=== PATIENT | female | born 2005 | race Caucasian/White ===

== ENCOUNTER 2023-03-02 08:04 | Outpatient (OUT) | payer OTHER, SELFPAY ==
--- NOTE | 2023-03-02 08:05 | US_ITS ---
[address] [address] Patient Name: SAMANTHA BLANCHARD MRN: [id number] date: 2005 Sex: F Assigned Patient Location: Current Patient Location: Accession/Order Number: [id number] Exam Date: 03/02/2023 08:06 Report Date: 03/03/2023 07:17 At the request of: RAÚL MONDRAGON Procedure: US OB cervical length EXAMINATION: US OB <= 14 weeks fetus, US OB cervical length HISTORY: MISSED MENSES VIABILITY COMPARISON: No relevant comparison available. FINDINGS: Renae intrauterine gestation Gestational sac: 5.9 cm, 12 weeks 0 days CRL: 6.5 cm, 12 weeks 6 days Heart rate: 140 beats minute The uterus is normal, anteverted Cervix: Closed, 4.2 cm The right ovary is normal measuring 2.7 x 0.9 x 2.2 cm. The left ovary is normal measuring 2.8 x 1.8 x 3.3 cm. Clinical age: 11 weeks 1 day Clinical KARON: 09/20/2023 Ultrasound age: 12 weeks 6 days Ultrasound KARON: 09/08/2023 US/US OB cervical length IMPRESSION: Viable renae intrauterine gestation measuring 12 weeks 6 days Electronically authenticated by: KELLY WALLACE Date: 03/03/2023 07:17
--- NOTE | 2023-03-02 09:50 | US_ITS ---
[address] [address] Patient Name: SAMANTHA BLANCHARD MRN: [id number] date: 2005 Sex: F Assigned Patient Location: US Current Patient Location: Accession/Order Number: [id number] Exam Date: 03/02/2023 08:06 Report Date: 03/03/2023 07:17 At the request of: RAÚL MONDRAGON Procedure: US OB <= 14 weeks fetus EXAMINATION: US OB <= 14 weeks fetus, US OB cervical length HISTORY: MISSED MENSES VIABILITY COMPARISON: No relevant comparison available. FINDINGS: Renae intrauterine gestation Gestational sac: 5.9 cm, 12 weeks 0 days CRL: 6.5 cm, 12 weeks 6 days Heart rate: 140 beats minute The uterus is normal, anteverted Cervix: Closed, 4.2 cm The right ovary is normal measuring 2.7 x 0.9 x 2.2 cm. The left ovary is normal measuring 2.8 x 1.8 x 3.3 cm. Clinical age: 11 weeks 1 day Clinical KARON: 09/20/2023 Ultrasound age: 12 weeks 6 days Ultrasound KARON: 09/08/2023 US/US OB <= 14 weeks fetus IMPRESSION: Viable renae intrauterine gestation measuring 12 weeks 6 days Electronically authenticated by: KELLY WALLACE Date: 03/03/2023 07:17
== END 2023-03-02 08:05 | disposition home or self-care (01) ==
LOC: US 08:04
PROVIDERS: Visit Provider Obstetrics & Gynecology
DX: Z34.91 Encounter for supervision of normal pregnancy, unspecified, first trimester (principal); N91.2 Amenorrhea, unspecified
CPT/HCPCS: 36415; 76801; 76817; 83036; 84443; 85025; 86592; 86762; 86803; 86850; 86900; 86901; 87086; 87150; 87186; 87340; 87389

== ENCOUNTER 2023-03-02 10:17 | Outpatient (OUT) | payer OTHER, SELFPAY ==
[2023-03-02 10:56] LABS: Estimated Average Glucose 108 mg/dL; Glycohemoglobin A1C 5.4 % (4.5-6.2)
[2023-03-02 11:02] LABS: Basophils Percent Auto 0.6 % (0.2-2.0); Eosinophils Percent Auto 0.6 % (0.9-7.0); Hematocrit 38.6 % (36.0-48.0); Hemoglobin 12.2 g/dL (12.0-16.0); Immature Granulocytes Abs Auto 0.02 10^3/uL (0.00-0.03); Immature Granulocytes Pct Auto 0.3 % (0.0-0.5); Lymphocytes Absolute Auto 3.1 10^3/uL (1.2-3.8); Mean Corpuscular HGB Conc 31.6 g/dL (29.9-35.2); Mean Corpuscular Hemoglobin 27.2 pg (26.7-34.0); Mean Platelet Volume 8.6 fL (9.5-13.5); Monocytes Absolute Auto 0.3 10^3/uL (0.3-0.8); Monocytes Percent Auto 4.9 % (1.7-12.0); Neutrophils Absolute Auto 2.8 10^3/uL (1.4-6.5); Neutrophils Percent Auto 44.6 % (43.0-75.0); Platelet Count 267 10^3/uL (150-450); Red Blood Count 4.49 10^6/uL (4.20-5.40); Red Cell Distribution Width 12.7 % (11.0-15.0); White Blood Count 6.3 10^3/uL (4.0-11.0)
[2023-03-02 11:08] LABS: Thyroid Stimulating Hormone 0.874 uIU/mL (0.516-4.130)
[2023-03-03 06:09] LABS: HBsAg Screen Negative (Negative); HCV Ab Non Reactive (Non Reactive); HIV Ab/p24 Ag Screen Non Reactive (Non Reactive); Rubella Antibodies, IgG 4.88 index (Immune >0.99)
[2023-03-03 12:09] LABS: Rapid Plasma Reagin, Quant Non Reactive titer (NonRea<1:1)
== END 2023-03-02 10:18 | disposition home or self-care (01) ==
LOC: LAB 10:19
PROVIDERS: Visit Provider Obstetrics & Gynecology
DX: N91.2 Amenorrhea, unspecified (principal)
CPT/HCPCS: 36415; 83036; 84443; 85025; 86592; 86762; 86803; 86850; 86900; 86901; 87086; 87150; 87186; 87340; 87389

== ENCOUNTER 2023-03-09 15:03 | Outpatient (OUT) | payer OTHER, SELFPAY | END 2023-03-09 15:04 | disposition home or self-care (01) | LOC: LAB 15:04 | PROVIDERS: Visit Provider Obstetrics & Gynecology | DX: Z34.80 Encounter for supervision of other normal pregnancy, unspecified trimester (principal); Z31.430 Encounter of female for testing for genetic disease carrier status for procreative management | CPT/HCPCS: 36415 ==

== ENCOUNTER 2023-03-31 10:03 | Outpatient (OUT) | payer OTHER, SELFPAY ==
[2023-04-02 01:06] LABS: AFP Value 26.5 ng/mL (.); Gestat. Age Based On Ultrasound (.); Insulin Dep Diabetes No (.); Maternal Age At EDD 19.9 yr (.); OSBR Risk 1 IN 10000 (.); Results Report (.)
== END 2023-03-31 10:04 | disposition home or self-care (01) ==
LOC: LAB 10:04
PROVIDERS: Visit Provider Obstetrics & Gynecology
DX: Z34.92 Encounter for supervision of normal pregnancy, unspecified, second trimester (principal)
CPT/HCPCS: 36415; 82105

== ENCOUNTER 2023-04-21 11:31 | Outpatient (OUT) | payer OTHER, SELFPAY ==
--- NOTE | 2023-04-21 11:33 | US_ITS ---
[address] [address] Patient Name: SAMANTHA BLANCHARD MRN: [id number] date: 2005 Sex: F Assigned Patient Location: US Current Patient Location: US Accession/Order Number: [id number] Exam Date: 04/21/2023 11:34 Report Date: 04/21/2023 16:50 At the request of: RAÚL MONDRAGON Procedure: US OB cervical length EXAMINATION: US OB anatomy, US OB cervical length HISTORY: ANATOMY COMPARISON: No relevant comparison available. TECHNIQUE: Transabdominal sonographic examination was performed for obstetrical and evaluation. FINDINGS: Number: 1 Heart Rate: 141.0 bpm H.B. /min Amniotic Fluid Volume: Subjectively normal position: Cephalic presentation, longitudinal lie Placental Location: POSTERIOR , grade 0. Placental edge 6.0 cm from the internal os Cervix Length: 4.6 cm, closed Normal anatomy: Lateral ventricles, cerebellum, posterior fossa, nose, lips, orbits, four-chamber heart, RVOT, LVOT, diaphragm, stomach, kidneys, abdominal cord insertion, bladder, umbilical arteries, three-vessel cord, spine, extremities Abnormality: Echogenic cardiac focus BIOMETRY: BPD: 4.7 cm 20 weeks 2 days , 64% HC: 17.5 cm 20 weeks 0 days, 41% AC: 14.5 cm 19 weeks 6 days, 38% FL: 3.3 cm 20 weeks 2 days , 54% EFW:329.5 grams; 12 ounces, 49% FL/AC: 22.7 FL/BPD: 69.6 HC/AC: 1.2 GESTATIONAL AGE: Age by EDC: 20 weeks 0 days Age by current US: 20 weeks 1 days KARON by current US: 09/07/2023 KARON by EDC: 09/08/2023 US/US OB cervical length IMPRESSION: Single echogenic cardiac focus, nonspecific Otherwise normal anatomy scan *Reference: [facility] Practice Guideline for the performance of Obstetric Ultrasound Examinations, March 21, 2007. Electronically authenticated by: KELLY WALLACE Date: 04/21/2023 16:50
--- NOTE | 2023-04-21 11:33 | US_ITS ---
[address] [address] Patient Name: SAMANTHA BLANCHARD MRN: [id number] date: 2005 Sex: F Assigned Patient Location: US Current Patient Location: US Accession/Order Number: [id number] Exam Date: 04/21/2023 11:34 Report Date: 04/21/2023 16:50 At the request of: RAÚL MONDRAGON Procedure: US OB anatomy EXAMINATION: US OB anatomy, US OB cervical length HISTORY: ANATOMY COMPARISON: No relevant comparison available. TECHNIQUE: Transabdominal sonographic examination was performed for obstetrical and evaluation. FINDINGS: Number: 1 Heart Rate: 141.0 bpm H.B. /min Amniotic Fluid Volume: Subjectively normal position: Cephalic presentation, longitudinal lie Placental Location: POSTERIOR , grade 0. Placental edge 6.0 cm from the internal os Cervix Length: 4.6 cm, closed Normal anatomy: Lateral ventricles, cerebellum, posterior fossa, nose, lips, orbits, four-chamber heart, RVOT, LVOT, diaphragm, stomach, kidneys, abdominal cord insertion, bladder, umbilical arteries, three-vessel cord, spine, extremities Abnormality: Echogenic cardiac focus BIOMETRY: BPD: 4.7 cm 20 weeks 2 days , 64% HC: 17.5 cm 20 weeks 0 days, 41% AC: 14.5 cm 19 weeks 6 days, 38% FL: 3.3 cm 20 weeks 2 days , 54% EFW:329.5 grams; 12 ounces, 49% FL/AC: 22.7 FL/BPD: 69.6 HC/AC: 1.2 GESTATIONAL AGE: Age by EDC: 20 weeks 0 days Age by current US: 20 weeks 1 days KARON by current US: 09/07/2023 KARON by EDC: 09/08/2023 US/US OB anatomy IMPRESSION: Single echogenic cardiac focus, nonspecific Otherwise normal anatomy scan *Reference: [facility] Practice Guideline for the performance of Obstetric Ultrasound Examinations, March 21, 2007. Electronically authenticated by: KELLY WALLACE Date: 04/21/2023 16:50
== END 2023-04-21 11:32 | disposition home or self-care (01) ==
LOC: US 11:32
PROVIDERS: Visit Provider Obstetrics & Gynecology
DX: Z34.92 Encounter for supervision of normal pregnancy, unspecified, second trimester (principal)
CPT/HCPCS: 76805; 76817

== ENCOUNTER 2023-05-20 09:22 | Outpatient (OUT) | payer OTHER, SELFPAY ==
--- NOTE | 2023-05-20 09:24 | US_ITS ---
The [address] [address] Patient Name: SAMANTHA BLANCHARD MRN: [id number] date: 2005 Sex: F Assigned Patient Location: US Current Patient Location: US Accession/Order Number: [id number] Exam Date: 05/20/2023 09:25 Report Date: 05/20/2023 15:15 At the request of: RAÚL MONDRAGON Procedure: US OB follow up EXAMINATION: US OB follow up HISTORY: ECHOGENIC FOCI in left cardiac ventricle; follow-up COMPARISON: Ultrasound OB anatomy 04/21/2023 FINDINGS: Presentation: Cephalic Heart rate: 134 bpm Anatomy: Echogenic focus within left ventricle of heart is again noted. GA: 24 weeks 1 day KARON: 09/08/2023 US/US OB follow up IMPRESSION: 1. Single live intrauterine . 2. Persistent echogenic focus within left cardiac ventricle; nonspecific but can be associated with the trisomy syndromes. Electronically authenticated by: JIL HAWTHORNE Date: 05/20/2023 15:15
== END 2023-05-20 09:23 | disposition home or self-care (01) ==
LOC: US 09:22
PROVIDERS: Visit Provider Obstetrics & Gynecology
DX: Z36.2 Encounter for other antenatal screening follow-up (principal); Z3A.24 24 weeks gestation of pregnancy
CPT/HCPCS: 76816

== ENCOUNTER 2023-05-21 09:52 | Outpatient (OUT) | payer OTHER, SELFPAY ==
[2023-05-21 11:44] LABS: Glucose 1 Hour 79 mg/dL
== END 2023-05-21 09:53 | disposition home or self-care (01) ==
LOC: LAB 09:54
PROVIDERS: Visit Provider Obstetrics & Gynecology
DX: Z13.1 Encounter for screening for diabetes mellitus (principal)
CPT/HCPCS: 36415; 82950

== ENCOUNTER 2023-06-17 11:02 | Outpatient (OUT) | payer OTHER, SELFPAY ==
--- NOTE | 2023-06-17 11:07 | US_ITS ---
[address] [address] Patient Name: SAMANTHA BLANCHARD MRN: [id number] date: 2005 Sex: F Assigned Patient Location: US Current Patient Location: US Accession/Order Number: [id number] Exam Date: 06/17/2023 11:08 Report Date: 06/17/2023 15:43 At the request of: RAÚL MONDRAGON Procedure: US OB follow up EXAMINATION: US OB follow up HISTORY: Echogenic focus of heart of fetus [id number] COMPARISON: Ultrasound OB follow-up 05/20/2023, ultrasound OB anatomy 04/21/2023 FINDINGS: Presentation: Cephalic Heart rate: 148 bpm Anatomy: 3 mm echogenic focus within left cardiac ventricle. GA: 28 weeks 1 day KARON: 09/08/2023 US/US OB follow up IMPRESSION: 1. Single live intrauterine . 2. Persistent echogenic focus within left cardiac ventricle. Electronically authenticated by: JIL HAWTHORNE Date: 06/17/2023 15:43
--- OUTSIDE RECORDS SUMMARY | 2023-06-17 11:09 | XMS_ITS | CCD ---
Author Name Unknown Address [address] [place] [address] [id number] [place] [address] Organization [facility] Care Team Providers Care Analytical Research Program Manager Name Role Phone [facility] [place] Unavailable DR MANUEL GALLEGOS Attending Unavailable DR MANUEL GALLEGOS Consulting Unavailable DR MANUEL GALLEGOS Admitting Unavailable Ellen Ortiz Unavailable SHAD Edward Emergency Provider [phone] NON STAFF Primary Care Provider Unavailabl e NON STAFF Primary Care Unavailable Toi Edward Attending Unavailable Toi Edward Admitting Unavailable RAÚL MONDRAGON Attending Unavailable Allergies Allergy Classification Reported Allergen(s) Allergy Type Date of Onset Reaction(s) Facility (1 source) Adhesive Tape Drug allergy [facility] Other (1 source) Penicillin G Drug Allergy [facility] Other (2 sources) Adhesive Tape; Translations: [adhesive tape] Propensity to adverse reactions [address] [place] [address] (2 sources) Penicillins; Translations: [Penicillins] Allergy to substance [address] [place] [address] Medications Current Medications Medication Drug Class(es) Dates Sig (Normalized) Sig (Original) clindamycin 150 mg oral capsule (1 source) Lincosamide Antibacterial Start: 02-15-2023 take 450 mg by mouth three times daily Clindamycin Hcl Active 450 MG PO Three times daily 90 February 15, 2023 12:00am methylPREDNISolone 4 mg oral tablet (1 source) Corticosteroid Start: 02-11-2023 Medrol 4 MG as directed Orally As Directed for 6 days Jan, Active ondansetron 4 mg oral tablet (2 sources) Serotonin-3 Receptor Antagonist take 1 tablet by mouth every four to six hours as needed for nausea and vomiting Ondansetron 4 MG DISSOLVE 1 (ONE) TABLET ON THE TONGUE EVERY 4 TO 6 HOURS NEEDED FOR NAUSEA and FOR VOMITING Oral for 3 Days Not-Taking take 1 tablet by mouth once lilliana y Zofran 4 MG 1 tablet Orally Once a day Active Vitamin 27-0.8 MG (1 source) take 1 tablet by julien th once daily Vitamin 27-0.8 MG 1 tablet Orally Once a day Active Completed/Discontinued Medications Medication Drug Class(es) Dates Sig (Normalized) Sig (Original) citalopram 10 mg oral tablet (1 source) Serotonin Reuptake Inhibitor take 1 tablet by mouth once daily Citalopram Hydrobromide 10 MG TAKE 1 TABLET BY MOUTH DAILY Oral for 30 Days Not-Taking famotidine 20 mg oral tablet (1 source) Histamine-2 Receptor Antagonist Famotidine 20 MG Oral for 14 Days Not-Taking fosfomycin 3000 mg powder for oral solution (1 source) take 3 g by mouth once Fosfomycin Tromethamine 3 GM mix 3 (THREE) GRAM DIRECTED and take BY MOUTH one TIME Oral for 1 Days Not-Taking hydrOXYzine hydrochloride 10 mg oral tablet (1 source) Antihistamine hydrOXYzine HCl 10 MG Oral for 15 Days Not-Taking loratadine 10 mg oral tablet (1 source) Loratadine 10 MG Oral for 30 Days Not-Taking predniSONE 20 mg oral tablet (1 source) predniSONE 20 MG Oral for 5 Days Not-Taking Problems Problem Classification Problem Date Documented Da te Episodic/Chronic Acute and chronic tonsillitis (4 sources) Acute tonsillitis, unspecified; Translations: [ACUTE TONSILLITIS UNSPECIFIED] Onset: 03-02-2022 Episodic Other eye disorders (1 source) Edema of unspecified eye, unspecified eyelid Episodic Other upper respiratory infections (2 sources) Pharyngitis; Translations: [Acute pharyngitis, unspecified] Onset: 02-14-2023 02-15-2023 Episodic Results Test Name Value Interpretation Reference Range Facility Alanine aminotransferase [En zymatic activity/volume] in Serum or PlasmaOrdered By: Toi Edward on 02-14-2023 ALT [Catalytic activity/Vol] 41 U/L 7-52 [facility] Albumin [Mass/volume] in Ser um or Plasma by Bromocresol green (BCG) dye binding methoOrdered By: Toi Edward on 02-14-2023 Albumin BCG dye [Mass/Vol] 4.1 g/dL 3.5-5.7 [facility] Alkaline phosphatase [Enzyma tic activity/volume] in Serum or PlasmaOrdered By: Toi Edward on 02-14-2023 ALP [Catalytic activity/Vol] 158 U/L 34-104 [facility] Aspartate aminotransferase [ Enzymatic activity/volume] in Serum or PlasmaOrdered By: Toi Edward on 02-14-2023 AST [Catalytic activity/Vol] 44 U/L 13-39 [facility] Basophils Auto (Bld) [#/Vol] Ordered By: Toi Edward on 02-14-2023 Basophils (Bld) [#/Vol] 0.1 10*3/uL 0.0-0.2 [facility] Basophils/100 WBC Auto (Bld) Ordered By: Toi Edward on 02-14-2023 Basophils/100 WBC (Bld) 0.5 % . F [facility] Bilirubin.total [Mass/volume ] in Serum or PlasmaOrdered By: Toi Edward on 02-14-2023 Bilirubin [Mass/Vol] 0.8 mg/dL 0.3-1.0 [facility] C reactive protein [Mass/vol ume] in Serum or PlasmaOrdered By: Toi Edward on 02-14-2023 CRP [Mass/Vol] 1.8 mg/dL 0.0-0.5 [facility] C-Reactive Proteinon 023 C-Reactive Protein 1.8 mg/dL High 0.0-0.5 [facility] Comment on above: Result Comment: PERF ORMED BY: [place] [address] PATHOLOGIST [employer] OPERATOR VEENA DYSON M.D. Performed By: #### S CAN CBC, ESR, CMP, CRP #### [address] Calcium [Mass/volume] in Ser um or PlasmaOrdered By: Toi Edward on 02-14-2023 Calcium [Mass/Vol] 9.4 mg/dL 8.6-10.3 [facility] Carbon dioxide, total [Moles /volume] in Serum or PlasmaOrdered By: Toi Edward on 02-14-2023 CO2 [Moles/Vol] 24.8 mmol/L 21.0-31.[address] [facility] Chloride [Moles/volume] in S cass or PlasmaOrdered By: Toi Edward on 02-14-2023 Chloride [Moles/Vol] 100 mmol/L 98-107 [facility] Comprehensive Metabolic Pane valentín 02-14-2023 Albumin [Mass/Vol] 4.1 g/dL Normal 3.5-5.7 [facility] Comment on above: Performed By: #### S CAN CBC, ESR, CMP, CRP #### [facility] [address] Albumin/Globulin [Mass ratio] 1.2 {ratio} Normal [facility] Comment on above: Performed By: #### S CAN CBC, ESR, CMP, CRP #### [facility] [address] ALP [Catalytic activity/Vol] 158 U/L High 34-104 [facility] Comment on above: Performed By: #### S CAN CBC, ESR, CMP, CRP #### [facility] [address] ALT [Catalytic activity/Vol] 41 U/L Normal 7-52 [facility] Comment on above: Performed By: #### S CAN CBC, ESR, CMP, CRP #### [facility] [address] Anion gap [Moles/Vol] 13.2 mmol/L Normal 6.0-15.0 [facility] Comment on above: Performed By: #### S CAN CBC, ESR, CMP, CRP #### [facility] [address] AST [Catalytic activity/Vol] 44 U/L High 13-39 [facility] Comment on above: Performed By: #### S CAN CBC, ESR, CMP, CRP #### [facility] [address] [place] [address] [place] Bilirubin [Mass/Vol] 0.8 mg/dL Normal 0.3-1.0 [facility] Comment on above: Performed By: #### S CAN CBC, ESR, CMP, CRP #### [facility] [address] Calcium [Mass/Vol] 9.4 mg/dL Normal 8.6-10.3 [facility] Comment on above: Performed By: #### S CAN CBC, ESR, CMP, CRP #### [facility] [address] Chloride [Moles/Vol] 100 mmol/L Normal 98-107 [facility] Comment on above: Performed By: #### S CAN CBC, ESR, CMP, CRP #### [facility] [address] CO2 [Moles/Vol] 24.8 mmol/L Normal 21.0-31.[address] [facility] Comment on above: Performed By: #### S CAN CBC, ESR, CMP, CRP #### [facility] [address] Creatinine [Mass/Vol] 0.77 mg/dL Normal 0.60-1.20 [facility] Comment on above: Performed By: #### S CAN CBC, ESR, CMP, CRP #### [facility] [address] Creatinine Clr Calc Pharmacy 115.98 [facility] Comment on above: Performed By: #### S CAN CBC, ESR, CMP, CRP #### [facility] [address] [place] [address] [place] GFR/1.73 sq M.predicted MDRD (S/P/Bld) [Vol rate/Area] mL/min/{1.73_m2} [facility] Comment on above: Performed By: #### S CAN CBC, ESR, CMP, CRP #### [facility] [address] Globulin (S) [Mass/Vol] 3.5 g/dL Normal [facility] Comment on above: Performed By: #### S CAN CBC, ESR, CMP, CRP #### [facility] [address] [place] [address] [place] Glucose [Mass/Vol] 85 mg/dL Normal 70-100 [facility] Comment on above: Result Comment: [place] Glucose Reference Range is dependent on time and content of last meal. Glucose of more than 200 mg/dL in a nonstressed, ambulatory subject supports the diagnosis of Diabetes Mellitus. ADA recommended reference range Performed By: #### S CAN CBC, ESR, CMP, CRP #### [facility] [address] Potassium [Moles/Vol] 4.0 mmol/L Normal 3.5-5.1 [facility] Comment on above: Performed By: #### S CAN CBC, ESR, CMP, CRP #### [facility] [address] Protein [Mass/Vol] 7.6 g/dL Normal 6.4-8.9 [facility] Comment on above: Performed By: #### S CAN CBC, ESR, CMP, CRP #### [facility] [address] [place] [address] [place] Sodium [Moles/Vol] 134 mmol/L Low 136-145 [facility] Comment on above: Performed By: #### S CAN CBC, ESR, CMP, CRP #### [facility] [address] [place] [address] [place] Urea nitrogen [Mass/Vol] 7 mg/dL Normal 7-25 [facility] Comment on above: Performed By: #### S CAN CBC, ESR, CMP, CRP #### [facility] [address] [place] [address] [place] Creatinine [Mass/volume] in Serum or PlasmaOrdered By: Toi Edward on 02-14-2023 Creatinine [Mass/Vol] 0.77 mg/dL 0.60-1.20 [facility] Eosinophils Auto (Bld) [#/Vo l]Ordered By: Toi Edward on 02-14-2023 Eosinophils (Bld) [#/Vol] 0.0 10*3/uL 0.0-0.45 [facility] Eosinophils/100 WBC Auto (Bl d)Ordered By: Toi Edward on 02-14-2023 Eosinophils/100 WBC (Bld) 0.2 % . [facility] Erythrocyte Sedimentation Ra deng 02-14-2023 ESR (Bld) [Velocity] 26 mm/h High 0-19 [facility] Comment on above: Result Comment: PERF ORMED BY: [facility] [address] [place] [address] PATHOLOGIST [employer] OPERATOR VEENA DYSON M.D. Performed By: #### S CAN CBC, ESR, CMP, CRP #### [facility] [address] Erythrocyte distribution wid th Auto (RBC) [Ratio]Ordered By: Toi Edward on 02-14-2023 Erythrocyte distribution width (RBC) [Ratio] 13.3 % 11.9-15.3 [facility] Erythrocyte sedimentation ra te by Photometric methodOrdered By: Toi Edward on 02-14-2023 ESR Photometric method (Bld) [Velocity] 26 mm/hr 0-19 [facility] Globulin Calc (S) [Mass/Vol] Ordered By: Toi Edward on 02-14-2023 Globulin (S) [Mass/Vol] 3.5 g/dL F [facility] Glucose [Mass/volume] in Ser um or PlasmaOrdered By: Toi Edwadr on 02-14-2023 Glucose [Mass/Vol] 85 mg/dL 70-100 [facility] Comment on above: ADA recommended refe rence rangeRandom Glucose Reference Range is dependent on time and content of last meal. Glucose of more than 200 mg/dL in a nonstressed, ambulatory subject supports the diagnosis of Diabetes Mellitus. Hematocrit Auto (Bld) [Volum e fraction]Ordered By: Toi Edward on 02-14-2023 Hematocrit (Bld) [Volume fraction] 38.7 % 34.0-46.4 [facility] Hemoglobin [Mass/volume] in BloodOrdered By: Toi Edward on 02-14-2023 Hemoglobin (Bld) [Mass/Vol] 13.1 g/dL 11.8-15.4 [facility] Leukocytes [#/volume] correc alem for nucleated erythrocytes in Blood by Automated counOrdered By: Toi Edward on 02-14-2023 WBC corrected for nucl RBC Auto (Bld) [#/Vol] 9.4 10*3/uL 3.8-11.6 [facility] Lymphocytes Auto (Bld) [#/Vo l]Ordered By: Toi Edward on 02-14-2023 Lymphocytes (Bld) [#/Vol] 4.5 10*3/uL 1.00-4.8 [facility] Lymphocytes/100 WBC Auto (Bl d)Ordered By: Toi Edward on 02-14-2023 Lymphocytes/100 WBC (Bld) 47.5 % . [facility] MCH Auto (RBC) [Entitic mass ]Ordered By: Toi Edward on 02-14-2023 MCH (RBC) [Entitic mass] 29.0 pg 24.7-34.3 [facility] MCHC Auto (RBC) [Mass/Vol]Or dered By: Toi Edward on 02-14-2023 MCHC (RBC) [Mass/Vol] 33.7 g/dL 32.0-35.0 [facility] MCV Auto (RBC) [Entitic vol] Ordered By: Toi Edward on 02-14-2023 MCV (RBC) [Entitic vol] 85.8 fL 80-[address] [facility] Monocyte distribution width [Entitic volume] in Blood by AutomatedOrdered By: Toi Edward on 02-14-2023 Monocyte distribution width Auto (Bld) [Entitic vol] 34.56 % 0.00-20.00 [facility] Comment on above: The predictive value of MDW for identifying sepsis in patients with hematological abnormalities has not been established Monocytes Auto (Bld) [#/Vol] Ordered By: Toi Edward on 02-14-2023 Monocytes (Bld) [#/Vol] 1.0 10*3/uL 0.0-0.8 [facility] Monocytes/100 WBC Auto (Bld) Ordered By: Toi Edward on 02-14-2023 Monocytes/100 WBC (Bld) 10.7 % . F [facility] Neutrophils Auto (Bld) [#/Vo l]Ordered By: Toi Edward on 02-14-2023 Neutrophils (Bld) [#/Vol] 3.9 10*3/uL 1.8-7.7 [facility] Neutrophils/100 WBC Auto (Bl d)Ordered By: Toi Edward on 02-14-2023 Neutrophils/100 WBC (Bld) 41.1 % . [facility] No Panel InformationOrdered By: Toi Edward on 02-14-2023 Estimated GFR (CKD-EPI) > 60.0 mL/Min [facility] Creatinine Clearance (Chem 115.98 [facility] Nucleated erythrocytes [Pres ence] in Blood by Automated countOrdered By: Toi Edward on 02-14-2023 Nucleated RBC Auto Ql (Bld) 0.3 /100{WBC} 0-0.5 [facility] Platelet adequacy [Presence] in Blood by Light microscopyOrdered By: Toi Edward on 02-14-2023 Platelets LM Ql (Bld) Normal Normal [facility] Platelet mean volume Auto (B ld) [Entitic vol]Ordered By: Toi Edward on 02-14-2023 Platelet mean volume (Bld) [Entitic vol] 7.6 fL 6.3-10.7 [facility] Platelet morphology finding [Identifier] in BloodOrdered By: Toi Edward on 02-14-2023 Platelet morphology finding Nom (Bld) Normal Normal [facility] Platelets Auto (Bld) [#/Vol] Ordered By: Toi Edward on 02-14-2023 Platelets (Bld) [#/Vol] 163 10*3/uL 150-450 [facility] Potassium [Moles/volume] in Serum or PlasmaOrdered By: Toi Edward on 02-14-2023 Potassium [Moles/Vol] 4.0 mmol/L 3.5-5.1 [facility] Protein [Mass/volume] in Ser um or PlasmaOrdered By: Toi Edward on 02-14-2023 Protein [Mass/Vol] 7.6 g/dL 6.4-8.9 [facility] Quick Strepon 02-14-2023 Quick Strep Streptococcus pyogenes Ag [Presence] in Throat by Rapid immunoassay Negative for Group A Strep Antigen Note 1 ---- NOTE 2 Results are those of a screening test. NOTE 3 If clinically indicated please order a culture. NOTE 4 ---- NOTE 5 Reference range = Negative PERFORMED BY: [place] [address] PATHOLOGIST [employer] OPERATOR VEENA DYSON M.D. [facility] Comment on above: Performed By: #### Q S, RFXSTPA #### [facility] [address] [place] [address] RBC Auto (Bld) [#/Vol]Ordere d By: Toi Edward on 02-14-2023 RBC (Bld) [#/Vol] 4.51 10*6/uL 3.60-5.00 [facility] RBC morphologyOrdered By: Den Edward on 02-14-2023 RBC morphology finding Nom (Bld) Normal Normal [facility] RFX Strep A Reflex Cult Only on 02-14-2023 RFX Strep A Reflex Cult Only Strep A Only Cult No Group A Beta Streptococcus Isolated 2 Days PERFORMED BY: [place] [address] PATHOLOGIST [employer] OPERATOR VEENA DYSON M.D. [facility] Comment on above: Performed By: #### Q S, RFXSTPA #### [facility] [address] [place] [address] Scan and CBCon 02-14-2023 Basophils (Bld) [#/Vol] 0.1 10*3/uL Normal 0.0-0.2 [facility] Comment on above: Performed By: #### S CAN CBC, ESR, CMP, CRP #### [facility] [address] [place] [address] Basophils/100 WBC (Bld) 0.5 % Normal . F [facility] Comment on above: Performed By: #### S CAN CBC, ESR, CMP, CRP #### [address] Eosinophils (Bld) [#/Vol] 0.0 10*3/uL Normal 0.0-0.45 [facility] Comment on above: Performed By: #### S CAN CBC, ESR, CMP, CRP #### [address] Eosinophils/100 WBC (Bld) 0.2 % Normal . [facility] Comment on above: Performed By: #### S CAN CBC, ESR, CMP, CRP #### [address] Erythrocyte distribution width (RBC) [Ratio] 13.3 % Normal 11.9-15.3 [facility] Comment on above: Performed By: #### S CAN CBC, ESR, CMP, CRP #### [address] Hematocrit (Bld) [Volume fraction] 38.7 % Normal 34.0-46.4 [facility] Comment on above: Performed By: #### S CAN CBC, ESR, CMP, CRP #### [address] Hemoglobin (Bld) [Mass/Vol] 13.1 g/dL Normal 11.8-15.4 [facility] Comment on above: Performed By: #### S CAN CBC, ESR, CMP, CRP #### [address] Lymphocytes (Bld) [#/Vol] 4.5 10*3/uL Normal 1.00-4.8 [facility] Comment on above: Performed By: #### S CAN CBC, ESR, CMP, CRP #### [address] Lymphocytes/100 WBC (Bld) 47.5 % Normal . [facility] Comment on above: Performed By: #### S CAN CBC, ESR, CMP, CRP #### [address] MCH (RBC) [Entitic mass] 29.0 pg Normal 24.7-34.3 [facility] Comment on above: Performed By: #### S CAN CBC, ESR, CMP, CRP #### [address] MCV (RBC) [Entitic vol] 85.8 fL Normal 80-[address] [facility] Comment on above: Performed By: #### S CAN CBC, ESR, CMP, CRP #### [address] Mean Corpuscular HGB Conc 33.7 g/dL Normal 32.0-35.0 [facility] Comment on above: Performed By: #### S CAN CBC, ESR, CMP, CRP #### [address] Monocytes (Bld) [#/Vol] 1.0 10*3/uL High 0.0-0.8 [facility] Comment on above: Performed By: #### S CAN CBC, ESR, CMP, CRP #### [address] Monocytes/100 WBC (Bld) 34.56 % High 0.00-20.[address] [facility] Comment on above: Result Comment: The predictive value of MDW for identifying sepsis in patients with hematological abnormalities has not been established Performed By: #### S CAN CBC, ESR, CMP, CRP #### [address] Monocytes/100 WBC (Bld) 10.7 % Normal . F [facility] Comment on above: Performed By: #### S CAN CBC, ESR, CMP, CRP #### [place] [address] [place] Neutrophils (Bld) [#/Vol] 3.9 10*3/uL Normal 1.8-7.7 [facility] Comment on above: Performed By: #### S CAN CBC, ESR, CMP, CRP #### [place] [address] [place] Neutrophils/100 WBC (Bld) 41.1 % Normal . [facility] Comment on above: Performed By: #### S CAN CBC, ESR, CMP, CRP #### [facility] [address] NRBC% 0.3 /100{WBC} Normal 0-0.5 [facility] Comment on above: Performed By: #### S CAN CBC, ESR, CMP, CRP #### [facility] [address] Platelet Estimate Normal Normal Normal [facility] Comment on above: Performed By: #### S CAN CBC, ESR, CMP, CRP #### [facility] [address] Platelet mean volume (Bld) [Entitic vol] 7.6 fL Normal 6.3-10.7 [facility] Comment on above: Performed By: #### S CAN CBC, ESR, CMP, CRP #### [facility] [address] Platelet Morphology Normal Normal Normal [facility] Comment on above: Performed By: #### S CAN CBC, ESR, CMP, CRP #### [facility] [address] Platelets (Bld) [#/Vol] 163 10*3/uL Normal 150-450 [facility] Comment on above: Performed By: #### S CAN CBC, ESR, CMP, CRP #### [facility] [address] RBC (Bld) [#/Vol] 4.51 10*6/uL Normal 3.60-5.00 [facility] Comment on above: Performed By: #### S CAN CBC, ESR, CMP, CRP #### [facility] [address] RBC morphology finding Nom (Bld) Normal Normal Normal [facility] Comment on above: Performed By: #### S CAN CBC, ESR, CMP, CRP #### [facility] [address] WBC (Bld) [#/Vol] 9.4 10*3/uL Normal 3.8-11.6 [facility] Comment on above: Performed By: #### S CAN CBC, ESR, CMP, CRP #### [facility] [address] Serum or plasma albumin/glob ulin mass ratioOrdered By: Toi Edward on 02-14-2023 Albumin/Globulin [Mass ratio] 1.2 {ratio} [facility] Serum or plasma anion gap de terminationOrdered By: Toi Edward on 02-14-2023 Anion gap [Moles/Vol] 13.2 mmol/L 6.0-15.0 [facility] Sodium [Moles/volume] in Ser um or PlasmaOrdered By: Toi Edward on 02-14-2023 Sodium [Moles/Vol] 134 mmol/L 136-145 [facility] Urea nitrogen [Mass/volume] in Serum or PlasmaOrdered By: Toi Edward on 02-14-2023 Urea nitrogen [Mass/Vol] 7 mg/dL 7-25 [facility] WBC Auto (Bld) [#/Vol]Ordere d By: Toi Edward on 02-14-2023 WBC (Bld) [#/Vol] 9.4 10*3/uL 3.8-11.6 [facility] CBC AUTO DIFFon 03-02-2022 BASO # 0.0 103/ul Normal 0.0-0.1 [facility] Comment on above: Performed By: #### C BC #### [facility] [address] [place] [address] Dr. Melinda López Basophils/100 WBC (Bld) 0.2 % Normal 0.2-2.0 [facility] Comment on above: Performed By: #### C BC #### [facility] [address] [address] [address] Melinda López EO # 0.0 103/ul Normal 0.0-0.7 [facility] Comment on above: Performed By: #### C BC #### [facility] [address] [address] [address] Melinda López Eosinophils/100 WBC (Bld) 0.1 % Critically low 0.9-7. 0 [facility] Comment on above: Performed By: #### C BC #### [facility] [address] [place] [address] Dr. Melinda López Erythrocyte distribution width (RBC) [Ratio] 13.0 % Normal 11.0-15.0 [facility] Comment on above: Performed By: #### C BC #### [facility] [address] [place] [address] Dr. Melinda López Hematocrit (Bld) [Volume fraction] 41.3 % Normal 36.0-48.0 [facility] Comment on above: Performed By: #### C BC #### [facility] [address] [place] [address] Dr. Melinda López Hemoglobin (Bld) [Mass/Vol] 13.2 g/dL Normal 12.0-16.0 [facility] Comment on above: Performed By: #### C BC #### [facility] [address] [place] [address] Dr. Melinda López IG # 0.15 10e3/ul Critically high 0.00-0.03 [facility] Comment on above: Performed By: #### C BC #### [facility] [address] [place] [address] Dr. Melinda López IG % 0.9 % Critically high 0.0-0.5 [facility] Comment on above: Performed By: #### C BC #### [facility] [address] [place] [address] Dr. Melinda López LYMPH # 1.1 103/ul Critically low 1.2-3.8 [facility] Comment on above: Performed By: #### C BC #### [facility] [address] [place] [address] Dr. Melinda López Lymphocytes/100 WBC (Bld) 6.6 % Critically low 20.5-6 0.0 [facility] Comment on above: Performed By: #### C BC #### [facility] [address] [place] [address] Dr. Melinda López MANUAL DIFF REQ NO Normal [facility] Comment on above: Performed By: #### C BC #### [facility] [address] [address] [address] Melinda López MCH (RBC) [Entitic mass] 28.1 pg Normal 26.7-34.0 [facility] Comment on above: Performed By: #### C BC #### [facility] [address] [place] [address] Dr. Melinda López MCHC (RBC) [Mass/Vol] 32.0 g/dL Normal 29.9-35.2 [facility] Comment on above: Performed By: #### C BC #### [facility] [address] [place] [address] Dr. Melinda López MCV (RBC) [Entitic vol] 88.1 fL Normal 81.0-99.0 [facility] Comment on above: Performed By: #### C BC #### [facility] [address] [place] [address] Dr. Melinda López MONO # 0.9 103/ul Critically high 0.3-0.8 [facility] Comment on above: Performed By: #### C BC #### [facility] [address] [place] [address] Dr. Melinda López Monocytes/100 WBC (Bld) 4.9 % Normal 1.7-12.0 [facility] Comment on above: Performed By: #### C BC #### [facility] [address] [place] [address] Dr. Melinda López NEUT # 15.0 103/ul Critically high 1.4-6.5 [facility] Comment on above: Performed By: #### C BC #### [facility] [address] [place] [address] Dr. Melinda López Neutrophils/100 WBC (Bld) 87.3 % Critically high 43.0- 75.0 [facility] Comment on above: Performed By: #### C BC #### [facility] [address] [place] [address] Dr. Melinda López Platelet mean volume (Bld) [Entitic vol] 9.4 fL Critically low 9.5-13.5 [facility] Comment on above: Performed By: #### C BC #### [facility] [address], [place] [address] Dr. Melinda López PLT 362 103/ul Normal 150-450 [facility] Comment on above: Performed By: #### C BC #### [facility] [address], [place] [address] Dr. Melinda López RBC 4.69 106/ul Normal 4.20-5.40 [facility] Comment on above: Performed By: #### C BC #### [facility] [address], [place] [address] Dr. Melinda López WBC 17.2 103/ul Critically high 4.0-11.0 [facility] Comment on above: Performed By: #### C BC #### [facility] [address], [place] [address] Dr. Melinda López MONOon 03-02-2022 Monocytes (Bld) [#/Vol] Negative Normal NEGATIVE T [facility] Comment on above: Performed By: #### M RADHA #### [facility] [address], [place] [address] Dr. Melinda López Vital Signs Date Time Vital Sign Value Performing Clinician Facility 02-15-2023 00:16-0400 Body temperature 99.3 [degF] SHAD Edward Work Phone: [facility] 02-15-2023 00:16-0400 Diastolic blood pressure 66 mm[Hg] SHAD Edward Work Phone: [facility] 02-15-2023 00:16-0400 Heart rate 91 /min SHAD Edward Work Phone: [facility] 02-15-2023 00:16-0400 Respiratory rate 16 /min SHAD Edward Work Phone: [facility] 02-15-2023 00:16-0400 SaO2% (BldA) [Mass fraction] 95 % SHAD Edward Work Phone: [facility] 02-15-2023 00:16-0400 Systolic blood pressure 121 mm[Hg] SHAD Edward Work Phone: [facility] 02-14-2023 20:07-0400 Body height 163.83 cm FLORENCIAFranco Edward Work Phone: [facility] 02-14-2023 20:07-0400 Body weight 74.25 kg PAFranco Edward Work Phone: [facility] 02-11-2023 15:40-0400 Body height 167.64 cm Ellen Ortiz Other [employer] Other 02-11-2023 15:40-0400 Body mass index (BMI) [Ratio] 27.18 kg/m2 Ellen Diana Other [employer] Other 02-11-2023 15:40-0400 Body temperature 96.9 [degF] Ellen Diana Other [employer] Other 02-11-2023 15:40-0400 Body weight 76.39 kg Ellen Diana Other [employer] Other 02-11-2023 15:40-0400 Diastolic blood pressure 78 mm[Hg] Ellen Diana Other [employer] Other 02-11-2023 15:40-0400 Respiratory rate 18 /min Ellen Diana Other [employer] Other 02-11-2023 15:40-0400 SaO2% (BldA) [Mass fraction] 98 % Ellen Ortiz Other [employer] Other 02-11-2023 15:40-0400 Systolic blood pressure 110 mm[Hg] Ellen Ortiz Other [employer] Other Encounters Encounter Date Encounter Type Care Provider Facility Start: 05-20-2023 End: 05-20-2023 ambulatory RAÚL MONDRAGON Not Available Start: 02-14-2023 End: 02-15-2023 Emergency department patient visit NON STAFF Facility:[facility] Start: 02-14-2023 End: 02-15-2023 Emergency department patient visit SHAD Edward Work Phone: [facility] Work Phone: Start: 02-11-2023 End: 02-11-2023 ambulatory Ellen Ortiz Other [facility] [employer] Other Start: 02-11-2023 Office outpatient ne w 20 minutes Ellen Ortiz [facility] Start: 03-02-2022 End: 03-03-2022 ambulatory [facility] Facility: Plan of Treatment Date Care Activity Detail Author Start: 02-14-2023 Streptococcus pyogen es Ag [Presence] in Throat Group A Strep Throat Culture [facility] Patient Education Sore Throat, A dult ED [facility] Work Phone: Patient referral [facility] Work Phone: Payers Date Payer Category Payer Self-pay 2022 Medicaid [id number] [id number] 2003 Unknown [id number] 1985 Unknown [id number] 1959 Unknown [id number] Unknown [id number] Social History Date Type Detail Facility Unknown if ever smoked [facility] [employer] Other Sex Assigned At Sex Assigned At Bir th [facility] [employer] Other Start: 02-14-2023 Tobacco smoking status NHIS Never smoked tobacco (finding) [facility] Start: 2005 Sex Assigned At Female F [facility] Evaluation note 02-11-2023 Note Date & Type Note Facility 02-11-2023 Evaluation note Encounter Date Diagnosis Assessment Notes Jan, Swelling of eyelid, unspecified laterality (ICD-10 - H02.849) Continue to apply cool compresses to your eyes. Take the Medrol Dosepak as prescribed until gone. Follow-up with your family physician if no improvement in 2 to 3 days. Go to the ER for worsening symptoms or concerns [facility] Other Evaluation note Note Date & Type Note Facility Evaluation note No assessment information availa ble [facility] Work Phone: Summary Purpose Family History No Family History Records FoundNo Family History Records FoundNo Family History Records Found Advance Directives No Advanced Directives Records Found Advance Directive Response Recorded Date/ Time Advance Directives No February 14, 2023 8:21pm Chief Complaint and Reason for Visit Chief Complaint throat swollen/bleed ing Additional Source Comments INFORMATION SOURCE (unrecogn ized section and content) DATE CREATED AUTHOR 03/21/2022 [facility] DATE CREATED AUTHOR AUTHOR'S ORGANIZ ATION 02/26/2023 [facility] DATE CREATED AUTHOR AUTHOR'S ORGANIZ ATION 05/22/2023 [facility] EPIC REASON FOR VISIT (unrecogniz ed section and content) FACE SWOLLEN Care Teams (unrecognized sec tion and content) Team Status: Active Member Role Status Dates NON STAFF Primary Care Provider Active Team Status: Inactive Member Role Status Dates Toi Edward PA-C Emergency Provider Active NON STAFF Primary Care Provider Active Goals (unrecognized section and content) Goals may be documented in a n alternate section FOR RECORDS PERTAINING TO PATIENTS WHO ARE OR HAVE BEEN ENROLLED IN A CHEMICAL DEPENDENCY/SUBSTANCEABUSE PROGRAM, SOME INFORMATION MAY BE OMITTED. This clinical summary was aggregated from multiple sources. Caution should be exercised in using it in the provision of clinical care. This summary normalizes information from multiple sources, and as a consequence, information in this document may materially change the coding, format and clinical context of patient data. In addition, data may be omitted in some cases. CLINICAL DECISIONS SHOULD BE BASED ON THE PRIMARY CLINICAL RECORDS. [facility] [employer] [facility]. provides no warranty or guarantee of the accuracy or completeness of information in this document.
== END 2023-06-17 11:03 | disposition home or self-care (01) ==
LOC: US 11:02
PROVIDERS: Visit Provider Obstetrics & Gynecology
DX: Z36.2 Encounter for other antenatal screening follow-up (principal); O35.BXX0 Maternal care for other (suspected) fetal abnormality and damage, fetal cardiac anomalies, not applicable or unspecified; Z3A.28 28 weeks gestation of pregnancy
CPT/HCPCS: 76816

== ENCOUNTER 2023-08-05 13:24 | Outpatient (OUT) | payer OTHER, SELFPAY ==
--- OUTSIDE RECORDS SUMMARY | 2023-08-05 13:31 | XMS_ITS | CCD ---
Author Name Unknown Address [address] [place] [address] [address] [place] [address] Organization [facility] Care Team Providers Care Environmental Compliance Engineer Name Role Phone [facility] Primary Care Unavailable DR MANUEL GALLEGOS Attending Unavailable DR MANUEL GALLEGOS Consulting Unavailable DR MANUEL GALLEGOS Admitting Unavailable Ellen Ortiz Unavailable SHAD Edward Emergency Provider NON STAFF Primary Care Provider Unavailabl e NON STAFF Primary Care Unavailable Toi Edward Attending Unavailable Toi Edward Admitting Unavailable GERMAN WAGNER Attending Unavailable RAÚL MONDRAGON Attending Unavailable GERMAN WAGNER Attending Unavailable RAÚL MONDRAGON Attending Unavailable Allergies Allergy Classification Reported Allergen(s) Allergy Type Date of Onset Reaction(s) Facility (1 source) Adhesive Tape Drug allergy [facility] [employer] Other (1 source) Penicillin G Drug Allergy [facility] [employer] Other (2 sources) Adhesive Tape; Translations: [adhesive tape] Propensity to adverse reactions [address] [place] [address] (2 sources) Penicillins; Translations: [Penicillins] Allergy to substance [address] [place] [address] Medications Current Medications Medication Drug Class(es) Dates Sig (Normalized) Sig (Original) clindamycin 150 mg oral capsule (1 source) Lincosamide Antibacterial Start: 02-15-2023 take 450 mg by mouth three times daily Clindamycin Hcl Active 450 MG PO Three times daily 90 10 February 15, 2023 12:00am methylPREDNISolone 4 mg [...] 02-14-2023 ALT [Catalytic activity/Vol] 41 U/L 7-52 [facility] Albumin [Mass/volume] in Ser um or Plasma by Bromocresol green (BCG) dye binding methoOrdered By: Toi Edward on 02-14-2023 Albumin BCG dye [Mass/Vol] 4.1 g/dL 3.5-5.7 [facility] Alkaline phosphatase [Enzyma tic activity/volume] in Serum or PlasmaOrdered By: Toi Edward on 02-14-2023 ALP [Catalytic activity/Vol] 158 U/L 34-104 [facility] Aspartate aminotransferase [ Enzymatic activity/volume] in Serum or PlasmaOrdered By: Toi Edward on 02-14-2023 AST [Catalytic activity/Vol] 44 U/L 13-39 [facility] Basophils Auto (Bld) [#/Vol] Ordered By: Toi Edward on 02-14-2023 Basophils (Bld) [#/Vol] 0.1 10*3/uL 0.0-0.2 [facility] Basophils/100 WBC Auto (Bld) Ordered By: Toi Edward on 02-14-2023 Basophils/100 WBC (Bld) 0.5 % . [facility] Bilirubin.total [Mass/volume ] in Serum or PlasmaOrdered By: Toi Edward on 02-14-2023 Bilirubin [Mass/Vol] 0.8 mg/dL 0.3-1.0 [facility] C reactive protein [Mass/vol ume] in Serum or PlasmaOrdered By: Toi Edward on 02-14-2023 CRP [Mass/Vol] 1.8 mg/dL 0.0-0.5 [facility] C-Reactive Proteinon 023 C-Reactive Protein 1.8 mg/dL High 0.0-0.5 [facility] Comment on above: Result Comment: PERF ORMED BY: [facility] [address] [place] [address] PATHOLOGIST TAILOR FITTER VEENA DYSON M.D. Performed By: #### S CAN CBC, ESR, CMP, CRP #### [facility] [address] Calcium [Mass/volume] in Ser um or PlasmaOrdered By: Toi Edward on 02-14-2023 Calcium [Mass/Vol] 9.4 mg/dL 8.6-10.3 [facility] Carbon dioxide, total [Moles /volume] in Serum or PlasmaOrdered By: Toi Edward on 02-14-2023 CO2 [Moles/Vol] 24.8 mmol/L 21.0-31.0 [facility] Chloride [Moles/volume] in S cass or PlasmaOrdered By: Toi Edward on 02-14-2023 Chloride [Moles/Vol] 100 mmol/L 98-107 [facility] Comprehensive Metabolic Pane valentín 02-14-2023 Albumin [Mass/Vol] 4.1 g/dL Normal 3.5-5.7 [facility] Comment on above: Performed By: #### S CAN CBC, ESR, CMP, CRP #### [facility] [address] Albumin/Globulin [Mass ratio] 1.2 {ratio} Normal [facility] Comment on above: Performed By: #### S CAN CBC, ESR, CMP, CRP #### [facility] [address] ALP [Catalytic activity/Vol] 158 U/L High 34-104 [facility] Comment on above: Performed By: #### S CAN CBC, ESR, CMP, CRP #### [facility] [address] ALT [Catalytic activity/Vol] 41 U/L Normal 7-52 [facility] Comment on above: Performed By: #### S CAN CBC, ESR, CMP, CRP #### [facility] [address] [place] [id number] [place] Anion gap [Moles/Vol] 13.2 mmol/L Normal 6.0-15.0 [facility] Comment on above: Performed By: #### S CAN CBC, ESR, CMP, CRP #### [facility] [address] [place] [id number] [place] AST [Catalytic activity/Vol] 44 U/L High 13-39 [facility] Comment on above: Performed By: #### S CAN CBC, ESR, CMP, CRP #### [facility] [address] Bilirubin [Mass/Vol] 0.8 mg/dL Normal 0.3-1.0 [facility] Comment on above: Performed By: #### S CAN CBC, ESR, CMP, CRP #### [facility] [address] Calcium [Mass/Vol] 9.4 mg/dL Normal 8.6-10.3 [facility] Comment on above: Performed By: #### S CAN CBC, ESR, CMP, CRP #### [facility] [address] Chloride [Moles/Vol] 100 mmol/L Normal 98-107 [facility] Comment on above: Performed By: #### S CAN CBC, ESR, CMP, CRP #### [facility] [address] CO2 [Moles/Vol] 24.8 mmol/L Normal 21.0-31.0 [facility] Comment on above: Performed By: #### S CAN CBC, ESR, CMP, CRP #### [facility] [address] [place] [address] [place] Creatinine [Mass/Vol] 0.77 mg/dL Normal 0.60-1.20 [facility] Comment on above: Performed By: #### S CAN CBC, ESR, CMP, CRP #### [facility] [address] [place] [address] [place] Creatinine Clr Calc Pharmacy 115.98 [facility] Comment on above: Performed By: #### S CAN CBC, ESR, CMP, CRP #### [facility] [address] [place] [address] [place] GFR/1.73 sq M.predicted MDRD (S/P/Bld) [Vol rate/Area] mL/min/{1.73_m2} [facility] Comment on above: Performed By: #### S CAN CBC, ESR, CMP, CRP #### [facility] [address] [place] [address] [place] Globulin (S) [Mass/Vol] 3.5 g/dL Normal F [facility] Comment on above: Performed By: #### S CAN CBC, ESR, CMP, CRP #### [facility] [address] Glucose [Mass/Vol] 85 mg/dL Normal 70-100 [facility] Comment on above: Result Comment: [place] Glucose Reference Range is dependent on time and content of last meal. Glucose of more than 200 mg/dL in a nonstressed, ambulatory subject supports the diagnosis of Diabetes Mellitus. ADA recommended reference range Performed By: #### S CAN CBC, ESR, CMP, CRP #### [facility] [address] Potassium [Moles/Vol] 4.0 mmol/L Normal 3.5-5.1 [facility] Comment on above: Performed By: #### S CAN CBC, ESR, CMP, CRP #### [facility] [address] Protein [Mass/Vol] 7.6 g/dL Normal 6.4-8.9 [facility] Comment on above: Performed By: #### S CAN CBC, ESR, CMP, CRP #### [facility] [address] [place] [address] [place] Sodium [Moles/Vol] 134 mmol/L Low 136-145 [facility] Comment on above: Performed By: #### S CAN CBC, ESR, CMP, CRP #### [facility] [address] [place] [address] [place] Urea nitrogen [Mass/Vol] 7 mg/dL Normal 7-25 [facility] Comment on above: Performed By: #### S CAN CBC, ESR, CMP, CRP #### [facility] [address] [place] [address] [place] Creatinine [Mass/volume] in Serum or PlasmaOrdered By: Toi Edward on 02-14-2023 Creatinine [Mass/Vol] 0.77 mg/dL 0.60-1.20 [facility] Eosinophils Auto (Bld) [#/Vo l]Ordered By: Toi Edward on 02-14-2023 Eosinophils (Bld) [#/Vol] 0.0 10*3/uL 0.0-0.45 [facility] Eosinophils/100 WBC Auto (Bl d)Ordered By: Toi Edward on 02-14-2023 Eosinophils/100 WBC (Bld) 0.2 % . [facility] Erythrocyte Sedimentation Ra deng 02-14-2023 ESR (Bld) [Velocity] 26 mm/h High 0-19 [facility] Comment on above: Result Comment: PERF ORMED BY: [facility] [address] [place] [address] PATHOLOGIST TAILOR FITTER VEENA DYSON M.D. Performed By: #### S CAN CBC, ESR, CMP, CRP #### [address] Erythrocyte distribution wid th Auto (RBC) [Ratio]Ordered By: Toi Edward on 02-14-2023 Erythrocyte distribution width (RBC) [Ratio] 13.3 % 11.9-15.3 [facility] Erythrocyte sedimentation ra te by Photometric methodOrdered By: Toi Edward on 02-14-2023 ESR Photometric method (Bld) [Velocity] 26 mm/hr 0-19 [facility] Globulin Calc (S) [Mass/Vol] Ordered By: Toi Edward on 02-14-2023 Globulin (S) [Mass/Vol] 3.5 g/dL [facility] Glucose [Mass/volume] in Ser um or PlasmaOrdered By: Toi Edward on 02-14-2023 Glucose [Mass/Vol] 85 mg/dL 70-100 [facility] Comment on above: ADA recommended refe rence rangeRandom Glucose Reference Range is dependent on time and content of last meal. Glucose of more than 200 mg/dL in a nonstressed, ambulatory subject supports the diagnosis of Diabetes Mellitus. Hematocrit Auto (Bld) [Volum e fraction]Ordered By: Toi Edward on 02-14-2023 Hematocrit (Bld) [Volume fraction] 38.7 % 34.0-46.4 [facility] Hemoglobin [Mass/volume] in BloodOrdered By: Toi Edward on 02-14-2023 Hemoglobin (Bld) [Mass/Vol] 13.1 g/dL 11.8-15.4 [facility] Leukocytes [#/volume] correc alem for nucleated erythrocytes in Blood by Automated counOrdered By: Toi Edward on 02-14-2023 WBC corrected for nucl RBC Auto (Bld) [#/Vol] 9.4 10*3/uL 3.8-11.6 [facility] Lymphocytes Auto (Bld) [#/Vo l]Ordered By: Toi Edward on 02-14-2023 Lymphocytes (Bld) [#/Vol] 4.5 10*3/uL 1.00-4.8 [facility] Lymphocytes/100 WBC Auto (Bl d)Ordered By: Toi Edward on 02-14-2023 Lymphocytes/100 WBC (Bld) 47.5 % . [facility] MCH Auto (RBC) [Entitic mass ]Ordered By: Toi Edward on 02-14-2023 MCH (RBC) [Entitic mass] 29.0 pg 24.7-34.3 [facility] MCHC Auto (RBC) [Mass/Vol]Or dered By: Toi Edward on 02-14-2023 MCHC (RBC) [Mass/Vol] 33.7 g/dL 32.0-35.0 [facility] MCV Auto (RBC) [Entitic vol] Ordered By: Toi Edward on 02-14-2023 MCV (RBC) [Entitic vol] 85.8 fL 80-100 [facility] Monocyte distribution width [Entitic volume] in Blood by AutomatedOrdered By: Toi Edward on 02-14-2023 Monocyte distribution width Auto (Bld) [Entitic vol] 34.56 % 0.00-20.00 [facility] Comment on above: The predictive value of MDW for identifying sepsis in patients with hematological abnormalities has not been established Monocytes Auto (Bld) [#/Vol] Ordered By: Toi Edward on 02-14-2023 Monocytes (Bld) [#/Vol] 1.0 10*3/uL 0.0-0.8 [facility] Monocytes/100 WBC Auto (Bld) Ordered By: Tio Edward on 02-14-2023 Monocytes/100 WBC (Bld) 10.7 % . [facility] Neutrophils Auto (Bld) [#/Vo l]Ordered By: Toi Edward on 02-14-2023 Neutrophils (Bld) [#/Vol] 3.9 10*3/uL 1.8-7.7 [facility] Neutrophils/100 WBC Auto (Bl d)Ordered By: Toi Edward on 02-14-2023 Neutrophils/100 WBC (Bld) 41.1 % . [facility] No Panel InformationOrdered By: Toi Edward on 02-14-2023 Estimated GFR (CKD-EPI) > 60.0 mL/Min [facility] Creatinine Clearance (Chem 115.98 [facility] Nucleated erythrocytes [Pres ence] in Blood by Automated countOrdered By: Toi Edward on 02-14-2023 Nucleated RBC Auto Ql (Bld) 0.3 /100{WBC} 0-0.5 [facility] Platelet adequacy [Presence] in Blood by Light microscopyOrdered By: Toi Edward on 02-14-2023 Platelets LM Ql (Bld) Normal Normal [facility] Platelet mean volume Auto (B ld) [Entitic vol]Ordered By: Toi Edward on 02-14-2023 Platelet mean volume (Bld) [Entitic vol] 7.6 fL 6.3-10.7 [facility] Platelet morphology finding [Identifier] in BloodOrdered By: Toi Edward on 02-14-2023 Platelet morphology finding Nom (Bld) Normal Normal [facility] Platelets Auto (Bld) [#/Vol] Ordered By: Toi Edward on 02-14-2023 Platelets (Bld) [#/Vol] 163 10*3/uL 150-450 [facility] Potassium [Moles/volume] in Serum or PlasmaOrdered By: Toi Edward on 02-14-2023 Potassium [Moles/Vol] 4.0 mmol/L 3.5-5.1 [facility] Protein [Mass/volume] in Ser um or PlasmaOrdered By: Toi Edward on 02-14-2023 Protein [Mass/Vol] 7.6 g/dL 6.4-8.9 [facility] Quick Strepon 02-14-2023 Quick Strep Streptococcus pyogenes Ag [Presence] in Throat by Rapid immunoassay Negative for Group A Strep Antigen Note 1 ---- NOTE 2 Results are those of a screening test. NOTE 3 If clinically indicated please order a culture. NOTE 4 ---- NOTE 5 Reference range = Negative PERFORMED BY: [place] [address] PATHOLOGIST TAILOR FITTER VEENA DYSON M.D. [facility] Comment on above: Performed By: #### Q S, RFXSTPA #### [facility] [address] [place] [address] RBC Auto (Bld) [#/Vol]Ordere d By: Toi Edward on 02-14-2023 RBC (Bld) [#/Vol] 4.51 10*6/uL 3.60-5.00 [facility] RBC morphologyOrdered By: Den Edward on 02-14-2023 RBC morphology finding Nom (Bld) Normal Normal [facility] RFX Strep A Reflex Cult Only on 02-14-2023 RFX Strep A Reflex Cult Only Strep A Only Cult No Group A Beta Streptococcus Isolated 2 Days PERFORMED BY: [place] [address] PATHOLOGIST TAILOR FITTER VEENA DYSON M.D. [facility] Comment on above: Performed By: #### Q S, RFXSTPA #### [facility] [address] [place] [address] Scan and CBCon 02-14-2023 Basophils (Bld) [#/Vol] 0.1 10*3/uL Normal 0.0-0.2 [facility] Comment on above: Performed By: #### S CAN CBC, ESR, CMP, CRP #### [facility] [address] [place] [address] [place] Basophils/100 WBC (Bld) 0.5 % Normal . [facility] Comment on above: Performed By: #### S CAN CBC, ESR, CMP, CRP #### [address] Eosinophils (Bld) [#/Vol] 0.0 10*3/uL Normal 0.0-0.45 [facility] Comment on above: Performed By: #### S CAN CBC, ESR, CMP, CRP #### [address] Eosinophils/100 WBC (Bld) 0.2 % Normal . [facility] Comment on above: Performed By: #### S CAN CBC, ESR, CMP, CRP #### [address] Erythrocyte distribution width (RBC) [Ratio] 13.3 % Normal 11.9-15.3 [facility] Comment on above: Performed By: #### S CAN CBC, ESR, CMP, CRP #### [address] Hematocrit (Bld) [Volume fraction] 38.7 % Normal 34.0-46.4 [facility] Comment on above: Performed By: #### S CAN CBC, ESR, CMP, CRP #### [address] Hemoglobin (Bld) [Mass/Vol] 13.1 g/dL Normal 11.8-15.4 [facility] Comment on above: Performed By: #### S CAN CBC, ESR, CMP, CRP #### [address] Lymphocytes (Bld) [#/Vol] 4.5 10*3/uL Normal 1.00-4.8 [facility] Comment on above: Performed By: #### S CAN CBC, ESR, CMP, CRP #### [address] Lymphocytes/100 WBC (Bld) 47.5 % Normal . [facility] Comment on above: Performed By: #### S CAN CBC, ESR, CMP, CRP #### [address] MCH (RBC) [Entitic mass] 29.0 pg Normal 24.7-34.3 [facility] Comment on above: Performed By: #### S CAN CBC, ESR, CMP, CRP #### [address] MCV (RBC) [Entitic vol] 85.8 fL Normal 80-100 [facility] Comment on above: Performed By: #### S CAN CBC, ESR, CMP, CRP #### [address] Mean Corpuscular HGB Conc 33.7 g/dL Normal 32.0-35.0 [facility] Comment on above: Performed By: #### S CAN CBC, ESR, CMP, CRP #### [address] Monocytes (Bld) [#/Vol] 1.0 10*3/uL High 0.0-0.8 [facility] Comment on above: Performed By: #### S CAN CBC, ESR, CMP, CRP #### [address] Monocytes/100 WBC (Bld) 34.56 % High 0.00-20.00 [facility] Comment on above: Result Comment: The predictive value of MDW for identifying sepsis in patients with hematological abnormalities has not been established Performed By: #### S CAN CBC, ESR, CMP, CRP #### [address] Monocytes/100 WBC (Bld) 10.7 % Normal . [facility] Comment on above: Performed By: #### S CAN CBC, ESR, CMP, CRP #### [address] Neutrophils (Bld) [#/Vol] 3.9 10*3/uL Normal 1.8-7.7 [facility] Comment on above: Performed By: #### S CAN CBC, ESR, CMP, CRP #### [place] [address] [place] Neutrophils/100 WBC (Bld) 41.1 % Normal . [facility] Comment on above: Performed By: #### S CAN CBC, ESR, CMP, CRP #### [facility] [address] NRBC% 0.3 /100{WBC} Normal 0-0.5 [facility] Comment on above: Performed By: #### S CAN CBC, ESR, CMP, CRP #### [address] Platelet Estimate Normal Normal Normal [facility] Comment on above: Performed By: #### S CAN CBC, ESR, CMP, CRP #### [address] Platelet mean volume (Bld) [Entitic vol] 7.6 fL Normal 6.3-10.7 [facility] Comment on above: Performed By: #### S CAN CBC, ESR, CMP, CRP #### [address] Platelet Morphology Normal Normal Normal [facility] Comment on above: Performed By: #### S CAN CBC, ESR, CMP, CRP #### [address] Platelets (Bld) [#/Vol] 163 10*3/uL Normal 150-450 [facility] Comment on above: Performed By: #### S CAN CBC, ESR, CMP, CRP #### [address] RBC (Bld) [#/Vol] 4.51 10*6/uL Normal 3.60-5.00 [facility] Comment on above: Performed By: #### S CAN CBC, ESR, CMP, CRP #### [address] RBC morphology finding Nom (Bld) Normal Normal Normal [facility] Comment on above: Performed By: #### S CAN CBC, ESR, CMP, CRP #### [address] WBC (Bld) [#/Vol] 9.4 10*3/uL Normal 3.8-11.6 [facility] Comment on above: Performed By: #### S CAN CBC, ESR, CMP, CRP #### [facility] [address] Serum or plasma albumin/glob ulin mass ratioOrdered By: Toi Edward on 02-14-2023 Albumin/Globulin [Mass ratio] 1.2 {ratio} [facility] Serum or plasma anion gap de terminationOrdered By: Toi Edward on 02-14-2023 Anion gap [Moles/Vol] 13.2 mmol/L 6.0-15.0 [facility] Sodium [Moles/volume] in Ser um or PlasmaOrdered By: Toi Edward on 02-14-2023 Sodium [Moles/Vol] 134 mmol/L 136-145 [facility] Urea nitrogen [Mass/volume] in Serum or PlasmaOrdered By: Toi Edward on 02-14-2023 Urea nitrogen [Mass/Vol] 7 mg/dL 7-25 [facility] WBC Auto (Bld) [#/Vol]Ordere d By: Toi Edward on 02-14-2023 WBC (Bld) [#/Vol] 9.4 10*3/uL 3.8-11.6 [facility] CBC AUTO DIFFon 03-02-2022 BASO # 0.0 103/ul Normal 0.0-0.1 [facility] Comment on above: Performed By: #### C BC #### [facility] [address] [place] [address] Dr. Melinda López Basophils/100 WBC (Bld) 0.2 % Normal 0.2-2.0 [facility] Comment on above: Performed By: #### C BC #### [facility] [address] [place] [address] [address] Melinda López EO # 0.0 103/ul Normal 0.0-0.7 [facility] Comment on above: Performed By: #### C BC #### [facility] [address] [place] [address] Dr. Melinda López Eosinophils/100 WBC (Bld) 0.1 % Critically low 0.9-7. 0 [facility] Comment on above: Performed By: #### C BC #### [facility] [address] [place] [address] Dr. Melinda López Erythrocyte distribution width (RBC) [Ratio] 13.0 % Normal 11.0-15.0 [facility] Comment on above: Performed By: #### C BC #### [facility] [address] [place] [address] [address] Melinda López Hematocrit (Bld) [Volume fraction] 41.3 % Normal 36.0-48.0 [facility] Comment on above: Performed By: #### C BC #### [facility] [address] [place] [address] Dr. Melinda López Hemoglobin (Bld) [Mass/Vol] 13.2 g/dL Normal 12.0-16.0 [facility] Comment on above: Performed By: #### C BC #### [facility] [address] [place] [address] Dr. Melinda López IG # 0.15 10e3/ul Critically high 0.00-0.03 [facility] Comment on above: Performed By: #### C BC #### [facility] [address] [place] [address] Dr. Melinda López IG % 0.9 % Critically high 0.0-0.5 [facility] Comment on above: Performed By: #### C BC #### [facility] [address] [place] [address] Dr. Melinda López LYMPH # 1.1 103/ul Critically low 1.2-3.8 [facility] Comment on above: Performed By: #### C BC #### [facility] [address] [place] [address] Dr. Melinda López Lymphocytes/100 WBC (Bld) 6.6 % Critically low 20.5-6 0.0 [facility] Comment on above: Performed By: #### C BC #### [facility] [address] [place] [address] Dr. Melinda López MANUAL DIFF REQ NO Normal [facility] Comment on above: Performed By: #### C BC #### [facility] [address] [place] [address] Dr. Melinda López MCH (RBC) [Entitic mass] 28.1 pg Normal 26.7-34.0 [facility] Comment on above: Performed By: #### C BC #### [facility] [address] [place] [address] Dr. Melinda López MCHC (RBC) [Mass/Vol] 32.0 g/dL Normal 29.9-35.2 [facility] Comment on above: Performed By: #### C BC #### [facility] [address] [place] [address] Dr. Melinda López MCV (RBC) [Entitic vol] 88.1 fL Normal 81.0-99.0 [facility] Comment on above: Performed By: #### C BC #### [facility] [address] [place] [address] Dr. Melinda López MONO # 0.9 103/ul Critically high 0.3-0.8 [facility] Comment on above: Performed By: #### C BC #### [facility] [address] [place] [address] Dr. Melinda López Monocytes/100 WBC (Bld) 4.9 % Normal 1.7-12.0 [facility] Comment on above: Performed By: #### C BC #### [facility] [address] [place] [address] Dr. Melinda López NEUT # 15.0 103/ul Critically high 1.4-6.5 [facility] Comment on above: Performed By: #### C BC #### [facility] [address] [place] [address] Dr. Melinda López Neutrophils/100 WBC (Bld) 87.3 % Critically high 43.0- 75.0 [facility] Comment on above: Performed By: #### C BC #### [facility] [address] [place] [address] Dr. Melinda López Platelet mean volume (Bld) [Entitic vol] 9.4 fL Critically low 9.5-13.5 [facility] Comment on above: Performed By: #### C BC #### [facility] [address] [place] [address] Dr. Melinda López PLT 362 103/ul Normal 150-450 [facility] Comment on above: Performed By: #### C BC #### [facility] [address] [place] [address] [address] Melnida López RBC 4.69 106/ul Normal 4.20-5.40 [facility] Comment on above: Performed By: #### C BC #### [facility] [address] [place] [address] Dr. Melinda López WBC 17.2 103/ul Critically high 4.0-11.0 [facility] Comment on above: Performed By: #### C BC #### [facility] [address] [place] [address] Dr. Melinda López MONOon 03-02-2022 Monocytes (Bld) [#/Vol] Negative Normal NEGATIVE T [facility] Comment on above: Performed By: #### M RADHA #### [facility] [address] [place] [address] Dr. Melinda López Vital Signs Date Time Vital Sign Value Performing Clinician Facility 02-15-2023 00:16-0400 Body temperature 99.3 [degF] SHAD Edward Work Phone: [facility] 02-15-2023 00:16-0400 Diastolic blood pressure 66 mm[Hg] SHAD Edward Work Phone: [facility] 02-15-2023 00:16-0400 Heart rate 91 /min SHAD Edward Work Phone: [facility] 02-15-2023 00:16-0400 Respiratory rate 16 /min SHAD Edward Work Phone: [facility] 02-15-2023 00:16-0400 SaO2% (BldA) [Mass fraction] 95 % FLORENCIAEdwardEvelyn Toi Edward Work Phone: [facility] 02-15-2023 00:16-0400 Systolic blood pressure 121 mm[Hg] FLORENCIAEdwardEvelyn Toi Edward Work Phone: [facility] 02-14-2023 20:07-0400 Body height 163.83 cm FLORENCIAEdwardEvelyn Toi Edward Work Phone: [facility] 02-14-2023 20:07-0400 Body weight 74.25 kg FLORENCIAEdwardEvelyn Toi Edward Work Phone: [facility] 02-11-2023 15:40-0400 Body height 167.64 cm Ellen Ortiz Other [employer] Other 02-11-2023 15:40-0400 Body mass index (BMI) [Ratio] 27.18 kg/m2 Ellen Ortiz Other [employer] Other 02-11-2023 15:40-0400 Body temperature 96.9 [degF] Ellen Ortiz Other [employer] Other 02-11-2023 15:40-0400 Body weight 76.39 kg Ellen Ortiz Other [employer] Other 02-11-2023 15:40-0400 Diastolic blood pressure 78 mm[Hg] Ellen Ortiz Other [employer] Other 02-11-2023 15:40-0400 Respiratory rate 18 /min Ellen Ortiz Other [employer] Other 02-11-2023 15:40-0400 SaO2% (BldA) [Mass fraction] 98 % Ellen Ortiz Other [employer] Other 02-11-2023 15:40-0400 Systolic blood pressure 110 mm[Hg] Ellen Diana Other [employer] Other Encounters Encounter Date Encounter Type Care Provider Facility Start: 07-20-2023 End: 07-20-2023 ambulatory GERMAN BERNARD Not Available Start: 07-06-2023 End: 07-06-2023 ambulatory RAÚL GIANCARLO Not Available Start: 06-17-2023 End: 06-17-2023 ambulatory GERMAN BERNARD Not Available Start: 05-20-2023 End: 05-20-2023 ambulatory RAÚL GIANCARLO Not Available Start: 02-14-2023 End: 02-15-2023 Emergency department patient visit NON STAFF Facility:[facility] Start: 02-14-2023 End: 02-15-2023 Emergency department patient visit SHAD Edward Work Phone: [facility] Work Phone: Start: 02-11-2023 End: 02-11-2023 ambulatory Ellen Ortiz Other [employer] Other Start: 02-11-2023 Office outpatient ne w 20 minutes Ellen Oritz [facility] Start: 03-02-2022 End: 03-03-2022 ambulatory [facility] Facility: Plan of Treatment Date Care Activity Detail Author Start: 02-14-2023 Streptococcus pyogen es Ag [Presence] in Throat Group A Strep Throat Culture [facility] Patient Education Sore Throat, A dult ED [facility] Work Phone: Patient referral [facility] Work Phone: Payers Date Payer Category Payer Self-pay 2022 Medicaid [id number] 2003 Unknown [id number] 2003 Unknown [id number] 2.16.84 [id number] 2003 Unknown [id number] 2003 Unknown [id number] 1985 Unknown [id number] 2.16.84 [id number] 1959 Unknown [id number] Unknown [id number] 2.16.8 [id number] Social History Date Type Detail Facility Unknown if ever smoked [facility] [employer] Other Sex Assigned At Sex Assigned At Bir th [facility] [employer] Other Start: 02-14-2023 Tobacco smoking status NHIS Never smoked tobacco (finding) [facility] Start: 2005 Sex Assigned At Female F [facility] Evaluation note 02-11-2023 Note Date & Type [...] the ER for worsening symptoms or concerns [facility] Other Evaluation note Note Date & Type Note Facility Evaluation note No assessment information availa ble [facility] Work Phone: Summary Purpose Family History No [...] and content) DATE CREATED AUTHOR 03/21/2022 [facility] DATE CREATED AUTHOR AUTHOR'S ORGANIZ ATION 02/26/2023 [facility] DATE CREATED AUTHOR AUTHOR'S ORGANIZ ATION 07/21/[address] [facility] EPIC REASON FOR VISIT (unrecogniz [...] BE BASED ON THE PRIMARY CLINICAL RECORDS. [facility] [employer] provides no warranty or guarantee of the accuracy or completeness of information in this document.
[2023-08-05 13:45] LABS: Basophils Percent Auto 0.3 % (0.2-2.0); Eosinophils Absolute Auto 0.1 10^3/uL (0.0-0.7); Eosinophils Percent Auto 0.5 % (0.9-7.0); Hematocrit 32.6 % (36.0-48.0); Hemoglobin 10.1 g/dL (12.0-16.0); Immature Granulocytes Abs Auto 0.06 10^3/uL (0.00-0.03); Immature Granulocytes Pct Auto 0.5 % (0.0-0.5); Lymphocytes Absolute Auto 2.3 10^3/uL (1.2-3.8); Lymphocytes Percent Auto 19.3 % (20.5-60.0); Mean Corpuscular Hemoglobin 27.4 pg (26.7-34.0); Mean Corpuscular Volume 88.3 fL (81.0-99.0); Mean Platelet Volume 9.1 fL (9.5-13.5); Monocytes Absolute Auto 0.8 10^3/uL (0.3-0.8); Monocytes Percent Auto 6.9 % (1.7-12.0); Neutrophils Absolute Auto 8.5 10^3/uL (1.4-6.5); Neutrophils Percent Auto 72.5 % (43.0-75.0); Platelet Count 319 10^3/uL (150-450); Red Blood Count 3.69 10^6/uL (4.20-5.40); Red Cell Distribution Width 12.7 % (11.0-15.0); White Blood Count 11.8 10^3/uL (4.0-11.0)
== END 2023-08-05 13:25 | disposition home or self-care (01) ==
LOC: LAB 13:25
PROVIDERS: PCP Obstetrics & Gynecology; Visit Provider Obstetrics & Gynecology
DX: Z13.1 Encounter for screening for diabetes mellitus (principal)
CPT/HCPCS: 36415; 85025

== ENCOUNTER 2023-08-11 21:21 | Outpatient (REF) | payer OTHER, SELFPAY ==
--- OUTSIDE RECORDS SUMMARY | 2023-08-11 21:24 | XMS_ITS | CCD ---
Author Name Unknown Address [address] [place] [address] [address] [place] [id number] Organization [facility] Care Team Providers Care Forestry Professor Name Role Phone [facility] Primary Care Unavailable DR MANUEL GALLEGOS Attending Unavailable ROSY, DR JACKSON Consulting Unavailable DR MANUEL GALLEGOS Admitting Unavailable Ellen Ortiz Unavailable SHAD Edward Emergency Provider NON STAFF Primary Care Provider Unavailabl e NON STAFF Primary Care Unavailable Toi Edward Attending Unavailable Toi Edward Admitting Unavailable GERMAN WAGNER Attending Unavailable RAÚL PRAJAPATI Attending Unavailable GERMAN WAGNER Attending Unavailable RAÚL PRAJAPATI Attending Unavailable RAÚL PRAJAPATI Attending Unavailable Unavailable Primary Care Provider Unavailabl e Allergies Allergy Classification Reported Allergen(s) Allergy Type Date of Onset Reaction(s) Facility (1 source) Adhesive Tape Drug allergy [facility] Other (4 sources) Penicillin G Drug Allergy 3 [facility] Other (2 sources) Adhesive Tape; Translations: [adhesive tape] Propensity to adverse reactions 3 [facility] (5 sources) Penicillins; Translations: [Penicillins] Allergy to substance 2 [facility] (3 sources) Wound Dressing Adhesive Drug Intolerance 3 [facility] Healthcare Medications Current Medications Medication Drug Class(es) Dates Sig (Normalized) Sig (Original) clindamycin 150 mg oral capsule (1 source) Lincosamide Antibacterial Start: 02-15-2023 take 450 mg by mouth three times daily Clindamycin Hcl Active 450 MG PO Three times daily 90 February 15, 2023 12:00am hydrOXYzine hydrochloride 10 mg oral tablet (4 sources) Antihistamine Start: 09-22-2022 take 1 tablet by mouth twice daily as needed hydrOXYzine HCl (Atarax) 10 MG tablet Take 10 mg by mouth 2 (two) times a day as needed 0 09/22/2022 Active loratadine 10 mg oral tablet (4 sources) Start: 02-23-2023 take 1 tablet by mouth in the morning loratadine (Claritin) 10 MG tablet Take 10 mg by mouth in the morning. 0 02/23/2023 Active Loratadine 10 MG Oral for 30 Days Not-Taking Magnesium (3 sources) take 1 capsule by mouth in the morning Magnesium 400 MG capsule Take 1 each by mouth in the morning. 0 Active methylPREDNISolone 4 mg oral tablet (1 source) Corticosteroid Start: 2022 Medrol 4 MG as directed Orally As Directed for 6 days Jan, Active ondansetron 4 mg disintegrating oral tablet (5 sources) Serotonin-3 Receptor Antagonist take 1 tablet by mouth every six hours as needed for nausea ondansetron ODT (Zofran-ODT) 4 MG disintegrating tablet Take 4 mg by mouth every 6 (six) hours if needed for nausea. 0 Active take 1 tablet by mouth once lilliana y Zofran 4 MG 1 tablet Orally Once a day Active Vit-Fe Fumarate-FA ( Plus/Iron) 27-1 MG tablet (3 sources) Start: 03-02-2023 End: 03-01-2024 take 1 tablet by mouth in the morning Vit-Fe Fumarate-FA ( Plus/Iron) 27-1 MG tablet Indications: First trimester Take 1 tablet by mouth in the morning. 30 tablet 11 03/02/2023 03/01/2024 Active Vitamin 27-0.8 MG (1 source) take 1 tablet by mouth once daily Vitamin 27-0.8 MG 1 tablet Orally Once a day Active pyridoxine hydrochloride 25 mg oral tablet (3 sources) take 1 tablet by mouth in the morning pyridoxine (Vitamin B-6) 25 MG tablet Take 25 mg by mouth in the morning. 0 Active vitamin b12 0.05 mg oral tablet (3 sources) Vitamin B12 cyanocobalamin (Vitamin B-12) 50 MCG tablet Take by mouth Daily 0 Active Completed/Discontinued Medications Medication Drug Class(es) Dates [...] one TIME Oral for 1 Days Not-Taking predniSONE 20 mg oral tablet (1 source) predniSONE 20 MG Oral for 5 Days Not-Taking Problems Problem Classification Problem Date Documented Da te Episodic/Chronic Acute and chronic tonsillitis (4 sources) Acute tonsillitis, unspecified; Translations: [ACUTE TONSILLITIS UNSPECIFIED] Onset: 03-02-2022 Episodic Other complications of (2 sources) Excessive growth affecting management of mother; Translations: [Maternal care for excessive growth, third trimester, not applicable or unspecified] 08-04-2023 Episodic Other eye disorders (1 source) Edema of unspecified eye, unspecified eyelid Episodic Other and delivery including normal (2 sources) Third trimester ; Translations: [Encounter for supervision of normal , unspecified, third trimester] 07-30-2023 Episodic Other upper respiratory infections (2 sources) Pharyngitis; Translations: [Acute pharyngitis, unspecified] Onset: 02-14-2023 02-15-2023 Episodic Results Test Name Value Interpretation Reference Range Facility ALL CBC WITH AUTO DIFFon BASOPHILS ABSOLUTE AUTO 0.0 N [facility] Basophils/100 WBC (Bld) 0.3 % 0.2 - 2.0 % [facility] Eosinophils/100 WBC (Bld) 0.5 % Low 0.9 - 7.0 % [facility] Erythrocyte distribution width (RBC) [Ratio] 12.7 % 11.0 - 15.0 % [facility] Hematocrit (Bld) [Volume fraction] 32.6 % Low 36.0 - 48.0 % [facility] Hemoglobin (Bld) [Mass/Vol] 10.1 g/dL Low 12.0 - 16.0 g/dL [facility] IMMATURE GRANULOCYTES ABS AUTO 0.06 High [facility] Immature granulocytes/100 WBC (Bld) 0.5 % 0.0 - 0.5 % [facility] Interpretation and review of laboratory results Abnormal [facility] LYMPHOCYTES ABSOLUTE AUTO 2.3 [facility] Lymphocytes/100 WBC (Bld) 19.3 % Low 20.5 - 60. 0 % [facility] MCH (RBC) [Entitic mass] 27.4 pg 26. 7 - 34.0 pg [facility] MCHC (RBC) [Mass/Vol] 31.0 g/dL 29.9 - 35.2 g/dL [facility] MCV (RBC) [Entitic vol] 88.3 fL 81.0 - 99.0 fL [facility] MONOCYTES ABSOLUTE AUTO 0.8 N [facility] Monocytes/100 WBC (Bld) 6.9 % 1.7 - 12.0 % [facility] NEUTROPHILS ABSOLUTE AUTO 8.5 High [facility] Neutrophils/100 WBC (Bld) 72.5 % 43.0 - 75. 0 % [facility] Platelet mean volume (Bld) [Entitic vol] 9.1 fL Low 9.5 - 13.5 fL [facility] EO # 0.1 [facility] PLT [address] [facility] RBC 3.69 Low [facility] WBC 11.8 High [facility] Urinalysis macro (dipstick) panel (U)on 08-04-2023 Bilirubin, UA Few Negative - 4(70) +++ mg/dL [facility] Blood, UA Positive Negative - 50 Carmine/mcL [facility] Clarity, UA Clear [facility] Color, UA Yellow [facility] Glucose, UA Negative Negative - 1999(110) ++++ mg/dL [facility] Interpretation and review of laboratory results Abnormal [facility] Ketones, UA Negative Negative - 160(16) ++++ mg/dL [facility] Leukocytes, UA Few Negative - 500+++ Josselyn/mcL [facility] Nitrite, UA Negative Negative - Positive [facility] pH, UA 6.0 5 - 9 [facility] Protein, UA Positive Negative - 1999(20) ++++ mg/dL [facility] Spec Grav, UA 1.030 1 - 1.03 [facility] Urobilinogen, UA 1.0 0.2 - 12 mg/dL [facility] Alanine aminotransferase [En zymatic activity/volume] in Serum or PlasmaOrdered By: Toi Edward on 02-14-2023 ALT [Catalytic activity/Vol] 41 U/L 7-52 [facility] Albumin [Mass/volume] in Ser um or Plasma by Bromocresol green (BCG) dye binding methoOrdered By: Toi Edward on 02-14-2023 Albumin BCG dye [Mass/Vol] 4.1 g/dL 3.5-5.7 [facility] Alkaline phosphatase [Enzyma tic activity/volume] in Serum or PlasmaOrdered By: Toi Edward on 02-14-2023 ALP [Catalytic activity/Vol] 158 U/L 34-104 [facility] Aspartate aminotransferase [ Enzymatic activity/volume] in Serum or PlasmaOrdered By: Toi Edward on 02-14-2023 AST [Catalytic activity/Vol] 44 U/L 13-39 [facility] Basophils Auto (Bld) [#/Vol] Ordered By: Toi Edward on 02-14-2023 Basophils (Bld) [#/Vol] 0.1 10*3/uL 0.0-0.2 [facility] Basophils/100 WBC Auto (Bld) Ordered By: Toi Edward on 02-14-2023 Basophils/100 WBC (Bld) 0.5 % . [facility] Bilirubin.total [Mass/volume ] in Serum or PlasmaOrdered By: Toi Edward on 02-14-2023 Bilirubin [Mass/Vol] 0.8 mg/dL 0.3-1.0 [facility] C reactive protein [Mass/vol ume] in Serum or PlasmaOrdered By: Toi Edward on 02-14-2023 CRP [Mass/Vol] 1.8 mg/dL 0.0-0.5 [facility] C-Reactive Proteinon 023 C-Reactive Protein 1.8 mg/dL High 0.0-0.5 [facility] Comment on above: Result Comment: PERF ORMED BY: [facility] [address] [place] [address] PATHOLOGIST BASEBALL HAND SEWER VEENA DYSON M.D. Performed By: #### S CAN CBC, ESR, CMP, CRP #### [facility] [address] Calcium [Mass/volume] in Ser um or PlasmaOrdered By: Toi Edward on 02-14-2023 Calcium [Mass/Vol] 9.4 mg/dL 8.6-10.3 [facility] Carbon dioxide, total [Moles /volume] in Serum or PlasmaOrdered By: Toi Edward on 02-14-2023 CO2 [Moles/Vol] 24.8 mmol/L 21.0-31.0 [facility] Chloride [Moles/volume] in S cass or PlasmaOrdered By: Toi Edward on 02-14-2023 Chloride [Moles/Vol] 100 mmol/L 98-107 [facility] Comprehensive Metabolic Pane valentín 02-14-2023 Albumin [Mass/Vol] 4.1 g/dL Normal 3.5-5.7 [facility] Comment on above: Performed By: #### S CAN CBC, ESR, CMP, CRP #### [facility] [address] Albumin/Globulin [Mass ratio] 1.2 {ratio} Normal [facility] Comment on above: Performed By: #### S CAN CBC, ESR, CMP, CRP #### [facility] [address] ALP [Catalytic activity/Vol] 158 U/L High 34-104 [facility] Comment on above: Performed By: #### S CAN CBC, ESR, CMP, CRP #### [facility] [address] [place] [address] [place] ALT [Catalytic activity/Vol] 41 U/L Normal 7-52 [facility] Comment on above: Performed By: #### S CAN CBC, ESR, CMP, CRP #### [facility] [address] Anion gap [Moles/Vol] 13.2 mmol/L Normal 6.0-15.0 [facility] Comment on above: Performed By: #### S CAN CBC, ESR, CMP, CRP #### [facility] [address] [place] [address] [place] AST [Catalytic activity/Vol] 44 U/L High 13-39 [facility] Comment on above: Performed By: #### S CAN CBC, ESR, CMP, CRP #### [facility] [address] [place] [address] [place] Bilirubin [Mass/Vol] 0.8 mg/dL Normal 0.3-1.0 [facility] Comment on above: Performed By: #### S CAN CBC, ESR, CMP, CRP #### [facility] [address] Calcium [Mass/Vol] 9.4 mg/dL Normal 8.6-10.3 [facility] Comment on above: Performed By: #### S CAN CBC, ESR, CMP, CRP #### [facility] [address] [place] [address] [place] Chloride [Moles/Vol] 100 mmol/L Normal 98-107 [facility] Comment on above: Performed By: #### S CAN CBC, ESR, CMP, CRP #### [facility] [address] [place] [address] [place] CO2 [Moles/Vol] 24.8 mmol/L Normal 21.0-31.0 [facility] Comment on above: Performed By: #### S CAN CBC, ESR, CMP, CRP #### [facility] [address] [place] [address] [place] Creatinine [Mass/Vol] 0.77 mg/dL Normal 0.60-1.20 [facility] Comment on above: Performed By: #### S CAN CBC, ESR, CMP, CRP #### [facility] [address] [place] [address] [place] Creatinine Clr Calc Pharmacy 115.98 Normal [facility] Comment on above: Performed By: #### S CAN CBC, ESR, CMP, CRP #### [facility] [address] [place] [address] [place] GFR/1.73 sq M.predicted MDRD (S/P/Bld) [Vol rate/Area] mL/min/{1.73_m2} Normal [facility] Comment on above: Performed By: #### S CAN CBC, ESR, CMP, CRP #### [facility] [address] [place] [address] [place] Globulin (S) [Mass/Vol] 3.5 g/dL Normal [facility] Comment on above: Performed By: #### S CAN CBC, ESR, CMP, CRP #### [facility] [address] Glucose [Mass/Vol] 85 mg/dL Normal 70-100 [facility] Comment on above: Result Comment: [facility] Glucose Reference Range is dependent on time and content of last meal. Glucose of more than 200 mg/dL in a nonstressed, ambulatory subject supports the diagnosis of Diabetes Mellitus. ADA recommended reference range Performed By: #### S CAN CBC, ESR, CMP, CRP #### [facility] [address] [place] [address] [place] Potassium [Moles/Vol] 4.0 mmol/L Normal 3.5-5.1 [facility] Comment on above: Performed By: #### S CAN CBC, ESR, CMP, CRP #### [facility] [address] [place] [address] [place] Protein [Mass/Vol] 7.6 g/dL Normal 6.4-8.9 [facility] Comment on above: Performed By: #### S CAN CBC, ESR, CMP, CRP #### [facility] [address] [place] [address] [place] Sodium [Moles/Vol] 134 mmol/L Low 136-145 [facility] Comment on above: Performed By: #### S CAN CBC, ESR, CMP, CRP #### [facility] [address] [place] [address] [place] Urea nitrogen [Mass/Vol] 7 mg/dL Normal 7-25 [facility] Comment on above: Performed By: #### S CAN CBC, ESR, CMP, CRP #### [facility] [address] [place] [address] [place] Creatinine [Mass/volume] in Serum or PlasmaOrdered By: Toi Edward on 02-14-2023 Creatinine [Mass/Vol] 0.77 mg/dL 0.60-1.20 [facility] Eosinophils Auto (Bld) [#/Vo l]Ordered By: Toi Edward on 02-14-2023 Eosinophils (Bld) [#/Vol] 0.0 10*3/uL 0.0-0.45 [facility] Eosinophils/100 WBC Auto (Bl d)Ordered By: Toi Edward on 02-14-2023 Eosinophils/100 WBC (Bld) 0.2 % . [facility] Erythrocyte Sedimentation Ra deng 02-14-2023 ESR (Bld) [Velocity] 26 mm/h High 0-19 [facility] Comment on above: Result Comment: PERF ORMED BY: [place] [address] PATHOLOGIST BASEBALL HAND SEWER VEENA DYSON M.D. Performed By: #### S CAN CBC, ESR, CMP, CRP #### [facility] [address] [place] [address] Erythrocyte distribution wid th Auto (RBC) [Ratio]Ordered By: Toi Edward on 02-14-2023 Erythrocyte distribution width (RBC) [Ratio] 13.3 % 11.9-15.3 [facility] Erythrocyte sedimentation ra te by Photometric methodOrdered By: Toi Edward on 02-14-2023 ESR Photometric method (Bld) [Velocity] 26 mm/hr 0-19 [facility] Globulin Calc (S) [Mass/Vol] Ordered By: Toi Edward on 02-14-2023 Globulin (S) [Mass/Vol] 3.5 g/dL [facility] Glucose [Mass/volume] in Ser um or PlasmaOrdered By: Toi Edward on 02-14-2023 Glucose [Mass/Vol] 85 mg/dL 70-100 [facility] Comment on above: ADA recommended refe rence rangeRandom Glucose Reference Range is dependent on time and content of last meal. Glucose of more than 200 mg/dL in a nonstressed, ambulatory subject supports the diagnosis of Diabetes Mellitus. Hematocrit Auto (Bld) [Volum e fraction]Ordered By: Toi Edward on 02-14-2023 Hematocrit (Bld) [Volume fraction] 38.7 % 34.0-46.4 [facility] Hemoglobin [Mass/volume] in BloodOrdered By: Toi Edward on 02-14-2023 Hemoglobin (Bld) [Mass/Vol] 13.1 g/dL 11.8-15.4 [facility] Leukocytes [#/volume] correc alem for nucleated erythrocytes in Blood by Automated counOrdered By: Toi Edward on 02-14-2023 WBC corrected for nucl RBC Auto (Bld) [#/Vol] 9.4 10*3/uL 3.8-11.6 [facility] Lymphocytes Auto (Bld) [#/Vo l]Ordered By: Toi Edward on 02-14-2023 Lymphocytes (Bld) [#/Vol] 4.5 10*3/uL 1.00-4.8 [facility] Lymphocytes/100 WBC Auto (Bl d)Ordered By: Toi Edward on 02-14-2023 Lymphocytes/100 WBC (Bld) 47.5 % . [facility] MCH Auto (RBC) [Entitic mass ]Ordered By: Toi Edward on 02-14-2023 MCH (RBC) [Entitic mass] 29.0 pg 24.7-34.3 [facility] MCHC Auto (RBC) [Mass/Vol]Or dered By: Toi Edward on 02-14-2023 MCHC (RBC) [Mass/Vol] 33.7 g/dL 32.0-35.0 [facility] MCV Auto (RBC) [Entitic vol] Ordered By: Toi Edward on 02-14-2023 MCV (RBC) [Entitic vol] 85.8 fL 80-100 [facility] Monocyte distribution width [Entitic volume] in Blood by AutomatedOrdered By: Toi Edward on 02-14-2023 Monocyte distribution width Auto (Bld) [Entitic vol] 34.56 % 0.00-20.00 [facility] Comment on above: The predictive value of MDW for identifying sepsis in patients with hematological abnormalities has not been established Monocytes Auto (Bld) [#/Vol] Ordered By: Toi Edward on 02-14-2023 Monocytes (Bld) [#/Vol] 1.0 10*3/uL 0.0-0.8 [facility] Monocytes/100 WBC Auto (Bld) Ordered By: Toi Edward on 02-14-2023 Monocytes/100 WBC (Bld) 10.7 % . [facility] Neutrophils Auto (Bld) [#/Vo l]Ordered By: Toi Edward on 02-14-2023 Neutrophils (Bld) [#/Vol] 3.9 10*3/uL 1.8-7.7 [facility] Neutrophils/100 WBC Auto (Bl d)Ordered By: Toi Edward on 02-14-2023 Neutrophils/100 WBC (Bld) 41.1 % . [facility] No Panel InformationOrdered By: Toi Edward on 02-14-2023 Estimated GFR (CKD-EPI) > 60.0 mL/Min [facility] Creatinine Clearance (Chem 115.98 [facility] Nucleated erythrocytes [Pres ence] in Blood by Automated countOrdered By: Toi Edward on 02-14-2023 Nucleated RBC Auto Ql (Bld) 0.3 /100{WBC} 0-0.5 [facility] Platelet adequacy [Presence] in Blood by Light microscopyOrdered By: Toi Edward on 02-14-2023 Platelets LM Ql (Bld) Normal Normal [facility] Platelet mean volume Auto (B ld) [Entitic vol]Ordered By: Toi Edward on 02-14-2023 Platelet mean volume (Bld) [Entitic vol] 7.6 fL 6.3-10.7 [facility] Platelet morphology finding [Identifier] in BloodOrdered By: Toi Edward on 02-14-2023 Platelet morphology finding Nom (Bld) Normal Normal [facility] Platelets Auto (Bld) [#/Vol] Ordered By: Toi Edward on 02-14-2023 Platelets (Bld) [#/Vol] 163 10*3/uL 150-450 [facility] Potassium [Moles/volume] in Serum or PlasmaOrdered By: Toi Edward on 02-14-2023 Potassium [Moles/Vol] 4.0 mmol/L 3.5-5.1 [facility] Protein [Mass/volume] in Ser um or PlasmaOrdered By: Toi Edward on 02-14-2023 Protein [Mass/Vol] 7.6 g/dL 6.4-8.9 [facility] Quick Strepon 02-14-2023 Quick Strep Streptococcus pyogenes Ag [Presence] in Throat by Rapid immunoassay Negative for Group A Strep Antigen Note 1 ------ NOTE 2 Results are those of a screening test. NOTE 3 If clinically indicated please order a culture. NOTE 4 ------ NOTE 5 Reference range = Negative PERFORMED BY: [place] [address] PATHOLOGIST BASEBALL HAND SEWER VEENA DYSON M.D. [facility] Comment on above: Performed By: #### Q S, RFXSTPA #### [facility] [address] [place] [address] RBC Auto (Bld) [#/Vol]Ordere d By: Toi Edward on 02-14-2023 RBC (Bld) [#/Vol] 4.51 10*6/uL 3.60-5.00 [facility] RBC morphologyOrdered By: Den Edward on 02-14-2023 RBC morphology finding Nom (Bld) Normal Normal [facility] RFX Strep A Reflex Cult Only on 02-14-2023 RFX Strep A Reflex Cult Only Strep A Only Cult No Group A Beta Streptococcus Isolated 2 Days PERFORMED BY: [place] [address] PATHOLOGIST BASEBALL HAND SEWER VEENA DYSON M.D. [facility] Comment on above: Performed By: #### Q S, RFXSTPA #### [facility] [address] [place] [address] Scan and CBCon 02-14-2023 Basophils (Bld) [#/Vol] 0.1 10*3/uL Normal 0.0-0.2 [facility] Comment on above: Performed By: #### S CAN CBC, ESR, CMP, CRP #### [facility] [address] [place] [address] Basophils/100 WBC (Bld) 0.5 % Normal . [facility] Comment on above: Performed By: #### S CAN CBC, ESR, CMP, CRP #### [facility] [address] [place] [address] Eosinophils (Bld) [#/Vol] 0.0 10*3/uL Normal 0.0-0.45 [facility] Comment on above: Performed By: #### S CAN CBC, ESR, CMP, CRP #### [facility] [address] [place] [address] Eosinophils/100 WBC (Bld) 0.2 % Normal . [facility] Comment on above: Performed By: #### S CAN CBC, ESR, CMP, CRP #### [facility] [address] [place] [address] Erythrocyte distribution width (RBC) [Ratio] 13.3 % Normal 11.9-15.3 [facility] Comment on above: Performed By: #### S CAN CBC, ESR, CMP, CRP #### [facility] [address] [place] [address] Hematocrit (Bld) [Volume fraction] 38.7 % Normal 34.0-46.4 [facility] Comment on above: Performed By: #### S CAN CBC, ESR, CMP, CRP #### [facility] [address] [place] [address] Hemoglobin (Bld) [Mass/Vol] 13.1 g/dL Normal 11.8-15.4 [facility] Comment on above: Performed By: #### S CAN CBC, ESR, CMP, CRP #### [facility] [address] [place] [address] Lymphocytes (Bld) [#/Vol] 4.5 10*3/uL Normal 1.00-4.8 [facility] Comment on above: Performed By: #### S CAN CBC, ESR, CMP, CRP #### [place] [address] [place] Lymphocytes/100 WBC (Bld) 47.5 % Normal . [facility] Comment on above: Performed By: #### S CAN CBC, ESR, CMP, CRP #### [facility] [address] [place] [address] [place] MCH (RBC) [Entitic mass] 29.0 pg Normal 24.7-34.3 [facility] Comment on above: Performed By: #### S CAN CBC, ESR, CMP, CRP #### [address] MCV (RBC) [Entitic vol] 85.8 fL Normal 80-100 [facility] Comment on above: Performed By: #### S CAN CBC, ESR, CMP, CRP #### [address] Mean Corpuscular HGB Conc 33.7 g/dL Normal 32.0-35.0 [facility] Comment on above: Performed By: #### S CAN CBC, ESR, CMP, CRP #### [place] [address] [place] Monocytes (Bld) [#/Vol] 1.0 10*3/uL High 0.0-0.8 [facility] Comment on above: Performed By: #### S CAN CBC, ESR, CMP, CRP #### [place] [address] [place] Monocytes/100 WBC (Bld) 34.56 % High 0.00-20.00 [facility] Comment on above: Result Comment: The predictive value of MDW for identifying sepsis in patients with hematological abnormalities has not been established Performed By: #### S CAN CBC, ESR, CMP, CRP #### [place] [address] [place] Monocytes/100 WBC (Bld) 10.7 % Normal . [facility] Comment on above: Performed By: #### S CAN CBC, ESR, CMP, CRP #### [place] [address] [place] Neutrophils (Bld) [#/Vol] 3.9 10*3/uL Normal 1.8-7.7 [facility] Comment on above: Performed By: #### S CAN CBC, ESR, CMP, CRP #### [facility] [facility] [address] Neutrophils/100 WBC (Bld) 41.1 % Normal . [facility] Comment on above: Performed By: #### S CAN CBC, ESR, CMP, CRP #### [facility] [address] NRBC% 0.3 /100{WBC} Normal 0-0.5 [facility] Comment on above: Performed By: #### S CAN CBC, ESR, CMP, CRP #### [address] Platelet Estimate Normal Normal Normal [facility] Comment on above: Performed By: #### S CAN CBC, ESR, CMP, CRP #### [address] Platelet mean volume (Bld) [Entitic vol] 7.6 fL Normal 6.3-10.7 [facility] Comment on above: Performed By: #### S CAN CBC, ESR, CMP, CRP #### [address] Platelet Morphology Normal Normal Normal [facility] Comment on above: Performed By: #### S CAN CBC, ESR, CMP, CRP #### [facility] [address] [place] [address] [place] Platelets (Bld) [#/Vol] 163 10*3/uL Normal 150-450 [facility] Comment on above: Performed By: #### S CAN CBC, ESR, CMP, CRP #### [facility] [address] [place] [address] [place] RBC (Bld) [#/Vol] 4.51 10*6/uL Normal 3.60-5.00 [facility] Comment on above: Performed By: #### S CAN CBC, ESR, CMP, CRP #### [place] [id number] [place] RBC morphology finding Nom (Bld) Normal Normal Normal [facility] Comment on above: Performed By: #### S CAN CBC, ESR, CMP, CRP #### [facility] [address] WBC (Bld) [#/Vol] 9.4 10*3/uL Normal 3.8-11.6 [facility] Comment on above: Performed By: #### S CAN CBC, ESR, CMP, CRP #### [facility] [address] Serum or plasma albumin/glob ulin mass ratioOrdered By: Toi Edward on 02-14-2023 Albumin/Globulin [Mass ratio] 1.2 {ratio} [facility] Serum or plasma anion gap de terminationOrdered By: Toi Edward on 02-14-2023 Anion gap [Moles/Vol] 13.2 mmol/L 6.0-15.0 [facility] Sodium [Moles/volume] in Ser um or PlasmaOrdered By: Toi Edward on 02-14-2023 Sodium [Moles/Vol] 134 mmol/L 136-145 [facility] Urea nitrogen [Mass/volume] in Serum or PlasmaOrdered By: Toi Edward on 02-14-2023 Urea nitrogen [Mass/Vol] 7 mg/dL 7-25 [facility] WBC Auto (Bld) [#/Vol]Ordere d By: Toi Edward on 02-14-2023 WBC (Bld) [#/Vol] 9.4 10*3/uL 3.8-11.6 [facility] CBC AUTO DIFFon 03-02-2022 BASO # 0.0 103/ul Normal 0.0-0.1 [facility] Comment on above: Performed By: #### C BC #### [facility] [address] [address] [address] Melinda López Basophils/100 WBC (Bld) 0.2 % Normal 0.2-2.0 [facility] Comment on above: Performed By: #### C BC #### [facility] [address] [address] [address] Melinda López EO # 0.0 103/ul Normal 0.0-0.7 [facility] Comment on above: Performed By: #### C BC #### [facility] [address] [place] [address] Dr. Melinda López Eosinophils/100 WBC (Bld) 0.1 % Critically low 0.9-7. 0 [facility] Comment on above: Performed By: #### C BC #### [facility] [address] [place] [address] Dr. Melinda López Erythrocyte distribution width (RBC) [Ratio] 13.0 % Normal 11.0-15.0 [facility] Comment on above: Performed By: #### C BC #### [facility] [address] [place] [address] Dr. Melinda López Hematocrit (Bld) [Volume fraction] 41.3 % Normal 36.0-48.0 [facility] Comment on above: Performed By: #### C BC #### [facility] [address] [place] [address] Dr. Melinda López Hemoglobin (Bld) [Mass/Vol] 13.2 g/dL Normal 12.0-16.0 [facility] Comment on above: Performed By: #### C BC #### [facility] [address] [place] [address] Dr. Melinda López IG # 0.15 10e3/ul Critically high 0.00-0.[address] [facility] Comment on above: Performed By: #### C BC #### [facility] [address] [place] [address] Dr. Melinda López IG % 0.9 % Critically high 0.0-0.5 [facility] Comment on above: Performed By: #### C BC #### [facility] [address] [place] [address] Dr. Melinda López LYMPH # 1.1 103/ul Critically low 1.2-3.8 [facility] Comment on above: Performed By: #### C BC #### [facility] [address] [place] [address] Dr. Melinda López Lymphocytes/100 WBC (Bld) 6.6 % Critically low 20.5-6 0.0 [facility] Comment on above: Performed By: #### C BC #### [facility] [address] [place] [address] Dr. Melinda López MANUAL DIFF REQ NO Normal [facility] Comment on above: Performed By: #### C BC #### [facility] [address] [place] [address] Dr. Melinda López MCH (RBC) [Entitic mass] 28.1 pg Normal 26.7-34.0 [facility] Comment on above: Performed By: #### C BC #### [facility] [address] [place] [address] Dr. Melinda López MCHC (RBC) [Mass/Vol] 32.0 g/dL Normal 29.9-35.2 [facility] Comment on above: Performed By: #### C BC #### [facility] [address] [place] [address] Dr. Melinda López MCV (RBC) [Entitic vol] 88.1 fL Normal 81.0-99.0 [facility] Comment on above: Performed By: #### C BC #### [facility] [address] [place] [address] Dr. Melinda López MONO # 0.9 103/ul Critically high 0.3-0.8 [facility] Comment on above: Performed By: #### C BC #### [facility] [address] [place] [address] Dr. Melinda López Monocytes/100 WBC (Bld) 4.9 % Normal 1.7-12.0 [facility] Comment on above: Performed By: #### C BC #### [facility] [address] [place] [address] Dr. Melinda López NEUT # 15.0 103/ul Critically high 1.4-6.5 [facility] Comment on above: Performed By: #### C BC #### [facility] [address] [place] [address] Dr. Melinda López Neutrophils/100 WBC (Bld) 87.3 % Critically high 43.0- 75.0 [facility] Comment on above: Performed By: #### C BC #### [facility] [address] [place] [address] Dr. Melinda López Platelet mean volume (Bld) [Entitic vol] 9.4 fL Critically low 9.5-13.5 [facility] Comment on above: Performed By: #### C BC #### [facility] [address] [place] [address] Dr. Melinda López PLT 362 103/ul Normal 150-450 [facility] Comment on above: Performed By: #### C BC #### [facility] [address] [place] [address] Dr. Melinda López RBC 4.69 106/ul Normal 4.20-5.40 [facility] Comment on above: Performed By: #### C BC #### [facility] [address] [place] [address] Dr. Melinda López WBC 17.2 103/ul Critically high 4.0-11.0 [facility] Comment on above: Performed By: #### C BC #### [facility] [address] [place] [address] Dr. Melinda López MONOon 03-02-2022 Monocytes (Bld) [#/Vol] Negative Normal NEGATIVE T [facility] Comment on above: Performed By: #### M RADHA #### [facility] [address] [place] [address] Dr. Melinda López Vital Signs Date Time Vital Sign Value Performing Clinician Facility 08-04-2023 11:10-050 Body mass index (BMI) [Ratio] 33.88 kg/m2 [employer] Work Phone: [facility] 08-04-2023 11:10-050 Body weight 89.54 kg [employer] Work Phone: [facility] 08-04-2023 11:10-0500 Diastolic blood pressure 68 mm[Hg] [employer] Work Phone: [facility] 08-04-2023 11:10-0500 Systolic blood pressure 114 mm[Hg] Raúl Prajapati DO Work Phone: [facility] 02-15-2023 00:16-0400 Body temperature 99.3 [degF] PA-C Toi Edward Work Phone: [facility] 02-15-2023 00:16-0400 Diastolic blood pressure 66 mm[Hg] PA-C Toi Edward Work Phone: [facility] 02-15-2023 00:16-0400 Heart rate 91 /min PA-C Toi Edward Work Phone: [facility] 02-15-2023 00:16-0400 Respiratory rate 16 /min PA-C Toi Edward Work Phone: [facility] 02-15-2023 00:16-0400 SaO2% (BldA) [Mass fraction] 95 % PA-C Toi Edward Work Phone: [facility] 02-15-2023 00:16-0400 Systolic blood pressure 121 mm[Hg] PA-C Toi Edward Work Phone: [facility] 02-14-2023 20:07-0400 Body height 163.83 cm PA-C Toi Edward Work Phone: [facility] 02-14-2023 20:07-0400 Body weight 74.25 kg PA-C Toi Edward Work Phone: [facility] 02-11-2023 15:40-0400 Body height 167.64 cm Ellen Ortiz Other [employer] Other 02-11-2023 15:40-0400 Body mass index (BMI) [Ratio] 27.18 kg/m2 Ellen Ortiz Other [employer] Other 02-11-2023 15:40-0400 Body temperature 96.9 [degF] Ellen Ortiz Other [employer] Other 02-11-2023 15:40-0400 Body weight 76.39 kg Ellen Ortiz Other [employer] Other 02-11-2023 15:40-0400 Diastolic blood pressure 78 mm[Hg] Ellen Ortiz Other [employer] Other 02-11-2023 15:40-0400 Respiratory rate 18 /min Ellen Ortiz Other [employer] Other 02-11-2023 15:40-0400 SaO2% (BldA) [Mass fraction] 98 % Ellen Ortiz Other [employer] Other 02-11-2023 15:40-0400 Systolic blood pressure 110 mm[Hg] Ellen Ortiz Other [employer] Other Encounters Encounter Date Encounter Type Care Provider Facility Start: 08-05-2023 Clinisync Result Encounter Raúl Victorina DO Work Phone: [facility] Unsolicited Start: 08-05-2023 [employer] Result Encounter Raúl Victorina DO Work Phone: [facility] Unsolicited Start: 08-04-2023 End: 08-04-2023 ambulatory RAÚL VICTORINA Not Available Start: 08-04-2023 End: 08-04-2023 Office outpatient visit 15 minutes Raúl Victorina DO Work Phone: [facility] Comment on above: Third trimester preg wanda; Excessive growth affecting management of in third trimester, single or unspecified fetus Start: 07-20-2023 End: 07-20-2023 ambulatory GERMAN WAGNER Not Available Start: 07-06-2023 End: 07-06-2023 ambulatory RAÚL VICTORINA Not Available Start: 06-17-2023 End: 06-17-2023 ambulatory GERMAN WAGNER Not Available Start: 05-20-2023 End: 05-20-2023 ambulatory RAÚL VICTORINA Not Available Start: 02-14-2023 End: 02-15-2023 Emergency department patient visit NON STAFF Facility:[facility] Start: 02-14-2023 End: 02-15-2023 Emergency department patient visit SHAD Edward Work Phone: [facility] Work Phone: Start: 02-11-2023 End: 02-11-2023 ambulatory Ellen Ortiz Other [employer] Other Start: 02-11-2023 Office outpatient ne w 20 minutes Ellen Ortiz [facility] [place] Start: 03-02-2022 End: 03-03-2022 ambulatory [facility] Facility: Procedures Date Procedure Procedure Detail Performing Clinician Start: 08-05-2023 ALL CBC WITH AUTO DIFF Raúl Victorina DO Work Phone: Start: 08-04-2023 Urnls dip stick/tabl et rgnt non-auto w/o micrscp Raúl Victorina DO Work Phone: Plan of Treatment Date Care Activity Detail Author Start: 08-11-2023 End: 08-11-2023 Patient encounter procedure 08/11/2023 10:30 AM EST Routine [facility] [address] [place] [address] Raúl Prajapati, DO [address] [place] [address] [facility] Start: 08-04-2023 End: 08-04-2024 US for US OB SCAN FOR GROWTH Imaging Routine Excessive growth affecting management of in third trimester, single or unspecified fetus Expected: 08/04/2023 (Approximate), Expires: 08/04/2024 [facility] Work Phone: Comment on above: Expected: 08/04/2023 (Approximate), Expires: 08/04/2024 Start: 02-14-2023 Streptococcus pyogen es Ag [Presence] in Throat Group A Strep Throat Culture [facility] Patient Education Sore Throat, Adult ED F [facility] Work Phone: Patient referral [facility] Work Phone: Payers Date Payer Category Payer Self-pay 2022 Medicaid [id number] 2022 Medicaid [employer] [place] [id number] 2022-Present [address] [place] [address] [id number] 2003 Unknown [id number] 2003 Unknown [id number] 2003 Unknown [id number] 2003 Unknown [id number] 2003 Unknown [id number] 1985 Unknown [id number] 1959 Unknown [id number] Unknown [id number] Social History Date Type Detail Facility Unknown if ever smoked [facility] Other Start: 04-07-2023 Sex Assigned At N [employer] Other Start: 02-14-2023 End: 04-07-2023 Tobacco smoking status NHIS Never smoked tobacco (finding) [facility] Start: 2003 Sex Assigned At Female F [facility] Start: 08-04-2023 Alcohol intake Lifetime non-d filiberto (finding) [facility] Start: 04-07-2023 History of Social function [facility] Start: 03-30-2023 Alcohol Comment Caffeine intak e: 1-2 cups per day [facility] Start: 12-16-2022 [facility] Start: 2003 Sex Assigned At Not on file [facility] History of Present illness Narrative 08-04-2023 Normadon Felipe, EPIFANIO - 08/04/2023 10:50 AM EST Note Date & Type Note Facility 08-04-2023 History of Presen t illness Narrative Reason for Appointment: Patient ID: Rosemary Batista is a 17 y.o. female who presents for Routine Visit Patient presents today for Return OB appointment. Current Medications: has a current medication list which includes the following prescription(s): hydroxyzine hcl, loratadine, cyanocobalamin, magnesium, ondansetron odt, plus/iron, and pyridoxine. Medical History: Active Ambulatory Problems Diagnosis Date Noted No Active Ambulatory Problems Resolved Ambulatory Problems Diagnosis Date Noted No Resolved Ambulatory Problems Past Medical History: Diagnosis Date COVID-02/2021 Hypertrophy of tonsil Family History Problem Relation Name Age of Onset Hypertension Father Hypertension Paternal Grandmother Social History Tobacco Use Smoking status: Never Smokeless tobacco: Not on file Substance Use Topics Alcohol use: Never Comment: Caffeine intake: 1-2 cups per day Drug use: Not on file History reviewed. No pertinent surgical history. Allergies Allergen Reactions Penicillin G Hives Penicillins Hives Wound Dressing Adhesive Other Reaction(s): Rash Review of Systems: Review of Systems Constitutional: Negative. HENT: Negative. Eyes: Negative. Respiratory: Negative. Cardiovascular: Negative. Gastrointestinal: Negative. Genitourinary: Negative. Musculoskeletal: Negative. Skin: Negative. Neurological: Negative. All other systems reviewed and are negative. Hematological: Negative. Endocrine: Negative. Allergic/Immunologic: Negative. Objective Physical Exam Constitutional: Appearance: Normal appearance. She is well-developed. Cardiovascular: Rate and Rhythm: Normal rate and regular rhythm. Pulmonary: Effort: Pulmonary effort is normal. Breath sounds: Normal breath sounds. Abdominal: General: Bowel sounds are normal. There is no distension. Palpations: Abdomen is soft. Tenderness: There is no abdominal tenderness. There is no guarding or rebound. Musculoskeletal: General: No swelling. Normal range of motion. Right lower leg: No edema. Left lower leg: No edema. Neurological: Mental Status: She is alert and oriented to person, place, and time. Skin: General: Skin is warm and dry. Psychiatric: Mood and Affect: Mood normal. Behavior: Behavior normal. Vitals and nursing note reviewed. Exam conducted with a gear machine operator general present. Vitals: Estimated body mass index is 33.88 kg/m as calculated from the following: Height as of 03/02/23: 5' 4 . Weight as of this encounter: 197 lb 6.4 oz. BP: 114/68 Patient's last menstrual period was 12/14/2022. Assessment/Plan Encounter Diagnosis Name Primary? Third trimester Patient presents today for a routine obstetrics appointment. Patient is currently 35w0d . Patient states she is doing well but has complaints of being tired due to current . Pt has low back pain- discussed heat and tylenol. Pt given growth ultrasound. Patient has verbalizes frequent movement. labor precautions was discussed/given and patient was instructed to perform kick counts three times a day. Follow Up: Patient is to return to office in 1 week for routine OB appointment. Documented by Norma Felipe LPN on behalf of: Raúl Prajapati DO documented in this encounter [facility] Evaluation note 02-11-2023 Note Date & Type [...] the ER for worsening symptoms or concerns [employer] Other Evaluation note Note Date & Type Note Facility Evaluation note No assessment information availa abraham [facility] Work Phone: Evaluation note Note Date & Type Note Facility Evaluation note Diagnosis Third trimester state, incidental Excessive growth affecting management of in third trimester, single or unspecified fetus documented in this encounter [facility] Summary Purpose Family History No Family History Records FoundNo Family History Records FoundNo Family History Records Found Advance Directives Advance Directive Response Recorded Date/ Time Advance Directives No February 14, 2023 8:21pm Chief Complaint and Reason for Visit Chief Complaint throat swollen/bleed ing Additional Source Comments INFORMATION SOURCE (unrecogn ized section and content) DATE CREATED AUTHOR 03/21/2022 [facility] DATE CREATED AUTHOR AUTHOR'S ORGANIZ ATION 02/26/2023 [facility] DATE CREATED AUTHOR AUTHOR'S ORGANIZ ATION 08/06/[address] [facility] EPIC REASON FOR VISIT (unrecogniz ed section and content) Reason Comments Routine Visit Care Teams (unrecognized sec tion and content) [...] BE BASED ON THE PRIMARY CLINICAL RECORDS. [facility] [employer] [facility]. provides no warranty or guarantee of the accuracy or completeness of information in this document.
== END 2023-08-11 21:22 | disposition home or self-care (01) ==
LOC: LAB 21:21
PROVIDERS: PCP Obstetrics & Gynecology; Visit Provider Obstetrics & Gynecology
DX: Z34.93 Encounter for supervision of normal pregnancy, unspecified, third trimester (principal)
CPT/HCPCS: 87081

== ENCOUNTER 2023-08-31 22:42 | Inpatient (IN) | payer OTHER, SELFPAY ==
--- OUTSIDE RECORDS SUMMARY | 2023-08-31 22:48 | XMS_ITS | CCD ---
Author Name Unknown Address [address] [place] [address] [id number] [place] [address] Organization [facility] Care Team Providers Care Clam Grader Name Role Phone [facility] Primary Care Unavailable DR MANUEL GALLEGOS Attending Unavailable ROSY, DR JACKSON Consulting Unavailable DR MANUEL GALLEGOS Admitting Unavailable Ellen Ortiz Unavailable SHAD Edward Emergency Provider [phone] NON STAFF Primary Care Provider Unavailmadelyn e NON STAFF Primary Care Unavailable Toi Edward Attending Unavailable Toi Edward Admitting Unavailable Unavailable Primary Care Provider Unavailmadelyn e GERMAN WAGNER Attending Unavailable RAÚL PRAJAPATI Attending Unavailable GERMAN WAGNER Attending Unavailable RAÚL PRAJAPATI Attending Unavailable RAÚL PRAJAPATI Attending Unavailable GERMAN WAGNER Attending Unavailable RAÚL PRAJAPATI Attending Unavailable RAÚL PRAJAPATI Attending Unavailable Allergies Allergy Classification Reported Allergen(s) Allergy Type Date of Onset Reaction(s) Facility (1 source) Adhesive Tape Drug allergy [facility] [employer] Other (4 sources) Penicillin G Drug Allergy 3 [facility] [employer] Other (2 sources) Adhesive Tape; Translations: [adhesive tape] Propensity to adverse reactions 3 [facility] (5 sources) Penicillins; Translations: [Penicillins] Allergy to substance 2 [facility] (3 sources) Wound Dressing Adhesive Drug Intolerance 3 [facility] Medications Current Medications Medication Drug Class(es) [...] by mouth in the morning. 30 tablet 03/02/2023 03/01/2024 Active Vitamin 27-0.8 MG (1 [...] AUTO DIFFon BASOPHILS ABSOLUTE AUTO 0.0 [facility] Basophils/100 WBC (Bld) 0.3 % 0.2 - 2.0 % [facility] Eosinophils/100 WBC (Bld) 0.5 % Low 0.9 - 7.0 % [facility] Erythrocyte distribution width (RBC) [Ratio] 12.7 % 11.0 - 15.0 % [facility] Hematocrit (Bld) [Volume fraction] 32.6 % Low 36.0 - 48.0 % [facility] Hemoglobin (Bld) [Mass/Vol] 10.1 g/dL Low 12.0 - 16.0 g/dL [facility] IMMATURE GRANULOCYTES ABS AUTO 0.06 High [facility] Immature granulocytes/100 WBC (Bld) 0.5 % 0.0 - 0.5 % [facility] Interpretation and review of laboratory results Abnormal [facility] LYMPHOCYTES ABSOLUTE AUTO 2.3 [facility] Lymphocytes/100 WBC (Bld) 19.3 % Low 20.5 - 60. 0 % [facility] MCH (RBC) [Entitic mass] 27.4 pg 26. 7 - 34.0 pg [facility] MCHC (RBC) [Mass/Vol] 31.0 g/dL 29.9 - 35.2 g/dL [facility] MCV (RBC) [Entitic vol] 88.3 fL 81.0 - 99.0 fL [facility] MONOCYTES ABSOLUTE AUTO 0.8 N [facility] Monocytes/100 WBC (Bld) 6.9 % 1.7 - 12.0 % [facility] NEUTROPHILS ABSOLUTE AUTO 8.5 High [facility] Neutrophils/100 WBC (Bld) 72.5 % 43.0 - 75. 0 % [facility] Platelet mean volume (Bld) [Entitic vol] 9.1 fL Low 9.5 - 13.5 fL [facility] TBH EO # 0.1 [facility] PLT [address] [facility] RBC 3.69 Low [facility] WBC 11.8 High [facility] Urinalysis macro (dipstick) panel (U)on 08-04-2023 Bilirubin, UA Few Negative - 4(70) +++ mg/dL [facility] Blood, UA Positive Negative - 50 Carmine/mcL [facility] Clarity, UA Clear [facility] Color, UA Yellow [facility] Glucose, UA Negative Negative - 1999(110) ++++ mg/dL [facility] Interpretation and review of laboratory results Abnormal [facility] Ketones, UA Negative Negative - 160(16) ++++ mg/dL [facility] Leukocytes, UA Few Negative - 500+++ Josselyn/mcL [facility] Nitrite, UA Negative Negative - Positive [facility] pH, UA 6.0 5 - 9 [facility] Protein, UA Positive Negative - 1999(20) ++++ mg/dL [facility] Spec Grav, UA 1.030 1 - 1.03 [facility] Urobilinogen, UA 1.0 0.2 - 12 mg/dL [facility] Alanine aminotransferase [En zymatic activity/volume] in Serum or PlasmaOrdered By: Toi Edward on 02-14-2023 ALT [Catalytic activity/Vol] 41 U/L 7-52 [facility] Albumin [Mass/volume] in Ser um or Plasma by Bromocresol green (BCG) dye binding methoOrdered By: Toi Edward on 02-14-2023 Albumin BCG dye [Mass/Vol] 4.1 g/dL 3.5-5.7 [facility] Alkaline phosphatase [Enzyma tic activity/volume] in Serum or PlasmaOrdered By: Toi Edward on 02-14-2023 ALP [Catalytic activity/Vol] 158 U/L 34-104 [facility] Aspartate aminotransferase [ Enzymatic activity/volume] in Serum or PlasmaOrdered By: Toi Edward on 02-14-2023 AST [Catalytic activity/Vol] 44 U/L 13-39 [facility] Basophils Auto (Bld) [#/Vol] Ordered By: Toi Edward on 02-14-2023 Basophils (Bld) [#/Vol] 0.1 10*3/uL 0.0-0.2 [facility] Basophils/100 WBC Auto (Bld) Ordered By: Toi Edward on 02-14-2023 Basophils/100 WBC (Bld) 0.5 % . [facility] Bilirubin.total [Mass/volume ] in Serum or PlasmaOrdered By: Toi Edward on 02-14-2023 Bilirubin [Mass/Vol] 0.8 mg/dL 0.3-1.0 [facility] C reactive protein [Mass/vol ume] in Serum or PlasmaOrdered By: Toi Edward on 02-14-2023 CRP [Mass/Vol] 1.8 mg/dL 0.0-0.5 [facility] C-Reactive Proteinon 023 C-Reactive Protein 1.8 mg/dL High 0.0-0.5 [facility] Comment on above: Result Comment: PERF ORMED BY: [place] [address] PATHOLOGIST ANDROID SOFTWARE ENGINEER VEENA DYSON M.D. Performed By: #### S CAN CBC, ESR, CMP, CRP #### [facility] [address] Calcium [Mass/volume] in Ser um or PlasmaOrdered By: Toi Edward on 02-14-2023 Calcium [Mass/Vol] 9.4 mg/dL 8.6-10.3 [facility] Carbon dioxide, total [Moles /volume] in Serum or PlasmaOrdered By: Toi Edward on 02-14-2023 CO2 [Moles/Vol] 24.8 mmol/L 21.0-31.0 [facility] Chloride [Moles/volume] in S cass or PlasmaOrdered By: Toi Edward on 02-14-2023 Chloride [Moles/Vol] 100 mmol/L 98-107 [facility] Comprehensive Metabolic Pane valentín 02-14-2023 Albumin [Mass/Vol] 4.1 g/dL Normal 3.5-5.7 [facility] Comment on above: Performed By: #### S CAN CBC, ESR, CMP, CRP #### [facility] [address] [place] [address] Albumin/Globulin [Mass ratio] 1.2 {ratio} Normal [facility] Comment on above: Performed By: #### S CAN CBC, ESR, CMP, CRP #### [facility] [address] [place] [address] [place] ALP [Catalytic activity/Vol] 158 U/L High 34-104 [facility] Comment on above: Performed By: #### S CAN CBC, ESR, CMP, CRP #### [facility] [address] [place] [address] [place] ALT [Catalytic activity/Vol] 41 U/L Normal 7-52 [facility] Comment on above: Performed By: #### S CAN CBC, ESR, CMP, CRP #### [facility] [address] [place] [address] Anion gap [Moles/Vol] 13.2 mmol/L Normal 6.0-15.0 [facility] Comment on above: Performed By: #### S CAN CBC, ESR, CMP, CRP #### [facility] [address] AST [Catalytic activity/Vol] 44 U/L High 13-39 [facility] Comment on above: Performed By: #### S CAN CBC, ESR, CMP, CRP #### [facility] [address] [place] [address] Bilirubin [Mass/Vol] 0.8 mg/dL Normal 0.3-1.0 [facility] Comment on above: Performed By: #### S CAN CBC, ESR, CMP, CRP #### [facility] [address] [place] [address] Calcium [Mass/Vol] 9.4 mg/dL Normal 8.6-10.3 [facility] Comment on above: Performed By: #### S CAN CBC, ESR, CMP, CRP #### [address] Chloride [Moles/Vol] 100 mmol/L Normal 98-107 [facility] Comment on above: Performed By: #### S CAN CBC, ESR, CMP, CRP #### [address] CO2 [Moles/Vol] 24.8 mmol/L Normal 21.0-31.0 [facility] Comment on above: Performed By: #### S CAN CBC, ESR, CMP, CRP #### [facility] [address] [place] [address] Creatinine [Mass/Vol] 0.77 mg/dL Normal 0.60-1.20 [facility] Comment on above: Performed By: #### S CAN CBC, ESR, CMP, CRP #### [facility] [address] [place] [address] [place] Creatinine Clr Calc Pharmacy 115.98 Normal [facility] Comment on above: Performed By: #### S CAN CBC, ESR, CMP, CRP #### [facility] [address] [place] [address] [place] GFR/1.73 sq M.predicted MDRD (S/P/Bld) [Vol rate/Area] mL/min/{1.73_m2} Normal [facility] Comment on above: Performed By: #### S CAN CBC, ESR, CMP, CRP #### [facility] [address] Globulin (S) [Mass/Vol] 3.5 g/dL Normal [facility] Comment on above: Performed By: #### S CAN CBC, ESR, CMP, CRP #### [facility] [address] Glucose [Mass/Vol] 85 mg/dL Normal 70-100 [facility] Comment on above: Result Comment: [facility] Glucose Reference Range is dependent on time and content of last meal. Glucose of more than 200 mg/dL in a nonstressed, ambulatory subject supports the diagnosis of Diabetes Mellitus. ADA recommended reference range Performed By: #### S CAN CBC, ESR, CMP, CRP #### [facility] [address] [place] [address] [place] Potassium [Moles/Vol] 4.0 mmol/L Normal 3.5-5.1 [facility] Comment on above: Performed By: #### S CAN CBC, ESR, CMP, CRP #### [facility] [address] [place] [address] [place] Protein [Mass/Vol] 7.6 g/dL Normal 6.4-8.9 [facility] Comment on above: Performed By: #### S CAN CBC, ESR, CMP, CRP #### [facility] [address] [place] [address] [place] Sodium [Moles/Vol] 134 mmol/L Low 136-145 [facility] Comment on above: Performed By: #### S CAN CBC, ESR, CMP, CRP #### [facility] [address] [place] [address] [place] Urea nitrogen [Mass/Vol] 7 mg/dL Normal 7-25 [facility] Comment on above: Performed By: #### S CAN CBC, ESR, CMP, CRP #### [facility] [address] [place] [id number] [facility] Creatinine [Mass/volume] in Serum or PlasmaOrdered By: Toi Edward on 02-14-2023 Creatinine [Mass/Vol] 0.77 mg/dL 0.60-1.20 [facility] Eosinophils Auto (Bld) [#/Vo l]Ordered By: Toi Edward on 02-14-2023 Eosinophils (Bld) [#/Vol] 0.0 10*3/uL 0.0-0.45 [facility] Eosinophils/100 WBC Auto (Bl d)Ordered By: Toi Edward on 02-14-2023 Eosinophils/100 WBC (Bld) 0.2 % . [facility] Erythrocyte Sedimentation Ra deng 02-14-2023 ESR (Bld) [Velocity] 26 mm/h High 0 [facility] Comment on above: Result Comment: PERF ORMED BY: [address] [place] [address] PATHOLOGIST [employer]RO[employer] SOFTWARE ENGINEER VEENA DYSON M.D. Performed By: #### S CAN CBC, ESR, CMP, CRP #### [facility] [address] [place] [address] Erythrocyte distribution wid th Auto (RBC) [Ratio]Ordered By: Toi Edward on 02-14-2023 Erythrocyte distribution width (RBC) [Ratio] 13.3 % 11.9-15.3 [facility] Erythrocyte sedimentation ra te by Photometric methodOrdered By: Toi Edward on 02-14-2023 ESR Photometric method (Bld) [Velocity] 26 mm/hr [facility] Globulin Calc (S) [Mass/Vol] Ordered By: Toi Edward on 02-14-2023 Globulin (S) [Mass/Vol] 3.5 g/dL [facility] Glucose [Mass/volume] in Ser um or PlasmaOrdered By: Toi Edward on 02-14-2023 Glucose [Mass/Vol] 85 mg/dL 70-100 [facility] Comment on above: ADA recommended refe rence rangeRandom Glucose Reference Range is dependent on time and content of last meal. Glucose of more than 200 mg/dL in a nonstressed, ambulatory subject supports the diagnosis of Diabetes Mellitus. Hematocrit Auto (Bld) [Volum e fraction]Ordered By: Toi Edward on 02-14-2023 Hematocrit (Bld) [Volume fraction] 38.7 % 34.0-46.4 [facility] Hemoglobin [Mass/volume] in BloodOrdered By: Toi Edward on 02-14-2023 Hemoglobin (Bld) [Mass/Vol] 13.1 g/dL 11.8-15.4 [facility] Leukocytes [#/volume] correc alem for nucleated erythrocytes in Blood by Automated counOrdered By: Toi Edward on 02-14-2023 WBC corrected for nucl RBC Auto (Bld) [#/Vol] 9.4 10*3/uL 3.8-11.6 [facility] Lymphocytes Auto (Bld) [#/Vo l]Ordered By: Toi Edward on 02-14-2023 Lymphocytes (Bld) [#/Vol] 4.5 10*3/uL 1.00-4.8 [facility] Lymphocytes/100 WBC Auto (Bl d)Ordered By: Toi Edward on 02-14-2023 Lymphocytes/100 WBC (Bld) 47.5 % . [facility] MCH Auto (RBC) [Entitic mass ]Ordered By: Toi Edward on 02-14-2023 MCH (RBC) [Entitic mass] 29.0 pg 24.7-34.3 [facility] MCHC Auto (RBC) [Mass/Vol]Or dered By: Toi Edward on 02-14-2023 MCHC (RBC) [Mass/Vol] 33.7 g/dL 32.0-35.0 [facility] MCV Auto (RBC) [Entitic vol] Ordered By: Toi Edward on 02-14-2023 MCV (RBC) [Entitic vol] 85.8 fL 80-100 [facility] Monocyte distribution width [Entitic volume] in Blood by AutomatedOrdered By: Toi Edward on 02-14-2023 Monocyte distribution width Auto (Bld) [Entitic vol] 34.56 % 0.00-20.00 [facility] Comment on above: The predictive value of MDW for identifying sepsis in patients with hematological abnormalities has not been established Monocytes Auto (Bld) [#/Vol] Ordered By: Toi Edward on 02-14-2023 Monocytes (Bld) [#/Vol] 1.0 10*3/uL 0.0-0.8 [facility] Monocytes/100 WBC Auto (Bld) Ordered By: Toi Edward on 02-14-2023 Monocytes/100 WBC (Bld) 10.7 % . [facility] Neutrophils Auto (Bld) [#/Vo l]Ordered By: Toi Edward on 02-14-2023 Neutrophils (Bld) [#/Vol] 3.9 10*3/uL 1.8-7.7 [facility] Neutrophils/100 WBC Auto (Bl d)Ordered By: Toi Edward on 02-14-2023 Neutrophils/100 WBC (Bld) 41.1 % . [facility] No Panel InformationOrdered By: Toi Edward on 02-14-2023 Estimated GFR (CKD-EPI) > 60.0 mL/Min [facility] Creatinine Clearance (Chem 115.98 [facility] Nucleated erythrocytes [Pres ence] in Blood by Automated countOrdered By: Toi Edward on 02-14-2023 Nucleated RBC Auto Ql (Bld) 0.3 /100{WBC} 0-0.5 [facility] Platelet adequacy [Presence] in Blood by Light microscopyOrdered By: Toi Edward on 02-14-2023 Platelets LM Ql (Bld) Normal Normal [facility] Platelet mean volume Auto (B ld) [Entitic vol]Ordered By: Toi Edward on 02-14-2023 Platelet mean volume (Bld) [Entitic vol] 7.6 fL 6.3-10.7 [facility] Platelet morphology finding [Identifier] in BloodOrdered By: Toi Edward on 02-14-2023 Platelet morphology finding Nom (Bld) Normal Normal [facility] Platelets Auto (Bld) [#/Vol] Ordered By: Toi Edward on 02-14-2023 Platelets (Bld) [#/Vol] 163 10*3/uL 150-450 [facility] Potassium [Moles/volume] in Serum or PlasmaOrdered By: Toi Edward on 02-14-2023 Potassium [Moles/Vol] 4.0 mmol/L 3.5-5.1 [facility] Protein [Mass/volume] in Ser um or PlasmaOrdered By: Toi Edward on 02-14-2023 Protein [Mass/Vol] 7.6 g/dL 6.4-8.9 [facility] Quick Strepon 02-14-2023 Quick Strep Streptococcus pyogenes Ag [Presence] in Throat by Rapid immunoassay Negative for Group A Strep Antigen Note 1 ------ NOTE 2 Results are those of a screening test. NOTE 3 If clinically indicated please order a culture. NOTE 4 ------ NOTE 5 Reference range = Negative PERFORMED BY: [place] [address] PATHOLOGIST ANDROID SOFTWARE ENGINEER VEENA DYSON M.D. [facility] Comment on above: Performed By: #### Q S, RFXSTPA #### [facility] [address] [place] [address] RBC Auto (Bld) [#/Vol]Ordere d By: Toi Edward on 02-14-2023 RBC (Bld) [#/Vol] 4.51 10*6/uL 3.60-5.00 [facility] RBC morphologyOrdered By: Den Edward on 02-14-2023 RBC morphology finding Nom (Bld) Normal Normal [facility] RFX Strep A Reflex Cult Only on 02-14-2023 RFX Strep A Reflex Cult Only Strep A Only Cult No Group A Beta Streptococcus Isolated 2 Days PERFORMED BY: [facility] [address] [place] [address] PATHOLOGIST ANDROID SOFTWARE ENGINEER VEENA DYSON M.D. [facility] Comment on above: Performed By: #### Q S, RFXSTPA #### [facility] [address] [place], [place] [id number] [facility] Scan and CBCon 02-14-2023 Basophils (Bld) [#/Vol] 0.1 10*3/uL Normal 0.0-0.2 [facility] Comment on above: Performed By: #### S CAN CBC, ESR, CMP, CRP #### [facility] [address] Basophils/100 WBC (Bld) 0.5 % Normal . [facility] Comment on above: Performed By: #### S CAN CBC, ESR, CMP, CRP #### [facility] [address] [place] [address] Eosinophils (Bld) [#/Vol] 0.0 10*3/uL Normal 0.0-0.45 [facility] Comment on above: Performed By: #### S CAN CBC, ESR, CMP, CRP #### [facility] [address] [place] [address] Eosinophils/100 WBC (Bld) 0.2 % Normal . [facility] Comment on above: Performed By: #### S CAN CBC, ESR, CMP, CRP #### [facility] [address] [place] [address] Erythrocyte distribution width (RBC) [Ratio] 13.3 % Normal 11.9-15.3 [facility] Comment on above: Performed By: #### S CAN CBC, ESR, CMP, CRP #### [address] Hematocrit (Bld) [Volume fraction] 38.7 % Normal 34.0-46.4 [facility] Comment on above: Performed By: #### S CAN CBC, ESR, CMP, CRP #### [address] Hemoglobin (Bld) [Mass/Vol] 13.1 g/dL Normal 11.8-15.4 [facility] Comment on above: Performed By: #### S CAN CBC, ESR, CMP, CRP #### [facility] [address] [place] [address] Lymphocytes (Bld) [#/Vol] 4.5 10*3/uL Normal 1.00-4.8 [facility] Comment on above: Performed By: #### S CAN CBC, ESR, CMP, CRP #### [address] Lymphocytes/100 WBC (Bld) 47.5 % Normal . [facility] Comment on above: Performed By: #### S CAN CBC, ESR, CMP, CRP #### [address] MCH (RBC) [Entitic mass] 29.0 pg Normal 24.7-34.3 [facility] Comment on above: Performed By: #### S CAN CBC, ESR, CMP, CRP #### [address] MCV (RBC) [Entitic vol] 85.8 fL Normal 80-100 [facility] Comment on above: Performed By: #### S CAN CBC, ESR, CMP, CRP #### [address] Mean Corpuscular HGB Conc 33.7 g/dL Normal 32.0-35.0 [facility] Comment on above: Performed By: #### S CAN CBC, ESR, CMP, CRP #### [address] Monocytes (Bld) [#/Vol] 1.0 10*3/uL High 0.0-0.8 [facility] Comment on above: Performed By: #### S CAN CBC, ESR, CMP, CRP #### [address] Monocytes/100 WBC (Bld) 34.56 % High 0.00-20.00 [facility] Comment on above: Result Comment: The predictive value of MDW for identifying sepsis in patients with hematological abnormalities has not been established Performed By: #### S CAN CBC, ESR, CMP, CRP #### [address] Monocytes/100 WBC (Bld) 10.7 % Normal . [facility] Comment on above: Performed By: #### S CAN CBC, ESR, CMP, CRP #### [facility] [address] [place] [address] [place] Neutrophils (Bld) [#/Vol] 3.9 10*3/uL Normal 1.8-7.7 [facility] Comment on above: Performed By: #### S CAN CBC, ESR, CMP, CRP #### [facility] [address] Neutrophils/100 WBC (Bld) 41.1 % Normal . [facility] Comment on above: Performed By: #### S CAN CBC, ESR, CMP, CRP #### [facility] [address] NRBC% 0.3 /100{WBC} Normal 0-0.5 [facility] Comment on above: Performed By: #### S CAN CBC, ESR, CMP, CRP #### [facility] [address] Platelet Estimate Normal Normal Normal [facility] Comment on above: Performed By: #### S CAN CBC, ESR, CMP, CRP #### [facility] [address] Platelet mean volume (Bld) [Entitic vol] 7.6 fL Normal 6.3-10.7 [facility] Comment on above: Performed By: #### S CAN CBC, ESR, CMP, CRP #### [address] Platelet Morphology Normal Normal Normal [facility] Comment on above: Performed By: #### S CAN CBC, ESR, CMP, CRP #### [facility] [address] [place] [address] [place] Platelets (Bld) [#/Vol] 163 10*3/uL Normal 150-450 [facility] Comment on above: Performed By: #### S CAN CBC, ESR, CMP, CRP #### [facility] [address] [place] [address] [place] RBC (Bld) [#/Vol] 4.51 10*6/uL Normal 3.60-5.00 [facility] Comment on above: Performed By: #### S CAN CBC, ESR, CMP, CRP #### [facility] [address] RBC morphology finding Nom (Bld) Normal Normal Normal [facility] Comment on above: Performed By: #### S CAN CBC, ESR, CMP, CRP #### [facility] [address] WBC (Bld) [#/Vol] 9.4 10*3/uL Normal 3.8-11.6 [facility] Comment on above: Performed By: #### S CAN CBC, ESR, CMP, CRP #### [facility] [address] Serum or plasma albumin/glob ulin mass ratioOrdered By: Toi Edward on 02-14-2023 Albumin/Globulin [Mass ratio] 1.2 {ratio} [facility] Serum or plasma anion gap de terminationOrdered By: Toi Edward on 02-14-2023 Anion gap [Moles/Vol] 13.2 mmol/L 6.0-15.0 [facility] Sodium [Moles/volume] in Ser um or PlasmaOrdered By: Toi Edward on 02-14-2023 Sodium [Moles/Vol] 134 mmol/L 136-145 [facility] Urea nitrogen [Mass/volume] in Serum or PlasmaOrdered By: Toi Edward on 02-14-2023 Urea nitrogen [Mass/Vol] 7 mg/dL 7-25 [facility] WBC Auto (Bld) [#/Vol]Ordere d By: Toi Edward on 02-14-2023 WBC (Bld) [#/Vol] 9.4 10*3/uL 3.8-11.6 [facility] CBC AUTO DIFFon 03-02-2022 BASO # 0.0 103/ul Normal 0.0-0.1 [facility] Comment on above: Performed By: #### C BC #### [facility] [address] [address] [address] Melinda López Basophils/100 WBC (Bld) 0.2 % Normal 0.2-2.0 [facility] Comment on above: Performed By: #### C BC #### [facility] [address] [address] [address] Melinda López EO # 0.0 103/ul Normal 0.0-0.7 [facility] Comment on above: Performed By: #### C BC #### [facility] [address] [address] [address] Melinda López Eosinophils/100 WBC (Bld) 0.1 % Critically low 0.9-7. 0 [facility] Comment on above: Performed By: #### C BC #### [facility] [address] [address] [address] Melinda López Erythrocyte distribution width (RBC) [Ratio] 13.0 % Normal 11.0-15.0 [facility] Comment on above: Performed By: #### C BC #### [facility] [address] [place] [address] Dr. Melinda López Hematocrit (Bld) [Volume fraction] 41.3 % Normal 36.0-48.0 [facility] Comment on above: Performed By: #### C BC #### [facility] [address] [place] [address] Dr. Melinda López Hemoglobin (Bld) [Mass/Vol] 13.2 g/dL Normal 12.0-16.0 [facility] Comment on above: Performed By: #### C BC #### [facility] [address] [place] [address] Dr. Melinda López IG # 0.15 10e3/ul Critically high 0.00-0.[address] [facility] Comment on above: Performed By: #### C BC #### [facility] [address] [address] [address] Melinda López IG % 0.9 % Critically high 0.0-0.5 [facility] Comment on above: Performed By: #### C BC #### [facility] [address] [place] [address] Dr. Melinda López LYMPH # 1.1 103/ul Critically low 1.2-3.8 [facility] Comment on above: Performed By: #### C BC #### [facility] [address] [address] [address] Melinda López Lymphocytes/100 WBC (Bld) 6.6 % Critically low 20.5-6 0.0 [facility] Comment on above: Performed By: #### C BC #### [facility] [address] [place] [address] Dr. Melinda López MANUAL DIFF REQ NO Normal [facility] Comment on above: Performed By: #### C BC #### [facility] [address] [place] [address] Dr. Melinda López MCH (RBC) [Entitic mass] 28.1 pg Normal 26.7-34.0 [facility] Comment on above: Performed By: #### C BC #### [facility] [address] [place] [address] Dr. Melinda López MCHC (RBC) [Mass/Vol] 32.0 g/dL Normal 29.9-35.2 [facility] Comment on above: Performed By: #### C BC #### [facility] [address] [place] [address] Dr. Melinda López MCV (RBC) [Entitic vol] 88.1 fL Normal 81.0-99.0 [facility] Comment on above: Performed By: #### C BC #### [facility] [address] [place] [address] Dr. Melinda López MONO # 0.9 103/ul Critically high 0.3-0.8 [facility] Comment on above: Performed By: #### C BC #### [facility] [address] [place] [address] Dr. Melinda López Monocytes/100 WBC (Bld) 4.9 % Normal 1.7-12.0 [facility] Comment on above: Performed By: #### C BC #### [facility] [address] [place] [address] Dr. Melinda López NEUT # 15.0 103/ul Critically high 1.4-6.5 [facility] Comment on above: Performed By: #### C BC #### [facility] [address] [address] [address] Melinda López Neutrophils/100 WBC (Bld) 87.3 % Critically high 43.0- 75.0 [facility] Comment on above: Performed By: #### C BC #### [facility] [address] [address] [address] Melinda López Platelet mean volume (Bld) [Entitic vol] 9.4 fL Critically low 9.5-13.5 [facility] Comment on above: Performed By: #### C BC #### [facility] [address] [address] [address] Melinda López PLT 362 103/ul Normal 150-450 [facility] Comment on above: Performed By: #### C BC #### [facility] [address] [place] [address] Dr. Melinda López RBC 4.69 106/ul Normal 4.20-5.40 [facility] Comment on above: Performed By: #### C BC #### [facility] [address] [address] [address] Melinda López WBC 17.2 103/ul Critically high 4.0-11.0 [facility] Comment on above: Performed By: #### C BC #### [facility] [address] [place] [address] Dr. Melinda López MONOon 03-02-2022 Monocytes (Bld) [#/Vol] Negative Normal NEGATIVE T [facility] Comment on above: Performed By: #### M RADHA #### [facility] [address] [place] [address] Dr. Melinda López Vital Signs Date Time Vital Sign Value Performing Clinician Facility 08-04-2023 11:100500 Body mass index (BMI) [Ratio] 33.88 kg/m2 [facility] Work Phone: [facility] 08-04-2023 11:10050 Body weight 89.54 kg [employer] Work Phone: [facility] 08-04-2023 11:10-0500 Diastolic blood pressure 68 mm[Hg] Raúl Victorina DO Work Phone: [facility] 08-04-2023 11:10-0500 Systolic blood pressure 114 mm[Hg] Raúl Victorina DO Work Phone: [facility] 02-15-2023 00:16-0400 Body temperature 99.3 [degF] PA-C Toi Edward Work Phone: [facility] 02-15-2023 00:16-0400 Diastolic blood pressure 66 mm[Hg] PA-C Toi Edward Work Phone: [facility] 02-15-2023 00:16-0400 Heart rate 91 /min PA-C Toi Edward Work Phone: [facility] 02-15-2023 00:16-0400 Respiratory rate 16 /min PA-C Toi Edward Work Phone: [facility] 02-15-2023 00:16-0400 SaO2% (BldA) [Mass fraction] 95 % PA-C Toi Edward Work Phone: [facility] 02-15-2023 00:16-0400 Systolic blood pressure 121 mm[Hg] PA-C Toi Edward Work Phone: [facility] 02-14-2023 20:07-0400 Body height 163.83 cm PA-C Toi Edward Work Phone: [facility] 02-14-2023 20:07-0400 Body weight 74.25 kg PA-C Toilloyd Edward Work Phone: [facility] 02-11-2023 15:40-0400 Body height 167.64 cm Ellen Ortiz Other [facility] Other 02-11-2023 15:40-0400 Body mass index (BMI) [Ratio] 27.18 kg/m2 Ellen Ortiz Other [facility] Other 02-11-2023 15:40-0400 Body temperature 96.9 [degF] Ellen Ortiz Other [facility] Other 02-11-2023 15:40-0400 Body weight 76.39 kg Ellen Ortiz Other [facility] Other 02-11-2023 15:40-0400 Diastolic blood pressure 78 mm[Hg] Ellen Ortiz Other [facility] Other 02-11-2023 15:40-0400 Respiratory rate 18 /min Ellen Ortiz Other [facility] Other 02-11-2023 15:40-0400 SaO2% (BldA) [Mass fraction] 98 % Ellen Ortiz Other [facility] Other 02-11-2023 15:40-0400 Systolic blood pressure 110 mm[Hg] Ellen Ortiz Other [facility] Other Encounters Encounter Date Encounter Type Care Provider Facility Start: 08-25-2023 End: 08-25-2023 ambulatory RAÚL VICTORINA Not Available Start: 08-18-2023 End: 08-18-2023 ambulatory GERMAN WAGNER Not Available Start: 08-11-2023 End: 08-11-2023 ambulatory RAÚL VICTORINA Not Available Start: 08-05-2023 Clinisync Result Encounter Raúl Victorina [...] 02-15-2023 Emergency department patient visit NON STAFF Facility:[facility] Start: 02-14-2023 End: 02-15-2023 Emergency department patient visit SHAD Edward Work Phone: [facility] Work Phone: Start: 02-11-2023 End: 02-11-2023 ambulatory Ellen Ortiz Other [facility] Other Start: 02-11-2023 Office outpatient ne w 20 minutes Ellen Ortiz [facility] Start: 03-02-2022 End: 03-03-2022 ambulatory [facility] Facility: Procedures Date Procedure Procedure Detail Performing Clinician Start: 08-05-2023 ALL CBC WITH AUTO DIFF Raúl Victorina DO Work Phone: Start: 08-04-2023 Urnls dip stick/tabl et rgnt non-auto w/o micrscp Raúl Victorina DO Work Phone: Plan of Treatment Date Care Activity Detail Author Start: 08-11-2023 End: 08-11-2023 Patient encounter procedure 08/11/2023 10:30 AM EST Routine [facility] [address] [place] [address] Raúl Prajapati DO [address] [place] [address] [facility] Start: 08-04-2023 End: 08-04-2024 US for US OB SCAN FOR GROWTH Imaging Routine Excessive growth affecting management of in third trimester, single or unspecified fetus Expected: 08/04/2023 (Approximate), Expires: 08/04/2024 [facility] Work Phone: Comment on above: Expected: 08/04/2023 (Approximate), Expires: 08/04/2024 Start: 02-14-2023 Streptococcus pyogen es Ag [Presence] in Throat Group A Strep Throat Culture [facility] Patient Education Sore Throat, Adult ED [facility] Work Phone: Patient referral [facility] Work Phone: Payers Date Payer Category Payer Self-pay 2022 Medicaid [id number] 2022 Medicaid [employer] [place] [id number] 2022-Present [address] [place] [address] [id number] 2003 Unknown [id number] 2003 Unknown [id number] 2003 Unknown [id number] 2003 Unknown [id number] 2003 Unknown [id number] 2003 Unknown [id number] 2003 Unknown [id number] 2003 Unknown [id number] 1985 Unknown [id number] 1959 Unknown [id number] Unknown [id number] Social History Date Type Detail Facility Unknown if ever smoked [facility] [employer] Other Start: 04-07-2023 Sex Assigned At N [facility] [employer] Other Start: 02-14-2023 End: 04-07-2023 Tobacco smoking status KSIS Never smoked tobacco (finding) [facility] Start: 2003 Sex Assigned At Female F [facility] Start: 08-04-2023 Alcohol intake Lifetime non-d filiberto (finding) [facility] Start: 04-07-2023 History of Social function [facility] Start: 03-30-2023 Alcohol Comment Caffeine intak e: 1-2 cups per day [facility] Start: 12-16-2022 [facility] Start: 2003 Sex Assigned At Not on file [facility] History of Present illness Narrative 08-04-2023 Norma Felipe LPN - 08/04/2023 10:50 AM EST Note Date & Type Note Facility 08-04-2023 History of Presen t illness Narrative Reason for Appointment: Patient ID: Samantha Batista is a 17 y.o. female who [...] Ambulatory Problems Past Medical History: Diagnosis Date COVID-19 02/2021 Hypertrophy of tonsil Family History Problem Relation [...] nursing note reviewed. Exam conducted with a floater operator present. Vitals: Estimated body mass index is [...] Raúl Prajapati DO documented in this encounter [facility] Evaluation note 02-11-2023 Note Date & Type [...] the ER for worsening symptoms or concerns [facility] Other Evaluation note Note Date & Type Note Facility Evaluation note No assessment information [facility] Work Phone: Evaluation note Note Date & Type Note Facility Evaluation note Diagnosis Third trimester state, incidental Excessive growth affecting management of in third trimester, single or unspecified fetus documented in this encounter [facility] Healthcare Summary Purpose Family History No Family [...] content) DATE CREATED AUTHOR 03/21/2022 [facility] DATE CREATED AUTHOR AUTHOR'S ORGANIZ ATION 02/26/2023 [facility] DATE CREATED AUTHOR AUTHOR'S ORGANIZ ATION 08/26/2023 [facility] EPIC REASON FOR VISIT [...] BE BASED ON THE PRIMARY CLINICAL RECORDS. [facility]. provides no warranty or guarantee of the accuracy or completeness of information in this document.
[2023-08-31 23:18] LABS: Hematocrit 31.2 % (36.0-48.0); Hemoglobin 9.9 g/dL (12.0-16.0); Mean Corpuscular HGB Conc 31.7 g/dL (29.9-35.2); Mean Corpuscular Hemoglobin 27.3 pg (26.7-34.0); Mean Corpuscular Volume 86.2 fL (81.0-99.0); Platelet Count 373 10^3/uL (150-450); Red Blood Count 3.62 10^6/uL (4.20-5.40); Red Cell Distribution Width 12.5 % (11.0-15.0); White Blood Count 14.9 10^3/uL (4.0-11.0)
[2023-08-31 23:28] VITALS: BP 121/66; PULSE 90
[2023-08-31 23:32] VITALS: BP 121/66; PULSE 90; RESP 16; TEMP 36.5
[2023-08-31 23:35] LABS: Amphetamine Screen Urine NEGATIVE (NEGATIVE); Barbiturates Screen Urine NEGATIVE (NEGATIVE); Benzodiazepines Screen Urine NEGATIVE (NEGATIVE); Buprenorphine Screen Urine NEGATIVE (NEGATIVE); Cannabinoid Screen Urine NEGATIVE (NEGATIVE); Cocaine Screen Urine NEGATIVE (NEGATIVE); Methadone Screen Urine NEGATIVE (NEGATIVE); Methamphetamines Screen Urine NEGATIVE (NEGATIVE); Opiate Screen Urine NEGATIVE (NEGATIVE); Oxycodone Screen Urine NEGATIVE (NEGATIVE); Phencyclidine Screen Urine NEGATIVE (NEGATIVE); Tricyclic Antidepressant Urine NEGATIVE (NEGATIVE)
[2023-08-31 23:40] VITALS: BP 121/66; PULSE 90; RESP 16; TEMP 36.5
[2023-09-01] VITALS (62 sets, daily range): BP systolic 87–148; BP diastolic 49–96; PULSE 66–114; RESP 16–18; TEMP 36.4–37.3
[2023-09-01] MEDS: OXYTOCIN/0.9 % SODIUM CHLORIDE 10 UNITS/500 ML PLAST..BAG 6 UNIT IV ×2 (00:12→12:02)
[2023-09-01] MEDS: 0.9 % SODIUM CHLORIDE 1,000 ML 125 ML IV ×2 (00:12→07:31)
[2023-09-01] MEDS: 0.9 % SODIUM CHLORIDE 1,000 ML 1000 ML IV (12:47)
[2023-09-01] MEDS: EPHEDRINE SULFATE 50 MG/ML VIAL IV (13:45)
[2023-09-01] MEDS: ROPIVACAINE HCL 0.2% PF 40 MG/20 ML VIAL 20 MG EPIDURAL (13:46)
[2023-09-01] MEDS: ROPIVACAINE HCL/PF 400 MG/200 ML PREMIX 6 MG EPIDURAL (13:46)
--- NOTE | 2023-09-01 17:40 | PM.OBPRCVD ---
Procedure Intrapartal events: None Induction method: artificial rupture of membranes Delivery augmentation: rupture of membranes and pitocin Delivery monitor: external FHT and external uterine Route of delivery: Episiotomy Description: none L&D Laceration Description: perineal - 1st degree Delivery repair: Vicryl Estimated blood loss (mL): 200 Anesthesia type: Epidural Disposition: floor Delivery date: 09/01/23 Gender: male presentation: vertex Placental delivery description: Spontaneous cord description: 3 Vessels
[2023-09-01] MEDS: OXYTOCIN/0.9 % SODIUM CHLORIDE 20 UNITS/1,000 ML PLAST..BAG 125 UNIT IV (18:58)
[2023-09-01] MEDS: BENZOCAINE/MENTHOL 85 GRAM SPRAY BOTTLE 1 APPLIC TOPICAL (21:36)
[2023-09-01] MEDS: IBUPROFEN 400 MG TABLET 800 MG PO (21:37)
[2023-09-02] MEDS: IBUPROFEN 400 MG TABLET 800 MG PO ×3 (05:35→21:38)
[2023-09-02 06:38] LABS: Basophils Percent Auto 0.2 % (0.2-2.0); Eosinophils Absolute Auto 0.1 10^3/uL (0.0-0.7); Eosinophils Percent Auto 0.4 % (0.9-7.0); Hemoglobin 9.3 g/dL (12.0-16.0); Immature Granulocytes Abs Auto 0.09 10^3/uL (0.00-0.03); Immature Granulocytes Pct Auto 0.5 % (0.0-0.5); Lymphocytes Absolute Auto 2.7 10^3/uL (1.2-3.8); Lymphocytes Percent Auto 16.4 % (20.5-60.0); Mean Corpuscular Hemoglobin 27.2 pg (26.7-34.0); Mean Corpuscular Volume 87.7 fL (81.0-99.0); Mean Platelet Volume 9.4 fL (9.5-13.5); Monocytes Absolute Auto 1.4 10^3/uL (0.3-0.8); Monocytes Percent Auto 8.4 % (1.7-12.0); Neutrophils Absolute Auto 12.3 10^3/uL (1.4-6.5); Neutrophils Percent Auto 74.1 % (43.0-75.0); Platelet Count 304 10^3/uL (150-450); Red Blood Count 3.42 10^6/uL (4.20-5.40); Red Cell Distribution Width 12.7 % (11.0-15.0); White Blood Count 16.6 10^3/uL (4.0-11.0)
[2023-09-02 08:26] VITALS: RESP 16; TEMP 36.6
[2023-09-02] MEDS: DOCUSATE SODIUM 100 MG CAPSULE PO ×2 (08:26→21:38)
[2023-09-02 08:27] VITALS: BP 112/65; PULSE 82
--- NOTE | 2023-09-02 12:16 | PM.OBPN ---
OB - PN: Subj Subjective Patient comments: no complaints [place] status: doing well feeding status: exclusively Exam Narrative Exam Narrative: voicing no complaints Constitutional Vital Signs, click to edit/add: Last Vital Signs Temp 97.8 F 09/02/23 08:26 Pulse 82 09/02/23 08:27 Resp 16 09/02/23 08:26 BP 112/65 09/02/23 08:27 O2 Del Method Room Air 09/02/23 08:26 Documenting provider has reviewed patient's vital signs: yes Common normals: no apparent distress, oriented x3, no limitations and alert General appearance: cooperative and comfortable HENMT Common normals: normocephalic and head/scalp atraumatic Eye Pupil: PERRL and accommodation reflex normal Neck & C-Spine Common normals: full ROM and supple Chest Common normals: inspection of chest normal Respiratory Common normals: normal respiratory effort Cardio Common normals: regular rate and regular rhythm GI Common normals: Normal to inspection, nondistended, normoactive bowel sounds present, soft to palpation and non-tender Inspection: normal to inspection Auscultation: normoactive bowel sounds Common normals: no CVA tenderness Back & Pelvis Common normals: thoracic and lumbar spine normal to inspection and no thoracic nor lumbar tenderness Extremity Common normals: normal to inspection, full ROM and no calf tenderness Neuro Common normals: oriented x3, CN's II-XII intact bilaterally, no focal motor deficits and no sensory deficits noted Psych Common normals: mental status grossly normal, thought process normal, cooperative and affect normal Results Labs Labs: Short CBC 09/02/23 Range/Units 06:29 WBC 16.6 H (4.0-11.0) 10^3/uL Hgb 9.3 L (12.0-16.0) g/dL Hct 30.0 L (36.0-48.0) % Plt Count 304 (150-450) 10^3/uL OB - PN: A/P Assessment and Plan (1) Normal vaginal delivery: Assessment and Plan: small perineal lac first degree, no problem with. ambulating eating eliminating normally. breast feeding only. doing well. Plan PPD 1 s/p vaginal delivery doing well Plan - Vaginal Delivery day: 1 Plan: routine care Time Spent with Patient Time: Total time spent is greater than 50% in coordination of care (as documented) at patient's floor/unit and/or counseling patient: Total time spent with greater than 50% in coordination of care (as documented) at patient's floor/unit and/or counseling patient: less than 15 minutes
[2023-09-02 15:34] VITALS: BP 120/56; PULSE 86
[2023-09-02 15:35] VITALS: RESP 16; TEMP 37.1
[2023-09-02] MEDS: BENZOCAINE/MENTHOL 85 GRAM SPRAY BOTTLE 1 APPLIC TOPICAL (21:48)
[2023-09-03 01:00] VITALS: BP 114/60; PULSE 78; TEMP 36.4
[2023-09-03] MEDS: IBUPROFEN 400 MG TABLET 800 MG PO (06:46)
[2023-09-03] MEDS: DOCUSATE SODIUM 100 MG CAPSULE PO (09:52)
[2023-09-03 10:02] VITALS: BP 119/70; PULSE 78
[2023-09-03 10:03] VITALS: RESP 16; TEMP 37.2
--- NOTE | 2023-09-03 11:12 | PM.OBDS ---
DS: Providers Provider Date of admission: 08/31/23 22:42 Primary care physician: Chau Prajapati DO Admitting clinician: Chau Prajapati Attending physician on admission: Chau Prajapati Consults: 08/31/23 Consult to Anesthesiology Routine Consulting Provider: Jerrod Vargas Reason for consultation: epidural placement Attending physician on discharge: Sri Hernandez Discharging clinician: Sri Hernandez Anticipated date of discharge: 09/03/23 DS: Diagnosis Discharge Diagnosis (1) Normal vaginal delivery: Assessment and plan: FIRST DEGREE REPAIR, REQUESTING DERMAPLAST ONLY, CONDITION GOOD, READY FOR DISCHARGE Plan DISCHARGE HOME OB - DS: Summary Hospital Course Hospital Course: UNCOMPLICATED Time spent discussing smoking cessation with patient: 3 to 10 minutes Peripartum Data - Vaginal Delivery Laceration description: perineal - 1st degree Complications complications: none Infant Delivery method: spontaneous vaginal delivery Gender: male Discharge plan: home Status at Discharge Cognitive/behavioral status at discharge: WNL Functional status at discharge: independent ambulation Overall status at discharge: patient is progressing back to baseline Time Spent with Patient Time attestation: Total time spent providing and/or coordinating discharge services: Time spent: less than 30 minutes Exam Narrative Exam Narrative: VOICING NO COMPLAINTS Constitutional Vital Signs, click to edit/add: Last Vital Signs Temp 99.0 F 09/03/23 10:03 Pulse 78 09/03/23 10:02 Resp 16 09/03/23 10:03 BP 119/70 09/03/23 10:02 O2 Del Method Room Air 09/03/23 10:08 Documenting provider has reviewed patient's vital signs: yes Common normals: no apparent distress HENPA Common normals: normocephalic and head/scalp atraumatic Eye Pupil: PERRL and accommodation reflex normal Neck & C-Spine Common normals: full ROM and supple Respiratory Common normals: normal respiratory effort Cardio Common normals: regular rate and regular rhythm GI Common normals: Normal to inspection, nondistended, normoactive bowel sounds present, soft to palpation and non-tender Common normals: no CVA tenderness Back & Pelvis Common normals: thoracic and lumbar spine normal to inspection and no thoracic nor lumbar tenderness Extremity Common normals: full ROM and no calf tenderness Neuro Common normals: oriented x3, CN's II-XII intact bilaterally, moves all extremities, no focal motor deficits and no sensory deficits noted Psych Common normals: mental status grossly normal, thought process normal, cooperative, affect normal and speech normal Discharge Plan Discharge Disposition: Home, Self-Care Condition: Good Assessment: AFEBRILE, VSS, NO COMPLAINTS, BABY READY FOR DISCHARGE, INSTRUCTIONS GIVEN WITH STATED UNDERSTANDING REQUESTING SCRIPT FOR DERMAPLAST ONLY Health Concerns: NONE Plan of Treatment: DISCHARGE HOME, INSTRUCTIONS GIVEN, PP APOINTMENT IN 6 WEEKS Discharge Medications: Continued [id number] 1 mg tablet PO Activity: increase activity as tolerated Activity Detail: NO SEX FOR SIX WEEKS, MAY WALK, MAY SHOWER, MAY USE BATHTUB, NO LIFTING MORE THAN 10 POUNDS, MAY CLIMB STAIRS Diet: regular diet Patient Instructions: Vaginal Delivery (DC) Forms: Portal Instructions Follow Up Appointments: POST APPOINTMENT WITH PROVIDER IN SIX WEEKS Discharge location: HOME
== END 2023-09-03 14:10 | disposition home or self-care (01) | DRG 560 ==
PROVIDERS: Admitting Provider Obstetrics & Gynecology; PCP Obstetrics & Gynecology; Visit Provider Obstetrics & Gynecology
DX: O70.0 First degree perineal laceration during delivery (principal); Z3A.39 39 weeks gestation of pregnancy; Z37.0 Single live birth; Z86.16 Personal history of COVID-19; Z87.440 Personal history of urinary (tract) infections
CPT/HCPCS: 36415; 59050; 59410; 80307; 85025; 85027; 86850; 86900; 86901; 96365; 96366; 96375; 96376

== ENCOUNTER 2023-09-06 08:47 | Outpatient (OUT) | payer OTHER, SELFPAY ==
--- OUTSIDE RECORDS SUMMARY | 2023-09-06 08:59 | XMS_ITS | CCD ---
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 Phone [facility] Primary Care Unavailable DR MANUEL GALLEGOS Attending Unavailable ROSY, DR JACKSON Consulting Unavailable DR MANUEL GALLEGOS Admitting Unavailable Ellen Ortiz Unavailable SHAD Edward Emergency Provider NON STAFF Primary Care Provider Unavailmadelyn e [...] Facility (1 source) Adhesive Tape Drug allergy [facility] Other (4 sources) Penicillin G Drug Allergy 3 [facility] Other (2 sources) Adhesive Tape; Translations: [adhesive tape] Propensity to adverse reactions 3 [facility] (5 sources) Penicillins; Translations: [Penicillins] Allergy to substance 2 [facility] (3 sources) Wound Dressing Adhesive Drug Intolerance [...] (Bld) 0.3 % 0.2 - 2.0 % [facility] Eosinophils/100 WBC (Bld) 0.5 % Low 0.9 - 7.0 % [facility] Erythrocyte distribution width (RBC) [Ratio] 12.7 % 11.0 - 15.0 % [facility] Hematocrit (Bld) [Volume fraction] 32.6 % Low 36.0 - 48.0 % [facility] Hemoglobin (Bld) [Mass/Vol] 10.1 g/dL Low 12.0 - 16.0 g/dL [facility] IMMATURE GRANULOCYTES ABS AUTO 0.06 High [facility] Immature granulocytes/100 WBC (Bld) 0.5 % 0.0 - 0.5 % [facility] Interpretation and review of laboratory results Abnormal [facility] LYMPHOCYTES ABSOLUTE AUTO 2.3 [facility] Lymphocytes/100 WBC (Bld) 19.3 % Low 20.5 - 60. 0 % [facility] MCH (RBC) [Entitic mass] 27.4 pg 26. 7 - 34.0 pg [facility] MCHC (RBC) [Mass/Vol] 31.0 g/dL 29.9 - 35.2 g/dL [facility] MCV (RBC) [Entitic vol] 88.3 fL 81.0 - 99.0 fL [facility] MONOCYTES ABSOLUTE AUTO 0.8 N [facility] Monocytes/100 WBC (Bld) 6.9 % 1.7 - 12.0 % [facility] NEUTROPHILS ABSOLUTE AUTO 8.5 High [facility] Neutrophils/100 WBC (Bld) 72.5 % 43.0 - 75. 0 % [facility] Platelet mean volume (Bld) [Entitic vol] 9.1 fL Low 9.5 - 13.5 fL [facility]H EO # 0.1 [facility]T [address] [facility] RBC 3.69 Low [facility] WBC 11.8 High [facility] Urinalysis macro (dipstick) panel (U)on 08-04-2023 Bilirubin, UA Few Negative - 4(70) +++ mg/dL [facility] Blood, UA Positive Negative - 50 Carmine/mcL [facility] Clarity, UA Clear [facility] Color, UA Yellow [facility] Glucose, UA Negative Negative - 1999(110) ++++ mg/dL [facility] Interpretation and review of laboratory results Abnormal [facility] Ketones, UA Negative Negative - 160(16) ++++ mg/dL [facility] Leukocytes, UA Few Negative - 500+++ Josselyn/mcL [facility] Nitrite, UA Negative Negative - Positive [facility] pH, UA 6.0 5 - 9 [facility] Protein, UA Positive Negative - 1999(20) ++++ mg/dL [facility] Spec Grav, UA 1.030 1 - 1.03 [facility] Urobilinogen, UA 1.0 0.2 - 12 mg/dL [facility] Alanine aminotransferase [En zymatic activity/volume] in Serum or PlasmaOrdered By: Toi Edward on 02-14-2023 ALT [Catalytic activity/Vol] 41 U/L 7-52 [facility] Albumin [Mass/volume] in Ser um or Plasma by Bromocresol green (BCG) dye binding methoOrdered By: Toi Edward on 02-14-2023 Albumin BCG dye [Mass/Vol] 4.1 g/dL 3.5-5.7 [facility] Alkaline phosphatase [Enzyma tic activity/volume] in Serum or PlasmaOrdered By: Toi Edward on 02-14-2023 ALP [Catalytic activity/Vol] 158 U/L 34-104 [facility] Aspartate aminotransferase [ Enzymatic activity/volume] in Serum or PlasmaOrdered By: Toi Edward on 02-14-2023 AST [Catalytic activity/Vol] 44 U/L 13-39 [facility] Basophils Auto (Bld) [#/Vol] Ordered By: Toi Edward on 02-14-2023 Basophils (Bld) [#/Vol] 0.1 10*3/uL 0.0-0.2 [facility] Basophils/100 WBC Auto (Bld) Ordered By: Toi Edward on 02-14-2023 Basophils/100 WBC (Bld) 0.5 % . [facility] Bilirubin.total [Mass/volume ] in Serum or PlasmaOrdered By: Toi Edward on 02-14-2023 Bilirubin [Mass/Vol] 0.8 mg/dL 0.3-1.0 [facility] C reactive protein [Mass/vol ume] in Serum or PlasmaOrdered By: Toi Edward on 02-14-2023 CRP [Mass/Vol] 1.8 mg/dL 0.0-0.5 [facility] C-Reactive Proteinon 023 C-Reactive Protein 1.8 mg/dL High 0.0-0.5 [facility] Comment on above: Result Comment: PERF ORMED BY: [place] [id number] PATHOLOGIST [employer]EL[employer] VEENA DYSON M.D. Performed By: #### S CAN CBC, ESR, CMP, CRP #### [facility] [address] Calcium [Mass/volume] in Ser um or PlasmaOrdered By: Toi Edward on 02-14-2023 Calcium [Mass/Vol] 9.4 mg/dL 8.6-10.3 [facility] Carbon dioxide, total [Moles /volume] in Serum or PlasmaOrdered By: Toi Edward on 02-14-2023 CO2 [Moles/Vol] 24.8 mmol/L 21.0-31.0 [facility] Chloride [Moles/volume] in S cass or PlasmaOrdered By: Toi Edward on 02-14-2023 Chloride [Moles/Vol] 100 mmol/L 98-107 [facility] Comprehensive Metabolic Pane valentín 02-14-2023 Albumin [Mass/Vol] 4.1 g/dL Normal 3.5-5.7 [facility] Comment on above: Performed By: #### S CAN CBC, ESR, CMP, CRP #### [facility] [address] [place] [address] Albumin/Globulin [Mass ratio] 1.2 {ratio} Normal [facility] Comment on above: Performed By: #### S CAN CBC, ESR, CMP, CRP #### [facility] [address] [place] [address] [place] ALP [Catalytic activity/Vol] 158 U/L High 34-104 [facility] Comment on above: Performed By: #### S CAN CBC, ESR, CMP, CRP #### [facility] [address] [place] [address] [place] ALT [Catalytic activity/Vol] 41 U/L Normal 7-52 [facility] Comment on above: Performed By: #### S CAN CBC, ESR, CMP, CRP #### [facility] [address] [place] [address] Anion gap [Moles/Vol] 13.2 mmol/L Normal 6.0-15.0 [facility] Comment on above: Performed By: #### S CAN CBC, ESR, CMP, CRP #### [facility] [address] AST [Catalytic activity/Vol] 44 U/L High 13-39 [facility] Comment on above: Performed By: #### S CAN CBC, ESR, CMP, CRP #### [facility] [address] [place] [address] Bilirubin [Mass/Vol] 0.8 mg/dL Normal 0.3-1.0 [facility] Comment on above: Performed By: #### S CAN CBC, ESR, CMP, CRP #### [facility] [address] [place] [address] Calcium [Mass/Vol] 9.4 mg/dL Normal 8.6-10.3 [facility] Comment on above: Performed By: #### S CAN CBC, ESR, CMP, CRP #### [address] Chloride [Moles/Vol] 100 mmol/L Normal 98-107 [facility] Comment on above: Performed By: #### S CAN CBC, ESR, CMP, CRP #### [address] CO2 [Moles/Vol] 24.8 mmol/L Normal 21.0-31.0 [facility] Comment on above: Performed By: #### S CAN CBC, ESR, CMP, CRP #### [facility] [address] [place] [address] Creatinine [Mass/Vol] 0.77 mg/dL Normal 0.60-1.20 [facility] Comment on above: Performed By: #### S CAN CBC, ESR, CMP, CRP #### [facility] [address] [place] [address] [place] Creatinine Clr Calc Pharmacy 115.98 Normal [facility] Comment on above: Performed By: #### S CAN CBC, ESR, CMP, CRP #### [facility] [address] [place] [address] [place] GFR/1.73 sq M.predicted MDRD (S/P/Bld) [Vol rate/Area] mL/min/{1.73_m2} Normal [facility] Comment on above: Performed By: #### S CAN CBC, ESR, CMP, CRP #### [facility] [address] Globulin (S) [Mass/Vol] 3.5 g/dL Normal [facility] Comment on above: Performed By: #### S CAN CBC, ESR, CMP, CRP #### [facility] [address] Glucose [Mass/Vol] 85 mg/dL Normal 70-100 [facility] Comment on above: Result Comment: [place] Glucose Reference Range is dependent on time and content of last meal. Glucose of more than 200 mg/dL in a nonstressed, ambulatory subject supports the diagnosis of Diabetes Mellitus. ADA recommended reference range Performed By: #### S CAN CBC, ESR, CMP, CRP #### [facility] [address] [place] [address] [place] Potassium [Moles/Vol] 4.0 mmol/L Normal 3.5-5.1 [facility] Comment on above: Performed By: #### S CAN CBC, ESR, CMP, CRP #### [facility] [address] [place] [address] [place] Protein [Mass/Vol] 7.6 g/dL Normal 6.4-8.9 [facility] Comment on above: Performed By: #### S CAN CBC, ESR, CMP, CRP #### [facility] [address] [place] [address] [place] Sodium [Moles/Vol] 134 mmol/L Low 136-145 [facility] Comment on above: Performed By: #### S CAN CBC, ESR, CMP, CRP #### [facility] [address] [place] [address] [place] Urea nitrogen [Mass/Vol] 7 mg/dL Normal 7-25 [facility] Comment on above: Performed By: #### S CAN CBC, ESR, CMP, CRP #### [facility] [address] [place] [id number] [facility] Creatinine [Mass/volume] in Serum or PlasmaOrdered By: Toi Edward on 02-14-2023 Creatinine [Mass/Vol] 0.77 mg/dL 0.60-1.20 [facility] Eosinophils Auto (Bld) [#/Vo l]Ordered By: Toi Edward on 02-14-2023 Eosinophils (Bld) [#/Vol] 0.0 10*3/uL 0.0-0.45 [facility] Eosinophils/100 WBC Auto (Bl d)Ordered By: Toi Edward on 02-14-2023 Eosinophils/100 WBC (Bld) 0.2 % . [facility] Erythrocyte Sedimentation Ra deng 02-14-2023 ESR (Bld) [Velocity] 26 mm/h High 0 [facility] Comment on above: Result Comment: PERF ORMED BY: [address] [place] [address] PATHOLOGIST [employer]EL[employer] VEENA DYSON M.D. Performed By: #### S CAN CBC, ESR, CMP, CRP #### [facility] [address] [place] [address] Erythrocyte distribution wid th Auto (RBC) [Ratio]Ordered By: Toi Edward on 02-14-2023 Erythrocyte distribution width (RBC) [Ratio] 13.3 % 11.9-15.3 [facility] Erythrocyte sedimentation ra te by Photometric methodOrdered By: Toi Edward on 02-14-2023 ESR Photometric method (Bld) [Velocity] 26 mm/hr [facility] Globulin Calc (S) [Mass/Vol] Ordered By: Toi Edward on 02-14-2023 Globulin (S) [Mass/Vol] 3.5 g/dL [facility] Glucose [Mass/volume] in Ser um or PlasmaOrdered By: Toi Edward on 02-14-2023 Glucose [Mass/Vol] 85 mg/dL 70-100 [facility] Comment on above: ADA recommended refe rence rangeRandom Glucose Reference Range is dependent on time and content of last meal. Glucose of more than 200 mg/dL in a nonstressed, ambulatory subject supports the diagnosis of Diabetes Mellitus. Hematocrit Auto (Bld) [Volum e fraction]Ordered By: Toi Edward on 02-14-2023 Hematocrit (Bld) [Volume fraction] 38.7 % 34.0-46.4 [facility] Hemoglobin [Mass/volume] in BloodOrdered By: Toi Edward on 02-14-2023 Hemoglobin (Bld) [Mass/Vol] 13.1 g/dL 11.8-15.4 [facility] Leukocytes [#/volume] correc alem for nucleated erythrocytes in Blood by Automated counOrdered By: Toi Edward on 02-14-2023 WBC corrected for nucl RBC Auto (Bld) [#/Vol] 9.4 10*3/uL 3.8-11.6 [facility] Lymphocytes Auto (Bld) [#/Vo l]Ordered By: Toi Edward on 02-14-2023 Lymphocytes (Bld) [#/Vol] 4.5 10*3/uL 1.00-4.8 [facility] Lymphocytes/100 WBC Auto (Bl d)Ordered By: Toi Edward on 02-14-2023 Lymphocytes/100 WBC (Bld) 47.5 % . [facility] MCH Auto (RBC) [Entitic mass ]Ordered By: Toi Edward on 02-14-2023 MCH (RBC) [Entitic mass] 29.0 pg 24.7-34.3 [facility] MCHC Auto (RBC) [Mass/Vol]Or dered By: Toi Edward on 02-14-2023 MCHC (RBC) [Mass/Vol] 33.7 g/dL 32.0-35.0 [facility] MCV Auto (RBC) [Entitic vol] Ordered By: Toi Edward on 02-14-2023 MCV (RBC) [Entitic vol] 85.8 fL 80-100 [facility] Monocyte distribution width [Entitic volume] in Blood by AutomatedOrdered By: Toi Edward on 02-14-2023 Monocyte distribution width Auto (Bld) [Entitic vol] 34.56 % 0.00-20.00 [facility] Comment on above: The predictive value of MDW for identifying sepsis in patients with hematological abnormalities has not been established Monocytes Auto (Bld) [#/Vol] Ordered By: Toi Edward on 02-14-2023 Monocytes (Bld) [#/Vol] 1.0 10*3/uL 0.0-0.8 [facility] Monocytes/100 WBC Auto (Bld) Ordered By: Toi Edward on 02-14-2023 Monocytes/100 WBC (Bld) 10.7 % . [facility] Neutrophils Auto (Bld) [#/Vo l]Ordered By: Toi Edward on 02-14-2023 Neutrophils (Bld) [#/Vol] 3.9 10*3/uL 1.8-7.7 [facility] Neutrophils/100 WBC Auto (Bl d)Ordered By: Toi Edward on 02-14-2023 Neutrophils/100 WBC (Bld) 41.1 % . [facility] No Panel InformationOrdered By: Toi Edward on 02-14-2023 Estimated GFR (CKD-EPI) > 60.0 mL/Min [facility] Creatinine Clearance (Chem 115.98 [facility] Nucleated erythrocytes [Pres ence] in Blood by Automated countOrdered By: Toi Edward on 02-14-2023 Nucleated RBC Auto Ql (Bld) 0.3 /100{WBC} 0-0.5 [facility] Platelet adequacy [Presence] in Blood by Light microscopyOrdered By: Toi Edward on 02-14-2023 Platelets LM Ql (Bld) Normal Normal [facility] Platelet mean volume Auto (B ld) [Entitic vol]Ordered By: Toi Edward on 02-14-2023 Platelet mean volume (Bld) [Entitic vol] 7.6 fL 6.3-10.7 [facility] Platelet morphology finding [Identifier] in BloodOrdered By: Toi Edward on 02-14-2023 Platelet morphology finding Nom (Bld) Normal Normal [facility] Platelets Auto (Bld) [#/Vol] Ordered By: Toi Edward on 02-14-2023 Platelets (Bld) [#/Vol] 163 10*3/uL 150-450 [facility] Potassium [Moles/volume] in Serum or PlasmaOrdered By: Toi Edward on 02-14-2023 Potassium [Moles/Vol] 4.0 mmol/L 3.5-5.1 [facility] Protein [Mass/volume] in Ser um or PlasmaOrdered By: Toi Edward on 02-14-2023 Protein [Mass/Vol] 7.6 g/dL 6.4-8.9 [facility] Quick Strepon 02-14-2023 Quick Strep Streptococcus pyogenes Ag [Presence] in Throat by Rapid immunoassay Negative for Group A Strep Antigen Note 1 ------ NOTE 2 Results are those of a screening test. NOTE 3 If clinically indicated please order a culture. NOTE 4 ------ NOTE 5 Reference range = Negative PERFORMED BY: [place] [id number] PATHOLOGIST [employer]ELOPER VEENA DYSON M.D. [facility] Comment on above: Performed By: #### Q S, RFXSTPA #### [facility] [address] [place] [address] RBC Auto (Bld) [#/Vol]Ordere d By: Toi Edward on 02-14-2023 RBC (Bld) [#/Vol] 4.51 10*6/uL 3.60-5.00 [facility] RBC morphologyOrdered By: Den Edward on 02-14-2023 RBC morphology finding Nom (Bld) Normal Normal [facility] RFX Strep A Reflex Cult Only on 02-14-2023 RFX Strep A Reflex Cult Only Strep A Only Cult No Group A Beta Streptococcus Isolated 2 Days PERFORMED BY: [facility] [address] [place] [address] PATHOLOGIST [employer] DEVELOPER VEENA DYSON M.D. [facility] Comment on above: Performed By: #### Q S, RFXSTPA #### [facility] [address] [place], [place] [id number] [facility] Scan and CBCon 02-14-2023 Basophils (Bld) [#/Vol] 0.1 10*3/uL Normal 0.0-0.2 [facility] Comment on above: Performed By: #### S CAN CBC, ESR, CMP, CRP #### [facility] [address] Basophils/100 WBC (Bld) 0.5 % Normal . [facility] Comment on above: Performed By: #### S CAN CBC, ESR, CMP, CRP #### [facility] [address] [place] [address] Eosinophils (Bld) [#/Vol] 0.0 10*3/uL Normal 0.0-0.45 [facility] Comment on above: Performed By: #### S CAN CBC, ESR, CMP, CRP #### [facility] [address] [place] [address] Eosinophils/100 WBC (Bld) 0.2 % Normal . [facility] Comment on above: Performed By: #### S CAN CBC, ESR, CMP, CRP #### [facility] [address] [place] [address] Erythrocyte distribution width (RBC) [Ratio] 13.3 % Normal 11.9-15.3 [facility] Comment on above: Performed By: #### S CAN CBC, ESR, CMP, CRP #### [address] Hematocrit (Bld) [Volume fraction] 38.7 % Normal 34.0-46.4 [facility] Comment on above: Performed By: #### S CAN CBC, ESR, CMP, CRP #### [address] Hemoglobin (Bld) [Mass/Vol] 13.1 g/dL Normal 11.8-15.4 [facility] Comment on above: Performed By: #### S CAN CBC, ESR, CMP, CRP #### [facility] [address] [place] [address] Lymphocytes (Bld) [#/Vol] 4.5 10*3/uL Normal 1.00-4.8 [facility] Comment on above: Performed By: #### S CAN CBC, ESR, CMP, CRP #### [address] Lymphocytes/100 WBC (Bld) 47.5 % Normal . [facility] Comment on above: Performed By: #### S CAN CBC, ESR, CMP, CRP #### [address] MCH (RBC) [Entitic mass] 29.0 pg Normal 24.7-34.3 [facility] Comment on above: Performed By: #### S CAN CBC, ESR, CMP, CRP #### [address] MCV (RBC) [Entitic vol] 85.8 fL Normal 80-100 [facility] Comment on above: Performed By: #### S CAN CBC, ESR, CMP, CRP #### [address] Mean Corpuscular HGB Conc 33.7 g/dL Normal 32.0-35.0 [facility] Comment on above: Performed By: #### S CAN CBC, ESR, CMP, CRP #### [address] Monocytes (Bld) [#/Vol] 1.0 10*3/uL High 0.0-0.8 [facility] Comment on above: Performed By: #### S CAN CBC, ESR, CMP, CRP #### [address] Monocytes/100 WBC (Bld) 34.56 % High 0.00-20.00 [facility] Comment on above: Result Comment: The predictive value of MDW for identifying sepsis in patients with hematological abnormalities has not been established Performed By: #### S CAN CBC, ESR, CMP, CRP #### [address] Monocytes/100 WBC (Bld) 10.7 % Normal . [facility] Comment on above: Performed By: #### S CAN CBC, ESR, CMP, CRP #### [facility] [address] [place] [address] [place] Neutrophils (Bld) [#/Vol] 3.9 10*3/uL Normal 1.8-7.7 [facility] Comment on above: Performed By: #### S CAN CBC, ESR, CMP, CRP #### [facility] [address] Neutrophils/100 WBC (Bld) 41.1 % Normal . [facility] Comment on above: Performed By: #### S CAN CBC, ESR, CMP, CRP #### [facility] [address] NRBC% 0.3 /100{WBC} Normal 0-0.5 [facility] Comment on above: Performed By: #### S CAN CBC, ESR, CMP, CRP #### [facility] [address] Platelet Estimate Normal Normal Normal [facility] Comment on above: Performed By: #### S CAN CBC, ESR, CMP, CRP #### [facility] [address] Platelet mean volume (Bld) [Entitic vol] 7.6 fL Normal 6.3-10.7 [facility] Comment on above: Performed By: #### S CAN CBC, ESR, CMP, CRP #### [address] Platelet Morphology Normal Normal Normal [facility] Comment on above: Performed By: #### S CAN CBC, ESR, CMP, CRP #### [facility] [address] [place] [address] [place] Platelets (Bld) [#/Vol] 163 10*3/uL Normal 150-450 [facility] Comment on above: Performed By: #### S CAN CBC, ESR, CMP, CRP #### [facility] [address] [place] [address] [place] RBC (Bld) [#/Vol] 4.51 10*6/uL Normal 3.60-5.00 [facility] Comment on above: Performed By: #### S CAN CBC, ESR, CMP, CRP #### [facility] [address] RBC morphology finding Nom (Bld) Normal Normal Normal [facility] Comment on above: Performed By: #### S CAN CBC, ESR, CMP, CRP #### [facility] [address] WBC (Bld) [#/Vol] 9.4 10*3/uL Normal 3.8-11.6 [facility] Comment on above: Performed By: #### S CAN CBC, ESR, CMP, CRP #### [facility] [address] Serum or plasma albumin/glob ulin mass ratioOrdered By: Toi Edward on 02-14-2023 Albumin/Globulin [Mass ratio] 1.2 {ratio} [facility] Serum or plasma anion gap de terminationOrdered By: Toi Edward on 02-14-2023 Anion gap [Moles/Vol] 13.2 mmol/L 6.0-15.0 [facility] Sodium [Moles/volume] in Ser um or PlasmaOrdered By: Toi Edward on 02-14-2023 Sodium [Moles/Vol] 134 mmol/L 136-145 [facility] Urea nitrogen [Mass/volume] in Serum or PlasmaOrdered By: Toi Edward on 02-14-2023 Urea nitrogen [Mass/Vol] 7 mg/dL 7-25 [facility] WBC Auto (Bld) [#/Vol]Ordere d By: Toi Edward on 02-14-2023 WBC (Bld) [#/Vol] 9.4 10*3/uL 3.8-11.6 [facility] CBC AUTO DIFFon 03-02-2022 BASO # 0.0 103/ul Normal 0.0-0.1 [facility] Comment on above: Performed By: #### C BC #### [facility] [address] [address] [address] Melinda López Basophils/100 WBC (Bld) 0.2 % Normal 0.2-2.0 [facility] Comment on above: Performed By: #### C BC #### [facility] [address] [address] [address] Melinda López EO # 0.0 103/ul Normal 0.0-0.7 [facility] Comment on above: Performed By: #### C BC #### [facility] [address] [address] [address] Melinda López Eosinophils/100 WBC (Bld) 0.1 % Critically low 0.9-7. 0 [facility] Comment on above: Performed By: #### C BC #### [facility] [address] [address] [address] Melinda López Erythrocyte distribution width (RBC) [Ratio] 13.0 % Normal 11.0-15.0 [facility] Comment on above: Performed By: #### C BC #### [facility] [address] [place] [address] Dr. Melinda López Hematocrit (Bld) [Volume fraction] 41.3 % Normal 36.0-48.0 [facility] Comment on above: Performed By: #### C BC #### [facility] [address] [place] [address] Dr. Melinda López Hemoglobin (Bld) [Mass/Vol] 13.2 g/dL Normal 12.0-16.0 [facility] Comment on above: Performed By: #### C BC #### [facility] [address] [place] [address] Dr. Melinda López IG # 0.15 10e3/ul Critically high 0.00-0.03 [facility] Comment on above: Performed By: #### C BC #### [facility] [address] [address] [address] Melinda López IG % 0.9 % Critically high 0.0-0.5 [facility] Comment on above: Performed By: #### C BC #### [facility] [address] [place] [address] Dr. Melinda López LYMPH # 1.1 103/ul Critically low 1.2-3.8 [facility] Comment on above: Performed By: #### C BC #### [facility] [address] [address] [address] Melinda López Lymphocytes/100 WBC (Bld) 6.6 % Critically low 20.5-6 0.0 [facility] Comment on above: Performed By: #### C BC #### [facility] [address] [place] [address] Dr. Melinda López MANUAL DIFF REQ NO Normal [facility] Comment on above: Performed By: #### C BC #### [facility] [address] [place] [address] Dr. Melinda López MCH (RBC) [Entitic mass] 28.1 pg Normal 26.7-34.0 [facility] Comment on above: Performed By: #### C BC #### [facility] [address] [place] [address] Dr. Melinda López MCHC (RBC) [Mass/Vol] 32.0 g/dL Normal 29.9-35.2 [facility] Comment on above: Performed By: #### C BC #### [facility] [address] [place] [address] Dr. Melinda López MCV (RBC) [Entitic vol] 88.1 fL Normal 81.0-99.0 [facility] Comment on above: Performed By: #### C BC #### [facility] [address] [place] [address] Dr. Melinda López MONO # 0.9 103/ul Critically high 0.3-0.8 [facility] Comment on above: Performed By: #### C BC #### [facility] [address] [place] [address] Dr. Melinda López Monocytes/100 WBC (Bld) 4.9 % Normal 1.7-12.0 [facility] Comment on above: Performed By: #### C BC #### [facility] [address] [place] [address] Dr. Melinda López NEUT # 15.0 103/ul Critically high 1.4-6.5 [facility] Comment on above: Performed By: #### C BC #### [facility] [address] [address] [address] Melinda López Neutrophils/100 WBC (Bld) 87.3 % Critically high 43.0- 75.0 [facility] Comment on above: Performed By: #### C BC #### [facility] [address] [address] [address] Melinda López Platelet mean volume (Bld) [Entitic vol] 9.4 fL Critically low 9.5-13.5 [facility] Comment on above: Performed By: #### C BC #### [facility] [address] [address] [address] Melinda López PLT 362 103/ul Normal 150-450 [facility] Comment on above: Performed By: #### C BC #### [facility] [address] [place] [address] Dr. Melinda López RBC 4.69 106/ul Normal 4.20-5.40 [facility] Comment on above: Performed By: #### C BC #### [facility] [address] [address] [address] Melinda López WBC 17.2 103/ul Critically high 4.0-11.0 [facility] Comment on above: Performed By: #### C BC #### [facility] [address] [place] [address] Dr. Melinda López MONOon 03-02-2022 Monocytes (Bld) [#/Vol] Negative Normal NEGATIVE T [facility] Comment on above: Performed By: #### M RADHA #### [facility] [address] [place] [address] Dr. Melinda López Vital Signs Date Time Vital Sign Value Performing Clinician Facility 08-04-2023 11:[id number] Body mass index (BMI) [Ratio] 33.88 kg/m2 [employer] Work Phone: [facility] 08-04-2023 11:10050 Body weight 89.54 kg [employer] Work Phone: [facility] 08-04-2023 11:10-0500 Diastolic blood pressure 68 mm[Hg] Raúl Victorina DO Work Phone: [facility] 08-04-2023 11:10-0500 Systolic blood pressure 114 mm[Hg] Raúl Victorina DO Work Phone: [facility] 02-15-2023 00:16-0400 Body temperature 99.3 [degF] PA-C Toi Edward Work Phone: [facility] 02-15-2023 00:16-0400 Diastolic blood pressure 66 mm[Hg] PA-C Toi Edward Work Phone: [facility] 02-15-2023 00:16-0400 Heart rate 91 /min PA-C Toi Edward Work Phone: [facility] 02-15-2023 00:16-0400 Respiratory rate 16 /min PA-C Toi Edward Work Phone: [facility] 02-15-2023 00:16-0400 SaO2% (BldA) [Mass fraction] 95 % PA-C Toi Edward Work Phone: [facility] 02-15-2023 00:16-0400 Systolic blood pressure 121 mm[Hg] PA-C Toi Edward Work Phone: [facility] 02-14-2023 20:07-0400 Body height 163.83 cm PA-C Toi Edward Work Phone: [facility] 02-14-2023 20:07-0400 Body weight 74.25 kg PA-C Toilloyd Edward Work Phone: [facility] 02-11-2023 15:40-0400 Body height 167.64 cm Ellen Ortiz Other [facility] Other 02-11-2023 15:40-0400 Body mass index (BMI) [Ratio] 27.18 kg/m2 Ellen Ortiz Other [facility] Other 02-11-2023 15:40-0400 Body temperature 96.9 [degF] Ellen Ortiz Other [facility] Other 02-11-2023 15:40-0400 Body weight 76.39 kg Ellen Ortiz Other [facility] Other 02-11-2023 15:40-0400 Diastolic blood pressure 78 mm[Hg] Ellen Ortiz Other [facility] Other 02-11-2023 15:40-0400 Respiratory rate 18 /min Ellen Ortiz Other [facility] Other 02-11-2023 15:40-0400 SaO2% (BldA) [Mass fraction] 98 % Ellen Ortiz Other [facility] Other 02-11-2023 15:40-0400 Systolic blood pressure 110 mm[Hg] Ellen Ortiz Other [facility] Other Encounters Encounter Date Encounter Type Care [...] 02-15-2023 Emergency department patient visit NON STAFF Facility:[facility] Start: 02-14-2023 End: 02-15-2023 Emergency department patient visit SHAD Edward Work Phone: [facility] Work Phone: Start: 02-11-2023 End: 02-11-2023 ambulatory Ellen Ortiz Other [facility] Other Start: 02-11-2023 Office outpatient ne w 20 minutes Ellen Ortiz [facility] Start: 03-02-2022 End: 03-03-2022 ambulatory [facility] Facility: Procedures Date Procedure Procedure Detail Performing Clinician Start: 08-05-2023 ALL CBC WITH AUTO DIFF Raúl Victorina DO Work Phone: Start: 08-04-2023 Urnls dip stick/tabl et rgnt non-auto w/o micrscp Raúl Victorina DO Work Phone: Plan of Treatment Date Care Activity Detail Author Start: 08-11-2023 End: 08-11-2023 Patient encounter procedure 08/11/2023 10:30 AM EST Routine [facility] [address] [place] [address] Raúl Prajapati DO [address] [place] [address] [facility] Start: 08-04-2023 End: 08-04-2024 US for US OB SCAN FOR GROWTH Imaging Routine Excessive growth affecting management of in third trimester, single or unspecified fetus Expected: 08/04/2023 (Approximate), Expires: 08/04/2024 [facility] Work Phone: Comment on above: Expected: 08/04/2023 (Approximate), Expires: 08/04/2024 Start: 02-14-2023 Streptococcus pyogen es Ag [Presence] in Throat Group A Strep Throat Culture [facility] Patient Education Sore Throat, Adult ED F [facility] Work Phone: Patient referral [facility] Work Phone: Payers Date Payer Category Payer Self-pay 2022 Medicaid [id number] 2022 Medicaid [employer] [place] [id number] 2022-Present [address] [place] [address] [id number] 2003 Unknown [id number] 2003 Unknown [id number] 2003 Unknown [id number] 2003 Unknown [id number] 2003 Unknown [id number] 2003 Unknown [id number] 2003 Unknown [id number] 2003 Unknown [id number] [id number] 1985 Unknown [id number] [id number] 1959 Unknown [id number] Unknown [id number] Social History Date Type Detail Facility Unknown if ever smoked [facility] Other Start: 04-07-2023 Sex [address] [facility] Other Start: 02-14-2023 End: 04-07-2023 Tobacco smoking status OHIS Never smoked tobacco (finding) [facility] Start: 2005 Sex Assigned At Female F [facility] Start: 08-04-2023 Alcohol intake Lifetime non-d [...] nursing note reviewed. Exam conducted with a cleat maker present. Vitals: Estimated body mass index is [...] the ER for worsening symptoms or concerns [facility] Other Evaluation note Note Date & Type Note Facility Evaluation note No assessment information [facility] Work Phone: Evaluation note Note Date & Type Note Facility Evaluation note Diagnosis Third trimester state, incidental Excessive growth affecting management of in third trimester, single or unspecified fetus documented in this encounter [facility] Healthcare Summary Purpose Family History No Family [...] DATE CREATED AUTHOR AUTHOR'S ORGANIZ ATION 02/26/2023 [facility] DATE CREATED AUTHOR AUTHOR'S ORGANIZ ATION 08/26/2023 [facility] EPIC REASON FOR VISIT [...] BE BASED ON THE PRIMARY CLINICAL RECORDS. [facility] [facility]. provides no warranty or guarantee of the accuracy or completeness of information in this document.
--- NOTE | 2023-09-06 14:47 | PC.NURSE ---
Parents and 5 day old arrive for follow up. Parents report surprised with how much he is awake at night and that he wants to be held the first night home was awful Discussed expected normal behaviors and need for frequent contact and feeding. Parents voice understanding and plan ways to reassure and meet infants needs. Mom has VSS and assessment WNL. Denies needs or concerns for self other than sleeping for long periods of time. Discussed ways to ensure mom is resting and dad voices he is able to help and does what he can to support mom and her effort to breastfeed. Mom denies questions except about . Reviewed practices and now encouraged to feed from both breasts per feed. Understandis why is important to feeding baby and to building milk supply.Baby Fei VSS and assessment WNL. Multiple wets and stools tracked by parents and infant feeds every 2-3 hours. Some cluster feds at night. Parents will return 09/10/2023 for weight check and progress with sleeping. Leaves ambulatory with no further questions.
[2023-09-06 14:49] VITALS: BP 120/85; PULSE 90; RESP 16; TEMP 36.7; O2SAT 96
== END 2023-09-06 12:00 | disposition home or self-care (01) ==
LOC: FBCO 08:48
PROVIDERS: PCP Obstetrics & Gynecology; Visit Provider Obstetrics & Gynecology
DX: Z39.2 Encounter for routine postpartum follow-up (principal)

== ENCOUNTER 2023-09-10 10:15 | Outpatient (OUT) | payer OTHER, SELFPAY ==
--- OUTSIDE RECORDS SUMMARY | 2023-09-10 10:27 | XMS_ITS | CCD ---
Author Organization [facility] Care Team Providers Care Rib Trim Separator Name Role Phone [facility] Primary Care Unavailable ROSY, DR JACKSON Attending Unavailable ROSY, DR JACKSON Consulting Unavailable DR MANUEL GALLEGOS Admitting Unavailable Ellen Ortiz Unavailable SHAD Edward Emergency Provider NON STAFF Primary Care Provider Unavailmadelyn e NON STAFF Primary Care Unavailable Toi Edward Attending Unavailable Toi Edward Admitting Unavailable Unavailable Primary Care Provider Unavailabl e GERMAN WAGNER Attending Unavailable RAÚL PRAJAPATI Attending Unavailable GERMAN WAGNER Attending Unavailable RAÚL PRAJAPATI Attending Unavailable RAÚL PRAJAPATI Attending Unavailable GERMAN WAGNER Attending Unavailable RAÚL PRAJAPATI Attending Unavailable RAÚL PRAJAPATI Attending Unavailable Allergies Allergy Classification Reported Allergen(s) Allergy Type Date of Onset Reaction(s) Facility (1 source) Adhesive Tape Drug allergy [facility] [employer] Other (4 sources) Penicillin G Drug Allergy 3 [facility] [employer] Other (2 sources) Adhesive Tape; Translations: [adhesive tape] Propensity to adverse reactions 3 [facility] (5 sources) Penicillins; Translations: [Penicillins] Allergy to substance 2 [facility] (3 sources) Wound Dressing Adhesive Drug Intolerance 3 [facility] Healthcare Medications Current Medications Medication Drug Class(es) [...] AUTO DIFFon BASOPHILS ABSOLUTE AUTO 0.0 N [facility] Basophils/100 WBC (Bld) 0.3 % 0.2 - 2.0 % [facility] Eosinophils/100 WBC (Bld) 0.5 % Low 0.9 - 7.0 % [facility] Erythrocyte distribution width (RBC) [Ratio] 12.7 % 11.0 - 15.0 % [facility] Hematocrit (Bld) [Volume fraction] 32.6 % Low 36.0 - 48.0 % [facility] Hemoglobin (Bld) [Mass/Vol] 10.1 g/dL Low 12.0 - 16.0 g/dL [facility] IMMATURE GRANULOCYTES ABS AUTO 0.06 High [facility] Immature granulocytes/100 WBC (Bld) 0.5 % 0.0 - 0.5 % [facility] Interpretation and review of laboratory results Abnormal [facility] LYMPHOCYTES ABSOLUTE AUTO 2.3 [facility] Lymphocytes/100 WBC (Bld) 19.3 % Low 20.5 - 60. 0 % [facility] MCH (RBC) [Entitic mass] 27.4 pg 26. 7 - 34.0 pg [facility] MCHC (RBC) [Mass/Vol] 31.0 g/dL 29.9 - 35.2 g/dL [facility] MCV (RBC) [Entitic vol] 88.3 fL 81.0 - 99.0 fL [facility] MONOCYTES ABSOLUTE AUTO 0.8 N [facility] Monocytes/100 WBC (Bld) 6.9 % 1.7 - 12.0 % [facility] NEUTROPHILS ABSOLUTE AUTO 8.5 High [facility] Neutrophils/100 WBC (Bld) 72.5 % 43.0 - 75. 0 % [facility] Platelet mean volume (Bld) [Entitic vol] 9.1 fL Low 9.5 - 13.5 fL [facility] TBH EO # 0.1 [facility] TB PLT 319 [facility] RBC 3.69 Low [facility] WBC 11.8 High [facility] Urinalysis macro (dipstick) panel (U)on 08-04-2023 Bilirubin, UA Few Negative - 4(70) +++ mg/dL [facility] Blood, UA Positive Negative - 50 Carmine/mcL [facility] Clarity, UA Clear [facility] Color, UA Yellow [facility] Glucose, UA Negative Negative - 1999(110) ++++ mg/dL [facility] Interpretation and review of laboratory results Abnormal [facility] Ketones, UA Negative Negative - 160(16) ++++ mg/dL [facility] Leukocytes, UA Few Negative - 500+++ Josselyn/mcL [facility] Nitrite, UA Negative Negative - Positive [facility] pH, UA 6.0 5 - 9 [facility] Protein, UA Positive Negative - 1999(20) ++++ mg/dL [facility] Spec Grav, UA 1.030 1 - 1.03 [facility] Urobilinogen, UA 1.0 0.2 - 12 mg/dL [facility] Alan[facility] aminotransferase [En zymatic activity/volume] in Serum or PlasmaOrdered By: Toi Edward on 02-14-2023 ALT [Catalytic activity/Vol] 41 U/L 7-52 [facility] Albumin [Mass/volume] in Ser um or Plasma by Bromocresol green (BCG) dye binding methoOrdered By: Toi Edward on 02-14-2023 Albumin BCG dye [Mass/Vol] 4.1 g/dL 3.5-5.7 [facility] Alkaline phosphatase [Enzyma tic activity/volume] in Serum or PlasmaOrdered By: Toi Edward on 02-14-2023 ALP [Catalytic activity/Vol] 158 U/L 34-104 [facility] Aspartate aminotransferase [ Enzymatic activity/volume] in Serum or PlasmaOrdered By: Toi Edward on 02-14-2023 AST [Catalytic activity/Vol] 44 U/L 13-39 [facility] Basophils Auto (Bld) [#/Vol] Ordered By: Toi Edward on 02-14-2023 Basophils (Bld) [#/Vol] 0.1 10*3/uL 0.0-0.2 [facility] Basophils/100 WBC Auto (Bld) Ordered By: Toi Edward on 02-14-2023 Basophils/100 WBC (Bld) 0.5 % . [facility] Bilirubin.total [Mass/volume ] in Serum or PlasmaOrdered By: Toi Edward on 02-14-2023 Bilirubin [Mass/Vol] 0.8 mg/dL 0.3-1.0 [facility] C reactive protein [Mass/vol ume] in Serum or PlasmaOrdered By: Toi Edward on 02-14-2023 CRP [Mass/Vol] 1.8 mg/dL 0.0-0.5 [facility] C-Reactive Proteinon 023 C-Reactive Protein 1.8 mg/dL High 0.0-0.5 [facility] Comment on above: Result Comment: PERF ORMED BY: [facility] [address] [place] [address] PATHOLOGIST SENIOR LEAD SOFTWARE ENGINEER VEENA DYSON M.D. Performed By: #### S CAN CBC, ESR, CMP, CRP #### [facility] [address] Calcium [Mass/volume] in Ser um or PlasmaOrdered By: Toi Edward on 02-14-2023 Calcium [Mass/Vol] 9.4 mg/dL 8.6-10.3 [facility] Carbon dioxide, total [Moles /volume] in Serum or PlasmaOrdered By: Toi Edward on 02-14-2023 CO2 [Moles/Vol] 24.8 mmol/L 21.0-31.0 [facility] Chloride [Moles/volume] in S cass or PlasmaOrdered By: Toi Edward on 02-14-2023 Chloride [Moles/Vol] 100 mmol/L 98-107 [facility] Comprehensive Metabolic Pane valentín 02-14-2023 Albumin [Mass/Vol] 4.1 g/dL Normal 3.5-5.7 [facility] Comment on above: Performed By: #### S CAN CBC, ESR, CMP, CRP #### [facility] [address] Albumin/Globulin [Mass ratio] 1.2 {ratio} Normal [facility] Comment on above: Performed By: #### S CAN CBC, ESR, CMP, CRP #### [facility] [address] ALP [Catalytic activity/Vol] 158 U/L High 34-104 [facility] Comment on above: Performed By: #### S CAN CBC, ESR, CMP, CRP #### [facility] [address] [place] [address] [place] ALT [Catalytic activity/Vol] 41 U/L Normal 7-52 [facility] Comment on above: Performed By: #### S CAN CBC, ESR, CMP, CRP #### [facility] [address] Anion gap [Moles/Vol] 13.2 mmol/L Normal 6.0-15.0 [facility] Comment on above: Performed By: #### S CAN CBC, ESR, CMP, CRP #### [facility] [address] AST [Catalytic activity/Vol] 44 U/L High 13-39 [facility] Comment on above: Performed By: #### S CAN CBC, ESR, CMP, CRP #### [facility] [address] Bilirubin [Mass/Vol] 0.8 mg/dL Normal 0.3-1.0 [facility] Comment on above: Performed By: #### S CAN CBC, ESR, CMP, CRP #### [facility] [address] Calcium [Mass/Vol] 9.4 mg/dL Normal 8.6-10.3 [facility] Comment on above: Performed By: #### S CAN CBC, ESR, CMP, CRP #### [facility] [address] [place] [address] [place] Chloride [Moles/Vol] 100 mmol/L Normal 98-107 [facility] Comment on above: Performed By: #### S CAN CBC, ESR, CMP, CRP #### [facility] [address] [place] [address] [place] CO2 [Moles/Vol] 24.8 mmol/L Normal 21.0-31.0 [facility] Comment on above: Performed By: #### S CAN CBC, ESR, CMP, CRP #### [facility] [address] [place] [address] [place] Creatinine [Mass/Vol] 0.77 mg/dL Normal 0.60-1.20 [facility] Comment on above: Performed By: #### S CAN CBC, ESR, CMP, CRP #### [facility] [address] [place] [address] [place] Creatinine Clr Calc Pharmacy 115.98 Normal [facility] Comment on above: Performed By: #### S CAN CBC, ESR, CMP, CRP #### [facility] [address] [place] [address] [place] GFR/1.73 sq M.predicted MDRD (S/P/Bld) [Vol rate/Area] mL/min/{1.73_m2} Normal [facility] Comment on above: Performed By: #### S CAN CBC, ESR, CMP, CRP #### [facility] [address] Globulin (S) [Mass/Vol] 3.5 g/dL Normal [facility] Comment on above: Performed By: #### S CAN CBC, ESR, CMP, CRP #### [facility] [address] Glucose [Mass/Vol] 85 mg/dL Normal 70-100 [facility] Comment on above: Result Comment: [facility] Glucose Reference Range is dependent on time and content of last meal. Glucose of more than 200 mg/dL in a nonstressed, ambulatory subject supports the diagnosis of Diabetes Mellitus. ADA recommended reference range Performed By: #### S CAN CBC, ESR, CMP, CRP #### [facility] [address] Potassium [Moles/Vol] 4.0 mmol/L Normal 3.5-5.1 [facility] Comment on above: Performed By: #### S CAN CBC, ESR, CMP, CRP #### [facility] [address] [place] [address] [place] Protein [Mass/Vol] 7.6 g/dL Normal 6.4-8.9 [facility] Comment on above: Performed By: #### S CAN CBC, ESR, CMP, CRP #### [facility] [address] [place] [address] [place] Sodium [Moles/Vol] 134 mmol/L Low 136-145 [facility] Comment on above: Performed By: #### S CAN CBC, ESR, CMP, CRP #### [facility] [address] [place] [address] [place] Urea nitrogen [Mass/Vol] 7 mg/dL Normal 7-25 [facility] Comment on above: Performed By: #### S CAN CBC, ESR, CMP, CRP #### [facility] [address] [place] [address] [place] Creatinine [Mass/volume] in Serum or PlasmaOrdered By: Toi Edward on 02-14-2023 Creatinine [Mass/Vol] 0.77 mg/dL 0.60-1.20 [facility] Eosinophils Auto (Bld) [#/Vo l]Ordered By: Toi Edward on 02-14-2023 Eosinophils (Bld) [#/Vol] 0.0 10*3/uL 0.0-0.45 [facility] Eosinophils/100 WBC Auto (Bl d)Ordered By: Toi Edward on 02-14-2023 Eosinophils/100 WBC (Bld) 0.2 % . [facility] Erythrocyte Sedimentation Ra deng 02-14-2023 ESR (Bld) [Velocity] 26 mm/h High 0-19 [facility] Comment on above: Result Comment: PERF ORMED BY: [place] [address] PATHOLOGIST SENIOR LEAD SOFTWARE ENGINEER VEENA DYSON M.D. Performed By: #### S CAN CBC, ESR, CMP, CRP #### [facility] [address] [place] [address] Erythrocyte distribution wid th Auto (RBC) [Ratio]Ordered By: Toi Edward on 02-14-2023 Erythrocyte distribution width (RBC) [Ratio] 13.3 % 11.9-15.3 [facility] Erythrocyte sedimentation ra te by Photometric methodOrdered By: Toi Edward on 02-14-2023 ESR Photometric method (Bld) [Velocity] 26 mm/hr 0-19 [facility] Globulin Calc (S) [Mass/Vol] Ordered By: Toi Edward on 02-14-2023 Globulin (S) [Mass/Vol] 3.5 g/dL [facility] Glucose [Mass/volume] in Ser um or PlasmaOrdered By: Toi Edward on 02-14-2023 Glucose [Mass/Vol] 85 mg/dL 70-100 [facility] Comment on above: ADA recommended refe rence rangeRandom Glucose Reference Range is dependent on time and content of last meal. Glucose of more than 200 mg/dL in a nonstressed, ambulatory subject supports the diagnosis of Diabetes Mellitus. Hematocrit Auto (Bld) [Volum e fraction]Ordered By: Toi Edward on 02-14-2023 Hematocrit (Bld) [Volume fraction] 38.7 % 34.0-46.4 [facility] Hemoglobin [Mass/volume] in BloodOrdered By: Toi Edward on 02-14-2023 Hemoglobin (Bld) [Mass/Vol] 13.1 g/dL 11.8-15.4 [facility] Leukocytes [#/volume] correc alem for nucleated erythrocytes in Blood by Automated counOrdered By: Toi Edward on 02-14-2023 WBC corrected for nucl RBC Auto (Bld) [#/Vol] 9.4 10*3/uL 3.8-11.6 [facility] Lymphocytes Auto (Bld) [#/Vo l]Ordered By: Toi Edwadr on 02-14-2023 Lymphocytes (Bld) [#/Vol] 4.5 10*3/uL 1.00-4.8 [facility] Lymphocytes/100 WBC Auto (Bl d)Ordered By: Toi Edward on 02-14-2023 Lymphocytes/100 WBC (Bld) 47.5 % . [facility] MCH Auto (RBC) [Entitic mass ]Ordered By: Toi Edward on 02-14-2023 MCH (RBC) [Entitic mass] 29.0 pg 24.7-34.3 [facility] MCHC Auto (RBC) [Mass/Vol]Or dered By: Toi Edward on 02-14-2023 MCHC (RBC) [Mass/Vol] 33.7 g/dL 32.0-35.0 [facility] MCV Auto (RBC) [Entitic vol] Ordered By: Toi Edward on 02-14-2023 MCV (RBC) [Entitic vol] 85.8 fL 80-100 [facility] Monocyte distribution width [Entitic volume] in Blood by AutomatedOrdered By: Toi Edward on 02-14-2023 Monocyte distribution width Auto (Bld) [Entitic vol] 34.56 % 0.00-20.00 [facility] Comment on above: The predictive value of MDW for identifying sepsis in patients with hematological abnormalities has not been established Monocytes Auto (Bld) [#/Vol] Ordered By: Toi Edward on 02-14-2023 Monocytes (Bld) [#/Vol] 1.0 10*3/uL 0.0-0.8 [facility] Monocytes/100 WBC Auto (Bld) Ordered By: Toi Edward on 02-14-2023 Monocytes/100 WBC (Bld) 10.7 % . [facility] Neutrophils Auto (Bld) [#/Vo l]Ordered By: Toi Edward on 02-14-2023 Neutrophils (Bld) [#/Vol] 3.9 10*3/uL 1.8-7.7 [facility] Neutrophils/100 WBC Auto (Bl d)Ordered By: Toi Edward on 02-14-2023 Neutrophils/100 WBC (Bld) 41.1 % . [facility] No Panel InformationOrdered By: Toi Edward on 02-14-2023 Estimated GFR (CKD-EPI) > 60.0 mL/Min [facility] Creatinine Clearance (Chem 115.98 [facility] Nucleated erythrocytes [Pres ence] in Blood by Automated countOrdered By: Toi Edward on 02-14-2023 Nucleated RBC Auto Ql (Bld) 0.3 /100{WBC} 0-0.5 [facility] Platelet adequacy [Presence] in Blood by Light microscopyOrdered By: Toi Edward on 02-14-2023 Platelets LM Ql (Bld) Normal Normal [facility] Platelet mean volume Auto (B ld) [Entitic vol]Ordered By: Toi Edward on 02-14-2023 Platelet mean volume (Bld) [Entitic vol] 7.6 fL 6.3-10.7 [facility] Platelet morphology finding [Identifier] in BloodOrdered By: Toi Edward on 02-14-2023 Platelet morphology finding Nom (Bld) Normal Normal [facility] Platelets Auto (Bld) [#/Vol] Ordered By: Toi Edward on 02-14-2023 Platelets (Bld) [#/Vol] 163 10*3/uL 150-450 [facility] Potassium [Moles/volume] in Serum or PlasmaOrdered By: Toi Edward on 02-14-2023 Potassium [Moles/Vol] 4.0 mmol/L 3.5-5.1 [facility] Protein [Mass/volume] in Ser um or PlasmaOrdered By: Toi Edward on 02-14-2023 Protein [Mass/Vol] 7.6 g/dL 6.4-8.9 [facility] Quick Strepon 02-14-2023 Quick Strep Streptococcus pyogenes Ag [Presence] in Throat by Rapid immunoassay Negative for Group A Strep Antigen Note 1 ------ NOTE 2 Results are those of a screening test. NOTE 3 If clinically indicated please order a culture. NOTE 4 ------ NOTE 5 Reference range = Negative PERFORMED BY: [place] [address] PATHOLOGIST SENIOR LEAD SOFTWARE ENGINEER VEENA DYSON M.D. [facility] Comment on above: Performed By: #### Q S, RFXSTPA #### [facility] [address] [place] [address] RBC Auto (Bld) [#/Vol]Ordere d By: Toi Edward on 02-14-2023 RBC (Bld) [#/Vol] 4.51 10*6/uL 3.60-5.[address] [facility] RBC morphologyOrdered By: Den Edward on 02-14-2023 RBC morphology finding Nom (Bld) Normal Normal [facility] RFX Strep A Reflex Cult Only on 02-14-2023 RFX Strep A Reflex Cult Only Strep A Only Cult No Group A Beta Streptococcus Isolated 2 Days PERFORMED BY: [place] [address] PATHOLOGIST SENIOR LEAD SOFTWARE ENGINEER VEENA DYSON M.D. [facility] Comment on above: Performed By: #### Q S, RFXSTPA #### [facility] [address] [place] [address] Scan and CBCon 02-14-2023 Basophils (Bld) [#/Vol] 0.1 10*3/uL Normal 0.0-0.2 [facility] Comment on above: Performed By: #### S CAN CBC, ESR, CMP, CRP #### [facility] [address] [place] [address] Basophils/100 WBC (Bld) 0.5 % Normal . [facility] Comment on above: Performed By: #### S CAN CBC, ESR, CMP, CRP #### [facility] [address] [place] [address] Eosinophils (Bld) [#/Vol] 0.0 10*3/uL Normal 0.0-0.45 [facility] Comment on above: Performed By: #### S CAN CBC, ESR, CMP, CRP #### [facility] [address] [place] [address] Eosinophils/100 WBC (Bld) 0.2 % Normal . [facility] Comment on above: Performed By: #### S CAN CBC, ESR, CMP, CRP #### [facility] [address] [place] [address] Erythrocyte distribution width (RBC) [Ratio] 13.3 % Normal 11.9-15.3 [facility] Comment on above: Performed By: #### S CAN CBC, ESR, CMP, CRP #### [address] Hematocrit (Bld) [Volume fraction] 38.7 % Normal 34.0-46.4 [facility] Comment on above: Performed By: #### S CAN CBC, ESR, CMP, CRP #### [facility] [address] [place] [address] Hemoglobin (Bld) [Mass/Vol] 13.1 g/dL Normal 11.8-15.4 [facility] Comment on above: Performed By: #### S CAN CBC, ESR, CMP, CRP #### [facility] [address] [place] [address] Lymphocytes (Bld) [#/Vol] 4.5 10*3/uL Normal 1.00-4.8 [facility] Comment on above: Performed By: #### S CAN CBC, ESR, CMP, CRP #### [place] [address] [place] Lymphocytes/100 WBC (Bld) 47.5 % Normal . [facility] Comment on above: Performed By: #### S CAN CBC, ESR, CMP, CRP #### [facility] [address] [place] [address] [place] MCH (RBC) [Entitic mass] 29.0 pg Normal 24.7-34.3 [facility] Comment on above: Performed By: #### S CAN CBC, ESR, CMP, CRP #### [address] MCV (RBC) [Entitic vol] 85.8 fL Normal 80-100 [facility] Comment on above: Performed By: #### S CAN CBC, ESR, CMP, CRP #### [address] Mean Corpuscular HGB Conc 33.7 g/dL Normal 32.0-35.0 [facility] Comment on above: Performed By: #### S CAN CBC, ESR, CMP, CRP #### [place] [address] [place] Monocytes (Bld) [#/Vol] 1.0 10*3/uL High 0.0-0.8 [facility] Comment on above: Performed By: #### S CAN CBC, ESR, CMP, CRP #### [place] [address] [place] Monocytes/100 WBC (Bld) 34.56 % High 0.00-20.00 [facility] Comment on above: Result Comment: The predictive value of MDW for identifying sepsis in patients with hematological abnormalities has not been established Performed By: #### S CAN CBC, ESR, CMP, CRP #### [place] [address] [place] Monocytes/100 WBC (Bld) 10.7 % Normal . [facility] Comment on above: Performed By: #### S CAN CBC, ESR, CMP, CRP #### [place] [address] [place] Neutrophils (Bld) [#/Vol] 3.9 10*3/uL Normal 1.8-7.7 [facility] Comment on above: Performed By: #### S CAN CBC, ESR, CMP, CRP #### [facility] [address] Neutrophils/100 WBC (Bld) 41.1 % Normal . [facility] Comment on above: Performed By: #### S CAN CBC, ESR, CMP, CRP #### [facility] [address] NRBC% 0.3 /100{WBC} Normal 0-0.5 [facility] Comment on above: Performed By: #### S CAN CBC, ESR, CMP, CRP #### [address] Platelet Estimate Normal Normal Normal [facility] Comment on above: Performed By: #### S CAN CBC, ESR, CMP, CRP #### [address] Platelet mean volume (Bld) [Entitic vol] 7.6 fL Normal 6.3-10.7 [facility] Comment on above: Performed By: #### S CAN CBC, ESR, CMP, CRP #### [address] Platelet Morphology Normal Normal Normal [facility] Comment on above: Performed By: #### S CAN CBC, ESR, CMP, CRP #### [address] Platelets (Bld) [#/Vol] 163 10*3/uL Normal 150-450 [facility] Comment on above: Performed By: #### S CAN CBC, ESR, CMP, CRP #### [address] RBC (Bld) [#/Vol] 4.51 10*6/uL Normal 3.60-5.[address] [facility] Comment on above: Performed By: #### S CAN CBC, ESR, CMP, CRP #### [address] [place] [address] [place] RBC morphology finding Nom (Bld) Normal Normal Normal [facility] Comment on above: Performed By: #### S CAN CBC, ESR, CMP, CRP #### [facility] [address] WBC (Bld) [#/Vol] 9.4 10*3/uL Normal 3.8-11.6 [facility] Comment on above: Performed By: #### S CAN CBC, ESR, CMP, CRP #### [facility] [address] Serum or plasma albumin/glob ulin mass ratioOrdered By: Toi Edward on 02-14-2023 Albumin/Globulin [Mass ratio] 1.2 {ratio} [facility] Serum or plasma anion gap de terminationOrdered By: Toi Edward on 02-14-2023 Anion gap [Moles/Vol] 13.2 mmol/L 6.0-15.0 [facility] Sodium [Moles/volume] in Ser um or PlasmaOrdered By: Toi Edward on 02-14-2023 Sodium [Moles/Vol] 134 mmol/L 136-145 [facility] Urea nitrogen [Mass/volume] in Serum or PlasmaOrdered By: Toi Edward on 02-14-2023 Urea nitrogen [Mass/Vol] 7 mg/dL 7-25 [facility] WBC Auto (Bld) [#/Vol]Ordere d By: Toi Edward on 02-14-2023 WBC (Bld) [#/Vol] 9.4 10*3/uL 3.8-11.6 [facility] CBC AUTO DIFFon 03-02-2022 BASO # 0.0 103/ul Normal 0.0-0.1 [facility] Comment on above: Performed By: #### C BC #### [facility] [address] [address] [address] Melinda López Basophils/100 WBC (Bld) 0.2 % Normal 0.2-2.0 [facility] Comment on above: Performed By: #### C BC #### [facility] [address] [address] [address] Melinda López EO # 0.0 103/ul Normal 0.0-0.7 [facility] Comment on above: Performed By: #### C BC #### [facility] [address] [place] [address] Dr. Melinda López Eosinophils/100 WBC (Bld) 0.1 % Critically low 0.9-7. 0 [facility] Comment on above: Performed By: #### C BC #### [facility] [address] [place] [address] Dr. Melinda López Erythrocyte distribution width (RBC) [Ratio] 13.0 % Normal 11.0-15.0 [facility] Comment on above: Performed By: #### C BC #### [facility] [address] [place] [address] Dr. Melinda López Hematocrit (Bld) [Volume fraction] 41.3 % Normal 36.0-48.0 [facility] Comment on above: Performed By: #### C BC #### [facility] [address] [place] [address] Dr. Melinda López Hemoglobin (Bld) [Mass/Vol] 13.2 g/dL Normal 12.0-16.0 [facility] Comment on above: Performed By: #### C BC #### [facility] [address] [place] [address] Dr. Melinda López IG # 0.15 10e3/ul Critically high 0.00-0.03 The [facility] Comment on above: Performed By: #### C BC #### [facility] [address] [place] [address] Dr. Melinda López IG % 0.9 % Critically high 0.0-0.5 The [facility] Comment on above: Performed By: #### C BC #### [facility] [address] [place] [address] Dr. Melinda López LYMPH # 1.1 103/ul Critically low 1.2-3.8 The [facility] Comment on above: Performed By: #### C BC #### [facility] [address] [place] [address] Dr. Melinda López Lymphocytes/100 WBC (Bld) 6.6 % Critically low 20.5-6 0.0 [facility] Comment on above: Performed By: #### C BC #### [facility] [address] [place] [address] Dr. Melinda López MANUAL DIFF REQ NO Normal [facility] Comment on above: Performed By: #### C BC #### [facility] [address] [place] [address] Dr. Melinda López MCH (RBC) [Entitic mass] 28.1 pg Normal 26.7-34.0 [facility] Comment on above: Performed By: #### C BC #### [facility] [address] [place] [address] Dr. Melinda López MCHC (RBC) [Mass/Vol] 32.0 g/dL Normal 29.9-35.2 [facility] Comment on above: Performed By: #### C BC #### [facility] [address] [place] [address] Dr. Melinda López MCV (RBC) [Entitic vol] 88.1 fL Normal 81.0-99.0 [facility] Comment on above: Performed By: #### C BC #### [facility] [address] [place] [address] Dr. Melinda López MONO # 0.9 103/ul Critically high 0.3-0.8 [facility] Comment on above: Performed By: #### C BC #### [facility] [address] [place] [address] Dr. Melinda López Monocytes/100 WBC (Bld) 4.9 % Normal 1.7-12.0 [facility] Comment on above: Performed By: #### C BC #### [facility] [address] [place] [address] Dr. Melinda López NEUT # 15.0 103/ul Critically high 1.4-6.5 [facility] Comment on above: Performed By: #### C BC #### [facility] [address] [place] [address] Dr. Melinda López Neutrophils/100 WBC (Bld) 87.3 % Critically high 43.0- 75.0 [facility] Comment on above: Performed By: #### C BC #### [facility] [address] [place] [address] Dr. Melinda López Platelet mean volume (Bld) [Entitic vol] 9.4 fL Critically low 9.5-13.5 [facility] Comment on above: Performed By: #### C BC #### [facility] [address] [place] [address] Dr. Melinda López PLT 362 103/ul Normal 150-450 [facility] Comment on above: Performed By: #### C BC #### [facility] [address] [place] [address] Dr. Melinda López RBC 4.69 106/ul Normal 4.20-5.40 [facility] Comment on above: Performed By: #### C BC #### [facility] [address] [place] [address] Dr. Melinda López WBC 17.2 103/ul Critically high 4.0-11.0 [facility] Comment on above: Performed By: #### C BC #### [facility] [address] [place] [address] Dr. Melinda López MONOon 03-02-2022 Monocytes (Bld) [#/Vol] Negative Normal NEGATIVE T [facility] Comment on above: Performed By: #### M RADHA #### [facility] [address] [place] [address] Dr. Melinda López Vital Signs Date Time Vital Sign Value Performing Clinician Facility 08-04-2023 11:10-0500 Body mass index (BMI) [Ratio] 33.88 kg/m2 [facility] Work Phone: [facility] 08-04-2023 11:10-050 Body weight 89.54 kg [facility] Work Phone: [facility] 08-04-2023 11:10-0500 Diastolic blood pressure 68 mm[Hg] Raúl Victorina DO Work Phone: [facility] 08-04-2023 11:10-0500 Systolic blood pressure 114 mm[Hg] Raúl Prajapati DO Work Phone: [facility] 02-15-2023 00:16-0400 Body temperature 99.3 [degF] PA-C Toi Edward Work Phone: [facility] 02-15-2023 00:16-0400 Diastolic blood pressure 66 mm[Hg] PA-C Toi Edward Work Phone: [facility] 02-15-2023 00:16-0400 Heart rate 91 /min PA-C Toi Edward Work Phone: [facility] 02-15-2023 00:16-0400 Respiratory rate 16 /min PA-C Toi Edward Work Phone: [facility] 02-15-2023 00:16-0400 SaO2% (BldA) [Mass fraction] 95 % PA-C Toi Edward Work Phone: [facility] 02-15-2023 00:16-0400 Systolic blood pressure 121 mm[Hg] PA-C Toi Edward Work Phone: [facility] 02-14-2023 20:07-0400 Body height 163.83 cm PA-C Toi Edward Work Phone: [facility] 02-14-2023 20:07-0400 Body weight 74.25 kg PA-C Toi Edward Work Phone: [facility] 02-11-2023 15:40-0400 Body height 167.64 cm Ellen Ortiz Other [facility] [employer] Other 02-11-2023 15:40-0400 Body mass index (BMI) [Ratio] 27.18 kg/m2 Ellen Ortiz Other [facility] [employer] Other 02-11-2023 15:40-0400 Body temperature 96.9 [degF] Ellen Ortiz Other [employer] Other 02-11-2023 15:40-0400 Body weight 76.39 kg Ellen Ortiz Other [facility] [employer] Other 02-11-2023 15:40-0400 Diastolic blood pressure 78 mm[Hg] Ellen Ortiz Other [employer] Other 02-11-2023 15:40-0400 Respiratory rate 18 /min Ellen Ortiz Other [employer] Other 02-11-2023 15:40-0400 SaO2% (BldA) [Mass fraction] 98 % Ellen Ortiz Other [employer] Other 02-11-2023 15:40-0400 Systolic blood pressure 110 mm[Hg] Ellen Ortiz Other [employer] Other Encounters Encounter Date Encounter Type Care Provider Facility Start: 08-25-2023 End: 08-25-2023 ambulatory RAÚL VICTORINA Not Available Start: 08-18-2023 End: 08-18-2023 ambulatory GERMAN BERNARD Not Available Start: 08-11-2023 End: 08-11-2023 ambulatory [...] department patient visit NON STAFF Facility:[facility] Start: 02-14-2023 End: 02-15-2023 Emergency department patient visit SHAD Edward Work Phone: [facility] Work Phone: Start: 02-11-2023 End: 02-11-2023 ambulatory Ellen Ortiz Other [employer] Other Start: 02-11-2023 Office outpatient ne w 20 minutes Ellen Ortiz [facility] Start: 03-02-2022 End: 03-03-2022 ambulatory [facility] Facility: Procedures Date Procedure Procedure Detail Performing Clinician Start: 08-05-2023 ALL CBC WITH AUTO DIFF Raúl Victorina DO Work Phone: Start: 08-04-2023 Urnls dip stick/tabl et rgnt non-auto w/o micrscp Raúl Victorina DO Work Phone: Plan of Treatment Date Care Activity Detail Author Start: 08-11-2023 End: 08-11-2023 Patient encounter procedure 08/11/2023 10:30 AM EST Routine [facility] [address] [place] [address] Raúl Prajapati, DO [address] [place] [address] [facility] Start: 08-04-2023 End: 08-04-2024 US for US OB SCAN FOR GROWTH Imaging Routine Excessive growth affecting management of in third trimester, single or unspecified fetus Expected: 08/04/2023 (Approximate), Expires: 08/04/2024 [facility] Healthcare Work Phone: Comment on above: Expected: 08/04/2023 (Approximate), Expires: 08/04/2024 Start: 02-14-2023 Streptococcus pyogen es Ag [Presence] in Throat Group A Strep Throat Culture [facility] Patient Education Sore Throat, Adult ED F [facility] Work Phone: Patient referral [facility] Work Phone: Payers Date Payer Category Payer Self-pay 2022 Medicaid [id number] 2022 Medicaid [facility] [employer] [place] [id number] 2022-Present [address] [place] [address] [id number] 2003 Unknown [id number] 2003 Unknown [id number] 2003 Unknown [id number] 2003 Unknown [id number] 2003 Unknown [id number] 2003 Unknown [id number] 2003 Unknown [id number] 2003 Unknown [id number] 1985 Unknown [id number] 1959 Unknown [id number] Unknown [id number] Social History Date Type Detail Facility Unknown if ever smoked [facility] [employer] Other Start: 04-07-2023 Sex Assigned At [facility] [employer] Other Start: 02-14-2023 End: 04-07-2023 Tobacco smoking status NHIS Never smoked tobacco (finding) [facility] Start: 2005 Sex Assigned At Female [facility] Start: 08-04-2023 Alcohol intake Lifetime non-d [...] nursing note reviewed. Exam conducted with a drapery hemmer automatic present. Vitals: Estimated body mass index is [...] the ER for worsening symptoms or concerns [employer] Other Evaluation note Note Date & Type Note Facility Evaluation note [facility] Work Phone: Evaluation note Note [...] and content) DATE CREATED AUTHOR [facility]21/2022 [facility] DATE CREATED AUTHOR AUTHOR'S ORGANIZ ATION 02/26/2023 [facility] DATE CREATED AUTHOR AUTHOR'S ORGANIZ ATION 08/26/2023 [facility] EPIC REASON FOR [...] BE BASED ON THE PRIMARY CLINICAL RECORDS. [employer] [facility]. provides no warranty or guarantee of the accuracy or completeness of information in this document.
--- NOTE | 2023-09-10 15:05 | PC.NURSE ---
Rosemary and 9 day old son Fei arrive for weight check. Mom states able to get more sleep and feeding better. Nipples are healing and only slightly tender at this time. Baby weight is up 7.5 oz from visit on Wednesday. Mom is pleased with progress. Reports multiple wets and stools during a 24 hour period. No further concern voiced. Aware to call for concerns or questions. Given info on MOMS BF group. Leaves ambulatory with .
== END 2023-09-10 15:12 | disposition home or self-care (01) ==
LOC: FBCO 10:15
PROVIDERS: Visit Provider Obstetrics & Gynecology
DX: Z39.1 Encounter for care and examination of lactating mother (principal)
CPT/HCPCS: G0463

== ENCOUNTER 2024-02-10 12:24 | Outpatient (OUT) | payer MEDICAID, SELFPAY ==
--- NOTE | 2024-02-10 12:26 | US_ITS ---
[address] [address] Patient Name: SAMANTHA BLANCHARD MRN: [id number] date: 2005 Sex: F Assigned Patient Location: [facility] Current Patient Location: [facility] Accession/Order Number: [id number] Exam Date: 02/10/2024 12:26 Report Date: 02/10/2024 13:37 At the request of: RAÚL MONDRAGON Procedure: US OB transvaginal EXAMINATION: US OB transvaginal HISTORY: MISSED MENSES COMPARISON: No relevant comparison available. FINDINGS: GESTATIONAL SAC: Present and normal appearing. YOLK SAC: Present and normal appearing. POLE: Present and normal appearing. CARDIAC: Present. UTERUS: Normal size and appearance. OVARIES: Right: Normal. Left: Normal. CERVIX: 4.0 cm in length and closed. CUL-DE-SAC: Normal. OTHER: None. AGE BY LMP: 8 weeks 3 days KARON BY LMP: 09/18/2024 AGE BY US CRL: 8 weeks 1 day KARON BY US CRL: 09/20/2024 US/US OB transvaginal IMPRESSION: 1. Single live intrauterine . Electronically authenticated by: JIL HAWTHORNE Date: 02/10/2024 13:37
== END 2024-02-10 12:25 | disposition home or self-care (01) ==
LOC: NOMS 12:24
PROVIDERS: Visit Provider Obstetrics & Gynecology
DX: Z34.91 Encounter for supervision of normal pregnancy, unspecified, first trimester (principal); Z3A.08 8 weeks gestation of pregnancy; N92.6 Irregular menstruation, unspecified
CPT/HCPCS: 76817

== ENCOUNTER 2024-02-22 12:41 | Outpatient (OUT) | payer OTHER, SELFPAY ==
[2024-02-22 13:45] LABS: Basophils Percent Auto 0.2 % (0.2-2.0); Eosinophils Absolute Auto 0.4 10^3/uL (0.0-0.7); Eosinophils Percent Auto 4.2 % (0.9-7.0); Hematocrit 38.7 % (36.0-48.0); Hemoglobin 12.6 g/dL (12.0-16.0); Immature Granulocytes Abs Auto 0.03 10^3/uL (0.00-0.03); Immature Granulocytes Pct Auto 0.3 % (0.0-0.5); Lymphocytes Absolute Auto 2.5 10^3/uL (1.2-3.8); Lymphocytes Percent Auto 24.5 % (20.5-60.0); Mean Corpuscular HGB Conc 32.6 g/dL (29.9-35.2); Mean Corpuscular Hemoglobin 26.6 pg (26.7-34.0); Mean Corpuscular Volume 81.8 fL (81.0-99.0); Mean Platelet Volume 9.5 fL (9.5-13.5); Monocytes Absolute Auto 0.9 10^3/uL (0.3-0.8); Monocytes Percent Auto 8.5 % (1.7-12.0); Neutrophils Absolute Auto 6.4 10^3/uL (1.4-6.5); Neutrophils Percent Auto 62.3 % (43.0-75.0); Platelet Count 318 10^3/uL (150-450); Red Blood Count 4.73 10^6/uL (4.20-5.40); Red Cell Distribution Width 13.5 % (11.0-15.0); White Blood Count 10.3 10^3/uL (4.0-11.0)
[2024-02-22 13:48] LABS: Estimated Average Glucose 103 mg/dL; Glycohemoglobin A1C 5.2 % (4.5-6.2)
[2024-02-22 16:40] LABS: BOX Test Sent Out Y
[2024-02-23 06:10] LABS: HBsAg Screen Negative (Negative); HCV Ab Non Reactive (Non Reactive); HIV Ab/p24 Ag Screen Non Reactive (Non Reactive)
[2024-02-23 11:09] LABS: Rapid Plasma Reagin, Quant Non Reactive titer (NonRea<1:1)
== END 2024-02-22 12:42 | disposition home or self-care (01) ==
LOC: LAB 12:43
PROVIDERS: Visit Provider Obstetrics & Gynecology
DX: N92.6 Irregular menstruation, unspecified (principal); Z36.0 Encounter for antenatal screening for chromosomal anomalies
CPT/HCPCS: 36415; 83036; 85025; 86592; 86762; 86803; 86850; 86900; 86901; 87086; 87340; 87389

== ENCOUNTER 2024-04-13 15:47 | Outpatient (OUT) | payer OTHER, SELFPAY ==
--- OUTSIDE RECORDS SUMMARY | 2024-04-13 16:00 | XMS_ITS | CCD ---
Author Organization [facility] Care Team Providers Care Contact Finger Assembler Name Role Phone [facility] Primary Care Unavailable DR MANUEL GALLEGOS Attending Unavailable ROSY, DR JACKSON Consulting Unavailable DR MANUEL GALLEGOS Admitting Unavailable Ellen Ortiz Unavailable SHAD Edward Emergency Provider [phone] NON STAFF Primary Care Provider Unavailmadelyn quinones NON STAFF Primary Care Unavailable Toi Edward Attending Unavailable Toi Edward Admitting Unavailable Unavailable Primary Care Provider Unavailabl e Kadi Gant Unavailable KADI WAGNER Attending Unavailable VICTORINARAÚL RODRIGUEZ Attending Unavailable KADI WAGNER Attending Unavailable VICTORINA, RAÚL Attending Unavailable VICTORINA, RAÚL Attending Unavailable AKDI WAGNER Attending Unavailable VICTORINA, RAÚL Attending Unavailable VICTORINA, RAÚL Attending Unavailable VICTORINA, RAÚL Attending Unavailable VICTORINA, RAÚL Attending Unavailable VICTORINA, RAÚL Attending Unavailable Allergies Allergy Classification Reported Allergen(s) Allergy Type Date of Onset Reaction(s) Facility (1 source) Adhesive Tape Drug allergy [facility] Other (8 sources) Penicillin G Drug Allergy 3 [facility] Other (2 sources) Adhesive Tape; Translations: [adhesive tape] Propensity to adverse reactions 3 [facility] (9 sources) Penicillins; Translations: [Penicillins] Allergy to substance 2 [facility] (7 sources) Wound Dressing Adhesive Drug Intolerance 3 [...] Active ondansetron 4 mg disintegrating oral tablet (9 sources) Serotonin-3 Receptor Antagonist Start: 2023 End: 2023 take 1 tablet by mouth every six hours ondansetron ODT (Zofran-ODT) 4 MG disintegrating tablet Indications: Nausea and vomiting during Take 1 tablet (4 mg) by mouth every 6 (six) hours 120 tablet 1 03/13/2024 06/11/2024 Active take 1 tablet by julien every six hours as needed for nausea [...] morning. 30 tablet 11 03/02/2023 03/01/2024 Active Vit-Fe Fumarate-FA ( Vitamins) 28-0.8 MG tablet (4 sources) Start: 02-10-2024 End: 02-09-2025 take 1 tablet by mouth once daily Vit-Fe Fumarate-FA ( Vitamins) 28-0.8 MG tablet Indications: Missed menses Take 1 tablet by mouth Daily 30 tablet 11 02/10/2024 02/09/2025 Active Vitamin 27-0.8 MG (1 source) take [...] Not-Taking Problems Problem Classification Problem Date Documented Date Episodic/Chronic Acute and chronic tonsillitis (4 sources) Acute tonsillitis, unspecified; Translations: [ACUTE TONSILLITIS UNSPECIFIED] Onset: 03-02-2022 Episodic Immunizations and screening for infectious disease (2 sources) Exposure to sexually transmissible disorder; Translations: [Contact with and (suspected) exposure to infections with a predominantly sexual mode of transmission] 04-10-2024 Episodic Other complications of (2 sources) Excessive growth affecting management of mother; Translations: [Maternal care for excessive growth, third trimester, not applicable or unspecified] 08-04-2023 Episodic Other eye disorders (1 source) Edema of unspecified eye, unspecified eyelid Episodic Other female genital disorders (2 sources) Vaginal discharge; Translations: [Other specified noninflammatory disorders of vagina] 04-10-2024 Episodic Other nutritional; endocrine; and metabolic disorders (2 sources) Weight loss; Translations: [Abnormal weight loss] 04-10-2024 Episodic Other and delivery including normal (4 sources) Third trimester ; Translations: [Encounter for supervision of normal , unspecified, third trimester] 07-30-2023 Episodic Other screening for suspected conditions (not mental disorders or infectious disease) (4 sources) Patient encounter status; Translations: [Encounter for other specified screening] 04-10-2024 Episodic Other upper respiratory infections (2 sources) Pharyngitis; Translations: [Acute pharyngitis, unspecified] Onset: 02-14-2023 02-15-2023 Episodic Residual codes; unclassified (2 sources) Gestation period, 17 weeks; Translations: [17 weeks gestation of ] 04-10-2024 Episodic Results Test Name Value Interpretation Reference Range Facility URETHRITIS/DISCHARGE PLUS VA GINITIS (HTRX)on 04-12-2024 ATOPOBIUM VAGINAE 0 [facility] ATOPOBIUM VAGINAE Not detected [facility] BVAB 2,3 (BACTERIAL VAGINOSIS ASSOCIATED BACTERIA 2, 3); MOBILUNCUS SPP 0 [facility] BVAB 2,3 (BACTERIAL VAGINOSIS ASSOCIATED BACTERIA 2, 3); MOBILUNCUS SPP Not detected [facility] RELL ALBICANS, PARAPSILOSIS, TROPICALIS 0 [facility] RELL ALBICANS, PARAPSILOSIS, TROPICALIS Not detected [facility] RELL GLABRATA 0 [facility] RELL GLABRATA Not detected [facility] RELL KRUSEI 0 [facility] RELL KRUSEI Not detected [facility] CHLAMYDIA TRACHOMATIS 0 [facility] CHLAMYDIA TRACHOMATIS Not detected N [facility] ERMB, C; MEFA 17.343 Abnormal [facility] ERMB, C; MEFA Detected Abnormal [facility] GARDNERELLA VAGINALIS 25.706 Abnormal [facility] GARDNERELLA VAGINALIS Detected Abnormal [facility] HERPES SIMPLEX VIRUS 1 0 NO [facility] HERPES SIMPLEX VIRUS 1 Not detected [facility] HERPES SIMPLEX VIRUS 2 0 NO [facility] HERPES SIMPLEX VIRUS 2 Not detected [facility] Interpretation and review of laboratory results Abnormal [facility] MEGASPHAERA (TYPES 1, 2) 0 [facility] MEGASPHAERA (TYPES 1, 2) Not detected [facility] MYCOPLASMA GENITALIUM 0 [facility] MYCOPLASMA GENITALIUM Not detected N [facility] MYCOPLASMA HOMINIS 0 [facility] MYCOPLASMA HOMINIS Not detected [facility] NEISSERIA GONORRHOEAE 0 [facility] NEISSERIA GONORRHOEAE Not detected N [facility] TET B, TET M 24.057 Abnormal [facility] TET B, TET M Detected Abnormal [facility] TRICHOMONAS VAGINALIS 0 [facility] TRICHOMONAS VAGINALIS Not detected N [facility] UREAPLASMA PARVUM 18.878 Abnormal [facility] UREAPLASMA PARVUM Detected Abnormal [facility] UREAPLASMA UREALYTICUM 22.257 Abnormal NO [facility] UREAPLASMA UREALYTICUM Detected Abnormal NO [facility] Urinalysis macro (dipstick) panel (U)on 04-10-2024 Bilirubin, UA Negative Negative - 4(70) +++ mg/dL [facility] Blood, UA Negative Negative - 50 Carmine/mcL [facility] Clarity, UA Clear [facility] Color, UA Yellow [facility] Glucose, UA Negative Negative - 1999(110) ++++ mg/dL [facility] Interpretation and review of laboratory results Normal [facility] Ketones, UA Negative Negative - 160(16) ++++ mg/dL [facility] Leukocytes, UA Negative Negative - 500+++ Josselyn/mcL [facility] Nitrite, UA Negative Negative - Positive [facility] pH, UA 6 5 - 9 [facility] Protein, UA Negative Negative - 2000(20) ++++ mg/dL [facility] Spec Grav, UA 1.03 1 - 1.03 [facility] Urobilinogen, UA 0.2 0.2 - 12 mg/dL [facility] ALL CBC WITH AUTO DIFFon BASOPHILS ABSOLUTE AUTO 0.0 N [facility] Basophils/100 WBC (Bld) 0.3 % 0.2 - 2.0 % [facility] Eosinophils/100 WBC (Bld) 0.5 % Low 0.9 - 7.0 % [facility] Erythrocyte distribution width (RBC) [Ratio] 12.7 % 11.0 - 15.0 % [facility] Hematocrit (Bld) [Volume fraction] 32.6 % Low 36.0 - 48.0 % [facility] Hemoglobin (Bld) [Mass/Vol] 10.1 g/dL Low 12.0 - 16.0 g/dL [facility] IMMATURE GRANULOCYTES ABS AUTO 0.06 High [facility] Immature granulocytes/100 WBC (Bld) 0.5 % 0.0 - 0.5 % [facility] Interpretation and review of laboratory results Abnormal [facility] LYMPHOCYTES ABSOLUTE AUTO 2.3 [facility] Lymphocytes/100 WBC (Bld) 19.3 % Low 20.5 - 60. 0 % [facility] MCH (RBC) [Entitic mass] 27.4 pg 26. 7 - 34.0 pg [facility] MCHC (RBC) [Mass/Vol] 31.0 g/dL 29.9 - 35.2 g/dL [facility] MCV (RBC) [Entitic vol] 88.3 fL 81.0 - 99.0 fL [facility] MONOCYTES ABSOLUTE AUTO 0.8 N [facility] Monocytes/100 WBC (Bld) 6.9 % 1.7 - 12.0 % [facility] NEUTROPHILS ABSOLUTE AUTO 8.5 High [facility] Neutrophils/100 WBC (Bld) 72.5 % 43.0 - 75. 0 % [facility] Platelet mean volume (Bld) [Entitic vol] 9.1 fL Low 9.5 - 13.5 fL [facility] EO # 0.1 [facility] PLT 319 [facility] RBC 3.69 Low [facility] WBC 11.8 High [facility] Urinalysis macro (dipstick) panel (U)on 08-04-2023 Bilirubin, UA Few Negative - 4(70) +++ mg/dL [facility] Blood, UA Positive Negative - 50 Carmine/mcL [facility] Clarity, UA Clear [facility] Color, UA Yellow [facility] Glucose, UA Negative Negative - 1999(110) ++++ mg/dL [facility] Interpretation and review of laboratory results Abnormal [facility] Ketones, UA Negative Negative - 160(16) ++++ mg/dL [facility] Leukocytes, UA Few Negative - 500+++ Josselyn/mcL [facility] Nitrite, UA Negative Negative - Positive [facility] pH, UA 6.0 5 - 9 [facility] Protein, UA Positive Negative - 1999(20) ++++ mg/dL [facility] Spec Grav, UA 1.030 1 - 1.03 [facility] Urobilinogen, UA 1.0 0.2 - 12 mg/dL [facility] Alanine aminotransferase [En zymatic activity/volume] in Serum or PlasmaOrdered By: Toi Edward on 02-14-2023 ALT [Catalytic activity/Vol] 41 U/L 7-52 [facility] Albumin [Mass/volume] in Ser um or Plasma by Bromocresol green (BCG) dye binding methoOrdered By: Toi Edward on 02-14-2023 Albumin BCG dye [Mass/Vol] 4.1 g/dL 3.5-5.7 [facility] Alkaline phosphatase [Enzyma tic activity/volume] in Serum or PlasmaOrdered By: Toi Edward on 02-14-2023 ALP [Catalytic activity/Vol] 158 U/L 34-104 [facility] Aspartate aminotransferase [ Enzymatic activity/volume] in Serum or PlasmaOrdered By: Toi Edward on 02-14-2023 AST [Catalytic activity/Vol] 44 U/L 13-39 [facility] Basophils Auto (Bld) [#/Vol] Ordered By: Toi Edward on 02-14-2023 Basophils (Bld) [#/Vol] 0.1 10*3/uL 0.0-0.2 [facility] Basophils/100 WBC Auto (Bld) Ordered By: Toi Edward on 02-14-2023 Basophils/100 WBC (Bld) 0.5 % . [facility] Bilirubin.total [Mass/volume ] in Serum or PlasmaOrdered By: Toi Edward on 02-14-2023 Bilirubin [Mass/Vol] 0.8 mg/dL 0.3-1.0 [facility] C reactive protein [Mass/vol ume] in Serum or PlasmaOrdered By: Toi Edward on 02-14-2023 CRP [Mass/Vol] 1.8 mg/dL 0.0-0.5 [facility] C-Reactive Proteinon 023 C-Reactive Protein 1.8 mg/dL High 0.0-0.5 [facility] Comment on above: Result Comment: PERF ORMED BY: [facility] [address] [place] [address] PATHOLOGIST RAILROAD COMMISSIONER VEENA DYSON M.D. Performed By: #### S CAN CBC, ESR, CMP, CRP #### [facility] [address] Calcium [Mass/volume] in Ser um or PlasmaOrdered By: Toi Edward on 02-14-2023 Calcium [Mass/Vol] 9.4 mg/dL 8.6-10.3 [facility] Carbon dioxide, total [Moles /volume] in Serum or PlasmaOrdered By: Toi Edward on 02-14-2023 CO2 [Moles/Vol] 24.8 mmol/L 21.0-31.0 [facility] Chloride [Moles/volume] in S cass or PlasmaOrdered By: Toi Edward on 02-14-2023 Chloride [Moles/Vol] 100 mmol/L 98-107 [facility] Comprehensive Metabolic Pane valentín 02-14-2023 Albumin [Mass/Vol] 4.1 g/dL Normal 3.5-5.7 [facility] Comment on above: Performed By: #### S CAN CBC, ESR, CMP, CRP #### [facility] [address] Albumin/Globulin [Mass ratio] 1.2 {ratio} Normal [facility] Comment on above: Performed By: #### S CAN CBC, ESR, CMP, CRP #### [facility] [address] [place] [address] [place] ALP [Catalytic activity/Vol] 158 U/L High 34-104 [facility] Comment on above: Performed By: #### S CAN CBC, ESR, CMP, CRP #### [facility] [address] [place] [address] [place] ALT [Catalytic activity/Vol] 41 U/L Normal 7-52 [facility] Comment on above: Performed By: #### S CAN CBC, ESR, CMP, CRP #### [facility] [address] Anion gap [Moles/Vol] 13.2 mmol/L Normal 6.0-15.0 [facility] Comment on above: Performed By: #### S CAN CBC, ESR, CMP, CRP #### [facility] [address] AST [Catalytic activity/Vol] 44 U/L High 13-39 [facility] Comment on above: Performed By: #### S CAN CBC, ESR, CMP, CRP #### [facility] [address] Bilirubin [Mass/Vol] 0.8 mg/dL Normal 0.3-1.0 [facility] Comment on above: Performed By: #### S CAN CBC, ESR, CMP, CRP #### [facility] [address] Calcium [Mass/Vol] 9.4 mg/dL Normal 8.6-10.3 [facility] Comment on above: Performed By: #### S CAN CBC, ESR, CMP, CRP #### [facility] [address] Chloride [Moles/Vol] 100 mmol/L Normal 98-107 [facility] Comment on above: Performed By: #### S CAN CBC, ESR, CMP, CRP #### [facility] [address] CO2 [Moles/Vol] 24.8 mmol/L Normal 21.0-31.0 [facility] Comment on above: Performed By: #### S CAN CBC, ESR, CMP, CRP #### [facility] [address] [place] [address] [place] Creatinine [Mass/Vol] 0.77 mg/dL Normal 0.60-1.20 [facility] Comment on above: Performed By: #### S CAN CBC, ESR, CMP, CRP #### [facility] [address] [place] [address] [place] Creatinine Clr Calc Pharmacy 115.98 Normal [facility] Comment on above: Performed By: #### S CAN CBC, ESR, CMP, CRP #### [facility] [address] [place] [address] [place] GFR/1.73 sq M.predicted MDRD (S/P/Bld) [Vol rate/Area] mL/min/{1.73_m2} Normal [facility] Comment on above: Performed By: #### S CAN CBC, ESR, CMP, CRP #### [facility] [address] Globulin (S) [Mass/Vol] 3.5 g/dL Normal [facility] Comment on above: Performed By: #### S CAN CBC, ESR, CMP, CRP #### [address] Glucose [Mass/Vol] 85 mg/dL Normal 70-100 [facility] Comment on above: Result Comment: [facility] [place] Glucose Reference Range is dependent on time and content of last meal. Glucose of more than 200 mg/dL in a nonstressed, ambulatory subject supports the diagnosis of Diabetes Mellitus. ADA recommended reference range Performed By: #### S CAN CBC, ESR, CMP, CRP #### [address] Potassium [Moles/Vol] 4.0 mmol/L Normal 3.5-5.1 [facility] Comment on above: Performed By: #### S CAN CBC, ESR, CMP, CRP #### [address] Protein [Mass/Vol] 7.6 g/dL Normal 6.4-8.9 [facility] Comment on above: Performed By: #### S CAN CBC, ESR, CMP, CRP #### [address] Sodium [Moles/Vol] 134 mmol/L Low 136-145 [facility] Comment on above: Performed By: #### S CAN CBC, ESR, CMP, CRP #### [address] Urea nitrogen [Mass/Vol] 7 mg/dL Normal 7-25 [facility] Comment on above: Performed By: #### S CAN CBC, ESR, CMP, CRP #### [address] Creatinine [Mass/volume] in Serum or PlasmaOrdered By: Toi Edward on 02-14-2023 Creatinine [Mass/Vol] 0.77 mg/dL 0.60-1.20 [facility] Eosinophils Auto (Bld) [#/Vo l]Ordered By: Toi Edward on 02-14-2023 Eosinophils (Bld) [#/Vol] 0.0 10*3/uL 0.0-0.45 [facility] Eosinophils/100 WBC Auto (Bl d)Ordered By: Toi Edward on 02-14-2023 Eosinophils/100 WBC (Bld) 0.2 % . [facility] Erythrocyte Sedimentation Ra deng 02-14-2023 ESR (Bld) [Velocity] 26 mm/h High 0- [facility] Comment on above: Result Comment: PERF ORMED BY: [place] [address] PATHOLOGIST RAILROAD COMMISSIONER VEENA DYSON M.D. Performed By: #### S CAN CBC, ESR, CMP, CRP #### [facility] [address] [place] [address] Erythrocyte distribution wid th Auto (RBC) [Ratio]Ordered By: Toi Edward on 02-14-2023 Erythrocyte distribution width (RBC) [Ratio] 13.3 % 11.9-15.3 [facility] Erythrocyte sedimentation ra te by Photometric methodOrdered By: Toi Edward on 02-14-2023 ESR Photometric method (Bld) [Velocity] 26 mm/hr 0-19 [facility] Globulin Calc (S) [Mass/Vol] Ordered By: Toi Edward on 02-14-2023 Globulin (S) [Mass/Vol] 3.5 g/dL [facility] Glucose [Mass/volume] in Ser um or PlasmaOrdered By: Toi Edward on 02-14-2023 Glucose [Mass/Vol] 85 mg/dL 70-100 [facility] Comment on above: ADA recommended refe rence rangeRandom Glucose Reference Range is dependent on time and content of last meal. Glucose of more than 200 mg/dL in a nonstressed, ambulatory subject supports the diagnosis of Diabetes Mellitus. Hematocrit Auto (Bld) [Volum e fraction]Ordered By: Toi Edward on 02-14-2023 Hematocrit (Bld) [Volume fraction] 38.7 % 34.0-46.4 [facility] Hemoglobin [Mass/volume] in BloodOrdered By: Toi Edward on 02-14-2023 Hemoglobin (Bld) [Mass/Vol] 13.1 g/dL 11.8-15.4 [facility] Leukocytes [#/volume] correc alem for nucleated erythrocytes in Blood by Automated counOrdered By: Toi Edward on 02-14-2023 WBC corrected for nucl RBC Auto (Bld) [#/Vol] 9.4 10*3/uL 3.8-11.6 [facility] Lymphocytes Auto (Bld) [#/Vo l]Ordered By: Toi Edward on 02-14-2023 Lymphocytes (Bld) [#/Vol] 4.5 10*3/uL 1.00-4.8 [facility] Lymphocytes/100 WBC Auto (Bl d)Ordered By: Toi Edward on 02-14-2023 Lymphocytes/100 WBC (Bld) 47.5 % . [facility] MCH Auto (RBC) [Entitic mass ]Ordered By: Toi Edward on 02-14-2023 MCH (RBC) [Entitic mass] 29.0 pg 24.7-34.3 [facility] MCHC Auto (RBC) [Mass/Vol]Or dered By: Toi Edward on 02-14-2023 MCHC (RBC) [Mass/Vol] 33.7 g/dL 32.0-35.0 [facility] MCV Auto (RBC) [Entitic vol] Ordered By: Toi Edward on 02-14-2023 MCV (RBC) [Entitic vol] 85.8 fL 80-100 [facility] Monocyte distribution width [Entitic volume] in Blood by AutomatedOrdered By: Toi Edward on 02-14-2023 Monocyte distribution width Auto (Bld) [Entitic vol] 34.56 % 0.00-20.00 [facility] Comment on above: The predictive value of MDW for identifying sepsis in patients with hematological abnormalities has not been established Monocytes Auto (Bld) [#/Vol] Ordered By: Toi Edward on 02-14-2023 Monocytes (Bld) [#/Vol] 1.0 10*3/uL 0.0-0.8 [facility] Monocytes/100 WBC Auto (Bld) Ordered By: Toi Edward on 02-14-2023 Monocytes/100 WBC (Bld) 10.7 % . [facility] Neutrophils Auto (Bld) [#/Vo l]Ordered By: Toi Edward on 02-14-2023 Neutrophils (Bld) [#/Vol] 3.9 10*3/uL 1.8-7.7 [facility] Neutrophils/100 WBC Auto (Bl d)Ordered By: Toi Edward on 02-14-2023 Neutrophils/100 WBC (Bld) 41.1 % . [facility] No Panel InformationOrdered By: Toi Edward on 02-14-2023 Estimated GFR (CKD-EPI) > 60.0 mL/Min [facility] Creatinine Clearance (Chem 115.98 [facility] Nucleated erythrocytes [Pres ence] in Blood by Automated countOrdered By: Toi Edward on 02-14-2023 Nucleated RBC Auto Ql (Bld) 0.3 /100{WBC} 0-0.5 [facility] Platelet adequacy [Presence] in Blood by Light microscopyOrdered By: Toi Edward on 02-14-2023 Platelets LM Ql (Bld) Normal Normal [facility] Platelet mean volume Auto (B ld) [Entitic vol]Ordered By: Toi Edward on 02-14-2023 Platelet mean volume (Bld) [Entitic vol] 7.6 fL 6.3-10.7 [facility] Platelet morphology finding [Identifier] in BloodOrdered By: Toi Edward on 02-14-2023 Platelet morphology finding Nom (Bld) Normal Normal [facility] Platelets Auto (Bld) [#/Vol] Ordered By: Toi Edward on 02-14-2023 Platelets (Bld) [#/Vol] 163 10*3/uL 150-450 [facility] Potassium [Moles/volume] in Serum or PlasmaOrdered By: Toi Edward on 02-14-2023 Potassium [Moles/Vol] 4.0 mmol/L 3.5-5.1 [facility] Protein [Mass/volume] in Ser um or PlasmaOrdered By: Toi Edward on 02-14-2023 Protein [Mass/Vol] 7.6 g/dL 6.4-8.9 [facility] Quick Strepon 02-14-2023 Quick Strep Streptococcus pyogenes Ag [Presence] in Throat by Rapid immunoassay Negative for Group A Strep Antigen Note 1 ------ NOTE 2 Results are those of a screening test. NOTE 3 If clinically indicated please order a culture. NOTE 4 ------ NOTE 5 Reference range = Negative PERFORMED BY: [place] [address] PATHOLOGIST RAILROAD COMMISSIONER VEENA DYSON M.D. [facility] Comment on above: Performed By: #### Q S, RFXSTPA #### [facility] [address] [place] [address] RBC Auto (Bld) [#/Vol]Ordere d By: Toi Edward on 02-14-2023 RBC (Bld) [#/Vol] 4.51 10*6/uL 3.60-5.00 [facility] RBC morphologyOrdered By: Den Edward on 02-14-2023 RBC morphology finding Nom (Bld) Normal Normal [facility] RFX Strep A Reflex Cult Only on 02-14-2023 RFX Strep A Reflex Cult Only Strep A Only Cult No Group A Beta Streptococcus Isolated 2 Days PERFORMED BY: [place] [address] PATHOLOGIST RAILRO[employer] COMMISSIONER VEENA DYSON M.D. [facility] Comment on above: Performed By: #### Q S, RFXSTPA #### [facility] [address] [place] [address] Scan and CBCon 08-27-2023 Basophils (Bld) [#/Vol] 0.1 10*3/uL Normal 0.0-0.2 [facility] Comment on above: Performed By: #### S CAN CBC, ESR, CMP, CRP #### [facility] [address] Basophils/100 WBC (Bld) 0.5 % Normal . [facility] Comment on above: Performed By: #### S CAN CBC, ESR, CMP, CRP #### [facility] [address] Eosinophils (Bld) [#/Vol] 0.0 10*3/uL Normal 0.0-0.45 [facility] Comment on above: Performed By: #### S CAN CBC, ESR, CMP, CRP #### [facility] [address] [place] [address] Eosinophils/100 WBC (Bld) 0.2 % Normal . [facility] Comment on above: Performed By: #### S CAN CBC, ESR, CMP, CRP #### [facility] [address] [place] [address] Erythrocyte distribution width (RBC) [Ratio] 13.3 % Normal 11.9-15.3 [facility] Comment on above: Performed By: #### S CAN CBC, ESR, CMP, CRP #### [address] Hematocrit (Bld) [Volume fraction] 38.7 % Normal 34.0-46.4 [facility] Comment on above: Performed By: #### S CAN CBC, ESR, CMP, CRP #### [facility] [address] [place] [address] [place] Hemoglobin (Bld) [Mass/Vol] 13.1 g/dL Normal 11.8-15.4 [facility] Comment on above: Performed By: #### S CAN CBC, ESR, CMP, CRP #### [place] [address] [place] Lymphocytes (Bld) [#/Vol] 4.5 10*3/uL Normal 1.00-4.8 [facility] Comment on above: Performed By: #### S CAN CBC, ESR, CMP, CRP #### [address] Lymphocytes/100 WBC (Bld) 47.5 % Normal . [facility] Comment on above: Performed By: #### S CAN CBC, ESR, CMP, CRP #### [address] MCH (RBC) [Entitic mass] 29.0 pg Normal 24.7-34.3 [facility] Comment on above: Performed By: #### S CAN CBC, ESR, CMP, CRP #### [address] MCV (RBC) [Entitic vol] 85.8 fL Normal 80-100 [facility] Comment on above: Performed By: #### S CAN CBC, ESR, CMP, CRP #### [address] Mean Corpuscular HGB Conc 33.7 g/dL Normal 32.0-35.0 [facility] Comment on above: Performed By: #### S CAN CBC, ESR, CMP, CRP #### [place] [address] [place] Monocytes (Bld) [#/Vol] 1.0 10*3/uL High 0.0-0.8 [facility] Comment on above: Performed By: #### S CAN CBC, ESR, CMP, CRP #### [place] [address] [place] Monocytes/100 WBC (Bld) 34.56 % High 0.00-20.00 [facility] Comment on above: Result Comment: The predictive value of MDW for identifying sepsis in patients with hematological abnormalities has not been established Performed By: #### S CAN CBC, ESR, CMP, CRP #### [address] Monocytes/100 WBC (Bld) 10.7 % Normal . [facility] Comment on above: Performed By: #### S CAN CBC, ESR, CMP, CRP #### [facility] [address] [place] [address] [place] Neutrophils (Bld) [#/Vol] 3.9 10*3/uL Normal 1.8-7.7 [facility] Comment on above: Performed By: #### S CAN CBC, ESR, CMP, CRP #### [facility] [address] Neutrophils/100 WBC (Bld) 41.1 % Normal . [facility] Comment on above: Performed By: #### S CAN CBC, ESR, CMP, CRP #### [facility] [address] NRBC% 0.3 /100{WBC} Normal 0-0.5 [facility] Comment on above: Performed By: #### S CAN CBC, ESR, CMP, CRP #### [address] Platelet Estimate Normal Normal Normal [facility] Comment on above: Performed By: #### S CAN CBC, ESR, CMP, CRP #### [facility] [address] Platelet mean volume (Bld) [Entitic vol] 7.6 fL Normal 6.3-10.7 [facility] Comment on above: Performed By: #### S CAN CBC, ESR, CMP, CRP #### [address] Platelet Morphology Normal Normal Normal [facility] Comment on above: Performed By: #### S CAN CBC, ESR, CMP, CRP #### [place] [address] [place] Platelets (Bld) [#/Vol] 163 10*3/uL Normal 150-450 [facility] Comment on above: Performed By: #### S CAN CBC, ESR, CMP, CRP #### [facility] [address] RBC (Bld) [#/Vol] 4.51 10*6/uL Normal 3.60-5.00 [facility] Comment on above: Performed By: #### S CAN CBC, ESR, CMP, CRP #### [facility] [address] RBC morphology finding Nom (Bld) Normal Normal Normal [facility] Comment on above: Performed By: #### S CAN CBC, ESR, CMP, CRP #### [facility] [address] WBC (Bld) [#/Vol] 9.4 10*3/uL Normal 3.8-11.6 [facility] Comment on above: Performed By: #### S CAN CBC, ESR, CMP, CRP #### [facility] [address] Serum or plasma albumin/glob ulin mass ratioOrdered By: Toi Edward on 02-14-2023 Albumin/Globulin [Mass ratio] 1.2 {ratio} [facility] Serum or plasma anion gap de terminationOrdered By: Toi Edward on 02-14-2023 Anion gap [Moles/Vol] 13.2 mmol/L 6.0-15.0 [facility] Sodium [Moles/volume] in Ser um or PlasmaOrdered By: Toi Edward on 02-14-2023 Sodium [Moles/Vol] 134 mmol/L 136-145 [facility] Urea nitrogen [Mass/volume] in Serum or PlasmaOrdered By: Toi Edward on 02-14-2023 Urea nitrogen [Mass/Vol] 7 mg/dL 7-25 [facility] WBC Auto (Bld) [#/Vol]Ordere d By: Toi Edward on 02-14-2023 WBC (Bld) [#/Vol] 9.4 10*3/uL 3.8-11.6 [facility] CBC AUTO DIFFon 03-02-2022 BASO # 0.0 103/ul Normal 0.0-0.[address] [facility] Comment on above: Performed By: #### C BC #### [facility] [address] [address] [address] Melinda López Basophils/100 WBC (Bld) 0.2 % Normal 0.2-2.0 [facility] Comment on above: Performed By: #### C BC #### [facility] [address] [place] [address] Dr. Melinda López EO # 0.0 103/ul Normal 0.0-0.[address] [facility] Comment on above: Performed By: #### C BC #### [facility] [address] [address] [address] Melinda López Eosinophils/100 WBC (Bld) 0.1 % Critically low 0.9-7. [address] [facility] Comment on above: Performed By: #### C BC #### [facility] [address] [place] [address] Dr. Melinda López Erythrocyte distribution width (RBC) [Ratio] 13.0 % Normal 11.0-15.[address] [facility] Comment on above: Performed By: #### C BC #### [facility] [address] [place] [address] Dr. Melinda López Hematocrit (Bld) [Volume fraction] 41.3 % Normal 36.0-48.[address] [facility] Comment on above: Performed By: #### C BC #### [facility] [address] [place] [address] Dr. Melinda López Hemoglobin (Bld) [Mass/Vol] 13.2 g/dL Normal 12.0-16.[address] [facility] Comment on above: Performed By: #### C BC #### [facility] [address] [place] [address] Dr. Melinda López IG # 0.15 10e3/ul Critically high 0.00-0.03 [facility] Comment on above: Performed By: #### C BC #### [facility] [address] [place] [address] Dr. Melinda López IG % 0.9 % Critically high 0.0-0.5 [facility] Comment on above: Performed By: #### C BC #### [facility] [address] [place] [address] Dr. Melinda López LYMPH # 1.1 103/ul Critically low 1.2-3.8 [facility] Comment on above: Performed By: #### C BC #### [facility] [address] [place] [address] Dr. Melinda López Lymphocytes/100 WBC (Bld) 6.6 % Critically low 20.5-[address] [facility] Comment on above: Performed By: #### C BC #### [facility] [address] [place] [address] Dr. Melinda López MANUAL DIFF REQ NO Normal [facility] Comment on above: Performed By: #### C BC #### [facility] [address] [place] [address] Dr. Melinda López MCH (RBC) [Entitic mass] 28.1 pg Normal 26.7-34.[address] [facility] Comment on above: Performed By: #### C BC #### [facility] [address] [place] [address] Dr. Melinda López MCHC (RBC) [Mass/Vol] 32.0 g/dL Normal 29.9-35.[address] [facility] Comment on above: Performed By: #### C BC #### [facility] [address] [place] [address] Dr. Melinda López MCV (RBC) [Entitic vol] 88.1 fL Normal 81.0-99.0 [facility] Comment on above: Performed By: #### C BC #### [facility] [address] [place] [address] Dr. Melinda López MONO # 0.9 103/ul Critically high 0.3-0.8 [facility] Comment on above: Performed By: #### C BC #### [facility] [address] [place] [address] Dr. Melinda López Monocytes/100 WBC (Bld) 4.9 % Normal 1.7-12.0 [facility] Comment on above: Performed By: #### C BC #### [facility] [address] [place] [address] Dr. Melinda López NEUT # 15.0 103/ul Critically high 1.4-6.5 [facility] Comment on above: Performed By: #### C BC #### [facility] [address] [address] [address] Melinda López Neutrophils/100 WBC (Bld) 87.3 % Critically high 43.0- 75.[address] [facility] Comment on above: Performed By: #### C BC #### [facility] [address] [address] [address] Melinda López Platelet mean volume (Bld) [Entitic vol] 9.4 fL Critically low 9.5-13.[address] [facility] Comment on above: Performed By: #### C BC #### [facility] [address] [address] [address] Melinda López PLT 362 103/ul Normal 150-[address] [facility] Comment on above: Performed By: #### C BC #### [facility] [address] [place] [address] Dr. Melinda López RBC 4.69 106/ul Normal 4.20-5.[address] [facility] Comment on above: Performed By: #### C BC #### [facility] [address] [address] [address] Melinda López WBC 17.2 103/ul Critically high 4.0-11.0 [facility] Comment on above: Performed By: #### C BC #### [facility] [address] [place] [address] Dr. Melinda López MONOon 03-02-2022 Monocytes (Bld) [#/Vol] Negative Normal NEGATIVE T [facility] Comment on above: Performed By: #### M RADHA #### [facility] [address] [place] [address] Dr. Melinda López Vital Signs Date Time Vital Sign Value Performing Clinician Facility 04-10-2024 16:00-0400 Body mass index (BMI) [Ratio] 33.47 kg/m2 [facility] Work Phone: [facility] 04-10-2024 16:00-0400 Body weight 88.45 kg [facility] Work Phone: [facility] 04-10-2024 16:00-0400 Diastolic blood pressure 80 mm[Hg] Raúl Victorina DO Work Phone: [facility] 04-10-2024 16:00-0400 Systolic blood pressure 120 mm[Hg] Raúl Victorina DO Work Phone: [facility] 08-04-2023 11:10-0500 Body mass index (BMI) [Ratio] 33.88 kg/m2 Raúl Victorina DO Work Phone: [facility] 08-04-2023 11:10-0500 Body weight 89.54 kg Raúl Victorina DO Work Phone: [facility] 08-04-2023 11:10-0500 Diastolic blood pressure 68 mm[Hg] Raúl Victorina DO Work Phone: [facility] 08-04-2023 11:10-0500 Systolic blood pressure 114 mm[Hg] Raúl Victorina DO Work Phone: [facility] 02-15-2023 00:16-0400 Body temperature 99.3 [degF] PA-C Toi Edward Work Phone: [facility] 02-15-2023 00:16-0400 Diastolic blood pressure 66 mm[Hg] PA-Evelyn Edward Work Phone: [facility] 02-15-2023 00:16-0400 Heart rate 91 /min FLORENCIA-C Toi Edward Work Phone: [facility] 02-15-2023 00:16-0400 Respiratory rate 16 /min PA-C Toi Edward Work Phone: [facility] 02-15-2023 00:16-0400 SaO2% (BldA) [Mass fraction] 95 % PA-C Toi Edward Work Phone: [facility] 02-15-2023 00:16-0400 Systolic blood pressure 121 mm[Hg] PA-Evelyn Edward Work Phone: [facility] 02-14-2023 20:07-0400 Body height 163.83 cm SHAD Edward Work Phone: [facility] 02-14-2023 20:07-0400 Body weight 74.25 kg SHAD Edward Work Phone: [facility] 02-11-2023 15:40-0400 Body height 167.64 cm Ellen Ortiz Other [facility] Other 02-11-2023 15:40-0400 Body mass index (BMI) [Ratio] 27.18 kg/m2 Ellen Diana Other [facility] Other 02-11-2023 15:40-0400 Body temperature 96.9 [degF] Ellen Diana Other [facility] Other 02-11-2023 15:40-0400 Body weight 76.39 kg Ellen Diaan Other [facility] Other 02-11-2023 15:40-0400 Diastolic blood pressure 78 mm[Hg] Ellen Diana Other [facility] Other 02-11-2023 15:40-0400 Respiratory rate 18 /min Ellen Ortiz Other [facility] Other 02-11-2023 15:40-0400 SaO2% (BldA) [Mass fraction] 98 % Ellen Ortiz Other [facility] Other 02-11-2023 15:40-0400 Systolic blood pressure 110 mm[Hg] Ellen Ortiz Other [facility] Other Encounters Encounter Date Encounter Type Care Provider Facility Start: 04-10-2024 End: 04-10-2024 ambulatory RAÚL VICTORINA Not Available Start: 04-10-2024 End: 04-10-2024 Office outpatient visit 15 minutes Raúl Victorina DO Work Phone: [facility] Comment on above: Screening, , for anatomic survey; Exposure to STD; Vaginal discharge; Need for maternal serum alpha-protein (MSAFP) screening; Second trimester ; 17 weeks gestation of ; Weight loss Start: 04-10-2024 End: 04-10-2024 Bamboo flowsheet Raúl Victorina DO Work Phone: [facility] Start: 04-10-2024 End: 04-12-2024 Bamboo flowsheet Raúl Victorina DO Work Phone: [facility] Start: 04-10-2024 End: 04-12-2024 External Result Encounter Raúl Victorina DO Work Phone: [facility] External Department Unsolicited Start: 03-13-2024 End: 03-13-2024 ambulatory RAÚL VICTORINA Not Available Start: 02-10-2024 End: 02-10-2024 ambulatory KADI BERNARD Not Available Start: 09-15-2023 End: 09-15-2023 ambulatory RAÚL VICTORINA Not Available Start: 08-25-2023 End: 08-25-2023 ambulatory RAÚL VICTORINA Not Available Start: 08-18-2023 End: 08-18-2023 ambulatory KADI BERNARD Not Available Start: 08-11-2023 End: 08-11-2023 ambulatory RAÚL VICTORINA Not Available Start: 08-05-2023 Clinisync Result Encounter Raúl Victorina DO Work Phone: [facility] External Department Unsolicited Start: 08-05-2023 Clinisync Result Encounter Raúl Victorina DO Work Phone: [facility] External Department Unsolicited Start: 08-04-2023 End: 08-04-2023 ambulatory RAÚL VICTORINA Not Available Start: 08-04-2023 End: 08-04-2023 Office outpatient visit 15 minutes Raúl Victorina DO Work Phone: [facility] Comment on above: Third trimester preg wanda; Excessive growth affecting management of in third trimester, single or unspecified fetus Start: 07-20-2023 End: 07-20-2023 ambulatory KADI WAGNER Not Available Start: 07-06-2023 End: 07-06-2023 ambulatory RAÚL VICTORINA Not Available Start: 06-17-2023 End: 06-17-2023 ambulatory KADI WAGNER Not Available Start: 05-20-2023 End: 05-20-2023 ambulatory RAÚL VICTORINA Not Available Start: 02-14-2023 End: 02-15-2023 Emergency department patient visit NON STAFF Facility:[facility] Start: 02-14-2023 End: 02-15-2023 Emergency department patient visit SHAD Edward Work Phone: [facility] Work Phone: Start: 02-11-2023 End: 02-11-2023 ambulatory Ellen Ortiz Other [facility] Other Start: 02-11-2023 Office outpatient ne w 20 minutes Ellen Ortiz [facility] Start: 03-02-2022 End: 03-03-2022 ambulatory [facility] Facility: Procedures Date Procedure Procedure Detail Performing Clinician Start: 04-10-2024 Urnls dip stick/tabl et rgnt non-auto w/o micrscp Raúl Victorina DO Work Phone: Start: 04-10-2024 URETHRITIS/DISCHARGE PLUS VAGINITIS (HTRX) Raúl Victorina DO Work Phone: Start: 08-05-2023 ALL CBC WITH AUTO DIFF Raúl Victorina DO Work Phone: Start: 08-04-2023 Urnls dip stick/tabl et rgnt non-auto w/o micrscp Raúl Victorina DO Work Phone: Plan of Treatment Date Care Activity Detail Author Start: 05-11-2024 End: 11-21-2024 Alpha fetoprotein, maternal Alpha fetoprotein, maternal Lab Routine Need for maternal serum alpha-protein (MSAFP) screening Expected: 05/11/2024 (Approximate), Expires: 05/11/2024 [facility] Comment on above: Expected: 05/11/2024 (Approximate), Expires: 05/11/2024 Start: 05-09-2024 End: 05-09-2024 Patient encounter procedure 05/09/2024 2:30 PM EST Routine [facility] [address] [facility] [place] [id number] Kadi Wagner PA [address] [place], [place] [id number] [facility] Start: 05-09-2024 End: 05-09-2024 Professional / ancillary services management 05/09/2024 1:30 PM EST Ancillary Procedure [facility] [address] [facility] [place] [address] [facility] Start: 04-10-2024 End: 04-10-2025 US for US OB ANATOMY SINGLE W US OB CERVICAL LENGTH Imaging Routine Screening, , for anatomic survey Expected: 04/10/2024 (Approximate), Expires: 04/10/2025 [facility] Comment on above: Expected: 04/10/2024 (Approximate), Expires: 04/10/2025 Start: 02-20-2024 Influenza vaccination Influenza Vacc ine (#1) [facility] Start: 08-11-2023 End: 08-11-2023 Patient encounter procedure 08/11/2023 10:30 AM EST Routine [facility] [address] [facility] [place] [id number] Raúl Prajapati DO [address], [place] [id number] [facility] Start: 08-04-2023 End: 08-04-2024 US for US OB SCAN FOR GROWTH Imaging Routine Excessive growth affecting management of in third trimester, single or unspecified fetus Expected: 08/04/2023 (Approximate), Expires: 08/04/2024 [facility] Work Phone: Comment on above: Expected: 08/04/2023 (Approximate), Expires: 08/04/2024 Start: 02-14-2023 Streptococcus pyogen es Ag [Presence] in Throat Group A Strep Throat Culture [facility] CHLAMYDIA TRACHOMATI S (GENITO/STI) CHLAMYDIA TRACHOMATIS (GENITO/STI) Lab Routine Exposure to STD Ordered: 04/10/2024 [facility] Comment on above: Ordered: 04/10/2024 Neisseria gonorrhoea e DNA [Presence] in Unspecified specimen by JUVENCIO with probe detection Neisseria gonorrhea DNA probe, direct Lab Routine Exposure to STD Ordered: 04/10/2024 [facility] Comment on above: Ordered: 04/10/2024 Patient Education Sore Throat, Adult ED [facility] Work Phone: Patient referral [facility] Work Phone: SURESWAB(R) ADVANCED VAGINITIS PLUS, TMA SURESWAB(R) ADVANCED VAGINITIS PLUS, TMA Pathology and Cytology Routine Vaginal discharge Ordered: 04/10/2024 [facility] [employer] Work Phone: Comment on above: Ordered: 04/10/2024 Payers Date Payer Category Payer Private Health Insurance [facility] MEDICAID [id number] 2023 Self-pay 2022 Medicaid [employer] [place] [id number] 2022-Present [address] [place] [address] [id number] 2022 Medicaid [id number] 2003 Unknown [id number] [id number]. 9 2003 Unknown [id number] 2.16.840.1.031786.3.579.2. 1258 2003 Unknown [id number] 2.16.840.1.806446.3.579.2. 1258 2003 Unknown [id number] 2.16.840.1.410202.3.579.2. 1258 2003 Unknown [id number] 2.16.840.1.034765.3.579.2. 1258 2003 Unknown [id number] 2.16.840.1.702623.3.579.2. 1258 2003 Unknown [id number] 2.16.840.1.484780.3.579.2. 1258 2003 Unknown [id number] 2.16.840.1.424190.3.579.2. 1258 2003 Unknown [id number] 2.16.840.1.698198.3.579.2. 125 2003 Unknown [id number] 2.16.840.1.018740.3.579.2. 1258 2003 Unknown [id number] 2.16.840.1.955378.3.579.2. 1259 2003 Unknown [id number] 2.16.840.1.934662.3.579.2. 1259 1985 Unknown [id number] 2.16.840.1.177137.3.579.2. 593 1959 Unknown [id number] Unknown [id number] [id number]. 531 Social History Date Type Detail Facility Unknown if ever smoked [facility] Other Start: 04-07-2023 End: 04-21-2023 Sex Assigned At [facility] Other Start: 02-14-2023 End: 04-07-2023 Tobacco smoking status NHIS Never smoked tobacco (finding) [facility] Start: 2003 Sex Assigned At Female [facility] Start: 08-04-2023 End: 03-13-2024 Alcohol intake Lifetime non-drinker (finding) [facility] Start: 04-07-2023 End: 04-21-2023 History of Social function [facility] Start: 03-30-2023 Alcohol Comment Caffeine intak e: 1-2 cups per day [facility] Start: 12-16-2022 [facility] Start: 2003 Sex Assigned At Not on file [facility] History of Present illness Narrative 04-10-2024 Carolina Porter LPN - 04/10/2024 2:50 PM EDT Note Date & Type Note Facility 04-10-2024 History of Presen t illness Narrative Reason for Appointment: Patient ID: Rosemary Batista is a 18 y.o. female who presents for Routine Visit Patient presents today for Annual Exam. and Return OB appointment. MEDICATIONS Current Outpatient Medications Medication Instructions ondansetron ODT (ZOFRAN-ODT) 4 mg, Oral, Every 6 hours Vit-Fe Fumarate-FA ( Vitamins) 28-0.8 MG tablet 1 tablet, Oral, Daily ALLERGIES Allergies Allergen Reactions Penicillin G Hives Penicillins Hives Wound Dressing Adhesive Other Reaction(s): Rash PROBLEMS Active Ambulatory Problems Diagnosis Date Noted No Active Ambulatory Problems Resolved Ambulatory Problems Diagnosis Date Noted No Resolved Ambulatory Problems Past Medical History: Diagnosis Date COVID-02/2021 Hypertrophy of tonsil HISTORY PAST MEDICAL HISTORY SOCIAL HISTORY Past Medical History: Diagnosis Date COVID-02/2021 Hypertrophy of tonsil Social History Tobacco Use Smoking status: Never Smokeless tobacco: Not on file Substance Use Topics Alcohol use: Never Comment: Caffeine intake: 1-2 cups per day Drug use: Not on file FAMILY HISTORY Family History Problem Relation Name Age of Onset Hypertension Father Hypertension Paternal Grandmother SURGICAL HISTORY No past surgical history on file. REVIEW OF SYSTEMS Review of Systems: Review of Systems All other systems reviewed and are negative. OBJECTIVE Objective: Physical Exam Constitutional: Appearance: Normal appearance. She is well-developed. Genitourinary: Vulva normal. Cardiovascular: Rate and Rhythm: Normal rate and [...] nursing note reviewed. Exam conducted with a head miller present. Vitals: Estimated body mass index is 34.16 kg/m as calculated from the following: Height as of 03/02/23: 5' 4 . Weight as of 03/13/24: 199 lb. BP: Patient's last menstrual period was 12/13/2023. ASSESSMENT & PLAN ICD-10-CM 1. Screening, , for anatomic survey Z36.89 POCT urinalysis dipstick manually resulted US OB ANATOMY SINGLE W US OB CERVICAL LENGTH 2. Exposure to STD Z20.2 CHLAMYDIA TRACHOMATIS (GENITO/STI) Neisseria gonorrhea DNA probe, direct 3. Vaginal discharge N89.8 SURESWAB(R) ADVANCED VAGINITIS PLUS, TMA 4. Need for maternal serum alpha-protein (MSAFP) screening Z36.1 Alpha fetoprotein, maternal Alpha fetoprotein, maternal 5. Second trimester Z34.92 6. 17 weeks gestation of Z3A.17 Return OB/Annual Exam: Patient presents today for an annual exam/routine obstetrics appointment. Patient is currently 17w0d . Patient is doing well and states she has no complaints. Cultures was obtained without difficulty and patient was given msAFP order to have obtained. Orders Placed This Encounter Procedures US OB ANATOMY SINGLE W US OB CERVICAL LENGTH CHLAMYDIA TRACHOMATIS (GENITO/STI) Neisseria gonorrhea DNA probe, direct Alpha fetoprotein, maternal POCT urinalysis dipstick manually resulted Follow Up: Patient is to return to our office in 4 weeks for routine OB appointment Documented by Carolina Porter LPN on behalf of: Raúl Prajapati DO documented in this encounter [facility] History of Present illness Narrative 08-04-2023 [...] nursing note reviewed. Exam conducted with a head miller present. Vitals: Estimated body mass index is [...] Raúl Prajapati DO documented in this encounter [facility] Evaluation note 02-11-2023 Note Date & [...] the ER for worsening symptoms or concerns [facility] Other Evaluation note Note Date & Type Note Facility Evaluation note No assessment information [facility] Work Phone: Evaluation note Note Date & Type Note Facility Evaluation note Diagnosis Third trimester state, incidental Excessive growth affecting management of in third trimester, single or unspecified fetus documented in this encounter [facility] Evaluation note Note Date & Type Note Facility Evaluation note Diagnosis Screening, , for anatomic survey Encounter for anatomic survey Exposure to STD Vaginal discharge Leukorrhea, not specified as infective Need for maternal serum alpha-protein (MSAFP) screening Second trimester state, incidental 17 weeks gestation of Weight loss Loss of weight documented in this encounter [facility] Summary Purpose Family History No Family History Records FoundNo Family History Records FoundNo Family History Records Found Advance Directives Advance Directive Response Recorded Date/ Time Advance Directives No February 14, 2023 8:21pm Chief Complaint and Reason for Visit Chief Complaint throat swollen/bleed ing Additional Source Comments INFORMATION SOURCE (unrecogn ized section and content) DATE CREATED AUTHOR 03/21/2022 Valeriano davison DATE CREATED AUTHOR AUTHOR'S ORGANIZ ATION 02/26/2023 [facility] DATE CREATED AUTHOR AUTHOR'S ORGANIZ ATION 04/12/2024 [facility] EPIC REASON FOR VISIT (unrecogniz ed section and content) Reason Comments Routine Visit Care Teams (unrecognized sec tion and content) Team Status: Active Member Role Status Dates NON STAFF Primary Care Provider Active Team Status: Inactive Member Role Status Dates Toi Edward PA-C Emergency Provider Active NON STAFF Primary Care Provider Active Contact Finger Assembler Relationship Specialty Start Date End Date Kadi Wagner PA [facility] [place] [address] PCP - [facility] 12/20/23 Contact Finger Assembler Relationship Specialty Start Date End Date Kadi Wagner PA [facility] [place] [address] PCP - [facility] 12/20/23 Contact Finger Assembler Relationship Specialty Start Date End Date Kadi Wagner [place] [facility] [place] [address] PCP - [facility] 12/20/23 Goals (unrecognized section and content) Goals may [...] BE BASED ON THE PRIMARY CLINICAL RECORDS. [facility]. provides no warranty or guarantee of the accuracy or completeness of information in this document.
[2024-04-16 02:06] LABS: AFP Value 50.5 ng/mL (.); Gest. Age on Collection Date 17.4 weeks (.); Gestat. Age Based On As provided (.); Insulin Dep Diabetes No (.); Maternal Age At EDD 20.9 yr (.); OSBR Risk 1 IN 2734 (.); Results Report (.)
== END 2024-04-13 15:48 | disposition home or self-care (01) ==
PROVIDERS: Visit Provider Obstetrics & Gynecology
DX: Z34.92 Encounter for supervision of normal pregnancy, unspecified, second trimester (principal); Z36.1 Encounter for antenatal screening for raised alphafetoprotein level
CPT/HCPCS: 36415; 82105

== ENCOUNTER 2024-05-09 13:38 | Outpatient (OUT) | payer OTHER, SELFPAY ==
--- NOTE | 2024-05-09 13:41 | US_ITS ---
[address] [address] Patient Name: SAMANTHA BLANCHARD MRN: [id number] date: 2005 Sex: F Assigned Patient Location: [facility] Current Patient Location: Accession/Order Number: [id number] Exam Date: 05/09/2024 13:42 Report Date: 05/10/2024 03:44 At the request of: RAÚL MONDRAGON Procedure: US OB cervical length EXAMINATION: US OB anatomy, US OB cervical length HISTORY: ANATOMY COMPARISON: No relevant comparison available. TECHNIQUE: Transabdominal sonographic examination was performed for obstetrical and evaluation. FINDINGS: Number: 1 Heart Rate: 147 bpm Amniotic Fluid Volume: Subjectively normal Placental Location: POSTERIOR with lower margin 4.0 cm from os. Cervix Length: 4.75 cm ; closed. ANATOMY: Normal Structures -cerebellum, choroid plexus, cisterna magna, lateral cerebral ventricles, orbits, midline falx, hard palate, four-chamber heart, RVOT, LVOT, stomach, kidneys, bladder, umbilical cord insertion into abdomen, three-vessel cord, right upper extremity, left upper extremity, right lower extremity, left lower extremity. SUBOPTIMALLY SEEN: Spine ABNORMALITIES: None BIOMETRY: BPD: 4.28 cm; 19 weeks 0 days; < 3 % HC: 17.83 cm; 20 weeks 2 days; 10.30 % AC: 16.67 cm; 21 weeks 5 days; 61.50 % FL: 3.56 cm; 21 weeks 2 days; 45 % EFW:346.19 g; 51.50 % FL/AC: 21.36 FL/BPD: 83.18 HC/AC: 1.07 GESTATIONAL AGE: Age by EDC: 21 weeks 1 day Age by current US: 20 weeks 4 days KARON by current US: 2024-09-22 KARON by EDC: 2024-09-18 US/US OB cervical length IMPRESSION: 1. Single live intrauterine with growth detailed above. 2. Suboptimal visualization of the spine due to position. Electronically authenticated by: JIL HAWTHORNE Date: 05/10/2024 03:44
--- NOTE | 2024-05-09 13:41 | US_ITS ---
[address] [address] Patient Name: SAMANTHA BLANCHARD MRN: [id number] date: 2005 Sex: F Assigned Patient Location: [facility] Current Patient Location: Accession/Order Number: [id number] Exam Date: 05/09/2024 13:42 Report Date: 05/10/2024 03:44 At the request of: RAÚL MONDRAGON Procedure: US OB anatomy EXAMINATION: US OB anatomy, US OB cervical length HISTORY: ANATOMY COMPARISON: No relevant comparison available. TECHNIQUE: Transabdominal sonographic examination was performed for obstetrical and evaluation. FINDINGS: Number: 1 Heart Rate: 147 bpm Amniotic Fluid Volume: Subjectively normal Placental Location: POSTERIOR with lower margin 4.0 cm from os. Cervix Length: 4.75 cm ; closed. ANATOMY: Normal Structures -cerebellum, choroid plexus, cisterna magna, lateral cerebral ventricles, orbits, midline falx, hard palate, four-chamber heart, RVOT, LVOT, stomach, kidneys, bladder, umbilical cord insertion into abdomen, three-vessel cord, right upper extremity, left upper extremity, right lower extremity, left lower extremity. SUBOPTIMALLY SEEN: Spine ABNORMALITIES: None BIOMETRY: BPD: 4.28 cm; 19 weeks 0 days; < 3 % HC: 17.83 cm; 20 weeks 2 days; 10.30 % AC: 16.67 cm; 21 weeks 5 days; 61.50 % FL: 3.56 cm; 21 weeks 2 days; 45 % EFW:346.19 g; 51.50 % FL/AC: 21.36 FL/BPD: 83.18 HC/AC: 1.07 GESTATIONAL AGE: Age by EDC: 21 weeks 1 day Age by current US: 20 weeks 4 days KARON by current US: 2024-09-22 KARON by EDC: 2024-09-18 US/US OB anatomy IMPRESSION: 1. Single live intrauterine with growth detailed above. 2. Suboptimal visualization of the spine due to position. Electronically authenticated by: JIL HAWTHORNE Date: 05/10/2024 03:44
== END 2024-05-09 13:39 | disposition home or self-care (01) ==
LOC: NOMS 13:39
PROVIDERS: Visit Provider Obstetrics & Gynecology
DX: Z36.89 Encounter for other specified antenatal screening (principal); Z3A.20 20 weeks gestation of pregnancy
CPT/HCPCS: 76805; 76817

== ENCOUNTER 2024-05-23 12:16 | Outpatient (OUT) | payer OTHER, SELFPAY ==
--- OUTSIDE RECORDS SUMMARY | 2024-05-23 12:36 | XMS_ITS | CCD ---
Author Organization [facility] Care Team Providers Care Hand Molder Name Role Phone [facility] Primary Care Unavailable ROSY, DR JACKSON Attending Unavailable ROSY, DR JACKSON Consulting Unavailable ROSY, DR JACKSON Admitting Unavailable Ellen Ortiz Unavailable SHAD Edward Emergency Provider NON STAFF Primary Care Provider Unavailmadelyn e NON STAFF Primary Care Unavailable Toi Edward Attending Unavailable Toi Edward Admitting Unavailable Unavailable Primary Care Provider Unavailabl e Kadi Gant Unavailable KADI WAGNER Attending Unavailable VICTORINA, RAÚL Attending Unavailable KADI WAGNER Attending Unavailable VICTORINA, RAÚL Attending Unavailable VICTORINA, RAÚL Attending Unavailable KADI WAGNER Attending Unavailable VICTORINA, RAÚL Attending Unavailable VICTORINA, ARÚL Attending Unavailable VICTORINA, RAÚL Attending Unavailable VICTORINA, RAÚL Attending Unavailable VICTORINA, RAÚL Attending Unavailable KADI WAGNER Attending Unavailable Allergies Allergy Classification Reported Allergen(s) Allergy Type Date of Onset Reaction(s) Facility (1 source) Adhesive Tape Drug allergy [facility] [employer] Other (10 sources) Penicillin G Drug Allergy 3 [facility] [employer] Other (2 sources) Adhesive Tape; Translations: [adhesive tape] Propensity to adverse reactions 3 [facility] (11 sources) Penicillins; Translations: [Penicillins] Allergy to substance 2 [facility] (9 sources) Wound Dressing Adhesive Drug Intolerance 3 [facility] Medications Current Medications Medication Drug Class(es) Dates Sig (Normalized) Sig (Original) clindamycin 150 mg oral capsule (1 source) Lincosamide Antibacterial Start: 02-15-2023 take 450 mg by mouth three times daily Clindamycin Hcl Active 450 MG PO Three times daily 90 10 February 15, 2023 12:00am hydrOXYzine hydrochloride 10 [...] As Directed for 6 days Jan, Active metroNIDAZOLE 500 mg oral tablet (1 source) Nitroimidazole Antimicrobial Start: 2023 End: 2023 take 1 tablet by mouth in the morning metroNIDAZOLE (Flagyl) 500 MG tablet Indications: BV (bacterial vaginosis) Take 1 tablet (500 mg) by mouth in the morning and 1 tablet (500 mg) before bedtime. Do all this for 7 days. Do not drink alcohol while taking this medication. 14 tablet 04/12/2024 04/19/2024 Active ondansetron 4 mg disintegrating oral tablet (11 sources) Serotonin-3 Receptor Antagonist Start: 2023 End: 2024 take 1 tablet by mouth every six hours ondansetron ODT (Zofran-ODT) 4 MG disintegrating tablet Indications: Nausea and vomiting during Take 1 tablet (4 mg) by mouth every 6 (six) hours 120 tablet 1 04/12/2024 07/11/2024 Active take 1 tablet by julien th every six hours as needed for nausea [...] Vit-Fe Fumarate-FA ( Vitamins) 28-0.8 MG tablet (6 sources) Start: 04-12-2024 End: 04-12-2025 take 1 tablet by mouth once daily Vit-Fe Fumarate-FA ( Vitamins) 28-0.8 MG tablet Indications: Missed menses Take 1 tablet by mouth Daily 30 tablet 11 04/12/2024 04/12/2025 Active Start: 02-10-2024 End: 02-09-2025 take 1 tablet [...] oral tablet (3 sources) Vitamin B12 cyanocobalamin ( Vitamin B-12) 50 MCG tablet Take by mouth [...] Test Name Value Interpretation Reference Range Facility AFP, SERUM, OPEN SPINA BIFID Aon 04-16-2024 AFP MOM 1.50 . [facility] AFP VALUE 50.5 ng/mL . [facility] COMMENT: Comment . [facility] Comment on above: Isabel Colon , Ph.D., [facility] Director References: Available Upon Request. Multiples Of Median Cutoffs For AFP Elevations Garland 2.5 Black 2.8 IDD 2.0 Twins 4.5 Abbreviation Definitions IDD - Insulin Dep Diabetes OSBR - Open Spina Bifida Risk For further inquiries contact [employer] at [phone]. This test was developed and its performance characteristics determined by [employer] It has not been cleared or approved by the Food and Drug Administration. Performed at: [facility] [address], [place] [id number] Head Of Mobile: Sherrie Velez [facility], Phone: [phone] GEST. AGE ON COLLECTION DATE 17.4 . weeks [facility] GESTAT. AGE BASED ON As provided . [facility] Comment on above: Recalculations are n ot recommended when gestational dating by LMP and ultrasound are within 10 days. INSULIN DEP DIABETES No . [facility] INTERPRETATION Comment . [facility] Comment on above: Interpretation: Scre en Negative This result is screen negative for OSB. The AFP MoM calculated is based on the gestational age provided. MS-AFP can identify up to 80% of open neural tube defects. Closed neural tube defects and some open defects may not be detected by this test. This test does not screen for Down Syndrome or Trisomy 18. If screening for Down Syndrome or Trisomy 18 is desired, contact [employer] to discuss available options. The [employer] recommends amniocentesis be offered to women age 35 and older. [age] [facility] MULTIPLE GESTATION No . [facility] OSBR RISK 1 [place] 2734 . [facility] RACE . [facility] RESULTS Report . [facility] TEST RESULTS: Negative . [facility] WEIGHT 195 . lbs [facility] N N [id number] [phone] N 1 N 195 N N N N N White/ [facility] URETHRITIS/DISCHARGE PLUS VA GINITIS (HTRX)on 04-12-2024 ATOPOBIUM VAGINAE 0 [facility] ATOPOBIUM VAGINAE Not detected [facility] BVAB 2,3 (BACTERIAL VAGINOSIS ASSOCIATED BACTERIA 2, 3); MOBILUNCUS SPP 0 [facility] BVAB 2,3 (BACTERIAL VAGINOSIS ASSOCIATED BACTERIA 2, 3); MOBILUNCUS SPP Not detected [facility] RELL ALBICANS, PARAPSILOSIS, TROPICALIS 0 [facility] RELL ALBICANS, PARAPSILOSIS, TROPICALIS Not detected [facility] RELL GLABRATA 0 [facility] RELL GLABRATA Not detected [facility] RE[facility] KRUSEI 0 [facility] RELL KRUSEI Not [facility] CHLAMYDIA TRACHOMATIS 0 [facility] CHLAMYDIA TRACHOMATIS Not detected [facility] ERMB, C; MEFA 17.343 Abnormal [facility] ERMB, C; MEFA Detected Abnormal [facility] Healthcare GARDNERELLA VAGINALIS 25.706 Abnormal [facility] GARDNERELLA VAGINALIS Detected Abnormal [facility] HERPES SIMPLEX VIRUS 1 0 NO [facility] HERPES SIMPLEX VIRUS 1 Not detected [facility] HERPES SIMPLEX VIRUS 2 0 NO [facility] HERPES SIMPLEX VIRUS 2 Not detected [facility] Interpretation and review of laboratory results Abnormal [facility] MEGASPHAERA (TYPES 1, 2) 0 [facility] MEGASPHAERA (TYPES 1, 2) Not detected [facility] MYCOPLASMA GENITALIUM 0 [facility] MYCOPLASMA GENITALIUM Not detected N [facility] MYCOPLASMA HOMINIS 0 [facility] MYCOPLASMA HOMINIS Not detected [facility] NEISSERIA GONORRHOEAE 0 [facility] NEISSERIA GONORRHOEAE Not detected N [facility] TET B, TET M 24.057 Abnormal [facility] TET B, TET M Detected Abnormal [facility] TRICHOMONAS VAGINALIS 0 [facility] TRICHOMONAS VAGINALIS Not detected N [facility] UREAPLASMA PARVUM 18.878 Abnormal [facility] UREAPLASMA PARVUM Detected Abnormal [facility] UREAPLASMA UREALYTICUM 22.257 Abnormal NO [facility] UREAPLASMA UREALYTICUM Detected Abnormal NO [facility] Urinalysis macro (dipstick) panel (U)on 04-10-2024 Bilirubin, UA Negative Negative - 4(70) +++ mg/dL [facility] Blood, UA Negative Negative - 50 Carmine/mcL [facility] Clarity, UA Clear [facility] Color, UA Yellow [facility] Glucose, UA Negative Negative - 1999(110) ++++ mg/dL [facility] Interpretation and review of laboratory results Normal [facility] Ketones, UA Negative Negative - 160(16) ++++ mg/dL [facility] Leukocytes, UA Negative Negative - 500+++ Josselyn/mcL [facility] Nitrite, UA Negative Negative - Positive [facility] pH, UA 6 5 - 9 [facility] Protein, UA Negative Negative - 1999(20) ++++ mg/dL [facility] Spec Grav, UA 1.03 1 - 1.03 [facility] Urobilinogen, UA 0.2 0.2 - 12 mg/dL [facility] ALL CBC WITH AUTO DIFFon BASOPHILS ABSOLUTE AUTO 0.0 N [facility] Basophils/100 WBC (Bld) 0.3 % 0.2 - 2.0 % [facility] Eosinophils/100 WBC (Bld) 0.5 % Low 0.9 - 7.0 % [facility] Erythrocyte distribution width (RBC) [Ratio] 12.7 % 11.0 - 15.0 % [facility] Hematocrit (Bld) [Volume fraction] 32.6 % Low 36.0 - 48.0 % [facility] Hemoglobin (Bld) [Mass/Vol] 10.1 g/dL Low 12.0 - 16.0 g/dL [facility] IMMATURE GRANULOCYTES ABS AUTO 0.06 High [facility] Immature granulocytes/100 WBC (Bld) 0.5 % 0.0 - 0.5 % [facility] Interpretation and review of laboratory results Abnormal [facility] LYMPHOCYTES ABSOLUTE AUTO 2.3 [facility] Lymphocytes/100 WBC (Bld) 19.3 % Low 20.5 - 60.0 % [facility] MCH (RBC) [Entitic mass] 27.4 pg 26. 7 - 34.0 pg [facility] MCHC (RBC) [Mass/Vol] 31.0 g/dL 29.9 - 35.2 g/dL [facility] MCV (RBC) [Entitic vol] 88.3 fL 81.0 - 99.0 fL [facility] MONOCYTES ABSOLUTE AUTO 0.8 N [facility] Monocytes/100 WBC (Bld) 6.9 % 1.7 - 12.0 % [facility] NEUTROPHILS ABSOLUTE AUTO 8.5 High [facility] Neutrophils/100 WBC (Bld) 72.5 % 43.0 - 75.0 % [facility] Platelet mean volume (Bld) [Entitic vol] 9.1 fL Low 9.5 - 13.5 fL [facility] TBH EO # 0.1 [facility] TB PLT 319 [facility] TB RBC 3.69 Low [facility] TBH WBC 11.8 High [facility] Urinalysis macro (dipstick) panel (U)on 08-04-2023 Bilirubin, UA Few Negative - 4(70) +++ mg/dL [facility] Blood, UA Positive Negative - 50 Carmine/mcL [facility] Clarity, UA Clear [facility] Color, UA Yellow [facility] Glucose, UA Negative Negative - 1999(110) ++++ mg/dL [facility] Interpretation and review of laboratory results Abnormal [facility] Ketones, UA Negative Negative - 160(16) ++++ mg/dL [facility] Leukocytes, UA Few Negative - 500+++ Josselyn/mcL [facility] Nitrite, UA Negative Negative - Positive [facility] pH, UA 6.0 5 - 9 [facility] Protein, UA Positive Negative - 2000(20) ++++ mg/dL [facility] Spec Grav, UA 1.030 1 - 1.03 [facility] Urobilinogen, UA 1.0 0.2 - 12 mg/dL [facility] Alanine aminotransferase [En zymatic activity/volume] in Serum or PlasmaOrdered By: Toi Edward on 02-14-2023 ALT [Catalytic activity/Vol] 41 U/L 7-52 [facility] Albumin [Mass/volume] in Ser um or Plasma by Bromocresol green (BCG) dye binding methoOrdered By: Toi Edward on 02-14-2023 Albumin BCG dye [Mass/Vol] 4.1 g/dL 3.5-5.7 [facility] Alkaline phosphatase [Enzyma tic activity/volume] in Serum or PlasmaOrdered By: Toi Edward on 02-14-2023 ALP [Catalytic activity/Vol] 158 U/L 34-104 [facility] Aspartate aminotransferase [ Enzymatic activity/volume] in Serum or PlasmaOrdered By: Toi Edward on 02-14-2023 AST [Catalytic activity/Vol] 44 U/L 13-39 [facility] Basophils Auto (Bld) [#/Vol] Ordered By: Toi Edward on 02-14-2023 Basophils (Bld) [#/Vol] 0.1 10*3/uL 0.0-0.2 [facility] Basophils/100 WBC Auto (Bld) Ordered By: Toi Edward on 02-14-2023 Basophils/100 WBC (Bld) 0.5 % . [facility] Bilirubin.total [Mass/volume ] in Serum or PlasmaOrdered By: Toi Edward on 02-14-2023 Bilirubin [Mass/Vol] 0.8 mg/dL 0.3-1.0 [facility] C reactive protein [Mass/vol ume] in Serum or PlasmaOrdered By: Toi Edward on 02-14-2023 CRP [Mass/Vol] 1.8 mg/dL 0.0-0.5 [facility] C-Reactive Proteinon 023 C-Reactive Protein 1.8 mg/dL High 0.0-0.5 [facility] Comment on above: Result Comment: PERF ORMED BY: [place] [address] PATHOLOGIST EMERY WHEEL MOLDER VEENA DYSON M.D. Performed By: #### S CAN CBC, ESR, CMP, CRP #### [facility] [address] Calcium [Mass/volume] in Ser um or PlasmaOrdered By: Toi Edward on 02-14-2023 Calcium [Mass/Vol] 9.4 mg/dL 8.6-10.3 [facility] Carbon dioxide, total [Moles /volume] in Serum or PlasmaOrdered By: Toi Edward on 02-14-2023 CO2 [Moles/Vol] 24.8 mmol/L 21.0-31.0 [facility] Chloride [Moles/volume] in S cass or PlasmaOrdered By: Toi Edward on 02-14-2023 Chloride [Moles/Vol] 100 mmol/L 98-107 [facility] Comprehensive Metabolic Pane valentín 02-14-2023 Albumin [Mass/Vol] 4.1 g/dL Normal 3.5-5.7 [facility] Comment on above: Performed By: #### S CAN CBC, ESR, CMP, CRP #### [facility] [address] Albumin/Globulin [Mass ratio] 1.2 {ratio} Normal [facility] Comment on above: Performed By: #### S CAN CBC, ESR, CMP, CRP #### [facility] [address] ALP [Catalytic activity/Vol] 158 U/L High 34-104 [facility] Comment on above: Performed By: #### S CAN CBC, ESR, CMP, CRP #### [facility] [address] ALT [Catalytic activity/Vol] 41 U/L Normal 7-52 [facility] Comment on above: Performed By: #### S CAN CBC, ESR, CMP, CRP #### [facility] [address] [place] [address] Anion gap [Moles/Vol] 13.2 mmol/L Normal 6.0-15.0 [facility] Comment on above: Performed By: #### S CAN CBC, ESR, CMP, CRP #### [facility] [address] [place] [address] AST [Catalytic activity/Vol] 44 U/L High 13-39 [facility] Comment on above: Performed By: #### S CAN CBC, ESR, CMP, CRP #### [facility] [address] [place] [address] Bilirubin [Mass/Vol] 0.8 mg/dL Normal 0.3-1.0 [facility] Comment on above: Performed By: #### S CAN CBC, ESR, CMP, CRP #### [facility] [address] [place] [address] Calcium [Mass/Vol] 9.4 mg/dL Normal 8.6-10.3 [facility] Comment on above: Performed By: #### S CAN CBC, ESR, CMP, CRP #### [facility] [address] [place] [address] Chloride [Moles/Vol] 100 mmol/L Normal 98-107 [facility] Comment on above: Performed By: #### S CAN CBC, ESR, CMP, CRP #### [facility] [address] [place] [address] CO2 [Moles/Vol] 24.8 mmol/L Normal 21.0-31.0 [facility] Comment on above: Performed By: #### S CAN CBC, ESR, CMP, CRP #### [facility] [address] Creatinine [Mass/Vol] 0.77 mg/dL Normal 0.60-1.20 [facility] Comment on above: Performed By: #### S CAN CBC, ESR, CMP, CRP #### [facility] [address] Creatinine Clr Calc Pharmacy 115.98 [facility] Comment on above: Performed By: #### S CAN CBC, ESR, CMP, CRP #### [facility] [address] [place] [address] [place] GFR/1.73 sq M.predicted MDRD (S/P/Bld) [Vol rate/Area] mL/min/{1.73_m2} [facility] Comment on above: Performed By: #### S CAN CBC, ESR, CMP, CRP #### [facility] [address] Globulin (S) [Mass/Vol] 3.5 g/dL Normal [facility] Comment on above: Performed By: #### S CAN CBC, ESR, CMP, CRP #### [facility] [address] Glucose [Mass/Vol] 85 mg/dL Normal 70-100 [facility] Comment on above: Result Comment: [facility] Glucose Reference Range is dependent on time and content of last meal. Glucose of more than 200 mg/dL in a nonstressed, ambulatory subject supports the diagnosis of Diabetes Mellitus. ADA recommended reference range Performed By: #### S CAN CBC, ESR, CMP, CRP #### [facility] [address] Potassium [Moles/Vol] 4.0 mmol/L Normal 3.5-5.1 [facility] Comment on above: Performed By: #### S CAN CBC, ESR, CMP, CRP #### [facility] [address] Protein [Mass/Vol] 7.6 g/dL Normal 6.4-8.9 [facility] Comment on above: Performed By: #### S CAN CBC, ESR, CMP, CRP #### [facility] [address] Sodium [Moles/Vol] 134 mmol/L Low 136-145 [facility] Comment on above: Performed By: #### S CAN CBC, ESR, CMP, CRP #### [facility] [address] Urea nitrogen [Mass/Vol] 7 mg/dL Normal 7-25 [facility] Comment on above: Performed By: #### S CAN CBC, ESR, CMP, CRP #### [facility] [address] Creatinine [Mass/volume] in Serum or PlasmaOrdered By: Toi Edward on 02-14-2023 Creatinine [Mass/Vol] 0.77 mg/dL 0.60-1.20 [facility] Eosinophils Auto (Bld) [#/Vo l]Ordered By: Toi Edward on 02-14-2023 Eosinophils (Bld) [#/Vol] 0.0 10*3/uL 0.0-0.45 [facility] Eosinophils/100 WBC Auto (Bl d)Ordered By: Toi Edward on 02-14-2023 Eosinophils/100 WBC (Bld) 0.2 % . [facility] Erythrocyte Sedimentation Ra deng 02-14-2023 ESR (Bld) [Velocity] 26 mm/h High 0-19 [facility] Comment on above: Result Comment: PERF ORMED BY: [place] [address] PATHOLOGIST EMERY WHEEL MOLDER VEENA DYSON M.D. Performed By: #### S CAN CBC, ESR, CMP, CRP #### [facility] [address] Erythrocyte distribution wid th Auto (RBC) [Ratio]Ordered By: Toi Edward on 02-14-2023 Erythrocyte distribution width (RBC) [Ratio] 13.3 % 11.9-15.3 [facility] Erythrocyte sedimentation ra te by Photometric methodOrdered By: Toi Edward on 02-14-2023 ESR Photometric method (Bld) [Velocity] 26 mm/hr 0-19 [facility] Globulin Calc (S) [Mass/Vol] Ordered By: Toi Edward on 02-14-2023 Globulin (S) [Mass/Vol] 3.5 g/dL [facility] Glucose [Mass/volume] in Ser um or PlasmaOrdered By: Toi Edward on 02-14-2023 Glucose [Mass/Vol] 85 mg/dL 70-100 [facility] Comment on above: ADA recommended refe rence rangeRandom Glucose Reference Range is dependent on time and content of last meal. Glucose of more than 200 mg/dL in a nonstressed, ambulatory subject supports the diagnosis of Diabetes Mellitus. Hematocrit Auto (Bld) [Volum e fraction]Ordered By: Toi Edward on 02-14-2023 Hematocrit (Bld) [Volume fraction] 38.7 % 34.0-46.4 [facility] Hemoglobin [Mass/volume] in BloodOrdered By: Toi Edward on 02-14-2023 Hemoglobin (Bld) [Mass/Vol] 13.1 g/dL 11.8-15.4 [facility] Leukocytes [#/volume] correc alem for nucleated erythrocytes in Blood by Automated counOrdered By: Toi Edward on 02-14-2023 WBC corrected for nucl RBC Auto (Bld) [#/Vol] 9.4 10*3/uL 3.8-11.6 [facility] Lymphocytes Auto (Bld) [#/Vo l]Ordered By: Toi Edward on 02-14-2023 Lymphocytes (Bld) [#/Vol] 4.5 10*3/uL 1.00-4.8 [facility] Lymphocytes/100 WBC Auto (Bl d)Ordered By: Toi Edward on 02-14-2023 Lymphocytes/100 WBC (Bld) 47.5 % . [facility] MCH Auto (RBC) [Entitic mass ]Ordered By: Toi Edward on 02-14-2023 MCH (RBC) [Entitic mass] 29.0 pg 24.7-34.3 [facility] MCHC Auto (RBC) [Mass/Vol]Or dered By: Toi Edward on 02-14-2023 MCHC (RBC) [Mass/Vol] 33.7 g/dL 32.0-35.0 [facility] MCV Auto (RBC) [Entitic vol] Ordered By: Toi Edward on 02-14-2023 MCV (RBC) [Entitic vol] 85.8 fL 80-100 [facility] Monocyte distribution width [Entitic volume] in Blood by AutomatedOrdered By: Toi Edward on 02-14-2023 Monocyte distribution width Auto (Bld) [Entitic vol] 34.56 % 0.00-20.00 [facility] Comment on above: The predictive value of MDW for identifying sepsis in patients with hematological abnormalities has not been established Monocytes Auto (Bld) [#/Vol] Ordered By: Toi Edward on 02-14-2023 Monocytes (Bld) [#/Vol] 1.0 10*3/uL 0.0-0.8 [facility] Monocytes/100 WBC Auto (Bld) Ordered By: Toi Edward on 02-14-2023 Monocytes/100 WBC (Bld) 10.7 % . [facility] Neutrophils Auto (Bld) [#/Vo l]Ordered By: Toi Edward on 02-14-2023 Neutrophils (Bld) [#/Vol] 3.9 10*3/uL 1.8-7.7 [facility] Neutrophils/100 WBC Auto (Bl d)Ordered By: Toi Edward on 02-14-2023 Neutrophils/100 WBC (Bld) 41.1 % . [facility] No Panel InformationOrdered By: Toi Edward on 02-14-2023 Estimated GFR (CKD-EPI) > 60.0 mL/Min [facility] Creatinine Clearance (Chem 115.98 [facility] Nucleated erythrocytes [Pres ence] in Blood by Automated countOrdered By: Toi Edward on 02-14-2023 Nucleated RBC Auto Ql (Bld) 0.3 /100{WBC} 0-0.5 [facility] Platelet adequacy [Presence] in Blood by Light microscopyOrdered By: Toi Edward on 02-14-2023 Platelets LM Ql (Bld) Normal Normal [facility] Platelet mean volume Auto (B ld) [Entitic vol]Ordered By: Toi Edward on 02-14-2023 Platelet mean volume (Bld) [Entitic vol] 7.6 fL 6.3-10.7 [facility] Platelet morphology finding [Identifier] in BloodOrdered By: Toi Edward on 02-14-2023 Platelet morphology finding Nom (Bld) Normal Normal [facility] Platelets Auto (Bld) [#/Vol] Ordered By: Tio Edward on 02-14-2023 Platelets (Bld) [#/Vol] 163 10*3/uL 150-450 [facility] Potassium [Moles/volume] in Serum or PlasmaOrdered By: Toi Edward on 02-14-2023 Potassium [Moles/Vol] 4.0 mmol/L 3.5-5.1 [facility] Protein [Mass/volume] in Ser um or PlasmaOrdered By: Toi Edward on 02-14-2023 Protein [Mass/Vol] 7.6 g/dL 6.4-8.9 [facility] Quick Strepon 02-14-2023 Quick Strep Streptococcus pyogenes Ag [Presence] in Throat by Rapid immunoassay Negative for Group A Strep Antigen Note 1 -- NOTE 2 Results are those of a screening test. NOTE 3 If clinically indicated please order a culture. NOTE 4 -- NOTE 5 Reference range = Negative PERFORMED BY: [place] [address] PATHOLOGIST EMERY WHEEL MOLDER VEENA DYSON M.D. Normal [facility] Comment on above: Performed By: #### Q S, RFXSTPA #### [address] RBC Auto (Bld) [#/Vol]Ordere d By: Toi Edward on 02-14-2023 RBC (Bld) [#/Vol] 4.51 10*6/uL 3.60-5.00 [facility] RBC morphologyOrdered By: Den Edward on 02-14-2023 RBC morphology finding Nom (Bld) Normal Normal [facility] RFX Strep A Reflex Cult Only on 02-14-2023 RFX Strep A Reflex Cult Only Strep A Only Cult No Group A Beta Streptococcus Isolated 2 Days PERFORMED BY: [place] [address] PATHOLOGIST EMERY WHEEL MOLDER VEENA DYSON M.D. Normal [facility] Comment on above: Performed By: #### Q S, RFXSTPA #### [facility] [facility] [address] Scan and CBCon 02-14-2023 Basophils (Bld) [#/Vol] 0.1 10*3/uL Normal 0.0-0.2 [facility] Comment on above: Performed By: #### S CAN CBC, ESR, CMP, CRP #### [facility] [address] Basophils/100 WBC (Bld) 0.5 % Normal . [facility] Comment on above: Performed By: #### S CAN CBC, ESR, CMP, CRP #### [facility] [address] [place] [address] [place] Eosinophils (Bld) [#/Vol] 0.0 10*3/uL Normal 0.0-0.45 [facility] Comment on above: Performed By: #### S CAN CBC, ESR, CMP, CRP #### [facility] [address] [place] [address] [place] Eosinophils/100 WBC (Bld) 0.2 % Normal . [facility] Comment on above: Performed By: #### S CAN CBC, ESR, CMP, CRP #### [facility] [address] Erythrocyte distribution width (RBC) [Ratio] 13.3 % Normal 11.9-15.3 [facility] Comment on above: Performed By: #### S CAN CBC, ESR, CMP, CRP #### [facility] [address] Hematocrit (Bld) [Volume fraction] 38.7 % Normal 34.0-46.4 [facility] Comment on above: Performed By: #### S CAN CBC, ESR, CMP, CRP #### [address] Hemoglobin (Bld) [Mass/Vol] 13.1 g/dL Normal 11.8-15.4 [facility] Comment on above: Performed By: #### S CAN CBC, ESR, CMP, CRP #### [address] Lymphocytes (Bld) [#/Vol] 4.5 10*3/uL Normal 1.00-4.8 [facility] Comment on above: Performed By: #### S CAN CBC, ESR, CMP, CRP #### [address] Lymphocytes/100 WBC (Bld) 47.5 % Normal . [facility] Comment on above: Performed By: #### S CAN CBC, ESR, CMP, CRP #### [address] MCH (RBC) [Entitic mass] 29.0 pg Normal 24.7-34.3 [facility] Comment on above: Performed By: #### S CAN CBC, ESR, CMP, CRP #### [address] MCV (RBC) [Entitic vol] 85.8 fL Normal 80-100 [facility] Comment on above: Performed By: #### S CAN CBC, ESR, CMP, CRP #### [address] Mean Corpuscular HGB Conc 33.7 g/dL Normal 32.0-35.0 [facility] Comment on above: Performed By: #### S CAN CBC, ESR, CMP, CRP #### [address] Monocytes (Bld) [#/Vol] 1.0 10*3/uL High 0.0-0.8 [facility] Comment on above: Performed By: #### S CAN CBC, ESR, CMP, CRP #### [facility] [address] [place] [address] [place] Monocytes/100 WBC (Bld) 34.56 % High 0.00-20.00 [facility] Comment on above: Result Comment: The predictive value of MDW for identifying sepsis in patients with hematological abnormalities has not been established Performed By: #### S CAN CBC, ESR, CMP, CRP #### [facility] [address] Monocytes/100 WBC (Bld) 10.7 % Normal . [facility] Comment on above: Performed By: #### S CAN CBC, ESR, CMP, CRP #### [address] Neutrophils (Bld) [#/Vol] 3.9 10*3/uL Normal 1.8-7.7 [facility] Comment on above: Performed By: #### S CAN CBC, ESR, CMP, CRP #### [address] Neutrophils/100 WBC (Bld) 41.1 % Normal . [facility] Comment on above: Performed By: #### S CAN CBC, ESR, CMP, CRP #### [address] NRBC% 0.3 /100{WBC} Normal 0-0.5 [facility] Comment on above: Performed By: #### S CAN CBC, ESR, CMP, CRP #### [address] Platelet Estimate Normal Normal Normal [facility] Comment on above: Performed By: #### S CAN CBC, ESR, CMP, CRP #### [address] Platelet mean volume (Bld) [Entitic vol] 7.6 fL Normal 6.3-10.7 [facility] Comment on above: Performed By: #### S CAN CBC, ESR, CMP, CRP #### [address] Platelet Morphology Normal Normal Normal [facility] Comment on above: Performed By: #### S CAN CBC, ESR, CMP, CRP #### [facility] [address] Platelets (Bld) [#/Vol] 163 10*3/uL Normal 150-450 [facility] Comment on above: Performed By: #### S CAN CBC, ESR, CMP, CRP #### [facility] [address] RBC (Bld) [#/Vol] 4.51 10*6/uL Normal 3.60-5.00 [facility] Comment on above: Performed By: #### S CAN CBC, ESR, CMP, CRP #### [facility] [address] RBC morphology finding Nom (Bld) Normal Normal Normal [facility] Comment on above: Performed By: #### S CAN CBC, ESR, CMP, CRP #### [facility] [address] WBC (Bld) [#/Vol] 9.4 10*3/uL Normal 3.8-11.6 [facility] Comment on above: Performed By: #### S CAN CBC, ESR, CMP, CRP #### [address] Serum or plasma albumin/glob ulin mass ratioOrdered By: Toi Edward on 02-14-2023 Albumin/Globulin [Mass ratio] 1.2 {ratio} [facility] Serum or plasma anion gap de terminationOrdered By: Toi Edward on 02-14-2023 Anion gap [Moles/Vol] 13.2 mmol/L 6.0-15.0 [facility] Sodium [Moles/volume] in Ser um or PlasmaOrdered By: Toi Edward on 02-14-2023 Sodium [Moles/Vol] 134 mmol/L 136-145 [facility] Urea nitrogen [Mass/volume] in Serum or PlasmaOrdered By: Toi Edward on 02-14-2023 Urea nitrogen [Mass/Vol] 7 mg/dL 7-25 [facility] WBC Auto (Bld) [#/Vol]Ordere d By: Toi Edward on 02-14-2023 WBC (Bld) [#/Vol] 9.4 10*3/uL 3.8-11.6 [facility] CBC AUTO DIFFon 03-02-2022 BASO # 0.0 103/ul Normal 0.0-0.1 [facility] Comment on above: Performed By: #### C BC #### [facility] [address] [place] [address] Dr. Melinda López Basophils/100 WBC (Bld) 0.2 % Normal 0.2-2.0 [facility] Comment on above: Performed By: #### C BC #### [facility] [address] [place] [address] Dr. Melinda López EO # 0.0 103/ul Normal 0.0-0.7 [facility] Comment on above: Performed By: #### C BC #### [facility] [address] [place] [address] Dr. Melinda López Eosinophils/100 WBC (Bld) 0.1 % Critically low 0.9-7.0 [facility] Comment on above: Performed By: #### C BC #### [facility] [address] [place] [address] Dr. Melinda López Erythrocyte distribution width (RBC) [Ratio] 13.0 % Normal 11.0-15.0 [facility] Comment on above: Performed By: #### C BC #### [facility] [address] [place] [address] Dr. Melinda López Hematocrit (Bld) [Volume fraction] 41.3 % Normal 36.0-48.0 [facility] Comment on above: Performed By: #### C BC #### [facility] [address] [place] [address] Dr. Melinda López Hemoglobin (Bld) [Mass/Vol] 13.2 g/dL Normal 12.0-16.0 [facility] Comment on above: Performed By: #### C BC #### [facility] [address] [place] [address] Dr. Melinda López IG # 0.15 10e3/ul Critically high 0.00-0.03 [facility] Comment on above: Performed By: #### C BC #### [facility] [address] [place] [address] Dr. Melinda López IG % 0.9 % Critically high 0.0-0.5 [facility] Comment on above: Performed By: #### C BC #### [facility] [address] [place] [address] Dr. Melinda López LYMPH # 1.1 103/ul Critically low 1.2-3.8 [facility] Comment on above: Performed By: #### C BC #### [facility] [address] [place] [address] Dr. Melinda López Lymphocytes/100 WBC (Bld) 6.6 % Critically low 20.5-60.0 [facility] Comment on above: Performed By: #### C BC #### [facility] [address] [place] [address] Dr. Melinda López MANUAL DIFF REQ NO Normal [facility] Comment on above: Performed By: #### C BC #### [facility] [address] [place] [address] Dr. Melinda López MCH (RBC) [Entitic mass] 28.1 pg Normal 26.7-34.0 [facility] Comment on above: Performed By: #### C BC #### [facility] [address] [place] [address] Dr. Melinda López MCHC (RBC) [Mass/Vol] 32.0 g/dL Normal 29.9-35.2 [facility] Comment on above: Performed By: #### C BC #### [facility] [address] [place] [address] Dr. Melinda López MCV (RBC) [Entitic vol] 88.1 fL Normal 81.0-99.0 [facility] Comment on above: Performed By: #### C BC #### [facility] [address] [place] [address] Dr. Melidna López MONO # 0.9 103/ul Critically high 0.3-0.8 [facility] Comment on above: Performed By: #### C BC #### [facility] [address] [place] [address] Dr. Melinda López Monocytes/100 WBC (Bld) 4.9 % Normal 1.7-12.0 [facility] Comment on above: Performed By: #### C BC #### [facility] [address] [place] [address] Dr. Melinda López NEUT # 15.0 103/ul Critically high 1.4-6.5 [facility] Comment on above: Performed By: #### C BC #### [facility] [address] [place] [address] Dr. Melinda López Neutrophils/100 WBC (Bld) 87.3 % Critically high 43.0-75.0 [facility] Comment on above: Performed By: #### C BC #### [facility] [address] [place] [address] Dr. Melinda López Platelet mean volume (Bld) [Entitic vol] 9.4 fL Critically low 9.5-13.5 [facility] Comment on above: Performed By: #### C BC #### [facility] [address] [place] [address] Dr. Melinda López PLT 362 103/ul Normal 150-450 [facility] Comment on above: Performed By: #### C BC #### [facility] [address] [place] [address] Dr. Melinda López RBC 4.69 106/ul Normal 4.20-5.40 [facility] Comment on above: Performed By: #### C BC #### [facility] [address] [place] [address] Dr. Melinda López WBC 17.2 103/ul Critically high 4.0-11.0 [facility] Comment on above: Performed By: #### C BC #### [facility] [address] [place] [address] Dr. Melinda López MONOon 03-02-2022 Monocytes (Bld) [#/Vol] Negative Normal NEGATIVE T [facility] Comment on above: Performed By: #### M RADHA #### [facility] [address] [address] [address] Melinda López Vital Signs Date Time Vital Sign Value Performing Clinician Facility 04-10-2024 16:00-0400 Body mass index (BMI) [Ratio] 33.47 kg/m2 Raúl Victorina DO Work Phone: [facility] 04-10-2024 16:00-0400 Body weight 88.45 kg Raúl Victorina DO Work Phone: [facility] 04-10-2024 16:00-0400 Diastolic blood pressure 80 mm[Hg] Raúl Victorina DO Work Phone: [facility] 04-10-2024 16:00-0400 Systolic blood pressure 120 mm[Hg] Raúl Victorina DO Work Phone: [facility] 08-04-2023 11:10-0500 Body mass index (BMI) [Ratio] 33.88 kg/m2 Raúl Victorina DO Work Phone: [facility] 08-04-2023 11:10-0500 Body weight 89.54 kg Raúl Victorina DO Work Phone: [facility] 08-04-2023 11:10-0500 Diastolic blood pressure 68 mm[Hg] Raúl Victorina DO Work Phone: [facility] 08-04-2023 11:10-0500 Systolic blood pressure 114 mm[Hg] Raúl Victorina DO Work Phone: [facility] 02-15-2023 00:16-0400 Body temperature 99.3 [degF] SHAD Edward Work Phone: [facility] 02-15-2023 00:16-0400 Diastolic blood pressure 66 mm[Hg] SHAD Edward Work Phone: [facility] 02-15-2023 00:16-0400 Heart rate 91 /min SHAD Edward Work Phone: [facility] 02-15-2023 00:16-0400 Respiratory rate 16 /min PAFranco Edward Work Phone: [facility] 02-15-2023 00:16-0400 SaO2% (BldA) [Mass fraction] 95 % PA-Evelyn Edward Work Phone: [facility] 02-15-2023 00:16-0400 Systolic blood pressure 121 mm[Hg] PA-C Toi Edward Work Phone: [facility] 02-14-2023 20:07-0400 Body height 163.83 cm PAFranco Edward Work Phone: [facility] 02-14-2023 20:07-0400 Body weight 74.25 kg PAFranco Edward Work Phone: [facility] 02-11-2023 15:40-0400 Body height 167.64 cm Ellen Ortiz Other [facility] [employer] Other 02-11-2023 15:40-0400 Body mass index (BMI) [Ratio] 27.18 kg/m2 Ellen Diana Other [facility] [employer] Other 02-11-2023 15:40-0400 Body temperature 96.9 [degF] Ellen Ortiz Other [employer] Other 02-11-2023 15:40-0400 Body weight 76.39 kg Ellen Diana Other [employer] Other 02-11-2023 15:40-0400 Diastolic blood pressure 78 mm[Hg] Ellen Ortiz Other [employer] Other 02-11-2023 15:40-0400 Respiratory rate 18 /min Ellen Ortiz Other [employer] Other 02-11-2023 15:40-0400 SaO2% (BldA) [Mass fraction] 98 % Ellen Ortiz Other [employer] Other 02-11-2023 15:40-0400 Systolic blood pressure 110 mm[Hg] Ellen Ortiz Other [employer] Other Encounters Encounter Date Encounter Type Care Provider Facility Start: 05-09-2024 End: 05-09-2024 ambulatory KADI WAGNER Not Available Start: 05-09-2024 End: 05-09-2024 Bamboo flowsheet Kadi DON Work Phone: [facility] Start: 05-09-2024 End: 05-09-2024 Bamboo flowsheet Kadi DON Work Phone: [facility] Start: 04-13-2024 End: 04-16-2024 Clinisync Result Encounter Raúl Victorina DO Work Phone: [facility] External Department Unsolicited Start: 04-13-2024 End: 04-16-2024 Clinisync Result Encounter Raúl Victorina DO Work Phone: [facility] External Department Unsolicited Start: 04-10-2024 End: 04-10-2024 ambulatory RAÚL VICTORINA Not Available Start: 04-10-2024 End: 04-10-2024 Office outpatient visit 15 minutes Raúl Victorina DO Work Phone: [facility] Comment on above: Screening, , for anatomic survey; Exposure to STD; Vaginal discharge; Need for maternal serum alpha-protein (MSAFP) screening; Second trimester ; 17 weeks gestation of ; Weight loss Start: 04-10-2024 End: 04-10-2024 Bamboo flowsheet Raúl Victorina DO Work Phone: [facility] Start: 04-10-2024 End: 04-12-2024 Bamboo flowsheet Raúl Victorina DO Work Phone: [facility] Start: 04-10-2024 End: 04-12-2024 External Result Encounter Raúl Victorina DO Work Phone: [facility] External Department Unsolicited Start: 03-13-2024 End: 03-13-2024 [...] fetus Start: 07-20-2023 End: 07-20-2023 ambulatory KADI BERNARD Not Available Start: 07-06-2023 End: 07-06-2023 ambulatory RÚAL VICTORINA Not Available Start: 06-17-2023 End: 06-17-2023 ambulatory KADI BERNARD Not Available Start: 05-20-2023 End: 05-20-2023 ambulatory RAÚL VICTORINA Not Available Start: 02-14-2023 End: 02-15-2023 Emergency department patient visit NON STAFF Facility:[facility] Start: 02-14-2023 End: 02-15-2023 Emergency department patient visit SHAD Edward Work Phone: [facility] Work Phone: Start: 02-11-2023 End: 02-11-2023 ambulatory Ellen Ortiz Other [employer] Other Start: 02-11-2023 Office outpatient ne w 20 minutes Ellen Ortiz [facility] Start: 03-02-2022 End: 03-03-2022 ambulatory [facility] Facility:H1 Procedures Date Procedure Procedure Detail Performing Clinician Start: 04-13-2024 AFP, SERUM, OPEN SPI NA BIFIDA Raúl Victorina DO Work Phone: Start: 04-10-2024 Urnls dip stick/tabl et rgnt [...] Care Activity Detail Author Start: 05-11-2024 End: 05-11-2024 Alpha fetoprotein, maternal Alpha fetoprotein, maternal Lab Routine Need for maternal serum alpha-protein (MSAFP) screening Expected: 05/11/2024 (Approximate), Expires: 05/11/2024 [facility] Comment on above: Expected: 05/11/2024 (Approximate), Expires: 05/11/2024 Start: 05-09-2024 End: 05-09-2024 Patient encounter procedure 05/09/2024 2:30 PM EST Routine [facility] [address] [place] [address] [place] [id number] Kadi Wagner PA [address] [place], [place] [id number] [facility] Start: 05-09-2024 End: 05-09-2024 Professional / ancillary services management 05/09/2024 1:30 PM EST Ancillary Procedure [facility] [address] [place] [address] [facility] Start: 04-10-2024 End: 04-10-2025 US for US OB ANATOMY SINGLE W US OB CERVICAL LENGTH Imaging Routine Screening, , for anatomic survey Expected: 04/10/2024 (Approximate), Expires: 04/10/2025 [facility] Comment on above: Expected: 04/10/2024 (Approximate), Expires: 04/10/2025 Start: 02-20-2024 Influenza vaccination Influenza Vacc ine (#1) [facility] Start: 08-11-2023 End: 08-11-2023 Patient encounter procedure 08/11/2023 10:30 AM EST Routine [facility] [address] [place] [address] [place] [id number] Raúl Prajapati DO [address] [place], [place] [id number] [facility] Start: 08-04-2023 End: 08-04-2024 US for US OB SCAN FOR GROWTH Imaging Routine Excessive growth affecting management of in third trimester, single or unspecified fetus Expected: 08/04/2023 (Approximate), Expires: 08/04/2024 [facility] Work Phone: Comment on above: Expected: 08/04/2023 (Approximate), Expires: 08/04/2024 Start: 02-14-2023 Streptococcus pyogen es Ag [Presence] in Throat Group A Strep Throat Culture [facility] CHLAMYDIA TRACHOMATI S (GENITO/STI) CHLAMYDIA TRACHOMATIS (GENITO/STI) Lab Routine Exposure to STD Ordered: 04/10/2024 [facility] Comment on above: Ordered: 04/10/2024 Neisseria gonorrhoea e DNA [Presence] in Unspecified specimen by JUVENCIO with probe detection Neisseria gonorrhea DNA probe, direct Lab Routine Exposure to STD Ordered: 04/10/2024 [facility] Comment on above: Ordered: 04/10/2024 Patient Education Sore Throat, Adult ED [facility] Work Phone: Patient referral [facility] Work Phone: SURESWAB(R) ADVANCED VAGINITIS PLUS, TMA SURESWAB(R) ADVANCED VAGINITIS PLUS, TMA Pathology and Cytology Routine Vaginal discharge Ordered: 04/10/2024 [facility] Work Phone: Comment on above: Ordered: 04/10/2024 Payers Date Payer Category Payer Private Health Insurance [facility] MEDICAID [id number] 2023 Self-pay 2022 Medicaid [employer] [place] [id number] 2022-Present [address] [place] [address] [id number] 2022 Medicaid [id number] 2003 Unknown [id number] [id number]. 1259 2003 Unknown [id number] 2.16.840.1.876123.3.579.2. 9 2003 Unknown [id number] 2.16.840.1.827732.3.579.2. 1258 2003 Unknown [id number] 2.16.840.1.192334.3.579.2. 1258 2003 Unknown [id number] 2.16.840.1.229392.3.579.2. 1258 2003 Unknown [id number] 2.16.840.1.546052.3.579.2. 1258 2003 Unknown [id number] 2.16.840.1.397124.3.579.2. 1258 2003 Unknown [id number] 2.16.840.1.281338.3.579.2. 1258 2003 Unknown [id number] 2.16.840.1.195483.3.579.2. 1258 2003 Unknown [id number] 2.16.840.1.219459.3.579.2. 1258 2003 Unknown [id number] 2.16.840.1.294922.3.579.2. 1258 2003 Unknown [id number] 2.16.840.1.122687.3.579.2. 9 2003 Unknown [id number] 2.16.840.1.040881.3.579.2. 1259 1985 Unknown [id number] 2.16.840.1.918236.3.579.2. 593 1959 Unknown [id number] Unknown [id number] [id number]. 531 Social History Date Type Detail Facility Unknown if ever smoked [employer] Other Start: 04-07-2023 End: 05-20-2023 Sex Assigned At [employer] Other Start: 02-14-2023 End: 04-07-2023 Tobacco smoking status ARIS Never smoked tobacco (finding) [facility] Start: 2003 Sex Assigned At Female F [facility] Start: 08-04-2023 End: 03-13-2024 Alcohol intake Lifetime non-drinker (finding) [facility] Start: 04-07-2023 End: 05-20-2023 History of Social function [facility] Start: 03-30-2023 Alcohol Comment Caffeine intak e: 1-2 cups per day [facility] Start: 12-16-2022 [facility] Start: 2003 Sex Assigned At Not on file N [facility] History of Present illness Narrative 04-10-2024 Carolina Porter, EPIFANIO - 04/10/2024 2:50 PM EDT Note Date & Type Note Facility 04-10-2024 History of Presen t illness Narrative Reason for Appointment: Patient ID: Samantha Blanchard is a 18 y.o. female who presents [...] nursing note reviewed. Exam conducted with a mold sheet cleaner present. Vitals: Estimated body mass index is [...] DO documented in this encounter [facility] History of Present illness Narrative 08-04-2023 Norma Felipe, SPEECH THERAPY ASSISTANT - 08/04/2023 10:50 AM EST Note Date & Type Note Facility 08-04-2023 History of Presen t illness Narrative Reason for Appointment: Patient ID: Samantha Blanchard is a 17 y.o. female who presents [...] nursing note reviewed. Exam conducted with a mold sheet cleaner present. Vitals: Estimated body mass index is [...] Raúl Prajapati DO documented in this encounter [facility] Evaluation note 02-11-2023 Note Date & [...] the ER for worsening symptoms or concerns [employer] Other Evaluation note Note Date & Type Note Facility Evaluation note No assessment information [facility] Work Phone: Evaluation note Note [...] and content) DATE CREATED AUTHOR 03/21/2022 [facility] DATE CREATED AUTHOR AUTHOR'S ORGANIZ ATION 02/26/2023 [facility] DATE CREATED AUTHOR AUTHOR'S ORGANIZ ATION 05/12/2024 [facility] EPIC REASON FOR VISIT (unrecogniz ed section and content) Reason Comments Routine Visit Care Teams (unrecognized sec tion and content) Team Status: Active Member Role Status Dates NON STAFF Primary Care Provider Active Team Status: Inactive Member Role Status Dates Toi Edward PA-C Emergency Provider Active NON STAFF Primary Care Provider Active Hand Molder Relationship Specialty Start Date End Date Kadi Wagner PA [address] [place] [id number] PCP [facility] 12/20/23 Hand Molder Relationship Specialty Start Date End Date Kadi Wagner PA [address] [place] [id number] PCP [facility] 12/20/23 Hand Molder Relationship Specialty Start Date End Date Kadi Wagner PA [address] [place], [place] [address] [place] [id number] PCP [facility] 12/20/23 Hand Molder Relationship Specialty Start Date End Date Kadi Wagner PA [address] [place] [id number] PCP [facility] 12/20/23 Goals (unrecognized section and content) Goals [...] BE BASED ON THE PRIMARY CLINICAL RECORDS. [facility] [employer] [facility]. provides no warranty or guarantee of the accuracy or completeness of information in this document.
[2024-05-23 13:51] LABS: Basophils Percent Auto 0.3 % (0.2-2.0); Eosinophils Absolute Auto 0.4 10^3/uL (0.0-0.7); Eosinophils Percent Auto 3.8 % (0.9-7.0); Hematocrit 37.2 % (36.0-48.0); Hemoglobin 11.6 g/dL (12.0-16.0); Immature Granulocytes Abs Auto 0.03 10^3/uL (0.00-0.03); Immature Granulocytes Pct Auto 0.3 % (0.0-0.5); Lymphocytes Absolute Auto 1.4 10^3/uL (1.2-3.8); Lymphocytes Percent Auto 14.9 % (20.5-60.0); Mean Corpuscular HGB Conc 31.2 g/dL (29.9-35.2); Mean Corpuscular Hemoglobin 26.7 pg (26.7-34.0); Mean Corpuscular Volume 85.5 fL (81.0-99.0); Mean Platelet Volume 9.7 fL (9.5-13.5); Monocytes Absolute Auto 0.7 10^3/uL (0.3-0.8); Monocytes Percent Auto 7.7 % (1.7-12.0); Neutrophils Absolute Auto 7.1 10^3/uL (1.4-6.5); Platelet Count 293 10^3/uL (150-450); Red Blood Count 4.35 10^6/uL (4.20-5.40); Red Cell Distribution Width 13.6 % (11.0-15.0); White Blood Count 9.7 10^3/uL (4.0-11.0)
[2024-05-23 14:04] LABS: Glucose 1 Hour 106 mg/dL (<130)
== END 2024-05-23 12:17 | disposition home or self-care (01) ==
LOC: LAB 12:18
PROVIDERS: Visit Provider Physician Assistant
DX: Z13.1 Encounter for screening for diabetes mellitus (principal)
CPT/HCPCS: 36415; 82950; 85025

== ENCOUNTER 2024-08-22 18:44 | Outpatient (REF) | payer OTHER, SELFPAY ==
--- OUTSIDE RECORDS SUMMARY | 2024-08-22 18:48 | XMS_ITS | CCD ---
Author Organization [facility] Care Team Providers Care Packer Denture Name Role Phone [facility] Primary Care Unavailable ROSY, DR JACKSON Attending Unavailable ROSY, DR JACKSON Consulting Unavailable ROSY, DR JACKSON Admitting Unavailable Ellen Ortiz Unavailable SHAD Edward Emergency Provider NON STAFF Primary Care Provider Unavailmadelyn quinones NON STAFF Primary Care Unavailable Toi Edward Attending Unavailable Toi Edward Admitting Unavailable Unavailable Primary Care Provider Unavailmadelyn e Kadi Gant Unavailable Raúl Prajapati DO Unavailable KADI WAGNER Attending Unavailable VICTORINA, RAÚL Attending Unavailable VICTORINA, RAÚL Attending Unavailable KADI WAGNER Attending Unavailable VICTORINA, RAÚL Attending Unavailable VICTORINA, RAÚL Attending Unavailable VICTORINA, RAÚL Attending Unavailable VICTORINA, RAÚL Attending Unavailable KADI WAGNER Attending Unavailable VICTORINA, RAÚL Attending Unavailable BERNARD, KADI Attending Unavailable Allergies Allergy Classification Reported Allergen(s) Allergy Type Date of Onset Reaction(s) Facility (1 source) Adhesive Tape Drug allergy [facility] [employer] Other (20 sources) [facility] [employer] Other (2 sources) Adhesive Tape; Translations: [adhesive tape] Propensity to adverse reactions 3 [facility] (20 sources) Penicillins; Translations: [Penicillins] Allergy to substance 2 [facility] (20 sources) Wound Dressing Adhesive Drug Intolerance 3 [...] by mouth in the morning. 0 Active magnesium oxide 400 mg oral tablet (3 sources) Start: 2024 End: 2024 take 1 tablet by mouth once daily magnesium oxide (Mag-Ox) 400 MG tablet Indications: Cramps, extremity Take 1 tablet (400 mg) by mouth Daily 30 tablet 6 06/26/2024 07/26/2024 Active methylPREDNISolone 4 mg oral tablet (1 [...] Active ondansetron 4 mg disintegrating oral tablet (20 sources) Serotonin-3 Receptor Antagonist Start: 2023 End: 2024 take 1 tablet by mouth every six hours ondansetron ODT (Zofran-ODT) 4 MG disintegrating tablet Indications: Nausea and vomiting during Take 1 tablet (4 mg) by mouth every 6 (six) hours 120 tablet 1 04/12/2024 07/11/2024 Active Start: 02-10-2024 End: 03-11-2024 take 1 tablet by mouth every six hours as needed for nausea and vomiting and nausea and nausea ondansetron ODT (Zofran-ODT) 4 MG disintegrating tablet Indications: Nausea Take 1 tablet (4 mg) by mouth every 6 (six) hours if needed for nausea or vomiting 30 tablet 3 02/10/2024 03/11/2024 Active take 1 tablet by julien th every six hours as needed for nausea ondansetron ODT (Zofran-ODT) 4 MG disintegrating tablet Take 4 mg by mouth every 6 (six) hours if needed for nausea. 0 Active take 1 tablet by julien th once daily Zofran 4 MG 1 tablet Orally Once a day Active polysaccharide iron complex 391 mg oral capsule (4 sources) Start: 06-05-2024 End: 07-05-2024 take 1 capsule by mouth once daily iron polysaccharides (ProFe) 391.3 (180 Fe) MG capsule Indications: Low iron Take 1 capsule (391.3 mg) by mouth Daily 30 capsule 6 06/05/2024 07/05/2024 Active Vit-Fe Fumarate-FA ( Plus/Iron) 27-1 MG tablet (3 sources) Start: 03-02-2023 End: 03-01-2024 take 1 tablet by mouth in the morning Vit-Fe Fumarate-FA ( Plus/Iron) 27-1 MG tablet Indications: First trimester Take 1 tablet by mouth in the morning. 30 tablet 11 03/02/2023 03/01/2024 Active Vit-Fe Fumarate-FA ( Vitamins) 28-0.8 MG tablet (20 sources) Start: 04-12-2024 End: 04-12-2025 take 1 [...] MG Oral for 5 Days Not-Taking Problems Active Problems Problem Classification Problem Date Documented Date Episodic/Chronic Acute and chronic tonsillitis (4 sources) Acute tonsillitis, unspecified; Translations: [ACUTE TONSILLITIS UNSPECIFIED] Onset: 03-02-2022 Episodic Immunizations and screening for infectious disease (2 sources) Exposure to sexually transmissible disorder; Translations: [Contact with and (suspected) exposure to infections with a predominantly sexual mode of transmission] 04-10-2024 Episodic Menstrual disorders (1 source) Missed period; Translations: [Irregular menstruation, unspecified] 02-10-2024 Chronic Nutritional deficiencies (2 sources) Serum iron low; Translations: [Iron deficiency] 06-05-2024 Episodic Other complications of (2 sources) Excessive growth affecting management of mother; Translations: [Maternal care for excessive growth, third trimester, not applicable or unspecified] 08-04-2023 Episodic Other complications of (2 sources) Vomiting of , unspecified; Translations: [Unspecified vomiting of , unspecified as to episode of care or not applicable] 03-13-2024 Episodic Other connective tissue disease (2 sources) Cramp in limb; Translations: [Cramp and spasm] 06-26-2024 Episodic Other eye disorders (1 source) Edema of unspecified eye, unspecified eyelid Episodic Other female genital disorders (2 sources) Vaginal discharge; Translations: [Other specified noninflammatory disorders of vagina] 04-10-2024 Episodic Other nutritional; endocrine; and metabolic disorders (2 sources) Weight loss; Translations: [Abnormal weight loss] 04-10-2024 Episodic Other and delivery including normal (16 sources) Third trimester ; Translations: [Encounter for supervision of normal , unspecified, third trimester] 07-30-2023 Episodic Other screening for suspected conditions (not mental disorders or infectious disease) (8 sources) Patient encounter status; Translations: [Encounter for other specified screening] 04-10-2024 Episodic Other upper respiratory infections (2 sources) Pharyngitis; Translations: [Acute pharyngitis, unspecified] Onset: 02-14-2023 02-15-2023 Episodic Residual codes; unclassified (2 sources) Gestation period, 17 weeks; Translations: [17 weeks gestation of ] 04-10-2024 Episodic Residual codes; unclassified (2 sources) Gestation period, 25 weeks; Translations: [25 weeks gestation of ] 06-05-2024 Episodic Residual codes; unclassified (2 sources) Gestation period, 21 weeks; Translations: [21 weeks gestation of ] 05-09-2024 Episodic Residual codes; unclassified (2 sources) Gestation period, 28 weeks; Translations: [28 weeks gestation of ] 06-26-2024 Episodic Residual codes; unclassified (2 sources) Gestation period, 32 weeks; Translations: [32 weeks gestation of ] 07-27-2024 Episodic Residual codes; unclassified (2 sources) Gestation period, 35 weeks; Translations: [35 weeks gestation of ] 08-14-2024 Episodic Past or Other Problems Problem Classification Problem Date Documented Da te Episodic/Chronic Nausea and vomiting (1 source) Nausea; Translations: [Nausea] 02-10-2024 Episodic Results Test Name Value Interpretation Reference Range Facility Urinalysis macro (dipstick) panel (U)on 08-14-2024 Bilirubin, UA Negative Negative - 4(70) +++ mg/dL [facility] Blood, UA Positive Negative - 50 Carmine/mcL [facility] Comment on above: small Clarity, UA Clear [facility] Color, UA Yellow [facility] Glucose, UA Negative Negative - 1999(110) ++++ mg/dL [facility] Interpretation and review of laboratory results Abnormal [facility] Ketones, UA Negative Negative - 160(16) ++++ mg/dL [facility] Leukocytes, UA Positive Negative - 500+++ Josselyn/mcL [facility] Comment on above: small Nitrite, UA Negative Negative - Positive [facility] pH, UA 6.5 5 - 9 [facility] Protein, UA Negative Negative - 2000(20) ++++ mg/dL [facility] Spec Grav, UA 1.015 1 - 1.03 [facility] Urobilinogen, UA 0.2 0.2 - 12 mg/dL [facility] US OB FOLLOW UP TRANSABDOMIN AL APPROACHon 07-27-2024 US OB FOLLOW UP TRANSABDOMINAL APPROACH EXAM: US OB FOLLOW UP TRANSABDOMINAL APPROACH HISTORY: Inconsistent size. TECHNIQUE: Two-dimensional transabdominal grayscale ultrasound imaging of the pelvis was performed. FINDINGS: Gestation: Single Presentation: Breech Cardiac Activity: 137 beats per minute Placental Location: Posterior with no sonographic abnormalities identified. Cervical canal: Not visualized Amniotic Fluid Index: 11.7 cm MEASUREMENTS: BPD: 7.2 cm EGA: 29 weeks 0 days HC: 28.6 cm EGA: 31 weeks 3 days AC: 28.3 cm EGA: 32 weeks 2 days FL: 6.2 cm EGA: 31 weeks 6 days HC/AC Ratio: 1.01 The gestational age by today's ultrasound is 31 weeks 1 days (+/- 15 days gestation). Estimated Weight: 1839 grams, +/- 276 grams ( 4 lb 1 oz). Weight Percentile for gestational age: 22 % IMPRESSION: 1. Single, live intrauterine gestation 32 weeks, 3 days by LMP. Today's ultrasound measurements correlate with a gestational age of 31 weeks 1 days. Estimated weight is 1839 grams, +/- 276 grams ( 4 lb 1 oz) which correlates to 22 %. This is within normal limits. KARON is 09/27/2024. Electronically Signed:Electronical ly signed by YOVANY MAGANA II, MD, PHD at 28-Jul-2024 07:43:36 AM [facility] Normal Not Available Comment on above: Order Comment: US OB SCAN FOR GROWTH Estimated Date of Delivery: 09/18/24 Gestational Age as of 07/12/2024: 30w2d US OB LIMITED 1+ FETUSESon 0 06-26-2024 US OB LIMITED 1+ FETUSES TITLE OF EXAM: OB Ultrasound: REASON FOR EXAM: SV spine on anatomy scan. COMPARISON: None. TECHNIQUE: Grayscale and M-mode Doppler imaging is performed. FINDINGS: A single intrauterine is noted in breech, longitudinal presentation. heart is observed with a heart rate of 164 bpm. Tech notes: Spine visualized on todays exam. Dictated and transcribed 06/26/24/dpd This report has been electronically signed and approved by the interpreting radiologist. Normal Not Available Comment on above: Order Comment: US OB INCOMPLETE ANATOMY Estimated Date of Delivery: 09/18/24 Gestational Age as of 06/05/2024: 27w4d Urinalysis macro (dipstick) panel (U)on 06-26-2024 Bilirubin, UA Negative Negative - 4(70) +++ mg/dL [facility] Blood, UA Negative Negative - 50 Carmine/mcL [facility] Clarity, UA Clear [facility] Color, UA Yellow [facility] Glucose, UA Negative Negative - 2000(110) ++++ mg/dL [facility] Interpretation and review of laboratory results Abnormal [facility] Ketones, UA Positive Negative - 160(16) ++++ mg/dL [facility] Leukocytes, UA Negative Negative - 500+++ Josselyn/mcL [facility] Nitrite, UA Negative Negative - Positive [facility] pH, UA 6.5 5 - 9 [facility] Protein, UA Negative Negative - 2000(20) ++++ mg/dL [facility] Spec Grav, UA 1.025 1 - 1.03 [facility] Urobilinogen, UA 1.0 0.2 - 12 mg/dL [facility] Urinalysis macro (dipstick) panel (U)on 06-05-2024 Bilirubin, UA Negative Negative - 4(70) +++ mg/dL [facility] Blood, UA Positive Negative - 50 Carmine/mcL [facility] Comment on above: LARGE Clarity, UA Clear [facility] Color, UA Yellow [facility] Glucose, UA Negative Negative - 1999(110) ++++ mg/dL [facility] Interpretation and review of laboratory results Abnormal [facility] Ketones, UA Negative Negative - 160(16) ++++ mg/dL [facility] Leukocytes, UA Positive Negative - 500+++ Josselyn/mcL [facility] Comment on above: SMALL Nitrite, UA Negative Negative - Positive [facility] pH, UA 7.5 5 - 9 [facility] Protein, UA Positive Negative - 1999(20) ++++ mg/dL [facility] Comment on above: 30 mg Spec Grav, UA 1.02 1 - 1.03 [facility] Urobilinogen, UA 1.0 0.2 - 12 mg/dL [facility] ALL CBC WITH AUTO DIFFon BASOPHILS ABSOLUTE AUTO 0 [facility] Basophils/100 WBC (Bld) 0.3 % 0.2 - 2.0 % [facility] Eosinophils/100 WBC (Bld) 3.8 % 0.9 - 7.0 % [facility] Erythrocyte distribution width (RBC) [Ratio] 13.6 % 11.0 - 15.0 % [facility] Hematocrit (Bld) [Volume fraction] 37.2 % 36.0 - 48.0 % [facility] Hemoglobin (Bld) [Mass/Vol] 11.6 g/dL Low 12.0 - 16.0 g/dL [facility] IMMATURE GRANULOCYTES ABS AUTO 0.03 [facility] Immature granulocytes/100 WBC (Bld) 0.3 % 0.0 - 0.5 % [facility] Interpretation and review of laboratory results Abnormal [facility] LYMPHOCYTES ABSOLUTE AUTO 1.4 [facility] Lymphocytes/100 WBC (Bld) 14.9 % Low 20.5 - 60.0 % [facility] MCH (RBC) [Entitic mass] 26.7 pg 26. 7 - 34.0 pg [facility] MCHC (RBC) [Mass/Vol] 31.2 g/dL 29.9 - 35.2 g/dL [facility] MCV (RBC) [Entitic vol] 85.5 fL 81.0 - 99.0 fL [facility] MONOCYTES ABSOLUTE AUTO 0.7 [facility] Monocytes/100 WBC (Bld) 7.7 % 1.7 - 12.0 % [facility] NEUTROPHILS ABSOLUTE AUTO 7.1 High [facility] Neutrophils/100 WBC (Bld) 73 % 43.0 - 75.0 % [facility] Platelet mean volume (Bld) [Entitic vol] 9.7 fL 9.5 - 13.5 fL [facility]H EO # 0.4 [facility] PLT [address] [facility] RBC 4.35 [facility] WBC 9.7 [facility] Urinalysis macro (dipstick) panel (U)on 05-09-2024 Bilirubin, UA Negative Negative - 4(70) +++ mg/dL [facility] Blood, UA Negative Negative - 50 Carmine/mcL [facility] Clarity, UA Clear [facility] Color, UA Yellow [facility] Glucose, UA Negative Negative - 2000(110) ++++ mg/dL [facility] Interpretation and review of laboratory results Normal [facility] Ketones, UA Negative Negative - 160(16) ++++ mg/dL [facility] Leukocytes, UA Negative Negative - 500+++ Josselyn/mcL [facility] Nitrite, UA Negative Negative - Positive [facility] pH, UA 6.5 5 - 9 [facility] Protein, UA Negative Negative - 2000(20) ++++ mg/dL [facility] Spec Grav, UA 1.025 1 - 1.03 [facility] Urobilinogen, UA 0.2 0.2 - 12 mg/dL [facility] AFP, SERUM, OPEN SPINA BIFID Aon 04-16-2024 AFP MOM 1.50 . [facility] AFP VALUE 50.5 ng/mL . [facility] COMMENT: Comment . [facility] Comment on above: Isabel Colon , Ph.D., [facility] Director References: Available Upon Request. Multiples Of Median Cutoffs For AFP Elevations Garland 2.5 Black 2.8 IDD 2.0 Twins 4.5 Abbreviation Definitions IDD - Insulin Dep Diabetes OSBR - Open Spina Bifida Risk For further inquiries contact [employer] at [phone]. This test was developed and its performance characteristics determined by [employer]. It has not been cleared or approved by the Food and Drug Administration. Performed at: [facility] [address] [place], [place] [id number] [employer] Lead Worker: Sherrie Velez [facility], Phone: [phone] GEST. AGE ON COLLECTION DATE 17.4 . weeks [facility] GESTAT. AGE BASED ON As provided . [facility] Comment on above: Recalculations are n ot recommended when gestational dating by LMP and ultrasound are within 10 days. INSULIN DEP DIABETES No . [facility] INTERPRETATION Comment . [facility] Comment on above: Interpretation: Scre en Negative [...] Customer Services to discuss available options. The [employer] recommends amniocentesis be offered to women age 35 and older. [age]ARON [age] [facility] MULTIPLE GESTATION No . [facility] OSBR RISK 1 [place] 2733 . [facility] RACE . [facility] RESULTS Report . [facility] TEST RESULTS: Negative . [facility] WEIGHT 195 . lbs [facility] N N [id number] [phone] N 1 N 195 N N N N N White/ [facility] URETHRITIS/DISCHARGE PLUS VA GINITIS (HTRX)on 04-12-2024 ATOPOBIUM VAGINAE 0 [facility] ATOPOBIUM VAGINAE Not detected [facility] BVAB 2,3 (BACTERIAL VAGINOSIS ASSOCIATED BACTERIA 2, 3); MOBILUNCUS SPP 0 [facility] BVAB 2,3 (BACTERIAL VAGINOSIS ASSOCIATED BACTERIA 2, 3); MOBILUNCUS SPP Not detected [facility] RELL ALBICANS, PARAPSILOSIS, TROPICALIS 0 [facility] RELL ALBICANS, PARAPSILOSIS, TROPICALIS Not detected [facility] RELL GLABRATA 0 [facility] RELL GLABRATA Not detected [facility] RELL KRUSEI 0 [facility] RELL KRUSEI Not detected [facility] CHLAMYDIA TRACHOMATIS 0 [facility] CHLAMYDIA TRACHOMATIS Not detected [facility] ERMB, C; MEFA 17.343 Abnormal [facility] ERMB, C; MEFA Detected Abnormal [facility] GARDNERELLA VAGINALIS 25.706 Abnormal [facility] GARDNERELLA VAGINALIS Detected Abnormal [facility] HERPES SIMPLEX VIRUS 1 0 NO [facility] HERPES SIMPLEX VIRUS 1 Not detected [facility] HERPES SIMPLEX VIRUS 2 0 NO [facility] HERPES SIMPLEX VIRUS 2 Not detected [facility] Interpretation and review of laboratory results Abnormal [facility] MEGASPHAERA (TYPES 1, 2) 0 [facility] MEGASPHAERA (TYPES 1, 2) Not detected [facility] MYCOPLASMA GENITALIUM 0 [facility] MYCOPLASMA GENITALIUM Not detected [facility] MYCOPLASMA HOMINIS 0 [facility] MYCOPLASMA HOMINIS Not detected [facility] NEISSERIA GONORRHOEAE 0 [facility] NEISSERIA GONORRHOEAE Not detected [facility] TET B, TET M 24.057 Abnormal [facility] TET B, TET M Detected Abnormal [facility] TRICHOMONAS VAGINALIS 0 [facility] TRICHOMONAS VAGINALIS Not detected [facility] UREAPLASMA PARVUM 18.878 Abnormal [facility] UREAPLASMA PARVUM Detected Abnormal [facility] UREAPLASMA UREALYTICUM 22.257 Abnormal NO [facility] UREAPLASMA UREALYTICUM Detected Abnormal NO [facility] Urinalysis macro (dipstick) panel (U)on 04-10-2024 Bilirubin, UA Negative Negative - 4(70) +++ mg/dL [facility] Blood, UA Negative Negative - 50 Carmine/mcL [facility] Clarity, UA Clear [facility] Color, UA Yellow [facility] Glucose, UA Negative Negative - 1999(110) ++++ mg/dL [facility] Interpretation and review of laboratory results Normal [facility] Ketones, UA Negative Negative - 160(16) ++++ mg/dL [facility] Leukocytes, UA Negative Negative - 500+++ Josselyn/mcL [facility] Nitrite, UA Negative Negative - Positive [facility] pH, UA 6 5 - 9 [facility] Protein, UA Negative Negative - 1999(20) ++++ mg/dL [facility] Spec Grav, UA 1.03 1 - 1.03 [facility] Urobilinogen, UA 0.2 0.2 - 12 mg/dL [facility] Urinalysis macro (dipstick) panel (U)on 03-13-2024 Bilirubin, UA Negative Negative - 4(70) +++ mg/dL [facility] Blood, UA Negative Negative - 50 Carmine/mcL [facility] Clarity, UA Clear [facility] Color, UA Yellow [facility] Glucose, UA Negative Negative - 1999(110) ++++ mg/dL [facility] Interpretation and review of laboratory results Normal [facility] Ketones, UA Negative Negative - 160(16) ++++ mg/dL [facility] Leukocytes, UA Negative Negative - 500+++ Josselyn/mcL [facility] Nitrite, UA Negative Negative - Positive [facility] pH, UA 6.5 5 - 9 [facility] Protein, UA Negative Negative - 1999(20) ++++ mg/dL [facility] Spec Grav, UA 1.020 1 - 1.03 [facility] Urobilinogen, UA 0.2 0.2 - 12 mg/dL [facility] ALL CBC WITH AUTO DIFFon BASOPHILS ABSOLUTE AUTO 0.0 [facility] Basophils/100 WBC (Bld) 0.2 % 0.2 - 2.0 % [facility] Eosinophils/100 WBC (Bld) 4.2 % 0.9 - 7.0 % [facility] Erythrocyte distribution width (RBC) [Ratio] 13.5 % 11.0 - 15.0 % [facility] Hematocrit (Bld) [Volume fraction] 38.7 % 36.0 - 48.0 % [facility] Hemoglobin (Bld) [Mass/Vol] 12.6 g/dL 12.0 - 16.0 g/dL [facility] IMMATURE GRANULOCYTES ABS AUTO 0.03 [facility] Immature granulocytes/100 WBC (Bld) 0.3 % 0.0 - 0.5 % [facility] Interpretation and review of laboratory results Abnormal [facility] LYMPHOCYTES ABSOLUTE AUTO 2.5 [facility] Lymphocytes/100 WBC (Bld) 24.5 % 20.5 - 60.0 % [facility] MCH (RBC) [Entitic mass] 26.6 pg Low 26. 7 - 34.0 pg [facility] MCHC (RBC) [Mass/Vol] 32.6 g/dL 29.9 - 35.2 g/dL [facility] MCV (RBC) [Entitic vol] 81.8 fL 81.0 - 99.0 fL [facility] MONOCYTES ABSOLUTE AUTO 0.9 High N [facility] Monocytes/100 WBC (Bld) 8.5 % 1.7 - 12.0 % [facility] NEUTROPHILS ABSOLUTE AUTO 6.4 [facility] Neutrophils/100 WBC (Bld) 62.3 % 43.0 - 75.0 % [facility] Platelet mean volume (Bld) [Entitic vol] 9.5 fL 9.5 - 13.5 fL [facility] EO # 0.4 [facility] PLT 318 [facility] RBC 4.73 [facility] WBC 10.3 [facility] HCG ( test) Ql (U)o n 02-10-2024 Interpretation and review of laboratory results Abnormal [facility] Preg Test, Ur Positive [facility] Urinalysis macro (dipstick) panel (U)on 02-10-2024 Bilirubin, UA Negative Negative - 4(70) +++ mg/dL [facility] Blood, UA Negative Negative - 50 Carmine/mcL [facility] Clarity, UA Clear [facility] Color, UA Yellow [facility] Glucose, UA Negative Negative - 2000(110) ++++ mg/dL [facility] Interpretation and review of laboratory results Abnormal [facility] Ketones, UA Negative Negative - 160(16) ++++ mg/dL [facility] Leukocytes, UA Negative Negative - 500+++ Josselyn/mcL [facility] Nitrite, UA Negative Negative - Positive [facility] pH, UA 6.0 5 - 9 [facility] Protein, UA Negative Negative - 2000(20) ++++ mg/dL [facility] Spec Grav, UA 1.020 1 - 1.03 [facility] Urobilinogen, UA 0.2 0.2 - 12 mg/dL [facility] ALL CBC WITH AUTO DIFFon BASOPHILS ABSOLUTE AUTO 0.0 [facility] Basophils/100 WBC (Bld) 0.3 % 0.2 - 2.0 % [facility] Eosinophils/100 WBC (Bld) 0.5 % Low 0.9 - 7.0 % [facility] Erythrocyte distribution width (RBC) [Ratio] 12.7 % 11.0 - 15.0 % [facility] Hematocrit (Bld) [Volume fraction] 32.6 % Low 36.0 - 48.0 % [facility] Hemoglobin (Bld) [Mass/Vol] 10.1 g/dL Low 12.0 - 16.0 g/dL [facility] [facility] IMMATURE GRANULOCYTES ABS AUTO 0.06 High [facility] Immature granulocytes/100 WBC (Bld) 0.5 % 0.0 - 0.5 % [facility] Interpretation and review of laboratory results Abnormal [facility] LYMPHOCYTES ABSOLUTE AUTO 2.3 [facility] Lymphocytes/100 WBC (Bld) 19.3 % Low 20.5 - 60.0 % [facility] MCH (RBC) [Entitic mass] 27.4 pg 26. 7 - 34.0 pg [facility] MCHC (RBC) [Mass/Vol] 31.0 g/dL 29.9 - 35.2 g/dL [facility] MCV (RBC) [Entitic vol] 88.3 fL 81.0 - 99.0 fL [facility] MONOCYTES ABSOLUTE AUTO 0.8 [facility] Monocytes/100 WBC (Bld) 6.9 % 1.7 - 12.0 % [facility] NEUTROPHILS ABSOLUTE AUTO 8.5 High [facility] Neutrophils/100 WBC (Bld) 72.5 % 43.0 - 75.0 % [facility] Platelet mean volume (Bld) [Entitic vol] 9.1 fL Low 9.5 - 13.5 fL [facility] TBH EO # 0.1 [facility] TB PLT [facility] RBC 3.69 Low [facility] TB WBC 11.8 High [facility] Urinalysis macro (dipstick) panel (U)on 08-04-2023 Bilirubin, UA Few Negative - 4(70) +++ mg/dL [facility] Blood, UA Positive Negative - 50 Carmine/mcL [facility] Clarity, UA Clear [facility] Color, UA Yellow [facility] Glucose, UA Negative Negative - 1999(110) ++++ mg/dL [facility] Interpretation and review of laboratory results Abnormal [facility] Ketones, UA Negative Negative - 160(16) ++++ mg/dL [facility] Leukocytes, UA Few Negative - 500+++ Josselyn/mcL [facility] Nitrite, UA Negative Negative - Positive [facility] pH, UA 6.0 5 - 9 [facility] Protein, UA Positive Negative - 1999(20) ++++ mg/dL [facility] Spec Grav, UA 1.030 1 - 1.03 [facility] Urobilinogen, UA 1.0 0.2 - 12 mg/dL [facility] Alanine aminotransferase [En zymatic activity/volume] in Serum or PlasmaOrdered By: Toi Edward on 02-14-2023 ALT [Catalytic activity/Vol] 41 U/L 7-52 [facility] Albumin [Mass/volume] in Ser um or Plasma by Bromocresol green (BCG) dye binding methoOrdered By: Toi Edward on 02-14-2023 Albumin BCG dye [Mass/Vol] 4.1 g/dL 3.5-5.7 [facility] Alkaline phosphatase [Enzyma tic activity/volume] in Serum or PlasmaOrdered By: Toi Edward on 02-14-2023 ALP [Catalytic activity/Vol] 158 U/L 34-104 [facility] Aspartate aminotransferase [ Enzymatic activity/volume] in Serum or PlasmaOrdered By: Toi Edward on 02-14-2023 AST [Catalytic activity/Vol] 44 U/L 13-39 [facility] Basophils Auto (Bld) [#/Vol] Ordered By: Toi Edward on 02-14-2023 Basophils (Bld) [#/Vol] 0.1 10*3/uL 0.0-0.2 [facility] Basophils/100 WBC Auto (Bld) Ordered By: Toi Edward on 02-14-2023 Basophils/100 WBC (Bld) 0.5 % . [facility] Bilirubin.total [Mass/volume ] in Serum or PlasmaOrdered By: Toi Edwrad on 02-14-2023 Bilirubin [Mass/Vol] 0.8 mg/dL 0.3-1.0 [facility] C reactive protein [Mass/vol ume] in Serum or PlasmaOrdered By: Toi Edward on 02-14-2023 CRP [Mass/Vol] 1.8 mg/dL 0.0-0.5 [facility] C-Reactive Proteinon 023 C-Reactive Protein 1.8 mg/dL High 0.0-0.5 [facility] Comment on above: Result Comment: PERF ORMED BY: [facility] [address] [place] [address] PATHOLOGIST [employer] VEENA DYSON M.D. Performed By: #### S CAN CBC, ESR, CMP, CRP #### [facility] [address] Calcium [Mass/volume] in Ser um or PlasmaOrdered By: Toi Edward on 02-14-2023 Calcium [Mass/Vol] 9.4 mg/dL 8.6-10.3 [facility] Carbon dioxide, total [Moles /volume] in Serum or PlasmaOrdered By: Toi Edward on 02-14-2023 CO2 [Moles/Vol] 24.8 mmol/L 21.0-31.0 [facility] Chloride [Moles/volume] in S cass or PlasmaOrdered By: Toi Edward on 02-14-2023 Chloride [Moles/Vol] 100 mmol/L 98-107 [facility] Comprehensive Metabolic Pane valentín 02-14-2023 Albumin [Mass/Vol] 4.1 g/dL Normal 3.5-5.7 [facility] Comment on above: Performed By: #### S CAN CBC, ESR, CMP, CRP #### [facility] [address] [place] [address] Albumin/Globulin [Mass ratio] 1.2 {ratio} Normal [facility] Comment on above: Performed By: #### S CAN CBC, ESR, CMP, CRP #### [facility] [address] [place] [address] ALP [Catalytic activity/Vol] 158 U/L High 34-104 [facility] Comment on above: Performed By: #### S CAN CBC, ESR, CMP, CRP #### [facility] [address] [place] [address] ALT [Catalytic activity/Vol] 41 U/L Normal 7-52 [facility] Comment on above: Performed By: #### S CAN CBC, ESR, CMP, CRP #### [facility] [address] [place] [address] Anion gap [Moles/Vol] 13.2 mmol/L Normal 6.0-15.0 [facility] Comment on above: Performed By: #### S CAN CBC, ESR, CMP, CRP #### [facility] [address] [place] [address] AST [Catalytic activity/Vol] 44 U/L High 13-39 [facility] Comment on above: Performed By: #### S CAN CBC, ESR, CMP, CRP #### [facility] [address] Bilirubin [Mass/Vol] 0.8 mg/dL Normal 0.3-1.0 [facility] Comment on above: Performed By: #### S CAN CBC, ESR, CMP, CRP #### [facility] [address] Calcium [Mass/Vol] 9.4 mg/dL Normal 8.6-10.3 [facility] Comment on above: Performed By: #### S CAN CBC, ESR, CMP, CRP #### [facility] [address] Chloride [Moles/Vol] 100 mmol/L Normal 98-107 [facility] Comment on above: Performed By: #### S CAN CBC, ESR, CMP, CRP #### [facility] [address] [place] [address] CO2 [Moles/Vol] 24.8 mmol/L Normal 21.0-31.0 [facility] Comment on above: Performed By: #### S CAN CBC, ESR, CMP, CRP #### [facility] [address] [place] [address] [place] Creatinine [Mass/Vol] 0.77 mg/dL Normal 0.60-1.20 [facility] Comment on above: Performed By: #### S CAN CBC, ESR, CMP, CRP #### [facility] [address] [place] [address] [place] Creatinine Clr Calc Pharmacy 115.98 [facility] Comment on above: Performed By: #### S CAN CBC, ESR, CMP, CRP #### [facility] [address] [place] [address] [place] GFR/1.73 sq M.predicted MDRD (S/P/Bld) [Vol rate/Area] mL/min/{1.73_m2} [facility] Comment on above: Performed By: #### S CAN CBC, ESR, CMP, CRP #### [facility] [address] [place] [id number] [place] Globulin (S) [Mass/Vol] 3.5 g/dL Normal [facility] Comment on above: Performed By: #### S CAN CBC, ESR, CMP, CRP #### [facility] [address] Glucose [Mass/Vol] 85 mg/dL Normal 70-100 [facility] Comment on above: Result Comment: [facility] Glucose Reference Range is dependent on time and content of last meal. Glucose of more than 200 mg/dL in a nonstressed, ambulatory subject supports the diagnosis of Diabetes Mellitus. ADA recommended reference range Performed By: #### S CAN CBC, ESR, CMP, CRP #### [facility] [address] [place] [address] [place] Potassium [Moles/Vol] 4.0 mmol/L Normal 3.5-5.1 [facility] Comment on above: Performed By: #### S CAN CBC, ESR, CMP, CRP #### [facility] [address] [place] [address] [place] Protein [Mass/Vol] 7.6 g/dL Normal 6.4-8.9 [facility] Comment on above: Performed By: #### S CAN CBC, ESR, CMP, CRP #### [facility] [address] [place] [id number] [place] Sodium [Moles/Vol] 134 mmol/L Low 136-145 [facility] Comment on above: Performed By: #### S CAN CBC, ESR, CMP, CRP #### [facility] [address] [place] [id number] [place] Urea nitrogen [Mass/Vol] 7 mg/dL Normal 7-25 [facility] Comment on above: Performed By: #### S CAN CBC, ESR, CMP, CRP #### [facility] [address] [place] [id number] [place] Creatinine [Mass/volume] in Serum or PlasmaOrdered By: Toi Edward on 02-14-2023 Creatinine [Mass/Vol] 0.77 mg/dL 0.60-1.20 [facility] Eosinophils Auto (Bld) [#/Vo l]Ordered By: Toi Edward on 02-14-2023 Eosinophils (Bld) [#/Vol] 0.0 10*3/uL 0.0-0.45 [facility] Eosinophils/100 WBC Auto (Bl d)Ordered By: Toi Edward on 02-14-2023 Eosinophils/100 WBC (Bld) 0.2 % . [facility] Erythrocyte Sedimentation Ra deng 02-14-2023 ESR (Bld) [Velocity] 26 mm/h High 0-19 [facility] Comment on above: Result Comment: PERF ORMED BY: [place] [address] PATHOLOGIST [employer] VEENA DYSON M.D. Performed By: #### S CAN CBC, ESR, CMP, CRP #### [address] Erythrocyte distribution wid th Auto (RBC) [Ratio]Ordered By: Toi Edward on 02-14-2023 Erythrocyte distribution width (RBC) [Ratio] 13.3 % 11.9-15.3 [facility] Erythrocyte sedimentation ra te by Photometric methodOrdered By: Toi Edward on 02-14-2023 ESR Photometric method (Bld) [Velocity] 26 mm/hr 0-19 [facility] Globulin Calc (S) [Mass/Vol] Ordered By: Toi Edward on 02-14-2023 Globulin (S) [Mass/Vol] 3.5 g/dL [facility] Glucose [Mass/volume] in Ser um or PlasmaOrdered By: Toi Edward on 02-14-2023 Glucose [Mass/Vol] 85 mg/dL 70-100 [facility] Comment on above: ADA recommended refe rence rangeRandom Glucose Reference Range is dependent on time and content of last meal. Glucose of more than 200 mg/dL in a nonstressed, ambulatory subject supports the diagnosis of Diabetes Mellitus. Hematocrit Auto (Bld) [Volum e fraction]Ordered By: Toi Edward on 02-14-2023 Hematocrit (Bld) [Volume fraction] 38.7 % 34.0-46.4 [facility] Hemoglobin [Mass/volume] in BloodOrdered By: Toi Edward on 02-14-2023 Hemoglobin (Bld) [Mass/Vol] 13.1 g/dL 11.8-15.4 [facility] Leukocytes [#/volume] correc alem for nucleated erythrocytes in Blood by Automated counOrdered By: Toi Edward on 02-14-2023 WBC corrected for nucl RBC Auto (Bld) [#/Vol] 9.4 10*3/uL 3.8-11.6 [facility] Lymphocytes Auto (Bld) [#/Vo l]Ordered By: Toi Edward on 02-14-2023 Lymphocytes (Bld) [#/Vol] 4.5 10*3/uL 1.00-4.8 [facility] Lymphocytes/100 WBC Auto (Bl d)Ordered By: Toi Edward on 02-14-2023 Lymphocytes/100 WBC (Bld) 47.5 % . [facility] MCH Auto (RBC) [Entitic mass ]Ordered By: Toi Edward on 02-14-2023 MCH (RBC) [Entitic mass] 29.0 pg 24.7-34.3 [facility] MCHC Auto (RBC) [Mass/Vol]Or dered By: Toi Edward on 02-14-2023 MCHC (RBC) [Mass/Vol] 33.7 g/dL 32.0-35.0 [facility] MCV Auto (RBC) [Entitic vol] Ordered By: Toi Edawrd on 02-14-2023 MCV (RBC) [Entitic vol] 85.8 fL 80-100 [facility] Monocyte distribution width [Entitic volume] in Blood by AutomatedOrdered By: Toi Edward on 02-14-2023 Monocyte distribution width Auto (Bld) [Entitic vol] 34.56 % 0.00-20.00 [facility] Comment on above: The predictive value of MDW for identifying sepsis in patients with hematological abnormalities has not been established Monocytes Auto (Bld) [#/Vol] Ordered By: Toi Edward on 02-14-2023 Monocytes (Bld) [#/Vol] 1.0 10*3/uL 0.0-0.8 [facility] Monocytes/100 WBC Auto (Bld) Ordered By: Toi Edward on 02-14-2023 Monocytes/100 WBC (Bld) 10.7 % . [facility] Neutrophils Auto (Bld) [#/Vo l]Ordered By: Toi Edward on 02-14-2023 Neutrophils (Bld) [#/Vol] 3.9 10*3/uL 1.8-7.7 [facility] Neutrophils/100 WBC Auto (Bl d)Ordered By: Toi Edward on 02-14-2023 Neutrophils/100 WBC (Bld) 41.1 % . [facility] No Panel InformationOrdered By: Toi Edward on 02-14-2023 Estimated GFR (CKD-EPI) > 60.0 mL/Min [facility] Creatinine Clearance (Chem 115.98 [facility] Nucleated erythrocytes [Pres ence] in Blood by Automated countOrdered By: Toi Edward on 02-14-2023 Nucleated RBC Auto Ql (Bld) 0.3 /100{WBC} 0-0.5 [facility] Platelet adequacy [Presence] in Blood by Light microscopyOrdered By: Toi Edward on 02-14-2023 Platelets LM Ql (Bld) Normal Normal [facility] Platelet mean volume Auto (B ld) [Entitic vol]Ordered By: Toi Edward on 02-14-2023 Platelet mean volume (Bld) [Entitic vol] 7.6 fL 6.3-10.7 [facility] Platelet morphology finding [Identifier] in BloodOrdered By: Toi Edward on 02-14-2023 Platelet morphology finding Nom (Bld) Normal Normal [facility] Platelets Auto (Bld) [#/Vol] Ordered By: Toi Edward on 02-14-2023 Platelets (Bld) [#/Vol] 163 10*3/uL 150-450 [facility] Potassium [Moles/volume] in Serum or PlasmaOrdered By: Toi Edward on 02-14-2023 Potassium [Moles/Vol] 4.0 mmol/L 3.5-5.1 [facility] Protein [Mass/volume] in Ser um or PlasmaOrdered By: Toi Edward on 02-14-2023 Protein [Mass/Vol] 7.6 g/dL 6.4-8.9 [facility] Quick Strepon 02-14-2023 Quick Strep Streptococcus pyogenes Ag [Presence] in Throat by Rapid immunoassay Negative for Group A Strep Antigen Note 1 -- NOTE 2 Results are those of a screening test. NOTE 3 If clinically indicated please order a culture. NOTE 4 -- NOTE 5 Reference range = Negative PERFORMED BY: [place] [address] PATHOLOGIST [employer] VEENA DYSON M.D. [facility] Comment on above: Performed By: #### Q S, RFXSTPA #### [facility] [address] [place] [address] RBC Auto (Bld) [#/Vol]Ordere d By: Toi Edward on 02-14-2023 RBC (Bld) [#/Vol] 4.51 10*6/uL 3.60-5.00 [facility] RBC morphologyOrdered By: Den Edward on 02-14-2023 RBC morphology finding Nom (Bld) Normal Normal [facility] RFX Strep A Reflex Cult Only on 02-14-2023 RFX Strep A Reflex Cult Only Strep A Only Cult No Group A Beta Streptococcus Isolated 2 Days PERFORMED BY: [place] [address] PATHOLOGIST [employer] VEENA DYSON M.D. [facility] Comment on above: Performed By: #### Q S, RFXSTPA #### [facility] [address] [place] [address] Scan and CBCon 02-14-2023 Basophils (Bld) [#/Vol] 0.1 10*3/uL Normal 0.0-0.2 [facility] Comment on above: Performed By: #### S CAN CBC, ESR, CMP, CRP #### [facility] [address] Basophils/100 WBC (Bld) 0.5 % Normal . [facility] Comment on above: Performed By: #### S CAN CBC, ESR, CMP, CRP #### [facility] [address] [place] [address] Eosinophils (Bld) [#/Vol] 0.0 10*3/uL Normal 0.0-0.45 [facility] Comment on above: Performed By: #### S CAN CBC, ESR, CMP, CRP #### [facility] [address] [place] [address] Eosinophils/100 WBC (Bld) 0.2 % Normal . [facility] Comment on above: Performed By: #### S CAN CBC, ESR, CMP, CRP #### [facility] [address] [place] [address] Erythrocyte distribution width (RBC) [Ratio] 13.3 % Normal 11.9-15.3 [facility] Comment on above: Performed By: #### S CAN CBC, ESR, CMP, CRP #### [address] Hematocrit (Bld) [Volume fraction] 38.7 % Normal 34.0-46.4 [facility] Comment on above: Performed By: #### S CAN CBC, ESR, CMP, CRP #### [facility] [address] [place] [address] [place] Hemoglobin (Bld) [Mass/Vol] 13.1 g/dL Normal 11.8-15.4 [facility] Comment on above: Performed By: #### S CAN CBC, ESR, CMP, CRP #### [facility] [address] [place] [address] [place] Lymphocytes (Bld) [#/Vol] 4.5 10*3/uL Normal 1.00-4.8 [facility] Comment on above: Performed By: #### S CAN CBC, ESR, CMP, CRP #### [facility] [address] [place] [address] [place] Lymphocytes/100 WBC (Bld) 47.5 % Normal . [facility] Comment on above: Performed By: #### S CAN CBC, ESR, CMP, CRP #### [address] MCH (RBC) [Entitic mass] 29.0 pg Normal 24.7-34.3 [facility] Comment on above: Performed By: #### S CAN CBC, ESR, CMP, CRP #### [address] MCV (RBC) [Entitic vol] 85.8 fL Normal 80-100 [facility] Comment on above: Performed By: #### S CAN CBC, ESR, CMP, CRP #### [address] Mean Corpuscular HGB Conc 33.7 g/dL Normal 32.0-35.0 [facility] Comment on above: Performed By: #### S CAN CBC, ESR, CMP, CRP #### [address] Monocytes (Bld) [#/Vol] 1.0 10*3/uL High 0.0-0.8 [facility] Comment on above: Performed By: #### S CAN CBC, ESR, CMP, CRP #### [address] Monocytes/100 WBC (Bld) 34.56 % High 0.00-20.00 [facility] Comment on above: Result Comment: The predictive value of MDW for identifying sepsis in patients with hematological abnormalities has not been established Performed By: #### S CAN CBC, ESR, CMP, CRP #### [place] [address] [place] Monocytes/100 WBC (Bld) 10.7 % Normal . [facility] Comment on above: Performed By: #### S CAN CBC, ESR, CMP, CRP #### [place] [address] [place] Neutrophils (Bld) [#/Vol] 3.9 10*3/uL Normal 1.8-7.7 [facility] Comment on above: Performed By: #### S CAN CBC, ESR, CMP, CRP #### [facility] [address] [place] [address] [place] Neutrophils/100 WBC (Bld) 41.1 % Normal . [facility] Comment on above: Performed By: #### S CAN CBC, ESR, CMP, CRP #### [facility] [address] NRBC% 0.3 /100{WBC} Normal 0-0.5 [facility] Comment on above: Performed By: #### S CAN CBC, ESR, CMP, CRP #### [facility] [address] Platelet Estimate Normal Normal Normal [facility] Comment on above: Performed By: #### S CAN CBC, ESR, CMP, CRP #### [facility] [address] Platelet mean volume (Bld) [Entitic vol] 7.6 fL Normal 6.3-10.7 [facility] Comment on above: Performed By: #### S CAN CBC, ESR, CMP, CRP #### [facility] [address] Platelet Morphology Normal Normal Normal [facility] Comment on above: Performed By: #### S CAN CBC, ESR, CMP, CRP #### [facility] [address] [place] [address] [place] Platelets (Bld) [#/Vol] 163 10*3/uL Normal 150-450 [facility] Comment on above: Performed By: #### S CAN CBC, ESR, CMP, CRP #### [facility] [address] [place] [address] [place] RBC (Bld) [#/Vol] 4.51 10*6/uL Normal 3.60-5.00 [facility] Comment on above: Performed By: #### S CAN CBC, ESR, CMP, CRP #### [facility] [address] RBC morphology finding Nom (Bld) Normal Normal Normal [facility] Comment on above: Performed By: #### S CAN CBC, ESR, CMP, CRP #### [facility] [address] WBC (Bld) [#/Vol] 9.4 10*3/uL Normal 3.8-11.6 [facility] Comment on above: Performed By: #### S CAN CBC, ESR, CMP, CRP #### [facility] [address] Serum or plasma albumin/glob ulin mass ratioOrdered By: Toi Edward on 02-14-2023 Albumin/Globulin [Mass ratio] 1.2 {ratio} [facility] Serum or plasma anion gap de terminationOrdered By: Toi Edward on 02-14-2023 Anion gap [Moles/Vol] 13.2 mmol/L 6.0-15.0 [facility] Sodium [Moles/volume] in Ser um or PlasmaOrdered By: Toi Edward on 02-14-2023 Sodium [Moles/Vol] 134 mmol/L 136-145 [facility] Urea nitrogen [Mass/volume] in Serum or PlasmaOrdered By: Toi Edward on 02-14-2023 Urea nitrogen [Mass/Vol] 7 mg/dL 7-25 [facility] WBC Auto (Bld) [#/Vol]Ordere d By: Toi Edward on 02-14-2023 WBC (Bld) [#/Vol] 9.4 10*3/uL 3.8-11.6 [facility] CBC AUTO DIFFon 03-02-2022 BASO # 0.0 103/ul Normal 0.0-0.1 [facility] Comment on above: Performed By: #### C BC #### [facility] [address] [address] [address] Melinda López Basophils/100 WBC (Bld) 0.2 % Normal 0.2-2.0 [facility] Comment on above: Performed By: #### C BC #### [facility] [address] [address] [address] Melinda López EO # 0.0 103/ul Normal 0.0-0.7 [facility] Comment on above: Performed By: #### C BC #### [facility] [address] [place] [address] Dr. Melinda López Eosinophils/100 WBC (Bld) 0.1 % Critically low 0.9-7.0 [facility] Comment on above: Performed By: #### C BC #### [facility] [address] [place] [address] Dr. Melinda López Erythrocyte distribution width (RBC) [Ratio] 13.0 % Normal 11.0-15.0 [facility] Comment on above: Performed By: #### C BC #### [facility] [address] [place] [address] Dr. Melinda López Hematocrit (Bld) [Volume fraction] 41.3 % Normal 36.0-48.0 [facility] Comment on above: Performed By: #### C BC #### [facility] [address] [place] [address] Dr. Melinda López Hemoglobin (Bld) [Mass/Vol] 13.2 g/dL Normal 12.0-16.0 [facility] Comment on above: Performed By: #### C BC #### [facility] [address] [place] [address] Dr. Melinda López IG # 0.15 10e3/ul Critically high 0.00-0.03 [facility] Comment on above: Performed By: #### C BC #### [facility] [address] [place] [address] Dr. Melinda López IG % 0.9 % Critically high 0.0-0.5 [facility] Comment on above: Performed By: #### C BC #### [facility] [address] [place] [address] Dr. Melinda López LYMPH # 1.1 103/ul Critically low 1.2-3.8 [facility] Comment on above: Performed By: #### C BC #### [facility] [address] [place] [address] Dr. Melinda López Lymphocytes/100 WBC (Bld) 6.6 % Critically low 20.5-60.0 [facility] Comment on above: Performed By: #### C BC #### [facility] [address] [place] [address] Dr. Melinda López MANUAL DIFF REQ NO Normal [facility] Comment on above: Performed By: #### C BC #### [facility] [address] [place] [address] Dr. Melinda López MCH (RBC) [Entitic mass] 28.1 pg Normal 26.7-34.0 [facility] Comment on above: Performed By: #### C BC #### [facility] [address] [place] [address] Dr. Melinda López MCHC (RBC) [Mass/Vol] 32.0 g/dL Normal 29.9-35.2 [facility] Comment on above: Performed By: #### C BC #### [facility] [address] [place] [address] Dr. Melinda López MCV (RBC) [Entitic vol] 88.1 fL Normal 81.0-99.0 [facility] Comment on above: Performed By: #### C BC #### [facility] [address] [place] [address] Dr. Melinda López MONO # 0.9 103/ul Critically high 0.3-0.8 [facility] Comment on above: Performed By: #### C BC #### [facility] [address] [place] [address] Dr. Melinda López Monocytes/100 WBC (Bld) 4.9 % Normal 1.7-12.0 [facility] Comment on above: Performed By: #### C BC #### [facility] [address] [place] [address] Dr. Melinda López NEUT # 15.0 103/ul Critically high 1.4-6.5 [facility] Comment on above: Performed By: #### C BC #### [facility] [address] [place] [address] Dr. Melinda López Neutrophils/100 WBC (Bld) 87.3 % Critically high 43.0-75.0 [facility] Comment on above: Performed By: #### C BC #### [facility] [address] [address] [address] Melinda López Platelet mean volume (Bld) [Entitic vol] 9.4 fL Critically low 9.5-13.5 [facility] Comment on above: Performed By: #### C BC #### [facility] [address] [address] [address] Melinda López PLT 362 103/ul Normal 150-450 [facility] Comment on above: Performed By: #### C BC #### [facility] [address] [address] [address] Melinda López RBC 4.69 106/ul Normal 4.20-5.40 [facility] Comment on above: Performed By: #### C BC #### [facility] [address] [address] [address] Melinda López WBC 17.2 103/ul Critically high 4.0-11.0 [facility] Comment on above: Performed By: #### C BC #### [facility] [id number] Melinda López MONOon 03-02-2022 Monocytes (Bld) [#/Vol] Negative Normal NEGATIVE T [facility] Comment on above: Performed By: #### M RADHA #### [facility] [address] [address] [address] Melinda López Vital Signs Date Time Vital Sign Value Performing Clinician Facility 08-14-2024 15:09-0500 Body mass index (BMI) [Ratio] 34.69 kg/m2 [employer] Work Phone: [facility] 08-14-2024 15:09-0500 Body weight 91.68 kg [employer] Work Phone: [facility] 08-14-2024 15:09-0500 Diastolic blood pressure 70 mm[Hg] [employer] Work Phone: [facility] 08-14-2024 15:09-0500 Systolic blood pressure 96 mm[Hg] Raúl Victorina DO Work Phone: [facility] 07-27-2024 11:58-0500 Body mass index (BMI) [Ratio] 34.57 kg/m2 Raúl Victorina DO Work Phone: [facility] 07-27-2024 11:58-0500 Body weight 91.35 kg Raúl Victorina DO Work Phone: [facility] 07-27-2024 11:58-0500 Diastolic blood pressure 70 mm[Hg] Raúl Victorina DO Work Phone: [facility] 07-27-2024 11:58-0500 Systolic blood pressure 110 mm[Hg] Raúl Victorina DO Work Phone: [facility] 06-26-2024 15:26-0500 Body mass index (BMI) [Ratio] 33.78 kg/m2 Kadi Bernard PA Work Phone: [facility] 06-26-2024 15:26-0500 Body weight 89.27 kg Kadi Cheyenne Wells PA Work Phone: [facility] 06-26-2024 15:26-0500 Diastolic blood pressure 74 mm[Hg] Kadi Cheyenne Wells PA Work Phone: [facility] 06-26-2024 15:26-0500 Systolic blood pressure 112 mm[Hg] Kadi Bernard PA Work Phone: [facility] 06-05-2024 10:01-0500 Body mass index (BMI) [Ratio] 32.96 kg/m2 Raúl Victorina DO Work Phone: [facility] 06-05-2024 10:01-0500 Body weight 87.09 kg Raúl Vitcorina DO Work Phone: [facility] 06-05-2024 10:01-0500 Diastolic blood pressure 68 mm[Hg] Raúl Victorina DO Work Phone: [facility] 06-05-2024 10:01-0500 Systolic blood pressure 114 mm[Hg] Raúl Victorina DO Work Phone: [facility] 05-09-2024 14:41-0500 Body mass index (BMI) [Ratio] 33.3 kg/m2 Kadi Wagner PA Work Phone: [facility] 05-09-2024 14:41-0500 Body weight 88 kg Kadi Bernard PA Work Phone: [facility] 05-09-2024 14:41-0500 Diastolic blood pressure 70 mm[Hg] Kadi Bernard PA Work Phone: [facility] 05-09-2024 14:41-0500 Systolic blood pressure 118 mm[Hg] Kadi Bernard PA Work Phone: [facility] 04-10-2024 16:00-0400 Body mass index (BMI) [Ratio] 33.47 kg/m2 Raúl Victorina DO Work Phone: [facility] 04-10-2024 16:00-0400 Body weight 88.45 kg Raúl Victorina DO Work Phone: [facility] 04-10-2024 16:00-0400 Diastolic blood pressure 80 mm[Hg] Raúl Victorina DO Work Phone: [facility] 04-10-2024 16:00-0400 Systolic blood pressure 120 mm[Hg] Raúl Victorina DO Work Phone: [facility] 03-13-2024 13:52-0400 Body mass index (BMI) [Ratio] 34.16 kg/m2 Raúl Victorina DO Work Phone: [facility] 03-13-2024 13:52-0400 Body weight 90.27 kg Raúl Victorina DO Work Phone: [facility] 03-13-2024 13:52-0400 Diastolic blood pressure 70 mm[Hg] Raúl Victorina DO Work Phone: [facility] 03-13-2024 13:52-0400 Systolic blood pressure 118 mm[Hg] Raúl Victorina DO Work Phone: [facility] 02-10-2024 13:[id number] Body mass index (BMI) [Ratio] 35.04 kg/m2 Nom Nurse [facility] 02-10-2024 13:040 Body weight 92.59 kg [facility] Nurse [facility] 02-10-2024 13:28-0400 Diastolic blood pressure 70 mm[Hg] [facility] Nurse [facility] 02-10-2024 13:040 Systolic blood pressure 120 mm[Hg] [facility] Nurse [facility] 08-04-2023 11:10-0500 Body mass index (BMI) [Ratio] 33.88 kg/m2 Raúl Vicotrina DO Work Phone: [facility] 08-04-2023 [id number] Body weight 89.54 kg Raúl Victorina DO Work Phone: [facility] 08-04-2023 11:10-0500 Diastolic blood pressure 68 mm[Hg] Raúl Victorina DO Work Phone: [facility] 08-04-2023 11:10-0500 Systolic blood pressure 114 mm[Hg] Raúl Victorina DO Work Phone: [facility] 02-15-2023 00:16-0400 Body temperature 99.3 [degF] SHAD Edward Work Phone: [facility] 02-15-2023 00:16-0400 Diastolic blood pressure 66 mm[Hg] SHAD Edwadr Work Phone: [facility] 02-15-2023 00:16-0400 Heart rate 91 /min SHAD Edward Work Phone: [facility] 02-15-2023 00:16-0400 Respiratory rate 16 /min SHAD Edward Work Phone: [facility] 02-15-2023 00:16-0400 SaO2% (BldA) [Mass fraction] 95 % SHAD Edward Work Phone: [facility] 02-15-2023 00:16-0400 Systolic blood pressure 121 mm[Hg] SHAD Toi Edward Work Phone: [facility] 02-14-2023 20:07-0400 Body height 163.83 cm FLORENCIAEdwardEvelyn Toi Edward Work Phone: [facility] 02-14-2023 20:07-0400 Body weight 74.25 kg FLORENCIAEdwardEvelyn Toi Edward Work Phone: [facility] 02-11-2023 15:40-0400 Body height 167.64 cm Ellen Diana Other [employer] Other 02-11-2023 15:40-0400 Body mass index (BMI) [Ratio] 27.18 kg/m2 Ellen Olsenmond Other [employer] Other 02-11-2023 15:40-0400 Body temperature 96.9 [degF] Ellen Olsenmond Other [employer] Other 02-11-2023 15:40-0400 Body weight 76.39 kg Ellen Olsenmond Other [employer] Other 02-11-2023 15:40-0400 Diastolic blood pressure 78 mm[Hg] Ellen Diana Other [employer] Other 02-11-2023 15:40-0400 Respiratory rate 18 /min Ellen Diana Other [facility] Other 02-11-2023 15:40-0400 SaO2% (BldA) [Mass fraction] 98 % Ellen Diana Other [employer] Other 02-11-2023 15:40-0400 Systolic blood pressure 110 mm[Hg] Ellen Ortiz Other [facility] [employer] Other Encounters Encounter Date Encounter Type Care Provider Facility Start: 08-14-2024 End: 08-14-2024 ambulatory RAÚL VICTORINA Not Available Start: 08-14-2024 End: 08-14-2024 Office outpatient visit 15 minutes Raúl Victorina DO Work Phone: [facility] Comment on above: Third trimester preg wanda; 35 weeks gestation of Start: 08-14-2024 End: 08-14-2024 Bamboo flowsheet Raúl Victorina DO Work Phone: [facility] Start: 08-14-2024 End: 08-14-2024 Bamboo flowsheet Raúl Victorina DO Work Phone: [facility] Start: 07-27-2024 End: 07-27-2024 Office outpatient visit 15 minutes Raúl Victorina DO Work Phone: [facility] Comment on above: Third trimester preg wanda; 32 weeks gestation of Start: 07-27-2024 End: 07-27-2024 ambulatory RAÚL VICTORINA Not Available Start: 07-12-2024 End: 07-12-2024 ambulatory KADI WAGNER Not Available Start: 07-12-2024 End: 07-12-2024 Bamboo flowsheet Kadi DON Work Phone: [facility] Start: 07-12-2024 End: 07-12-2024 Bamboo flowsheet Kadi DON Work Phone: [facility] Start: 06-26-2024 End: 06-26-2024 Office outpatient visit 15 minutes Kadi DON Work Phone: [facility] Comment on above: Cramps, extremity (P rimary Dx); Third trimester ; 28 weeks gestation of Start: 06-26-2024 End: 06-26-2024 ambulatory KADI BERNARD Not Available Start: 06-05-2024 End: 06-05-2024 Bamboo flowsheet Raúl Victorina DO Work Phone: [facility] Start: 06-05-2024 End: 06-05-2024 Bamboo flowsheet Raúl Victorina DO Work Phone: [facility] Start: 06-05-2024 End: 06-05-2024 Office outpatient visit 15 minutes Raúl Victorina DO Work Phone: [facility] Comment on above: Second trimester pre gnancy; 25 weeks gestation of ; Encounter for follow-up ultrasound of anatomy; Low iron Start: 06-05-2024 End: 06-05-2024 ambulatory RAÚL VICTORINA Not Available Start: 05-23-2024 End: 05-23-2024 Clinisync Result Encounter Kadi DON Work Phone: [facility] External Department Unsolicited Start: 05-23-2024 End: 05-23-2024 Clinisync Result Encounter Kadi DON Work Phone: [facility] External Department Unsolicited Start: 05-09-2024 End: 05-09-2024 ambulatory KADI WAGNER Not Available Start: 05-09-2024 End: 05-09-2024 Office outpatient visit 15 minutes Kadi DON Work Phone: [facility] Comment on above: Second trimester pre gnancy; 21 weeks gestation of ; Diabetes mellitus screening Start: 05-09-2024 End: 05-09-2024 Bamboo flowsheet Kadi DON Work Phone: [facility] Start: 05-09-2024 End: 05-09-2024 Bamboo flowsheet Kadi DON Work Phone: [facility] Start: 04-13-2024 End: 04-16-2024 Clinisync Result Encounter Raúl Victorina DO Work Phone: [facility] Unsolicited Start: 04-13-2024 End: 04-16-2024 Clinisync Result Encounter Raúl Victorina DO Work Phone: [facility] External Department Unsolicited Start: 04-10-2024 End: 04-10-2024 ambulatory RAÚL VICTORINA Not Available Start: 04-10-2024 End: 04-10-2024 Office outpatient visit 15 minutes Raúl Victorina DO Work Phone: [facility] Comment on above: Screening, , for anatomic survey; Exposure to STD; Vaginal discharge; Need for maternal serum alpha-protein (MSAFP) screening; Second trimester ; 17 weeks gestation of ; Weight loss Start: 04-10-2024 End: 04-10-2024 Bamboo flowsheet Raúl Victorina DO Work Phone: [facility] Start: 04-10-2024 End: 04-12-2024 Bamboo flowsheet Raúl Victorina DO Work Phone: [facility] Start: 04-10-2024 End: 04-12-2024 External Result Encounter Raúl Victorina DO Work Phone: [facility] External Department Unsolicited Start: 03-13-2024 End: 03-13-2024 Bamboo flowsheet Raúl Victorina DO Work Phone: [facility] Start: 03-13-2024 End: 03-13-2024 Bamboo flowsheet Raúl Victorina DO Work Phone: [facility] Start: 03-13-2024 End: 03-13-2024 Office outpatient visit 15 minutes Raúl Victorina DO Work Phone: [facility] Comment on above: Second trimester pre gnancy; Nausea and vomiting during Start: 03-13-2024 End: 03-13-2024 ambulatory RAÚL VICTORINA Not Available Start: 02-22-2024 End: 02-22-2024 Clinisync Result Encounter Raúl Victorina DO Work Phone: [facility] Unsolicited Start: 02-22-2024 End: 02-22-2024 Clinisync Result Encounter Raúl Victorina DO Work Phone: [facility] External Department Unsolicited Start: 02-10-2024 End: 02-10-2024 Office outpatient visit 5 minutes [facility] Victorina Nurse [facility] Comment on above: GA: 8w3d Start: 02-10-2024 End: 02-10-2024 ambulatory KADI WAGNER Not Available Start: 09-15-2023 End: 09-15-2023 ambulatory RÚAL VICTORINA Not Available Start: 08-25-2023 End: 08-25-2023 ambulatory RAÚL VICTORINA Not Available Start: 08-18-2023 End: 08-18-2023 ambulatory KADI WAGNER Not Available Start: 08-05-2023 Clinisync Result Encounter Raúl Victorina DO Work Phone: [facility] External Department Unsolicited Start: 08-05-2023 Clinisync Result Encounter Raúl Victorina DO Work Phone: [facility] External Department Unsolicited Start: 08-04-2023 End: 08-04-2023 Office outpatient visit 15 minutes Raúl Victorina DO Work Phone: [facility] Comment on above: Third trimester preg wanda; Excessive growth affecting management of in third trimester, single or unspecified fetus Start: 02-14-2023 End: 02-15-2023 Emergency department patient visit NON STAFF Facility:[facility] Start: 02-14-2023 End: 02-15-2023 Emergency department patient visit SHAD Edward Work Phone: [facility] Work Phone: Start: 02-11-2023 End: 02-11-2023 ambulatory Ellen Ortiz Other [facility] Other Start: 02-11-2023 Office outpatient ne w 20 minutes Ellen Ortiz [facility] Start: 03-02-2022 End: 03-03-2022 ambulatory [facility] Facility: Procedures Date Procedure Procedure Detail Performing Clinician Start: 08-14-2024 Urnls dip stick/tabl et rgnt non-auto w/o micrscp Raúl Victorina DO Work Phone: Start: 06-26-2024 Urnls dip stick/tabl et rgnt non-auto w/o micrscp Kadi DON Work Phone: Start: 06-05-2024 Urnls dip stick/tabl et rgnt non-auto w/o micrscp Raúl Victorina DO Work Phone: Start: 05-23-2024 ALL CBC WITH AUTO DIFF Kadi DON Work Phone: Start: 05-09-2024 Urnls dip stick/tabl et rgnt non-auto w/o micrscp Kadi DON Work Phone: Start: 04-13-2024 AFP, SERUM, OPEN SPI NA BIFIDA Raúl Victorina DO Work Phone: Start: 04-10-2024 Urnls dip stick/tabl et rgnt non-auto w/o micrscp Raúl Victorina DO Work Phone: Start: 04-10-2024 URETHRITIS/DISCHARGE PLUS VAGINITIS (HTRX) Raúl Victorina DO Work Phone: Start: 03-13-2024 Urnls dip stick/tabl et rgnt non-auto w/o micrscp Raúl Victorina DO Work Phone: Start: 02-22-2024 ALL CBC WITH AUTO DIFF Raúl Victorina DO Work Phone: Start: 02-10-2024 Urnls dip stick/tabl et rgnt non-auto w/o micrscp Raúl Victorina DO Work Phone: Start: 08-05-2023 ALL CBC WITH AUTO DIFF Raúl Victorina DO Work Phone: Start: 08-04-2023 Urnls dip stick/tabl et rgnt non-auto w/o micrscp Raúl Victorina DO Work Phone: Plan of Treatment Date Care Activity Detail Author Start: 08-22-2024 End: 08-22-2024 Patient encounter procedure 08/22/2024 1:30 PM EST Routine [facility] [address] [place] [address] Raúl Prajapati, DO [address] [place] [address] [facility] Start: 08-14-2024 End: 08-14-2024 Patient encounter procedure 08/14/2024 2:40 PM EST Routine [facility] [address] [facility] [facility] [place] [address] Raúl Prajapati, DO [address] [place] [address] [facility] Start: 07-12-2024 End: 07-12-2024 Patient encounter procedure 07/12/2024 3:00 PM EST Routine [facility] [address] [place] [id number] Kadi Wagner PA [address] [place] [address] Arrived [facility] Comment on above: Arrived Start: 06-26-2024 End: 06-26-2024 Patient encounter procedure 06/26/2024 3:10 PM EST Routine [facility] [address] [facility] [facility] [place] [id number] Kadi Wagner PA [address] [place] [address] [place] [address] [facility] Start: 06-26-2024 End: 06-26-2024 Professional / ancillary services management 06/26/2024 2:30 PM EST Ancillary Procedure [facility] [address] [facility] [facility] [place] [id number] [facility] Start: 06-05-2024 End: 06-05-2025 US for US OB INCOMPLETE ANATOMY Imaging Routine Encounter for follow-up ultrasound of anatomy Expected: 06/05/2024 (Approximate), Expires: 06/05/2025 [facility] Work Phone: Comment on above: Expected: 06/05/2024 (Approximate), Expires: 06/05/2025 Start: 06-05-2024 End: 06-05-2024 Patient encounter procedure [facility] Comment on above: Arrived Start: 05-11-2024 End: 05-11-2024 Alpha fetoprotein, maternal Alpha fetoprotein, maternal Lab Routine Need for maternal serum alpha-protein (MSAFP) screening Expected: 05/11/2024 (Approximate), Expires: 05/11/2024 [facility] Comment on above: Expected: 05/11/2024 (Approximate), Expires: 05/11/2024 Start: 05-09-2024 End: 05-09-2024 Patient encounter procedure 05/09/2024 2:30 PM EST Routine [facility] [address] [facility] [place] [address] Kadi Wagner PA [address] [place], [place] [id number] [facility] Start: 05-09-2024 End: 05-09-2025 CBC panel - Blood by Automated count CBC Lab Routine Diabetes mellitus screening Expected: 05/09/2024 (Approximate), Expires: 05/09/2025 [facility] Work Phone: Comment on above: Expected: 05/09/2024 (Approximate), Expires: 05/09/2025 Start: 05-09-2024 End: 05-09-2025 Measurement of glucose 1 hour after glucose challenge for glucose tolerance test Glucose tolerance, 1 hour Lab Routine Diabetes mellitus screening Expected: 05/09/2024 (Approximate), Expires: 05/09/2025 [facility] Comment on above: Expected: 05/09/2024 (Approximate), Expires: 05/09/2025 Start: 05-09-2024 End: 05-09-2024 Professional / ancillary services management 05/09/2024 1:30 PM EST Ancillary Procedure [facility] [address] [facility] [place] [address] [facility] Start: 04-10-2024 End: 04-10-2024 Patient encounter procedure 04/10/2024 2:50 PM EDT Routine [facility] [address] [place] [address] Raúl Prajapati DO [address] [place] [address] [facility] Start: 04-10-2024 End: 04-10-2025 US for US OB ANATOMY SINGLE W US OB CERVICAL LENGTH Imaging Routine Screening, , for anatomic survey Expected: 04/10/2024 (Approximate), Expires: 04/10/2025 [facility] Comment on above: Expected: 04/10/2024 (Approximate), Expires: 04/10/2025 Start: 03-13-2024 End: 03-13-2024 Patient encounter procedure [facility] Comment on above: Arrived Start: 02-20-2024 Influenza vaccination Influenza Vacc ine (#1) [facility] Start: 02-10-2024 End: 02-09-2025 ABO/Rh ABO/Rh Lab Routine Missed menses Expected: 02/10/2024 (Approximate), Expires: 02/09/2025 [facility] Comment on above: Expected: 02/10/2024 (Approximate), Expires: 02/09/2025 Start: 02-10-2024 End: 02-09-2025 Blood type and Indirect antibody screen panel - Blood Type and screen Lab Routine Missed menses Expected: 02/10/2024 (Approximate), Expires: 02/09/2025 [facility] Work Phone: Comment on above: Expected: 02/10/2024 (Approximate), Expires: 02/09/2025 Start: 02-10-2024 End: 02-09-2025 US Pelvis transvaginal US OB transvaginal Imaging Routine Missed menses Expected: 02/10/2024 (Approximate), Expires: 02/09/2025 [facility] Comment on above: Expected: 02/10/2024 (Approximate), Expires: 02/09/2025 Start: 08-11-2023 End: 08-11-2023 Patient encounter procedure 08/11/2023 10:30 AM EST Routine [facility] [address] [place] [id number] Raúl Prajapati, DO [address] [place] [address] [facility] Start: 08-04-2023 End: 08-04-2024 US for US OB SCAN FOR GROWTH Imaging Routine Excessive growth affecting management of in third trimester, single or unspecified fetus Expected: 08/04/2023 (Approximate), Expires: 08/04/2024 [facility] Work Phone: Comment on above: Expected: 08/04/2023 (Approximate), Expires: 08/04/2024 Start: 02-14-2023 Streptococcus pyogen es Ag [Presence] in Throat Group A Strep Throat Culture [facility] Bacteria identified in Urine by Culture Urine culture Microbiology Routine Missed menses Ordered: 02/10/2024 [facility] Comment on above: Ordered: 02/10/2024 CBC W Auto Different ial panel - Blood CBC and differential Lab Routine Missed menses Ordered: 02/10/2024 [facility] Comment on above: Ordered: 02/10/2024 CHLAMYDIA TRACHOMATI S (GENITO/STI) CHLAMYDIA TRACHOMATIS (GENITO/STI) Lab Routine Exposure to STD Ordered: 04/10/2024 [facility] Comment on above: Ordered: 04/10/2024 Hemoglobin A1c/Hemoglobin.total in Blood Hemoglobin A1c Lab Routine Missed menses Ordered: 02/10/2024 [facility] Comment on above: Ordered: 02/10/2024 Hepatitis B virus surface Ag [Presence] in Serum or Plasma by Immunoassay Hepatitis B surface antigen Lab Routine Missed menses Ordered: 02/10/2024 [facility] Comment on above: Ordered: 02/10/2024 Hepatitis C virus Ab [Presence] in Serum or Plasma by Immunoassay Hepatitis C antibody Lab Routine Missed menses Ordered: 02/10/2024 [facility] Comment on above: Ordered: 02/10/2024 HIV-1/HIV-2 antigen/antibody combination immunoassay HIV-1 and HIV-2 antibodies Lab Routine Missed menses Ordered: 02/10/2024 [facility] Comment on above: Ordered: 02/10/2024 Neisseria gonorrhoea e DNA [Presence] in Unspecified specimen by JUVENCIO with probe detection Neisseria gonorrhea DNA probe, direct Lab Routine Exposure to STD Ordered: 04/10/2024 [facility] Comment on above: Ordered: 04/10/2024 Patient Education Sore Throat, Adult ED [facility] Work Phone: Patient referral [facility] Work Phone: Reagin Ab [Presence] in Serum by RPR RPR Lab Routine Missed menses Ordered: 02/10/2024 [facility] Comment on above: Ordered: 02/10/2024 Rubella antibody, IgG Rubella an tibody, IgG Lab Routine Missed menses Ordered: 02/10/2024 [facility] Comment on above: Ordered: 02/10/2024 SURESWAB(R) ADVANCED VAGINITIS PLUS, TMA SURESWAB(R) ADVANCED VAGINITIS PLUS, TMA Pathology and Cytology Routine Vaginal discharge Ordered: 04/10/2024 [facility] Work Phone: Comment on above: Ordered: 04/10/2024 Payers Date Payer Category Payer Private Health Insurance [facility] [id number] 2023 Self-pay 2022 Medicaid [id number] 2022 Medicaid [id number] 2003 Unknown [id number] 2.16.840.1.205981.3.579.2. 1258 2003 Unknown [id number] 2.16.840.1.006530.3.579.2. 1258 2003 Unknown [id number] 2.16.840.1.842345.3.579.2. 1258 2003 Unknown [id number] 2.16.840.1.924845.3.579.2. 1258 2003 Unknown [id number] 2.16.840.1.656280.3.579.2. 1258 2003 Unknown [id number] 2.16.840.1.195096.3.579.2. 1258 2003 Unknown [id number] 2.16.840.1.261217.3.579.2. 1258 2003 Unknown [id number] 2.16.840.1.908709.3.579.2. 1258 2003 Unknown [id number] 2.16.840.1.611295.3.579.2. 1258 2003 Unknown [id number] 2.16.840.1.063363.3.579.2. 1258 2003 Unknown [id number] 2.16.840.1.132591.3.579.2. 1258 2003 Unknown [id number] 2.16.840.1.381232.3.579.2. 1258 2003 Unknown [id number] 2.16.840.1.657704.3.579.2. 1258 2003 Unknown [id number] 2.16.840.1.762641.3.579.2. 1259 1985 Unknown [id number] 2.16.840.1.110920.3.579.2. 593 1959 Unknown [id number] Unknown [id number] 2.16.840.1.806933.3.579.2. 531 Social History Date Type Detail Facility Unknown if ever smoked [facility] [employer] Other Start: 04-07-2023 End: 09-09-2023 Sex Assigned At [facility] Other Start: 02-14-2023 End: 04-07-2023 Tobacco smoking status NHIS Never smoked tobacco (finding) [facility] Start: 2003 Sex Assigned At Female F [facility] Start: 08-04-2023 End: 07-12-2024 Alcohol intake Lifetime non-drinker (finding) [facility] Start: 04-07-2023 End: 09-09-2023 History of Social function [facility] Start: 03-30-2023 Alcohol Comment Caffeine intak e: 1-2 cups per day [facility] Start: 12-16-2022 [facility] Start: 2003 Sex Assigned At Not on file [facility] Clinical Notes 02-11-2023 to 08-14-2024 [facility] 08/14/[facility]24 2:40 PM Bernardo [facility] - 07/27/2024 11:20 AM FLORENCIA Segovia - 06/26/2024 3:10 PM Gavin Fel[facility] - 06/05/2024 10:00 AM EST Note Date & Type Note Facility 08-14-2024 History of Presen t illness Narrative Reason for Appointment: Patient ID: Rosemary Batista is a 18 y.o. female who presents for Routine Visit Patient presents today for Return OB appointment. MEDICATIONS Current Outpatient Medications Medication Instructions Vit-Fe Fumarate-FA ( Vitamins) 28-0.8 MG tablet [...] nursing note reviewed. Exam conducted with a typewriters functional tester present. Vitals: Estimated body mass index is 34.69 kg/m as calculated from the following: Height as of 03/02/23: 5' 4 . Weight as of this encounter: 202 lb 1.9 oz. BP: 96/70 Patient's last menstrual period was 12/13/2023. ASSESSMENT & PLAN ICD-10-CM 1. Third trimester Z34.93 POCT urinalysis dipstick manually resulted 2. 35 weeks gestation of Z3A.35 Patient presents today for a routine obstetrics appointment. Patient is currently 35w1d with a Estimated Date of Delivery: 09/18/24. Patient to return to clinic in 1 week. Documented by Carolina Porter LPN on behalf of: Raúl Prajapati DO documented in this encounter [facility] 07-27-2024 History of Presen t illness Narrative Reason for Appointment: Patient ID: Rosemary Batista is a 18 y.o. female who presents for Routine Visit Patient presents today for Return OB appointment. MEDICATIONS Current Outpatient Medications Medication Instructions Vit-Fe Fumarate-FA ( Vitamins) 28-0.8 MG tablet [...] nursing note reviewed. Exam conducted with a typewriters functional tester present. Vitals: Estimated body mass index is 34.57 kg/m as calculated from the following: Height as of 03/02/23: 5' 4 . Weight as of this encounter: 201 lb 6.4 oz. BP: 110/70 Patient's last menstrual period was 12/13/2023. ASSESSMENT & PLAN ICD-10-CM 1. Third trimester Z34.93 2. 32 weeks gestation of Z3A.32 Patient presents today for a routine obstetrics appointment. Patient is currently 32w3d with a Estimated Date of Delivery: 09/18/24. Patient to return to clinic in 2 weeks for routine OB appointment. Documented by Carolina Porter LPN on behalf of: Raúl Prajapati DO documented in this encounter [facility] 06-26-2024 History of Presen t illness Narrative Reason for Appointment: Patient ID: Rosemary Batista is a 18 y.o. female who presents for Routine Visit Patient presents today for Return OB appointment. MEDICATIONS Current Outpatient Medications Medication Instructions iron polysaccharides (PROFE) 391.3 mg, Oral, Daily ondansetron ODT (ZOFRAN-ODT) 4 mg, Oral, Every [...] Hypertension Father Hypertension Paternal Grandmother SURGICAL HISTORY History reviewed. No pertinent surgical history. REVIEW OF SYSTEMS Review of Systems: Review of Systems Constitutional: Negative. HENT: Negative. Eyes: Negative. Respiratory: Negative. Cardiovascular: Negative. Gastrointestinal: Negative. Genitourinary: Negative. Musculoskeletal: Negative. Skin: Negative. Neurological: Negative. All other systems reviewed and are negative. Hematological: Negative. Endocrine: Negative. Allergic/Immunologic: Negative. OBJECTIVE Objective: Physical Exam Constitutional: Appearance: Normal appearance. She is normal weight. HENT: Head: Normocephalic. Cardiovascular: Rate and Rhythm: Normal rate. Pulses: Normal pulses. Pulmonary: Effort: Pulmonary effort is normal. Breath sounds: Normal breath sounds. Abdominal: Palpations: Abdomen is soft. Musculoskeletal: General: Normal range of motion. Neurological: General: No focal deficit present. Mental Status: She is alert and oriented to person, place, and time. Psychiatric: Mood and Affect: Mood normal. Behavior: Behavior normal. Thought Content: Thought content normal. Judgment: Judgment normal. Vitals and nursing note reviewed. Vitals: Estimated body mass index is 33.78 kg/m as calculated from the following: Height as of 23: 5' 4 . Weight as of this encounter: 196 lb 12.8 oz. BP: 112/74 Patient's last menstrual period was 12/13/2023. ASSESSMENT & PLAN ICD-10-CM 1. Third trimester Z34.93 Urine dip 2. 28 weeks gestation of Z3A.28 Urine dip Return OB: Patient presents today for a routine obstetrics appointment. Patient is currently 28w0d . Patient states she is doing well but has complaints of being tired due to current . Patient has verbalizes frequent movement. labor precautions was discussed/given and patient was instructed to perform kick counts three times a day. Orders Placed This Encounter Procedures Urine dip Follow Up: Patient is to return to office in 2 week for routine OB appointment. Documented by FLORENCIA Pedroza on behalf of: FLORENCIA Pedroza documented in this encounter [facility] 06-05-2024 History of Presen t illness Narrative Reason for Appointment: Patient ID: Rosemary Batista is a 18 y.o. female who presents for Routine Visit Patient presents today for Return OB appointment. MEDICATIONS Current Outpatient Medications [...] SYSTEMS Review of Systems: Review of Systems Constitutional: Negative. HENT: Negative. Eyes: Negative. Respiratory: Negative. Cardiovascular: Negative. Gastrointestinal: Negative. Genitourinary: Negative. Musculoskeletal: Negative. Skin: Negative. Neurological: Negative. All other systems reviewed and are negative. Hematological: Negative. Endocrine: Negative. Allergic/Immunologic: Negative. OBJECTIVE Objective: Physical Exam Constitutional: Appearance: Normal [...] nursing note reviewed. Exam conducted with a typewriters functional tester present. Vitals: Estimated body mass index is 32.96 kg/m as calculated from the following: Height as of 03/02/23: 5' 4 . Weight as of this encounter: 192 lb. BP: 114/68 Patient's last menstrual period was 12/13/2023. ASSESSMENT & PLAN ICD-10-CM 1. Second trimester Z34.92 POCT urinalysis dipstick manually resulted 2. 25 weeks gestation of Z3A.25 3. Encounter for follow-up ultrasound of anatomy Z36.2 US OB INCOMPLETE ANATOMY Return OB: Patient presents today for a routine obstetrics appointment. Patient is currently 25w0d . Patient states she is doing well but has complaints of being tired due to current . Patient has verbalizes frequent movement. labor precautions was discussed. Pt has complaints of nausea and feeling full easily- pt advised to drink protein shakes or increase protein Orders Placed This Encounter Procedures US OB INCOMPLETE ANATOMY POCT urinalysis dipstick manually resulted Follow Up: Patient is to return to office in 3 week for routine OB appointment. Documented by Norma Felipe LPN on behalf of: Raúl Prajapati DO documented in this encounter [facility] 05-09-2024 History of Presen t illness Narrative Reason for Appointment: Patient ID: Rosemary Batista is a 18 y.o. female who presents for Routine Visit Patient presents today for Return OB appointment. MEDICATIONS Current Outpatient Medications [...] SYSTEMS Review of Systems: Review of Systems Constitutional: Negative. HENT: Negative. Eyes: Negative. Respiratory: Negative. Cardiovascular: Negative. Gastrointestinal: Negative. Genitourinary: Negative. Musculoskeletal: Negative. Skin: Negative. Neurological: Negative. All other systems reviewed and are negative. Hematological: Negative. Endocrine: Negative. Allergic/Immunologic: Negative. OBJECTIVE Objective: Physical Exam Constitutional: Appearance: Normal appearance. She is normal weight. HENT: Head: Normocephalic. Cardiovascular: Rate and Rhythm: Normal rate. Pulses: Normal pulses. Pulmonary: Effort: Pulmonary effort is normal. Breath sounds: Normal breath sounds. Abdominal: Palpations: Abdomen is soft. Musculoskeletal: General: Normal range of motion. Neurological: General: No focal deficit present. Mental Status: She is alert and oriented to person, place, and time. Psychiatric: Mood and Affect: Mood normal. Behavior: Behavior normal. Thought Content: Thought content normal. Judgment: Judgment normal. Vitals and nursing note reviewed. Vitals: Estimated body mass index is 33.3 kg/m as calculated from the following: Height as of 03/02/23: 5' 4 . Weight as of this encounter: 194 lb. BP: 118/70 Patient's last menstrual period was 12/13/2023. ASSESSMENT & PLAN ICD-10-CM 1. Second trimester Z34.92 POCT urinalysis dipstick manually resulted 2. 21 weeks gestation of Z3A.21 3. Diabetes mellitus screening Z13.1 CBC Glucose tolerance, 1 hour CBC Glucose tolerance, 1 hour Return OB: Patient presents today for a routine obstetrics appointment. Patient is currently 21w1d . Patient states she is doing well but has complaints of being tired due to current . Patient has verbalizes frequent movement. Orders Placed This Encounter Procedures CBC Glucose tolerance, 1 hour POCT urinalysis dipstick manually resulted Follow Up: Patient is to return to office in 4 week for routine OB appointment. Documented by FLORENCIA Pedroza on behalf of: FLORENCIA Pedroza documented in this encounter [facility] 04-10-2024 History of Presen t illness Narrative [...] nursing note reviewed. Exam conducted with a typewriters functional tester present. Vitals: Estimated body mass index is [...] Raúl Prajapati DO documented in this encounter [facility] 03-13-2024 History of Presen t illness Narrative Reason for Appointment: Patient ID: Rosemary Batista is a 18 y.o. female who presents for Routine Visit Patient presents today for Return OB appointment. MEDICATIONS Current Outpatient Medications [...] Hypertension Father Hypertension Paternal Grandmother SURGICAL HISTORY History reviewed. No pertinent surgical history. REVIEW OF SYSTEMS Review of Systems: Review [...] nursing note reviewed. Exam conducted with a typewriters functional tester present. Vitals: Estimated body mass index is 34.16 kg/m as calculated from the following: Height as of 03/02/23: 5' 4 . Weight as of this encounter: 199 lb. BP: 118/70 Patient's last menstrual period was 12/13/2023. ASSESSMENT & PLAN ICD-10-CM 1. Second trimester Z34.92 POCT urinalysis dipstick manually resulted 2. Nausea and vomiting during O21.9 ondansetron ODT (Zofran-ODT) 4 MG disintegrating tablet New OB: Patient presents today for 1st time obstetrics appointment with provider. Patient is currently 13w0d . Patients history has been reviewed in great detail including any potential risks. Patient stated she currently has no complaints. Expectations throughout regarding labs, ultrasounds, and appointments have been discussed with the patient in detail. It was reiterated that the patient is to drink 6-8 glasses of water a day, eat 6 small meals a day, do not consume raw or undercooked meat, and stay away from [facility]. Patient has been consulted regarding any further do's and don'ts of . Patient voiced understanding and all questions and concerns were answered. Patient desires to have IOL on 09/11/24. Recommended that patient start Baby Aspirin 81mg daily. Orders Placed This Encounter Procedures POCT urinalysis dipstick manually resulted Follow Up: Patient is to return in 4 weeks for routine OB appointment. Documented by Carolina Porter LPN on behalf of: Raúl Prajapati DO documented in this encounter [facility] 02-10-2024 History of Presen t illness Narrative Reason for Appointment: Patient ID: Rosemary Batista is a 18 y.o. female who presents for No chief complaint on file. Patient presents today for a Nurse OB Intake appointment. Patient is 8w3d with a Estimated Date of Delivery: 09/18/24 OB History Para Term AB Living 2 1 1 SAB IAB Ectopic Multiple Live Births # Outcome Date GA Lbr Vishal/2nd Weight Sex Type Anes PTL Lv 2 Current 1 Term 09/01/23 39w0d 6 lb 12 oz M Vag-Spont Current Medications: has a current medication list which includes the following prescription(s): ondansetron odt and vitamins. Medical History: Active Ambulatory Problems Diagnosis Date [...] Hives Wound Dressing Adhesive Other Reaction(s): Rash Vitals: Estimated body mass index is 35.04 kg/m as calculated from the following: Height as of 03/02/23: 5' 4 . Weight as of this encounter: 204 lb 1.9 oz. BP: 120/70 Patient's last menstrual period was 12/13/2023. Assessment/Plan Diagnoses and all orders for this visit: Missed menses - Type and screen; Future - ABO/Rh; Future - CBC and differential - Hemoglobin A1c - RPR - Rubella antibody, IgG - Hepatitis B surface antigen - Hepatitis C antibody - HIV-1 and HIV-2 antibodies - Urine culture - US OB transvaginal; Future - POCT , urine manually resulted - POCT urinalysis dipstick manually resulted - Vit-Fe Fumarate-FA ( Vitamins) 28-0.8 MG tablet; Take 1 tablet by mouth Daily Nausea - ondansetron ODT (Zofran-ODT) 4 MG disintegrating tablet; Take 1 tablet (4 mg) by mouth every 6 (six) hours if needed for nausea or vomiting Nurse Note: OB Intake: Patient presents today for first OB visit. Patients history has been reviewed in great detail including any potential risks. Patient signed consent forms and patient desires testing in both trimesters. Patient currently has no complaints and has been advised to drink 6-8 glasses of water a day, eat no raw or undercooked meat, and stay away from [facility]. Patient has also been advised to not change litter boxes and eat 6 small meals a day. Patient has been consulted regarding the do's and don'ts of . Patient was given labs and all questions and concerns were answered. Follow Up: Patient is to return in 4 weeks for routine OB appointment. Follow Up: Patient is to have labs drawn at directed and return to office for initial OB appointment with provider. Patient may call office as needed with any concerns or questions. Nurse Visit Completed by: Kiera Dupont LPN documented in this encounter [facility] 08-04-2023 History of Presen t illness Narrative [...] Ambulatory Problems Past Medical History: Diagnosis Date 02/2021 Hypertrophy of tonsil Family History Problem [...] nursing note reviewed. Exam conducted with a typewriters functional tester present. Vitals: Estimated body mass index is [...] Raúl Prajapati DO documented in this encounter [facility] 02-11-2023 Evaluation note Encounter Date Diagnosis Assessment Notes Jan, Swelling of eyelid, unspecified laterality (ICD-10 - H02.849) Continue to apply cool compresses to your eyes. Take the Medrol Dosepak as prescribed until gone. Follow-up with your family physician if no improvement in 2 to 3 days. Go to the ER for worsening symptoms or concerns [employer] Other Evaluation noteNo assessment information available [facility] Work Phone: Evaluation note* Diagnosis Third trimester state, incidental Excessive growth affecting management of in third trimester, single or unspecified fetus [facility] Diagnosis Screening, , for anatomic survey Encounter for anatomic survey Exposure to STD Vaginal discharge Leukorrhea, not specified as infective Need for maternal serum alpha-protein (MSAFP) screening Second trimester state, incidental 17 weeks gestation of Weight loss Loss of weight [facility]* Diagnosis Second trimester state, incidental 25 weeks gestation of Encounter for follow-up ultrasound of anatomy Low iron Unspecified iron deficiency anemia [facility]* Diagnosis Missed menses Nausea Nausea alone [facility]* Diagnosis Second trimester state, incidental 21 weeks gestation of Diabetes mellitus screening Screening for diabetes mellitus documented [facility]* Diagnosis Second trimester state, incidental Nausea and vomiting during [facility]* Diagnosis Cramps, extremity- Primary Third trimester state, incidental 28 weeks gestation of [facility]* Diagnosis Third trimester state, incidental 32 weeks gestation of [facility]* Diagnosis Third trimester state, incidental 35 weeks gestation of documented in this encounter [facility] Summary [...] and content) DATE CREATED AUTHOR 03/21/2022 [facility] DATE CREATED AUTHOR AUTHOR'S ORGANIZ ATION 02/26/2023 [facility] DATE CREATED AUTHOR AUTHOR'S ORGANIZ ATION 08/16/2024 [facility] EPIC REASON FOR VISIT (unrecogniz ed section and content) Reason Comments Routine Visit Care Teams (unrecognized sec tion and content) Team Status: Active Member Role Status Dates NON STAFF Primary Care Provider Active Team Status: Inactive Member Role Status Dates Toi Edward PA-C Emergency Provider Active NON STAFF Primary Care Provider Active [employer] [facility] Specialty Start Date End Date Kadi Wagner PA [address] [place] [address] Dr [place], [id number] 12/20/23 [employer] Specialty Start Date End Date Kadi Wagner PA [address] [place] [address] Dr [place], [place] [id number] PCP [facility] 12/20/23 [employer] Relationship Specialty Start Date End Date Kadi Wagner PA [address] [place] [address] [place] [address] PCP [facility] 12/20/23 [employer] Relationship Specialty Start Date End Date Kadi Wagner PA [address] [place] [address] Dr [place], [place] [id number] [facility] 12/20/23 [employer] Relationship Specialty Start Date End Date Kadi Wagner PA [address] [place] [address] Dr [place], [id number] 12/20/23 [employer] Relationship Specialty Start Date End Date Kadi Wagner PA [address] [place] [address] Dr [place], [place] [id number] [facility] 12/20/23 [employer] Relationship Specialty Start Date End Date Kadi Wagner PA [address] [place] [address] Dr [place], [place] [id number] [facility] 12/20/23 [employer] Relationship Specialty Start Date End Date Raúl Prajapati DO [address] [place] [address] Agustin Arshad, [place] [id number] PCP - [facility] 06/21/24 [employer] Relationship Specialty Start Date End Date VictorinaRaúl blackwell DO WOODWARDI: [phone] [address] [place], [place] [id number] [place] [address] PCP - [facility] 06/21/24 Goals (unrecognized section and content) Goals may [...] BE BASED ON THE PRIMARY CLINICAL RECORDS. [facility] [employer] [facility]. provides no warranty or guarantee of the accuracy or completeness of information in this document.
== END 2024-08-22 18:45 | disposition home or self-care (01) ==
LOC: LAB 18:44
PROVIDERS: Visit Provider Obstetrics & Gynecology
DX: Z34.93 Encounter for supervision of normal pregnancy, unspecified, third trimester (principal)
CPT/HCPCS: 36415; 87081

== ENCOUNTER 2024-09-11 05:02 | Inpatient (IN) | payer OTHER, SELFPAY ==
[2024-09-11] VITALS (34 sets, daily range): BP systolic 89–148; BP diastolic 51–78; PULSE 75–157; TEMP 36.5–36.8
--- OUTSIDE RECORDS SUMMARY | 2024-09-11 05:08 | XMS_ITS | CCD ---
Author Organization [facility] Care Team Providers Care Culinary Internship Name Role Phone [facility] Primary Care Unavailable ROSY, DR JACKSON Attending Unavailable ROSY, DR JACKSON Consulting Unavailable ROSY, DR JACKSON Admitting Unavailable Ellen Ortiz Unavailable SHAD Edward Emergency Provider NON STAFF Primary Care Provider Unavailmadelyn quinones NON STAFF Primary Care Unavailable Toi Edward Attending Unavailable Toi Edward Admitting Unavailable Unavailable Primary Care Provider Unavailmadelyn e Kadi Gant Unavailable Victorina DOThiy Unavailable KADI WAGNER Attending Unavailable VICTORINA, RAÚL [...] source) Adhesive Tape Drug allergy [facility] [employer] Other (20 sources) Penicillin G Drug Allergy 3 [employer] [facility] [employer] Other (2 sources) Adhesive Tape; Translations: [adhesive tape] Propensity to adverse reactions 3 [facility] (20 sources) Penicillins; Translations: [Penicillins] Allergy to substance 2 [facility] (20 sources) Wound Dressing Adhesive Drug Intolerance 3 [facility] Healthcare Medications Current Medications Medication Drug [...] 04-10-2024 Episodic Other and delivery including normal (19 sources) Third trimester ; Translations: [Encounter for [...] [35 weeks gestation of ] 08-14-2024 Episodic Residual codes; unclassified (2 sources) Gestation period, 36 weeks; Translations: [36 weeks gestation of ] 08-22-2024 Episodic Residual codes; unclassified (1 source) Gestation period, 38 weeks; Translations: [38 weeks gestation of ] 09-05-2024 Episodic Past or Other Problems Problem Classification Problem Date Documented Da te Episodic/Chronic Nausea and vomiting (1 source) Nausea; Translations: [Nausea] 02-10-2024 Episodic Results Test Name Value Interpretation Reference Range Facility Urinalysis macro (dipstick) panel (U)on 09-05-2024 Bilirubin, UA Negative Negative - 4(70) +++ mg/dL [facility] Blood, UA Positive Negative - 50 Carmine/mcL [facility] Comment on above: large Clarity, UA Clear [facility] Color, UA Yellow [facility] Glucose, UA Negative Negative - 1999(110) ++++ mg/dL [facility] Interpretation and review of laboratory results Abnormal [facility] Ketones, UA Negative Negative - 160(16) ++++ mg/dL [facility] Leukocytes, UA Positive Negative - 500+++ Josselyn/mcL [facility] Comment on above: small Nitrite, UA Negative Negative - Positive [facility] pH, UA 6 5 - 9 [facility] Protein, UA Trace Negative - 1999(20) ++++ mg/dL [facility] Spec Grav, UA 1.025 1 - 1.03 [facility] Urobilinogen, UA 0.2 0.2 - 12 mg/dL [facility] ALL MISCELLANEOUS TESTon MISCELLANEOUS TEST COMMENT . [facility] Comment on above: Test Ordered: [id number] Strep Gp B Culture+Rflx Strep Gp B Culture+Rflx Positive [A ] CB Reference Range: Negative Centers for Disease Control and Prevention (CDC) and [place] [employer] Gynecologists (ACOG) guidelines for prevention of group B streptococcal (GBS) disease specify co-collection of a vaginal and rectal swab specimen to maximize sensitivity of GBS detection. Per the CDC and ACOG, swabbing both the lower vagina and rectum substantially increases the yield of detection compared with sampling the vagina alone. Penicillin G, ampicillin, or cefazolin are indicated for intrapartum prophylaxis of GBS colonization. Reflex susceptibility testing should be performed prior to use of clindamycin only on GBS isolates from penicillin- allergic women who are considered a high risk for anaphylaxis. Treatment with vancomycin without additional testing is warranted if resistance to clindamycin is noted. Organism Identification Comment CB Reference Range: . Beta hemolytic Streptococcus, group B Clindamycin Susceptible CB Reference Range: . Testing for inducible clindamycin resistance was performed using erythromycin and clindamycin in the D-zone test. Per the Centers for Disease Control and Prevention (CDC), erythromycin is no longer an acceptable alternative for intrapartum group B Streptococcus (GBS) prophylaxis for penicillin-allergic women at high risk for anaphylaxis. Performed at: - [facility] [id number] Phlebotomist Prn: Ivan Chicas PhD, Phone: [phone] CULTURE, GROUP B STREP WITH SUSCEPTIBILITY [facility] Urinalysis macro (dipstick) panel (U)on 08-22-2024 Bilirubin, UA Positive Negative - 4(70) +++ mg/dL [facility] Comment on above: small Blood, UA Positive Negative - 50 Carmine/mcL [facility] Comment on above: small Clarity, UA Clear [facility] Color, UA Yellow [facility] Glucose, UA Negative Negative - 2000(110) ++++ mg/dL [facility] Interpretation and review of laboratory results Abnormal [facility] Ketones, UA Positive Negative - 160(16) ++++ mg/dL [facility] Comment on above: trace Leukocytes, UA Positive Negative - 500+++ Josselyn/mcL [facility] Comment on above: small Nitrite, UA Negative Negative - Positive [facility] pH, UA 6 5 - 9 [facility] Protein, UA Positive Negative - 2000(20) ++++ mg/dL [facility] Comment on above: 30mg/dL Spec Grav, UA 1.03 1 - 1.03 [facility] Urobilinogen, UA 1.0 0.2 - 12 mg/dL [facility] Urinalysis macro (dipstick) panel (U)on 08-14-2024 Bilirubin, UA Negative Negative - 4(70) +++ mg/dL [facility] Blood, UA Positive Negative - 50 Carmine/mcL [facility] Comment on above: small Clarity, UA Clear [facility] Color, UA Yellow [facility] Glucose, UA Negative Negative - 2000(110) ++++ mg/dL [facility] Interpretation and review of laboratory results Abnormal [facility] Ketones, UA Negative Negative - 160(16) ++++ mg/dL [facility] Leukocytes, UA Positive Negative - 500+++ Josselyn/mcL [facility] Comment on above: small Nitrite, UA Negative Negative - Positive [facility] pH, UA 6.5 5 - 9 [facility] Protein, UA Negative Negative - 2000(20) ++++ mg/dL [facility] Spec Grav, UA 1.015 1 - 1.03 [facility] Urobilinogen, UA 0.2 0.2 - 12 mg/dL [facility] US OB FOLLOW UP TRANSABDOMIN AL [...] II, MD, PHD at 28-Jul-2024 07:43:36 AM [facility] Normal Not Available Comment on above: [...] UA Negative Negative - 4(70) +++ mg/dL [facility] Blood, UA Negative Negative - 50 Carmine/mcL [facility] Clarity, UA Clear [facility] Color, UA Yellow [facility] Glucose, UA Negative Negative - 1999(110) ++++ mg/dL [facility] Interpretation and review of laboratory results Abnormal [facility] Ketones, UA Positive Negative - 160(16) ++++ mg/dL [facility] Leukocytes, UA Negative Negative - 500+++ Josselyn/mcL [facility] Nitrite, UA Negative Negative - Positive [facility] pH, UA 6.5 5 - 9 [facility] Protein, UA Negative Negative - 2000(20) ++++ mg/dL [facility] Spec Grav, UA 1.025 1 - 1.03 [facility] Urobilinogen, UA 1.0 0.2 - 12 mg/dL [facility] Urinalysis macro (dipstick) panel (U)on 06-05-2024 Bilirubin, UA Negative Negative - 4(70) +++ mg/dL [facility] Blood, UA Positive Negative - 50 Carmine/mcL [facility] Comment on above: LARGE Clarity, UA Clear [facility] Color, UA Yellow [facility] Glucose, UA Negative Negative - 2000(110) ++++ mg/dL [facility] Interpretation and review of laboratory results Abnormal [facility] Ketones, UA Negative Negative - 160(16) ++++ mg/dL [facility] Leukocytes, UA Positive Negative - 500+++ Josselyn/mcL [facility] Comment on above: SMALL Nitrite, UA Negative Negative - Positive [facility] pH, UA 7.5 5 - 9 [facility] Protein, UA Positive Negative - 1999(20) ++++ mg/dL [facility] Comment on above: 30 mg Spec Grav, UA 1.02 1 - 1.03 [facility] Urobilinogen, UA 1.0 0.2 - 12 mg/dL [facility] ALL CBC WITH AUTO DIFFon BASOPHILS ABSOLUTE AUTO 0 N [facility] Basophils/100 WBC (Bld) 0.3 % 0.2 - 2.0 % [facility] Eosinophils/100 WBC (Bld) 3.8 % 0.9 - 7.0 % [facility] Erythrocyte distribution width (RBC) [Ratio] 13.6 % 11.0 - 15.0 % [facility] Hematocrit (Bld) [Volume fraction] 37.2 % 36.0 - 48.0 % [facility] Hemoglobin (Bld) [Mass/Vol] 11.6 g/dL Low 12.0 - 16.0 g/dL [facility] IMMATURE GRANULOCYTES ABS AUTO 0.03 [facility] Immature granulocytes/100 WBC (Bld) 0.3 % 0.0 - 0.5 % [facility] Interpretation and review of laboratory results Abnormal [facility] LYMPHOCYTES ABSOLUTE AUTO 1.4 [facility] Lymphocytes/100 WBC (Bld) 14.9 % Low 20.5 - 60.0 % [facility] MCH (RBC) [Entitic mass] 26.7 pg 26. 7 - 34.0 pg [facility] MCHC (RBC) [Mass/Vol] 31.2 g/dL 29.9 - 35.2 g/dL [facility] MCV (RBC) [Entitic vol] 85.5 fL 81.0 - 99.0 fL [facility] MONOCYTES ABSOLUTE AUTO 0.7 N [facility] Monocytes/100 WBC (Bld) 7.7 % 1.7 - 12.0 % [facility] NEUTROPHILS ABSOLUTE AUTO 7.1 High [facility] Neutrophils/100 WBC (Bld) 73 % 43.0 - 75.0 % [facility] Platelet mean volume (Bld) [Entitic vol] 9.7 fL 9.5 - 13.5 fL [facility] TBH EO # 0.4 [facility] TBH PLT 293 [facility] TB RBC 4.35 [facility] TB WBC 9.7 [facility] Urinalysis macro (dipstick) panel (U)on 05-09-2024 Bilirubin, UA Negative Negative - 4(70) +++ mg/dL [facility] Blood, UA Negative Negative - 50 Carmine/mcL [facility] Clarity, UA Clear [facility] Color, UA Yellow [facility] Glucose, UA Negative Negative - 1999(110) ++++ mg/dL [facility] Interpretation and review of laboratory results Normal [facility] Ketones, UA Negative Negative - 160(16) ++++ mg/dL [facility] Leukocytes, UA Negative Negative - 500+++ Josselyn/mcL [facility] Nitrite, UA Negative Negative - Positive [facility] pH, UA 6.5 5 - 9 [facility] Protein, UA Negative Negative - 1999(20) ++++ mg/dL [facility] Spec Grav, UA 1.025 1 - 1.03 [facility] Urobilinogen, UA 0.2 0.2 - 12 mg/dL [facility] AFP, SERUM, OPEN SPINA BIFID Aon 04-16-2024 AFP MOM 1.50 . [facility] AFP VALUE 50.5 ng/mL . [facility] COMMENT: Comment . [facility] Comment on above: Isabel Colon , Ph.D., [facility] Director References: Available Upon Request. Multiples Of Median Cutoffs For AFP Elevations Garland 2.5 Black 2.8 IDD 2.0 Twins 4.5 Abbreviation Definitions IDD - Insulin Dep Diabetes OSBR - Open Spina Bifida Risk For further inquiries contact #[facility] [facility] at [phone]. This test was developed and its performance characteristics determined by [employer]. It has not been cleared or approved by the Food and Drug Administration. Performed at: [facility] [address] [place], [place] [id number] Phlebotomist Prn: Sherrie Velez [facility], Phone: [phone] GEST. AGE ON COLLECTION DATE 17.4 . weeks [facility] GESTAT. AGE BASED ON As provided . [facility] Comment on above: Recalculations are n ot recommended when gestational dating by LMP and ultrasound are within 10 days. INSULIN DEP DIABETES No . [facility] INTERPRETATION Comment . [facility] Comment on above: Interpretation: Scre en [...] Customer Services to discuss available options. The [place] [employer] recommends amniocentesis be offered to women age 35 and older. [age] [facility] MULTIPLE GESTATION No . [facility] OSBR RISK 1 [place] 2733 . [facility] RACE . [facility] RESULTS Report . [facility] TEST RESULTS: Negative . [facility] WEIGHT 195 . lbs [facility] N N [id number] [phone] N 1 N 195 N N N N N White/ [facility] URETHRITIS/DISCHARGE PLUS VA GINITIS (HTRX)on 04-12-2024 ATOPOBIUM VAGINAE 0 [facility] ATOPOBIUM VAGINAE Not detected [facility] BVAB 2,3 (BACTERIAL VAGINOSIS ASSOCIATED BACTERIA 2, 3); MOBILUNCUS SPP 0 [facility] BVAB 2,3 (BACTERIAL VAGINOSIS ASSOCIATED BACTERIA 2, 3); MOBILUNCUS SPP Not detected [facility] RELL ALBICANS, PARAPSILOSIS, TROPICALIS 0 [facility] RELL ALBICANS, PARAPSILOSIS, TROPICALIS Not detected [facility] RELL GLABRATA 0 [facility] RELL GLABRATA Not detected [facility] RELL KRUSEI 0 [facility] RELL KRUSEI Not detected [facility] CHLAMYDIA TRACHOMATIS 0 [facility] CHLAMYDIA TRACHOMATIS Not detected N [facility] ERMB, C; MEFA 17.343 Abnormal [facility] ERMB, C; MEFA Detected Abnormal [facility] GARDNERELLA VAGINALIS 25.706 Abnormal [facility] GARDNERELLA VAGINALIS Detected Abnormal [facility] HERPES SIMPLEX VIRUS 1 0 NO [facility] HERPES SIMPLEX VIRUS 1 Not detected [facility] HERPES SIMPLEX VIRUS 2 0 NO [facility] HERPES SIMPLEX VIRUS 2 Not detected [facility] Interpretation and review of laboratory results Abnormal [facility] MEGASPHAERA (TYPES 1, 2) 0 [facility] MEGASPHAERA (TYPES 1, 2) Not detected [facility] MYCOPLASMA GENITALIUM 0 [facility] MYCOPLASMA GENITALIUM Not detected N [facility] MYCOPLASMA HOMINIS 0 [facility] MYCOPLASMA HOMINIS Not detected [facility] NEISSERIA GONORRHOEAE 0 [facility] NEISSERIA GONORRHOEAE Not detected N [facility] TET B, TET M 24.057 Abnormal [facility] TET B, TET M Detected Abnormal [facility] TRICHOMONAS VAGINALIS 0 [facility] TRICHOMONAS VAGINALIS Not detected N [facility] UREAPLASMA PARVUM 18.878 [facility]VUM Detected Abnormal [facility] UREAPLASMA UREALYTICUM 22.257 Abnormal NO [facility] UREAPLASMA UREALYTICUM Detected Abnormal NO [facility] Urinalysis macro (dipstick) panel (U)on 04-10-2024 Bilirubin, UA Negative Negative - 4(70) +++ mg/dL [facility] Blood, UA Negative Negative - 50 Carmine/mcL [facility] Clarity, UA Clear [facility] Color, UA Yellow [facility] Glucose, UA Negative Negative - 1999(110) ++++ mg/dL [facility] Interpretation and review of laboratory results Normal [facility] Ketones, UA Negative Negative - 160(16) ++++ mg/dL [facility] Leukocytes, UA Negative Negative - 500+++ Josselyn/mcL [facility] Nitrite, UA Negative Negative - Positive [facility] pH, UA 6 5 - 9 [facility] Protein, UA Negative Negative - 1999(20) ++++ mg/dL [facility] Spec Grav, UA 1.03 1 - 1.03 [facility] Urobilinogen, UA 0.2 0.2 - 12 mg/dL [facility] Urinalysis macro (dipstick) panel (U)on 03-13-2024 Bilirubin, UA Negative Negative - 4(70) +++ mg/dL [facility] Blood, UA Negative Negative - 50 Carmine/mcL [facility] Clarity, UA Clear [facility] Color, UA Yellow [facility] Glucose, UA Negative Negative - 1999(110) ++++ mg/dL [facility] Interpretation and review of laboratory results Normal [facility] Ketones, UA Negative Negative - 160(16) ++++ mg/dL [facility] Leukocytes, UA Negative Negative - 500+++ Josselyn/mcL [facility] Nitrite, UA Negative Negative - Positive [facility] pH, UA 6.5 5 - 9 [facility] Protein, UA Negative Negative - 1999(20) ++++ mg/dL [facility] Spec Grav, UA 1.020 1 - 1.03 [facility] Urobilinogen, UA 0.2 0.2 - 12 mg/dL [facility] ALL CBC WITH AUTO DIFFon BASOPHILS ABSOLUTE AUTO 0.0 N [facility] Basophils/100 WBC (Bld) 0.2 % 0.2 - 2.0 % [facility] Eosinophils/100 WBC (Bld) 4.2 % 0.9 - 7.0 % [facility] Erythrocyte distribution width (RBC) [Ratio] 13.5 % 11.0 - 15.0 % [facility] Hematocrit (Bld) [Volume fraction] 38.7 % 36.0 - 48.0 % [facility] Hemoglobin (Bld) [Mass/Vol] 12.6 g/dL 12.0 - 16.0 g/dL [facility] IMMATURE GRANULOCYTES ABS AUTO 0.03 [facility] Immature granulocytes/100 WBC (Bld) 0.3 % 0.0 - 0.5 % [facility] Interpretation and review of laboratory results Abnormal [facility] LYMPHOCYTES ABSOLUTE AUTO 2.5 [facility] Lymphocytes/100 WBC (Bld) 24.5 % 20.5 - 60.0 % [facility] MCH (RBC) [Entitic mass] 26.6 pg Low 26. 7 - 34.0 pg [facility] MCHC (RBC) [Mass/Vol] 32.6 g/dL 29.9 - 35.2 g/dL [facility] MCV (RBC) [Entitic vol] 81.8 fL 81.0 - 99.0 fL [facility] MONOCYTES ABSOLUTE AUTO 0.9 High N [facility] Monocytes/100 WBC (Bld) 8.5 % 1.7 - 12.0 % [facility] NEUTROPHILS ABSOLUTE AUTO 6.4 [facility] Neutrophils/100 WBC (Bld) 62.3 % 43.0 - 75.0 % [facility] Platelet mean volume (Bld) [Entitic vol] 9.5 fL 9.5 - 13.5 fL [facility] TBH EO # 0.4 [facility] TBH PLT 318 [facility] RBC 4.73 [facility] WBC 10.3 [facility] HCG ( test) Ql (U)o n 02-10-2024 Interpretation and review of laboratory results Abnormal [facility] Preg Test, Ur Positive [facility] Urinalysis macro (dipstick) panel (U)on 02-10-2024 Bilirubin, UA Negative Negative - 4(70) +++ mg/dL [facility] Blood, UA Negative Negative - 50 Carmine/mcL [facility] Clarity, UA Clear [facility] Color, UA Yellow [facility] Glucose, UA Negative Negative - 1999(110) ++++ mg/dL [facility] Interpretation and review of laboratory results Abnormal [facility] Ketones, UA Negative Negative - 160(16) ++++ mg/dL [facility] Leukocytes, UA Negative Negative - 500+++ Josselyn/mcL [facility] Nitrite, UA Negative Negative - Positive [facility] pH, UA 6.0 5 - 9 [facility] Protein, UA Negative Negative - 1999(20) ++++ mg/dL [facility] Spec Grav, UA 1.020 1 - 1.03 [facility] Urobilinogen, UA 0.2 0.2 - 12 mg/dL [facility] ALL CBC WITH AUTO DIFFon BASOPHILS ABSOLUTE AUTO 0.0 N [facility] Basophils/100 WBC (Bld) 0.3 % 0.2 - 2.0 % [facility] Eosinophils/100 WBC (Bld) 0.5 % Low 0.9 - 7.0 % [facility] Erythrocyte distribution width (RBC) [Ratio] 12.7 % 11.0 - 15.0 % [facility] Hematocrit (Bld) [Volume fraction] 32.6 % Low 36.0 - 48.0 % [facility] Hemoglobin (Bld) [Mass/Vol] 10.1 g/dL Low 12.0 - 16.0 g/dL [facility] IMMATURE GRANULOCYTES ABS AUTO 0.06 High [facility] Immature granulocytes/100 WBC (Bld) 0.5 % 0.0 - 0.5 % [facility] Interpretation and review of laboratory results Abnormal [facility] LYMPHOCYTES ABSOLUTE AUTO 2.3 [facility] Lymphocytes/100 WBC (Bld) 19.3 % Low 20.5 - 60.0 % [facility] MCH (RBC) [Entitic mass] 27.4 pg 26. 7 - 34.0 pg [facility] MCHC (RBC) [Mass/Vol] 31.0 g/dL 29.9 - 35.2 g/dL [facility] MCV (RBC) [Entitic vol] 88.3 fL 81.0 - 99.0 fL [facility] MONOCYTES ABSOLUTE AUTO 0.8 N [facility] Monocytes/100 WBC (Bld) 6.9 % 1.7 - 12.0 % [facility] NEUTROPHILS ABSOLUTE AUTO 8.5 High [facility] Neutrophils/100 WBC (Bld) 72.5 % 43.0 - 75.0 % [facility] Platelet mean volume (Bld) [Entitic vol] 9.1 fL Low 9.5 - 13.5 fL [facility] TBH EO # 0.1 [facility] PLT 319 [facility] RBC 3.69 Low [facility] WBC 11.8 High [facility] Urinalysis macro (dipstick) panel (U)on 08-04-2023 Bilirubin, UA Few Negative - 4(70) +++ mg/dL [facility] Blood, UA Positive Negative - 50 Carmine/mcL [facility] Clarity, UA Clear [facility] Color, UA Yellow [facility] Glucose, UA Negative Negative - 1999(110) ++++ mg/dL [facility] Interpretation and review of laboratory results Abnormal [facility] Ketones, UA Negative Negative - 160(16) ++++ mg/dL [facility] Leukocytes, UA Few Negative - 500+++ Josselyn/mcL [facility] Nitrite, UA Negative Negative - Positive [facility] pH, UA 6.0 5 - 9 [facility] Protein, UA Positive Negative - 2000(20) ++++ mg/dL [facility] Spec Grav, UA 1.030 1 - 1.03 [facility] Urobilinogen, UA 1.0 0.2 - 12 mg/dL [facility] Alanine aminotransferase [En zymatic activity/volume] in Serum or PlasmaOrdered By: Toi Edward on 02-14-2023 ALT [Catalytic activity/Vol] 41 U/L 7-52 [facility] Albumin [Mass/volume] in Ser um or Plasma by Bromocresol green (BCG) dye binding methoOrdered By: Toi Edward on 02-14-2023 Albumin BCG dye [Mass/Vol] 4.1 g/dL 3.5-5.7 [facility] Alkaline phosphatase [Enzyma tic activity/volume] in Serum or PlasmaOrdered By: Toi Edward on 02-14-2023 ALP [Catalytic activity/Vol] 158 U/L 34-104 [facility] Aspartate aminotransferase [ Enzymatic activity/volume] in Serum or PlasmaOrdered By: Toi Edward on 02-14-2023 AST [Catalytic activity/Vol] 44 U/L 13-39 [facility] Basophils Auto (Bld) [#/Vol] Ordered By: Toi Edward on 02-14-2023 Basophils (Bld) [#/Vol] 0.1 10*3/uL 0.0-0.2 [facility] Basophils/100 WBC Auto (Bld) Ordered By: Toi Edward on 02-14-2023 Basophils/100 WBC (Bld) 0.5 % . [facility] Bilirubin.total [Mass/volume ] in Serum or PlasmaOrdered By: Toi Edward on 02-14-2023 Bilirubin [Mass/Vol] 0.8 mg/dL 0.3-1.0 [facility] C reactive protein [Mass/vol ume] in Serum or PlasmaOrdered By: Toi Edward on 02-14-2023 CRP [Mass/Vol] 1.8 mg/dL 0.0-0.5 [facility] C-Reactive Proteinon 023 C-Reactive Protein 1.8 mg/dL High 0.0-0.5 [facility] Comment on above: Result Comment: PERF ORMED BY: [place] [id number] PATHOLOGIST OPERATOR VACUUM VEENA DYSON M.D. Performed By: #### S CAN CBC, ESR, CMP, CRP #### [address] Calcium [Mass/volume] in Ser um or PlasmaOrdered By: Toi Edward on 02-14-2023 Calcium [Mass/Vol] 9.4 mg/dL 8.6-10.3 [facility] Carbon dioxide, total [Moles /volume] in Serum or PlasmaOrdered By: Toi Edward on 02-14-2023 CO2 [Moles/Vol] 24.8 mmol/L 21.0-31.0 [facility] Chloride [Moles/volume] in S cass or PlasmaOrdered By: Toi Edward on 02-14-2023 Chloride [Moles/Vol] 100 mmol/L 98-107 [facility] Comprehensive Metabolic Pane valentín 02-14-2023 Albumin [Mass/Vol] 4.1 g/dL Normal 3.5-5.7 [facility] Comment on above: Performed By: #### S CAN CBC, ESR, CMP, CRP #### [facility] [address] Albumin/Globulin [Mass ratio] 1.2 {ratio} Normal [facility] Comment on above: Performed By: #### S CAN CBC, ESR, CMP, CRP #### [facility] [address] ALP [Catalytic activity/Vol] 158 U/L High 34-104 [facility] Comment on above: Performed By: #### S CAN CBC, ESR, CMP, CRP #### [facility] [address] ALT [Catalytic activity/Vol] 41 U/L Normal 7-52 [facility] Comment on above: Performed By: #### S CAN CBC, ESR, CMP, CRP #### [facility] [address] Anion gap [Moles/Vol] 13.2 mmol/L Normal 6.0-15.0 [facility] Comment on above: Performed By: #### S CAN CBC, ESR, CMP, CRP #### [facility] [address] [place] [address] [place] AST [Catalytic activity/Vol] 44 U/L High 13-39 [facility] Comment on above: Performed By: #### S CAN CBC, ESR, CMP, CRP #### [facility] [address] [place] [address] [place] Bilirubin [Mass/Vol] 0.8 mg/dL Normal 0.3-1.0 [facility] Comment on above: Performed By: #### S CAN CBC, ESR, CMP, CRP #### [facility] [address] Calcium [Mass/Vol] 9.4 mg/dL Normal 8.6-10.3 [facility] Comment on above: Performed By: #### S CAN CBC, ESR, CMP, CRP #### [facility] [address] [place] [address] [place] Chloride [Moles/Vol] 100 mmol/L Normal 98-107 [facility] Comment on above: Performed By: #### S CAN CBC, ESR, CMP, CRP #### [facility] [address] CO2 [Moles/Vol] 24.8 mmol/L Normal 21.0-31.0 [facility] Comment on above: Performed By: #### S CAN CBC, ESR, CMP, CRP #### [facility] [address] Creatinine [Mass/Vol] 0.77 mg/dL Normal 0.60-1.20 [facility] Comment on above: Performed By: #### S CAN CBC, ESR, CMP, CRP #### [facility] [address] [place] [address] [place] Creatinine Clr Calc Pharmacy 115.98 [facility] Comment on above: Performed By: #### S CAN CBC, ESR, CMP, CRP #### [facility] [address] [place] [address] [place] GFR/1.73 sq M.predicted MDRD (S/P/Bld) [Vol rate/Area] mL/min/{1.73_m2} [facility] Comment on above: Performed By: #### S CAN CBC, ESR, CMP, CRP #### [facility] [address] [place] [address] [place] Globulin (S) [Mass/Vol] 3.5 g/dL Normal [facility] Comment on above: Performed By: #### S CAN CBC, ESR, CMP, CRP #### [facility] [address] [place] [address] [place] Glucose [Mass/Vol] 85 mg/dL Normal 70-100 [facility] Comment on above: Result Comment: [facility] [place] Glucose Reference Range is dependent on time and content of last meal. Glucose of more than 200 mg/dL in a nonstressed, ambulatory subject supports the diagnosis of Diabetes Mellitus. ADA recommended reference range Performed By: #### S CAN CBC, ESR, CMP, CRP #### [facility] [address] Potassium [Moles/Vol] 4.0 mmol/L Normal 3.5-5.1 [facility] Comment on above: Performed By: #### S CAN CBC, ESR, CMP, CRP #### [facility] [address] Protein [Mass/Vol] 7.6 g/dL Normal 6.4-8.9 [facility] Comment on above: Performed By: #### S CAN CBC, ESR, CMP, CRP #### [facility] [address] Sodium [Moles/Vol] 134 mmol/L Low 136-145 [facility] Comment on above: Performed By: #### S CAN CBC, ESR, CMP, CRP #### [facility] [address] [place] [address] [place] Urea nitrogen [Mass/Vol] 7 mg/dL Normal 7-25 [facility] Comment on above: Performed By: #### S CAN CBC, ESR, CMP, CRP #### [facility] [address] Creatinine [Mass/volume] in Serum or PlasmaOrdered By: Toi Edward on 02-14-2023 Creatinine [Mass/Vol] 0.77 mg/dL 0.60-1.20 [facility] Eosinophils Auto (Bld) [#/Vo l]Ordered By: Toi Edward on 02-14-2023 Eosinophils (Bld) [#/Vol] 0.0 10*3/uL 0.0-0.45 [facility] Eosinophils/100 WBC Auto (Bl d)Ordered By: Toi Edward on 02-14-2023 Eosinophils/100 WBC (Bld) 0.2 % . [facility] Erythrocyte Sedimentation Ra deng 08-27-2023 ESR (Bld) [Velocity] 26 mm/h High 0-19 [facility] Comment on above: Result Comment: PERF ORMED BY: [facility] [address] [place] [address] PATHOLOGIST OPERATOR VACUUM VEENA DYSON M.D. Performed By: #### S CAN CBC, ESR, CMP, CRP #### [facility] [address] Erythrocyte distribution wid th Auto (RBC) [Ratio]Ordered By: Toi Edward on 02-14-2023 Erythrocyte distribution width (RBC) [Ratio] 13.3 % 11.9-15.3 [facility] Erythrocyte sedimentation ra te by Photometric methodOrdered By: Toi Edward on 02-14-2023 ESR Photometric method (Bld) [Velocity] 26 mm/hr 0-19 [facility] Globulin Calc (S) [Mass/Vol] Ordered By: Toi Edward on 02-14-2023 Globulin (S) [Mass/Vol] 3.5 g/dL [facility] Glucose [Mass/volume] in Ser um or PlasmaOrdered By: Toi Edward on 02-14-2023 Glucose [Mass/Vol] 85 mg/dL 70-100 [facility] Comment on above: ADA recommended refe rence rangeRandom Glucose Reference Range is dependent on time and content of last meal. Glucose of more than 200 mg/dL in a nonstressed, ambulatory subject supports the diagnosis of Diabetes Mellitus. Hematocrit Auto (Bld) [Volum e fraction]Ordered By: Toi Edward on 02-14-2023 Hematocrit (Bld) [Volume fraction] 38.7 % 34.0-46.4 [facility] Hemoglobin [Mass/volume] in BloodOrdered By: Toi Edward 02-14-2023 Hemoglobin (Bld) [Mass/Vol] 13.1 g/dL 11.8-15.4 [facility] Leukocytes [#/volume] correc alem for nucleated erythrocytes in Blood by Automated counOrdered By: Toi Edward on 02-14-2023 WBC corrected for nucl RBC Auto (Bld) [#/Vol] 9.4 10*3/uL 3.8-11.6 [facility] Lymphocytes Auto (Bld) [#/Vo l]Ordered By: Toi Edward on 02-14-2023 Lymphocytes (Bld) [#/Vol] 4.5 10*3/uL 1.00-4.8 [facility] Lymphocytes/100 WBC Auto (Bl d)Ordered By: Toi Edward on 02-14-2023 Lymphocytes/100 WBC (Bld) 47.5 % . [facility] MCH Auto (RBC) [Entitic mass ]Ordered By: Toi Edward on 02-14-2023 MCH (RBC) [Entitic mass] 29.0 pg 24.7-34.3 [facility] MCHC Auto (RBC) [Mass/Vol]Or dered By: Toi Edward on 02-14-2023 MCHC (RBC) [Mass/Vol] 33.7 g/dL 32.0-35.0 [facility] MCV Auto (RBC) [Entitic vol] Ordered By: Toi Edward on 02-14-2023 MCV (RBC) [Entitic vol] 85.8 fL 80-[address] [facility] Monocyte distribution width [Entitic volume] in Blood by AutomatedOrdered By: Toi Edward on 02-14-2023 Monocyte distribution width Auto (Bld) [Entitic vol] 34.56 % 0.00-20.00 [facility] Comment on above: The predictive value of MDW for identifying sepsis in patients with hematological abnormalities has not been established Monocytes Auto (Bld) [#/Vol] Ordered By: Toi Edward on 02-14-2023 Monocytes (Bld) [#/Vol] 1.0 10*3/uL 0.0-0.8 [facility] Monocytes/100 WBC Auto (Bld) Ordered By: Toi Edward on 02-14-2023 Monocytes/100 WBC (Bld) 10.7 % . [facility] Neutrophils Auto (Bld) [#/Vo l]Ordered By: Toi Edward on 02-14-2023 Neutrophils (Bld) [#/Vol] 3.9 10*3/uL 1.8-7.7 [facility] Neutrophils/100 WBC Auto (Bl d)Ordered By: Toi Edward on 02-14-2023 Neutrophils/100 WBC (Bld) 41.1 % . [facility] No Panel InformationOrdered By: Toi Edward on 02-14-2023 Estimated GFR (CKD-EPI) > 60.0 mL/Min [facility] Creatinine Clearance (Chem 115.98 [facility] Nucleated erythrocytes [Pres ence] in Blood by Automated countOrdered By: Toi Edward on 02-14-2023 Nucleated RBC Auto Ql (Bld) 0.3 /100{WBC} 0-0.5 [facility] Platelet adequacy [Presence] in Blood by Light microscopyOrdered By: Toi Edward on 02-14-2023 Platelets LM Ql (Bld) Normal Normal [facility] Platelet mean volume Auto (B ld) [Entitic vol]Ordered By: Toi Edward on 02-14-2023 Platelet mean volume (Bld) [Entitic vol] 7.6 fL 6.3-10.7 [facility] Platelet morphology finding [Identifier] in BloodOrdered By: Toi Edward on 02-14-2023 Platelet morphology finding Nom (Bld) Normal Normal [facility] Platelets Auto (Bld) [#/Vol] Ordered By: Toi Edward on 02-14-2023 Platelets (Bld) [#/Vol] 163 10*3/uL 150-450 [facility] Potassium [Moles/volume] in Serum or PlasmaOrdered By: Toi Edward on 02-14-2023 Potassium [Moles/Vol] 4.0 mmol/L 3.5-5.1 [facility] Protein [Mass/volume] in Ser um or PlasmaOrdered By: Toi Edward on 02-14-2023 Protein [Mass/Vol] 7.6 g/dL 6.4-8.9 [facility] Quick Strepon 02-14-2023 Quick Strep Streptococcus pyogenes Ag [Presence] in Throat by Rapid immunoassay Negative for Group A Strep Antigen Note 1 -- NOTE 2 Results are those of a screening test. NOTE 3 If clinically indicated please order a culture. NOTE 4 -- NOTE 5 Reference range = Negative PERFORMED BY: [place] [id number] PATHOLOGIST OPERATOR VACUUM VEENA DYSON M.D. [facility] Comment on above: Performed By: #### Q S, RFXSTPA #### [facility] [address] [place] [address] RBC Auto (Bld) [#/Vol]Ordere d By: Toi Edward on 02-14-2023 RBC (Bld) [#/Vol] 4.51 10*6/uL 3.60-5.00 [facility] RBC morphologyOrdered By: Den Edward on 02-14-2023 RBC morphology finding Nom (Bld) Normal Normal [facility] RFX Strep A Reflex Cult Only on 02-14-2023 RFX Strep A Reflex Cult Only Strep A Only Cult No Group A Beta Streptococcus Isolated 2 Days PERFORMED BY: [place] [id number] PATHOLOGIST OPERATOR VACUUM VEENA DYSON M.D. [facility] Comment on above: Performed By: #### Q S, RFXSTPA #### [facility] [address] [place] [address] Scan and CBCon 02-14-2023 Basophils (Bld) [#/Vol] 0.1 10*3/uL Normal 0.0-0.2 [facility] Comment on above: Performed By: #### S CAN CBC, ESR, CMP, CRP #### [facility] [address] [place] [address] [place] Basophils/100 WBC (Bld) 0.5 % Normal . [facility] Comment on above: Performed By: #### S CAN CBC, ESR, CMP, CRP #### [facility] [address] [place] [address] Eosinophils (Bld) [#/Vol] 0.0 10*3/uL Normal 0.0-0.45 [facility] Comment on above: Performed By: #### S CAN CBC, ESR, CMP, CRP #### [address] Eosinophils/100 WBC (Bld) 0.2 % Normal . [facility] Comment on above: Performed By: #### S CAN CBC, ESR, CMP, CRP #### [address] Erythrocyte distribution width (RBC) [Ratio] 13.3 % Normal 11.9-15.3 [facility] Comment on above: Performed By: #### S CAN CBC, ESR, CMP, CRP #### [address] Hematocrit (Bld) [Volume fraction] 38.7 % Normal 34.0-46.4 [facility] Comment on above: Performed By: #### S CAN CBC, ESR, CMP, CRP #### [address] Hemoglobin (Bld) [Mass/Vol] 13.1 g/dL Normal 11.8-15.4 [facility] Comment on above: Performed By: #### S CAN CBC, ESR, CMP, CRP #### [address] Lymphocytes (Bld) [#/Vol] 4.5 10*3/uL Normal 1.00-4.8 [facility] Comment on above: Performed By: #### S CAN CBC, ESR, CMP, CRP #### [address] Lymphocytes/100 WBC (Bld) 47.5 % Normal . [facility] Comment on above: Performed By: #### S CAN CBC, ESR, CMP, CRP #### [address] MCH (RBC) [Entitic mass] 29.0 pg Normal 24.7-34.3 [facility] Comment on above: Performed By: #### S CAN CBC, ESR, CMP, CRP #### [place] [address] [place] MCV (RBC) [Entitic vol] 85.8 fL Normal 80-[address] [facility] Comment on above: Performed By: #### S CAN CBC, ESR, CMP, CRP #### [address] Mean Corpuscular HGB Conc 33.7 g/dL Normal 32.0-35.0 [facility] Comment on above: Performed By: #### S CAN CBC, ESR, CMP, CRP #### [address] Monocytes (Bld) [#/Vol] 1.0 10*3/uL High 0.0-0.8 [facility] Comment on above: Performed By: #### S CAN CBC, ESR, CMP, CRP #### [address] Monocytes/100 WBC (Bld) 34.56 % High 0.00-20.[address] [facility] Comment on above: Result Comment: The predictive value of MDW for identifying sepsis in patients with hematological abnormalities has not been established Performed By: #### S CAN CBC, ESR, CMP, CRP #### [address] Monocytes/100 WBC (Bld) 10.7 % Normal . [facility] Comment on above: Performed By: #### S CAN CBC, ESR, CMP, CRP #### [place] [address] [place] Neutrophils (Bld) [#/Vol] 3.9 10*3/uL Normal 1.8-7.7 [facility] Comment on above: Performed By: #### S CAN CBC, ESR, CMP, CRP #### [place] [address] [place] Neutrophils/100 WBC (Bld) 41.1 % Normal . [facility] Comment on above: Performed By: #### S CAN CBC, ESR, CMP, CRP #### [place] [address] [place] NRBC% 0.3 /100{WBC} Normal 0-0.5 [facility] Comment on above: Performed By: #### S CAN CBC, ESR, CMP, CRP #### [facility] [address] Platelet Estimate Normal Normal Normal [facility] Comment on above: Performed By: #### S CAN CBC, ESR, CMP, CRP #### [facility] [address] Platelet mean volume (Bld) [Entitic vol] 7.6 fL Normal 6.3-10.7 [facility] Comment on above: Performed By: #### S CAN CBC, ESR, CMP, CRP #### [address] Platelet Morphology Normal Normal Normal [facility] Comment on above: Performed By: #### S CAN CBC, ESR, CMP, CRP #### [address] Platelets (Bld) [#/Vol] 163 10*3/uL Normal 150-450 [facility] Comment on above: Performed By: #### S CAN CBC, ESR, CMP, CRP #### [address] RBC (Bld) [#/Vol] 4.51 10*6/uL Normal 3.60-5.00 [facility] Comment on above: Performed By: #### S CAN CBC, ESR, CMP, CRP #### [address] RBC morphology finding Nom (Bld) Normal Normal Normal [facility] Comment on above: Performed By: #### S CAN CBC, ESR, CMP, CRP #### [address] WBC (Bld) [#/Vol] 9.4 10*3/uL Normal 3.8-11.6 [facility] Comment on above: Performed By: #### S CAN CBC, ESR, CMP, CRP #### [address] Serum or plasma albumin/glob ulin mass ratioOrdered By: Toi Edward on 02-14-2023 Albumin/Globulin [Mass ratio] 1.2 {ratio} [facility] Serum or plasma anion gap de terminationOrdered By: Toi Edward on 02-14-2023 Anion gap [Moles/Vol] 13.2 mmol/L 6.0-15.0 [facility] Sodium [Moles/volume] in Ser um or PlasmaOrdered By: Toi Edward on 02-14-2023 Sodium [Moles/Vol] 134 mmol/L 136-145 [facility] Urea nitrogen [Mass/volume] in Serum or PlasmaOrdered By: Toi Edward on 02-14-2023 Urea nitrogen [Mass/Vol] 7 mg/dL 7-25 [facility] WBC Auto (Bld) [#/Vol]Ordere d By: Toi Edward on 02-14-2023 WBC (Bld) [#/Vol] 9.4 10*3/uL 3.8-11.6 [facility] CBC AUTO DIFFon 03-02-2022 BASO # 0.0 103/ul Normal 0.0-0.1 [facility] Comment on above: Performed By: #### C BC #### [facility] [address] [place] [address] Dr. Melinda López Basophils/100 WBC (Bld) 0.2 % Normal 0.2-2.0 [facility] Comment on above: Performed By: #### C BC #### [facility] [address] [place] [address] Dr. Melinda López EO # 0.0 103/ul Normal 0.0-0.7 [facility] Comment on above: Performed By: #### C BC #### [facility] [address] [place] [address] Dr. Melinda López Eosinophils/100 WBC (Bld) 0.1 % Critically low 0.9-7.0 [facility] Comment on above: Performed By: #### C BC #### [facility] [address] [address] [address] Melinda López Erythrocyte distribution width (RBC) [Ratio] 13.0 % Normal 11.0-15.0 [facility] Comment on above: Performed By: #### C BC #### [facility] [address] [place] [address] Dr. Melinda López Hematocrit (Bld) [Volume fraction] 41.3 % Normal 36.0-48.0 [facility] Comment on above: Performed By: #### C BC #### [facility] [address] [place] [address] Dr. Melinda López Hemoglobin (Bld) [Mass/Vol] 13.2 g/dL Normal 12.0-16.0 [facility] Comment on above: Performed By: #### C BC #### [facility] [address] [place] [address] Dr. Melinda López IG # 0.15 10e3/ul Critically high 0.00-0.03 [facility] Comment on above: Performed By: #### C BC #### [facility] [address] [place] [address] Dr. Melinda López IG % 0.9 % Critically high 0.0-0.5 [facility] Comment on above: Performed By: #### C BC #### [facility] [address] [place] [address] Dr. Melinda López LYMPH # 1.1 103/ul Critically low 1.2-3.8 [facility] Comment on above: Performed By: #### C BC #### [facility] [address] [place] [address] Dr. Melinda López Lymphocytes/100 WBC (Bld) 6.6 % Critically low 20.5-60.0 [facility] Comment on above: Performed By: #### C BC #### [facility] [address] [place] [address] Dr. Melinda López MANUAL DIFF REQ NO Normal [facility] Comment on above: Performed By: #### C BC #### [facility] [address] [place] [address] Dr. Melinda López MCH (RBC) [Entitic mass] 28.1 pg Normal 26.7-34.0 [facility] Comment on above: Performed By: #### C BC #### [facility] [address] [address] [address] Melinda López MCHC (RBC) [Mass/Vol] 32.0 g/dL Normal 29.9-35.2 [facility] Comment on above: Performed By: #### C BC #### [facility] [address] [address] [address] Melinda López MCV (RBC) [Entitic vol] 88.1 fL Normal 81.0-99.0 [facility] Comment on above: Performed By: #### C BC #### [facility] [address] [place] [address] Dr. Melinda López MONO # 0.9 103/ul Critically high 0.3-0.8 [facility] Comment on above: Performed By: #### C BC #### [facility] [address] [place] [address] Dr. Melinda López Monocytes/100 WBC (Bld) 4.9 % Normal 1.7-12.0 [facility] Comment on above: Performed By: #### C BC #### [facility] [address] [place] [address] Dr. Melinda López NEUT # 15.0 103/ul Critically high 1.4-6.5 [facility] Comment on above: Performed By: #### C BC #### [facility] [address] [place] [address] Dr. Melinda López Neutrophils/100 WBC (Bld) 87.3 % Critically high 43.0-75.0 [facility] Comment on above: Performed By: #### C BC #### [facility] [address] [place] [address] Dr. Melinda López Platelet mean volume (Bld) [Entitic vol] 9.4 fL Critically low 9.5-13.5 [facility] Comment on above: Performed By: #### C BC #### [facility] [address] [place] [address] Dr. Melinda López PLT 362 103/ul Normal 150-450 [facility] Comment on above: Performed By: #### C BC #### [facility] [address] [place], [place] [address] Dr. Melinda López RBC 4.69 106/ul Normal 4.20-5.40 [facility] Comment on above: Performed By: #### C BC #### [facility] [address] [place], [place] [address] Dr. Melinda López WBC 17.2 103/ul Critically high 4.0-11.0 [facility] Comment on above: Performed By: #### C BC #### [facility] [address] [place], [place] [address] Dr. Melinda López MONOon 03-02-2022 Monocytes (Bld) [#/Vol] Negative Normal NEGATIVE T [facility] Comment on above: Performed By: #### M RADHA #### [facility] [address] [place], [place] [address] Dr. Melinda López Vital Signs Date Time Vital Sign Value Performing Clinician Facility 09-05-2024 09:38-0400 Body mass index (BMI) [Ratio] 35.55 kg/m2 Sportlyzer DO Work Phone: [facility] 09-05-2024 09:38-0400 Body weight 93.95 kg Raúl Victorina DO Work Phone: [facility] 09-05-2024 09:38-0400 Diastolic blood pressure 62 mm[Hg] Raúl Victorina DO Work Phone: [facility] 09-05-2024 09:38-0400 Systolic blood pressure 100 mm[Hg] Raúl Victorina DO Work Phone: [facility] 08-22-2024 13:50-0500 Body mass index (BMI) [Ratio] 35.19 kg/m2 Raúl Victorina DO Work Phone: [facility] 08-22-2024 13:50-0500 Body weight 92.99 kg Raúl Victorina DO Work Phone: [facility] 08-22-2024 13:50-0500 Diastolic blood pressure 70 mm[Hg] Raúl Victorina DO Work Phone: [facility] 08-22-2024 13:50-0500 Systolic blood pressure 100 mm[Hg] Raúl Victorina DO Work Phone: [facility] 08-14-2024 15:09-0500 Body mass index (BMI) [Ratio] 34.69 kg/m2 Raúl Victorina DO Work Phone: [facility] 08-14-2024 15:09-0500 Body weight 91.68 kg Raúl Victorina DO Work Phone: [facility] 08-14-2024 15:09-0500 Diastolic blood pressure 70 mm[Hg] Raúl Victorina DO Work Phone: [facility] 08-14-2024 15:09-0500 Systolic blood pressure 96 mm[Hg] Raúl Victorina DO Work Phone: [facility] 07-27-2024 11:58-0500 Body mass index (BMI) [Ratio] 34.57 kg/m2 Raúl Victorina DO Work Phone: [facility] 07-27-2024 11:58-0500 Body weight 91.35 kg Raúl Victorina DO Work Phone: [facility] 07-27-2024 11:58-0500 Diastolic blood pressure 70 mm[Hg] Raúl Victorina DO Work Phone: [facility] 07-27-2024 11:58-0500 Systolic blood pressure 110 mm[Hg] Raúl Victorina DO Work Phone: [facility] 06-26-2024 15:26-0500 Body mass index (BMI) [Ratio] 33.78 kg/m2 Kadi DON Work Phone: [facility] 06-26-2024 15:26-0500 Body weight 89.27 kg Kadi DON Work Phone: [facility] 06-26-2024 15:26-0500 Diastolic blood pressure 74 mm[Hg] Kadi Wagner PA Work Phone: [facility] 06-26-2024 15:26-0500 Systolic blood pressure 112 mm[Hg] Kadi Rogelio PA Work Phone: [facility] 06-05-2024 10:01-0500 Body mass index (BMI) [Ratio] 32.96 kg/m2 Raúl Victorina DO Work Phone: [facility] 06-05-2024 10:01-0500 Body weight 87.09 kg Raúl Victorina DO Work Phone: [facility] 06-05-2024 10:01-0500 Diastolic blood pressure 68 mm[Hg] Raúl Victorina DO Work Phone: [facility] 06-05-2024 10:01-0500 Systolic blood pressure 114 mm[Hg] Raúl Victorina DO Work Phone: [facility] 05-09-2024 14:41-0500 Body mass index (BMI) [Ratio] 33.3 kg/m2 Kadi Wagner PA Work Phone: [facility] 05-09-2024 14:41-0500 Body weight 88 kg Kadi Wagner PA Work Phone: [facility] 05-09-2024 14:41-0500 Diastolic blood pressure 70 mm[Hg] Kadi Wagner PA Work Phone: [facility] 05-09-2024 14:41-0500 Systolic blood pressure 118 mm[Hg] Kadi Wagner PA Work Phone: [facility] 04-10-2024 16:00-0400 Body mass index (BMI) [Ratio] 33.47 kg/m2 Raúl Victorina DO Work Phone: [facility] 04-10-2024 16:00-0400 Body weight 88.45 kg Raúl Victorina DO Work Phone: [facility] 04-10-2024 16:00-0400 Diastolic blood pressure 80 mm[Hg] Raúl Victorina DO Work Phone: [facility] 04-10-2024 16:00-0400 Systolic blood pressure 120 mm[Hg] Raúl Victorina DO Work Phone: [facility] 03-13-2024 13:52-0400 Body mass index (BMI) [Ratio] 34.16 kg/m2 Raúl Victorina DO Work Phone: [facility] 03-13-2024 13:52-0400 Body weight 90.27 kg Raúl Victorina DO Work Phone: [facility] 03-13-2024 13:52-0400 Diastolic blood pressure 70 mm[Hg] Raúl Victorina DO Work Phone: [facility] 03-13-2024 13:52-0400 Systolic blood pressure 118 mm[Hg] Raúl Victorina DO Work Phone: [facility] 02-10-2024 13:28-0400 Body mass index (BMI) [Ratio] 35.04 kg/m2 [facility] 02-10-2024 13:28-0400 Body weight 92.59 kg Nom Nurse [facility] 02-10-2024 13:28-0400 Diastolic blood pressure 70 mm[Hg] Nom Nurse [facility] 02-10-2024 13:28-0400 Systolic blood pressure 120 mm[Hg] [facility] 08-04-2023 11:10-0500 Body mass index (BMI) [Ratio] 33.88 kg/m2 Raúl Victorina DO Work Phone: [facility] 08-04-2023 11:10-0500 Body weight 89.54 kg Raúl Victorina DO Work Phone: [facility] 08-04-2023 11:10-0500 Diastolic blood pressure 68 mm[Hg] Raúl Victorina DO Work Phone: [facility] 08-04-2023 11:10-0500 Systolic blood pressure 114 mm[Hg] Raúl Victorina DO Work Phone: [facility] 02-15-2023 00:16-0400 Body temperature 99.3 [degF] PA-C Toi Edward Work Phone: [facility] 02-15-2023 00:16-0400 Diastolic blood pressure 66 mm[Hg] PA-C Toi Edward Work Phone: [facility] 02-15-2023 00:16-0400 Heart rate 91 /min PA-C Toi Edward Work Phone: [facility] 02-15-2023 00:16-0400 Respiratory rate 16 /min PA-C Toi Edward Work Phone: [facility] 02-15-2023 00:16-0400 SaO2% (BldA) [Mass fraction] 95 % PA-C Toi Edward Work Phone: [facility] 02-15-2023 00:16-0400 Systolic blood pressure 121 mm[Hg] PA-C Toi Edward Work Phone: [facility] 02-14-2023 20:07-0400 Body height 163.83 cm PA-C Toi Edward Work Phone: [facility] 02-14-2023 20:07-0400 Body weight 74.25 kg PA-C Toi Edward Work Phone: [facility] 02-11-2023 15:40-0400 Body height 167.64 cm Ellen Ortiz Other [employer] Other 02-11-2023 15:40-0400 Body mass index (BMI) [Ratio] 27.18 kg/m2 Ellen Ortiz Other [employer] Other 02-11-2023 15:40-0400 Body temperature 96.9 [degF] Ellen Ortiz Other [employer] Other 02-11-2023 15:40-0400 Body weight 76.39 kg Ellen Ortiz Other [employer] Other 02-11-2023 15:40-0400 Diastolic blood pressure 78 mm[Hg] Ellen Ortiz Other [employer] Other 02-11-2023 15:40-0400 Respiratory rate 18 /min Ellen Olsenmond Other [employer] Other 02-11-2023 15:40-0400 SaO2% (BldA) [Mass fraction] 98 % Ellen Ortiz Other [employer] Other 02-11-2023 15:40-0400 Systolic blood pressure 110 mm[Hg] Ellen Olsenmond Other [employer] Other Encounters Encounter Date Encounter Type Care Provider Facility Start: 09-05-2024 End: 09-05-2024 ambulatory RAÚL VICTORINA Not Available Start: 09-05-2024 End: 09-05-2024 Office outpatient visit 15 minutes Raúl Victorina DO Work Phone: [facility] Comment on above: 38 weeks gestation o f ; Third trimester Start: 08-29-2024 End: 08-29-2024 ambulatory KADI WAGNER Not Available Start: 08-22-2024 End: 08-22-2024 Bamboo flowsheet Raúl Victorina DO Work Phone: [facility] Start: 08-22-2024 End: 08-28-2024 Bamboo flowsheet Raúl Victorina DO Work Phone: [facility] Start: 08-22-2024 End: 08-28-2024 Clinisync Result Encounter Raúl Victorina DO Work Phone: [facility] External Department Unsolicited Start: 08-22-2024 End: 08-22-2024 ambulatory RAÚL VICTORINA Not Available Start: 08-22-2024 End: 08-22-2024 Office outpatient visit 15 minutes Raúl Victorina DO Work Phone: [facility] Comment on above: Third trimester preg wanda; 36 weeks gestation of Start: 08-14-2024 End: 08-14-2024 ambulatory RAÚL VICTORINA [...] Available Start: 07-12-2024 End: 07-12-2024 Bamboo flowsheet Kaid DON Work Phone: [facility] Start: 07-12-2024 End: 07-12-2024 Bamboo flowsheet Kadi DON Work Phone: [facility] Start: 06-26-2024 End: 06-26-2024 Office outpatient visit 15 minutes Kadi DON Work Phone: [facility] Comment on above: Cramps, extremity (P rimary Dx); Third trimester ; 28 weeks gestation of Start: 06-26-2024 End: 06-26-2024 ambulatory KADI WAGNER Not Available Start: 06-05-2024 End: 06-05-2024 Bamboo [...] Clinisync Result Encounter Kadi DON Work Phone: [facility] Department Unsolicited Start: 05-23-2024 End: 05-23-2024 Clinisync Result Encounter Kadi DON Work Phone: [facility] Department Unsolicited Start: 05-09-2024 End: 05-09-2024 [...] DON Work Phone: [facility] Start: 04-13-2024 End: 04-16-2024 Clinisync Result Encounter Raúl Victorina DO Work Phone: [facility] Unsolicited Start: 04-13-2024 End: 04-16-2024 Clinisync Result Encounter Raúl Victorina DO Work Phone: [facility] Unsolicited Start: 04-10-2024 End: 04-10-2024 ambulatory RAÚL VICTORINA Not Available Start: 04-10-2024 End: 04-10-2024 Office outpatient visit 15 minutes Raúl Victorina DO Work Phone: [facility] Comment on above: Screening, , for anatomic survey; Exposure to STD; Vaginal discharge; Need for maternal serum alpha-protein (MSAFP) screening; Second trimester ; 17 weeks gestation of ; Weight loss Start: 04-10-2024 End: 04-10-2024 Bamboo flowsheet Raúl Victorina DO Work Phone: [facility] Start: 04-10-2024 End: 04-12-2024 Bamboo flowsheet Raúl Victorina DO Work Phone: [facility] Start: 04-10-2024 End: 04-12-2024 External Result Encounter Raúl Victorina DO Work Phone: [facility] External Department Unsolicited Start: 03-13-2024 End: 03-13-2024 Bamboo flowsheet Raúl Victorina DO Work Phone: [facility] Start: 03-13-2024 End: 03-13-2024 Bamboo flowsheet Raúl Victorina DO Work Phone: [facility] Start: 03-13-2024 End: 03-13-2024 Office outpatient visit 15 minutes Raúl Victorina DO Work Phone: [facility] Comment on above: Second trimester pre gnancy; Nausea and vomiting during Start: 03-13-2024 End: 03-13-2024 ambulatory RAÚL VICTORINA Not Available Start: 02-22-2024 End: 02-22-2024 Clinisync Result Encounter Raúl Victorina DO Work Phone: [facility] External Department Unsolicited Start: 02-22-2024 End: 02-22-2024 Clinisync Result Encounter Ra[facility]l [facility]ina DO [facility] Un[facility]olic[facility] Start: 02-10-2024 End: 02-10-2024 Office outpatient visit 5 minutes [facility] Victorina Nurse [facility] Comment on above: GA: 8w3d Start: 02-10-2024 End: 02-10-2024 ambulatory KADI WAGNER Not Available Start: 09-15-2023 End: 09-15-2023 ambulatory RAÚL VICTORINA Not Available Start: 08-05-2023 [...] 02-15-2023 Emergency department patient visit NON STAFF Facility:[facility] Start: 02-14-2023 End: 02-15-2023 Emergency department patient visit SHAD Edward Work Phone: [facility] Work Phone: Start: 02-11-2023 End: 02-11-2023 ambulatory Ellen Ortiz Other [employer] Other Start: 02-11-2023 Office outpatient ne w 20 minutes Ellen Ortiz [facility] Start: 03-02-2022 End: 03-03-2022 ambulatory [facility] Facility: Procedures Date Procedure Procedure Detail Performing Clinician Start: 09-05-2024 Urnls dip stick/tabl et rgnt non-auto w/o micrscp Raúl Victorina DO Work Phone: Start: 08-22-2024 ALL MISCELLANEOUS TEST Raúl Victorina DO Work Phone: Start: 08-22-2024 Urnls dip stick/tabl et rgnt non-auto w/o micrscp Raúl Victorina DO Work Phone: Start: 08-14-2024 Urnls dip stick/tabl et rgnt [...] stick/tabl et rgnt non-auto w/o micrscp Raúl Prajapati DO Work Phone: Plan of Treatment Date Care Activity Detail Author Start: 08-29-2024 End: 08-29-2024 Patient encounter procedure 08/29/2024 9:20 AM EDT Routine [facility] [address] [place] [place] [address] Kadi Wagner PA [address] [place], [place] [id number] [facility] Start: 08-22-2024 End: 08-22-2025 CULTURE, GROUP B STREP WITH SUSCEPTIBLITY CULTURE, GROUP B STREP WITH SUSCEPTIBLITY Lab Routine Third trimester Expected: 08/22/2024, Expires: 08/22/2025 [facility] Work Phone: Comment on above: Expected: 08/22/2024 , Expires: 08/22/2025 Start: 08-22-2024 End: 08-22-2024 Patient encounter procedure 08/22/2024 1:30 PM EST Routine [facility] [address] [place] [phone] Raúl Prajapati, [address] [place] [address] [facility] Start: 08-14-2024 End: 08-14-2024 Patient encounter procedure 08/14/2024 2:40 PM EST Routine [facility] [address] [place] [address] Raúl Prajapati, [facility] [address] [place], [place] [id number] [facility] Start: 07-12-2024 End: 07-12-2024 Patient encounter procedure 07/12/2024 3:00 PM EST Routine [facility] [address] [place] [phone] Kadi Wagner, PA [address] [place], [place] [id number] Arrived [facility] Comment on above: Arrived Start: 06-26-2024 End: 06-26-2024 Patient encounter procedure 06/26/2024 3:10 PM EST Routine [facility] [address] [place] [id number] Kadi Wagner, PA [address] [place], [place] [id number] [facility] Start: 06-26-2024 End: 06-26-2024 Professional / ancillary services management 06/26/2024 2:30 PM EST Ancillary Procedure [facility] [address] [place] [place] [phone] [facility] Start: 06-05-2024 End: 06-05-2025 US for US OB INCOMPLETE ANATOMY Imaging Routine Encounter for follow-up ultrasound of anatomy Expected: 06/05/2024 (Approximate), Expires: 06/05/2025 [facility] Work Phone: Comment on above: Expected: 06/05/2024 (Approximate), Expires: 06/05/2025 Start: 06-05-2024 End: 06-05-2024 Patient encounter procedure [facility] Comment on above: Arrived Start: 05-11-2024 End: 05-11-2024 Alpha fetoprotein, maternal Alpha fetoprotein, maternal Lab Routine Need for maternal serum alpha-protein (MSAFP) screening Expected: 05/11/2024 (Approximate), Expires: 05/11/2024 [facility] Comment on above: Expected: 05/11/2024 (Approximate), Expires: 05/11/2024 Start: 05-09-2024 End: 05-09-2024 Patient encounter procedure 05/09/2024 2:30 PM EST Routine [facility] [address] [place] [place] [phone] Kadi Wagner PA [address] [place], [place] [phone] [facility] Start: 05-09-2024 End: 05-09-2025 CBC panel - Blood by Automated count CBC Lab Routine Diabetes mellitus screening Expected: 05/09/2024 (Approximate), Expires: 05/09/2025 [facility] Work Phone: Comment on above: Expected: 05/09/2024 (Approximate), Expires: 05/09/2025 Start: 05-09-2024 End: 05-09-2025 Measurement of glucose 1 hour after glucose challenge for glucose tolerance test Glucose tolerance, 1 hour Lab Routine Diabetes mellitus screening Expected: 05/09/2024 (Approximate), Expires: 05/09/2025 [facility] Comment on above: Expected: 05/09/2024 (Approximate), Expires: 05/09/2025 Start: 05-09-2024 End: 05-09-2024 Professional / ancillary services management 05/09/2024 1:30 PM EST Ancillary Procedure [facility] [address] [place] [address] [facility] Start: 04-10-2024 End: 04-10-2024 Patient encounter procedure 04/10/2024 2:50 PM EDT Routine [facility] [address] [place] [address] Raúl Prajapati, [address] [place], [place] [phone] [facility] Start: 04-10-2024 End: 04-10-2025 US for US OB ANATOMY SINGLE W US OB CERVICAL LENGTH Imaging Routine Screening, , for anatomic survey Expected: 04/10/2024 (Approximate), Expires: 04/10/2025 [facility] Comment on above: Expected: 04/10/2024 (Approximate), Expires: 04/10/2025 Start: 03-13-2024 End: 03-13-2024 Patient encounter procedure [facility] Comment on above: Arrived Start: 02-20-2024 Influenza vaccination Influenza Vacc ine (#1) [facility] Start: 02-10-2024 End: 02-09-2025 ABO/Rh ABO/Rh Lab Routine Missed menses Expected: 02/10/2024 (Approximate), Expires: 02/09/2025 [facility] Comment on above: Expected: 02/10/2024 (Approximate), Expires: 02/09/2025 Start: 02-10-2024 End: 02-09-2025 Blood type and Indirect antibody screen panel - Blood Type and screen Lab Routine Missed menses Expected: 02/10/2024 (Approximate), Expires: 02/09/2025 [facility] Work Phone: Comment on above: Expected: 02/10/2024 (Approximate), Expires: 02/09/2025 Start: 02-10-2024 End: 02-09-2025 US Pelvis transvaginal US OB transvaginal Imaging Routine Missed menses Expected: 02/10/2024 (Approximate), Expires: 02/09/2025 [facility] Comment on above: Expected: 02/10/2024 (Approximate), Expires: 02/09/2025 Start: 08-11-2023 End: 08-11-2023 Patient encounter procedure 08/11/2023 10:30 AM EST Routine [facility] [address] [place] [phone] Raúl Praajpati DO [address] [place] [address] [facility] Start: 08-04-2023 End: 08-04-2024 US for US OB SCAN FOR GROWTH Imaging Routine Excessive growth affecting management of in third trimester, single or unspecified fetus Expected: 08/04/2023 (Approximate), Expires: 08/04/2024 [facility] Work Phone: Comment on above: Expected: 08/04/2023 (Approximate), Expires: 08/04/2024 Start: 02-14-2023 Streptococcus pyogen es Ag [Presence] in Throat Group A Strep Throat Culture [facility] Bacteria identified in Urine by Culture Urine culture Microbiology Routine Missed menses Ordered: 02/10/2024 [facility] Comment on above: Ordered: 02/10/2024 CBC W Auto Different ial panel - Blood CBC and differential Lab Routine Missed menses Ordered: 02/10/2024 [facility] Comment on above: Ordered: 02/10/2024 CHLAMYDIA TRACHOMATI S (GENITO/STI) CHLAMYDIA TRACHOMATIS (GENITO/STI) Lab Routine Exposure to STD Ordered: 04/10/2024 [facility] Comment on above: Ordered: 04/10/2024 Hemoglobin A1c/Hemoglobin.total in Blood Hemoglobin A1c Lab Routine Missed menses Ordered: 02/10/2024 [facility] Comment on above: Ordered: 02/10/2024 Hepatitis B virus surface Ag [Presence] in Serum or Plasma by Immunoassay Hepatitis B surface antigen Lab Routine Missed menses Ordered: 02/10/2024 [facility] Comment on above: Ordered: 02/10/2024 Hepatitis C virus Ab [Presence] in Serum or Plasma by Immunoassay Hepatitis C antibody Lab Routine Missed menses Ordered: 02/10/2024 [facility] Comment on above: Ordered: 02/10/2024 HIV-1/HIV-2 antigen/antibody combination immunoassay HIV-1 and HIV-2 antibodies Lab Routine Missed menses Ordered: 02/10/2024 [facility] Comment on above: Ordered: 02/10/2024 Neisseria gonorrhoea e DNA [Presence] in Unspecified specimen by JUVENCIO with probe detection Neisseria gonorrhea DNA probe, direct Lab Routine Exposure to STD Ordered: 04/10/2024 [facility] Comment on above: Ordered: 04/10/2024 Patient Education Sore Throat, Adult ED [facility] Work Phone: Patient referral [facility] Work Phone: Reagin Ab [Presence] in Serum by RPR RPR Lab Routine Missed menses Ordered: 02/10/2024 [facility] Comment on above: Ordered: 02/10/2024 Rubella antibody, IgG Rubella an tibody, IgG Lab Routine Missed menses Ordered: 02/10/2024 [facility] Comment on above: Ordered: 02/10/2024 SURESWAB(R) ADVANCED VAGINITIS PLUS, TMA SURESWAB(R) ADVANCED VAGINITIS PLUS, TMA Pathology and Cytology Routine Vaginal discharge Ordered: 04/10/2024 [facility] [employer] Work Phone: Comment on above: Ordered: 04/10/2024 Payers Date Payer Category Payer Private Health Insurance [facility] MEDICAID [id number] 2023 Self-pay 2022 Medicaid [id number] 2022 Medicaid [id number] 2003 Unknown [id number] 2.16.840.1.104213.3.579.2. 1258 2003 Unknown [id number] 2.16.840.1.931654.3.579.2. 1258 2003 Unknown [id number] 2.16.840.1.241327.3.579.2. 1258 2003 Unknown [id number] 2.16.840.1.456177.3.579.2. 1258 2003 Unknown [id number] 2.16.840.1.309459.3.579.2. 1258 2003 Unknown [id number] 2.16.840.1.161160.3.579.2. 1258 2003 Unknown [id number] 2.16.840.1.224990.3.579.2. 1259 2003 Unknown [id number] 2.16.840.1.160862.3.579.2. 9 2003 Unknown [id number] 2.16.840.1.084667.3.579.2. 9 2003 Unknown [id number] 2.16.840.1.257707.3.579.2. 1258 2003 Unknown [id number] 2.16.840.1.058154.3.579.2. 1259 2003 Unknown [id number] 2.16.840.1.076875.3.579.2. 9 2003 Unknown [id number] 2.16.840.1.829362.3.579.2. 9 2003 Unknown [id number] 2.16.840.1.442716.3.579.2. 1258 2003 Unknown [id number] 2.16.840.1.094936.3.579.2. 1259 1985 Unknown [id number] 2.16.840.1.258074.3.579.2. 593 1959 Unknown [id number] Unknown [id number] 2.16.840.1.067457.3.579.2. 531 Social History Date Type Detail Facility Unknown if ever smoked [employer] Other Start: 04-07-2023 End: 09-09-2023 Sex Assigned At [employer] Other Start: 02-14-2023 End: 04-07-2023 Tobacco smoking status NCIS Never smoked tobacco (finding) [facility] Start: 2003 Sex Assigned At Female F [facility] Start: 08-04-2023 End: 09-05-2024 Alcohol intake Lifetime non-drinker (finding) [facility] Start: 04-07-2023 End: 09-09-2023 History of Social function [facility] Start: 03-30-2023 Alcohol Comment Caffeine intak e: 1-2 cups per day [facility] Start: 12-16-2022 [facility] Start: 2003 Sex Assigned At Not on file N [facility] Clinical Notes 02-11-2023 to 09-05-2024 Norma Felipe, [facility] - 09/05/2024 9:20 AM EDTSusan Spitler, [facility] - 08/22/2024 1:30 PM ESTSusan Spitler, [facility] - 08/14/2024 2:40 PM ESTSusan Spitler, [facility] - 07/27/2024 11:20 AM EST Note Date & Type Note Facility 09-05-2024 History of Presen t illness Narrative Reason [...] nursing note reviewed. Exam conducted with a laboratory technician present. Vitals: Estimated body mass index is 35.55 kg/m as calculated from the following: Height as of 03/02/23: 5' 4 . Weight as of this encounter: 207 lb 1.9 oz. BP: 100/62 Patient's last menstrual period was 12/13/2023. ASSESSMENT & PLAN ICD-10-CM 1. 38 weeks gestation of Z3A.38 POCT urinalysis dipstick manually resulted 2. Third trimester Z34.93 POCT urinalysis dipstick manually resulted Return OB: Patient presents today for a routine obstetrics appointment. Patient is currently 38w1d . Patient states she is doing well but has complaints of being tired due to current . Patient has verbalizes frequent movement. labor precautions was discussed/given and patient was instructed to perform kick counts three times a day. Pt to be induced 09/11/24 for IOL at 0500. Orders Placed This Encounter Procedures POCT urinalysis dipstick manually resulted Follow Up: Patient is to return to office in 1 week for routine OB appointment. Documented by Norma Felipe LPN on behalf of: Raúl Prajapati DO documented in this encounter [facility] 08-22-2024 History of Presen t illness Narrative Reason [...] nursing note reviewed. Exam conducted with a laboratory technician present. Vitals: Estimated body mass index is 35.19 kg/m as calculated from the following: Height as of 03/02/23: 5' 4 . Weight as of this encounter: 205 lb. BP: 100/70 Patient's last menstrual period was 12/13/2023. ASSESSMENT & PLAN ICD-10-CM 1. Third trimester Z34.93 POCT urinalysis dipstick manually resulted CULTURE, GROUP B STREP WITH SUSCEPTIBLITY CULTURE, GROUP B STREP WITH SUSCEPTIBLITY 2. 36 weeks gestation of Z3A.36 Patient is doing well but has complaints of being tired and having maternal discomfort due to . Patient verbalized frequent movement and was instructed to perform kick counts three times per day. labor precautions were given, LARC consent was signed/declined, and GBS was obtained. Cervical check was performed and patient is 1cm dilated. Orders Placed This Encounter Procedures CULTURE, GROUP B STREP WITH SUSCEPTIBLITY POCT urinalysis dipstick manually resulted Follow Up: Patient is to return to office in 1 week for routine OB appointment Documented by Carolina Porter LPN on behalf of: Raúl Prajapati DO documented in this encounter [facility] 08-14-2024 History of Presen t illness Narrative [...] nursing note reviewed. Exam conducted with a laboratory technician present. Vitals: Estimated body mass index is [...] Carolina Porter LPN on behalf of: Raúl Praajpati DO documented in this encounter [facility] 07-27-2024 History of Presen t illness [...] nursing note reviewed. Exam conducted with a laboratory technician present. Vitals: Estimated body mass index is [...] Raúl Prajapati DO documented in this encounter [facility] 06-26-2024 History of Presen t illness [...] of: FLORENCIA Pedroza documented in this encounter [facility] 06-05-2024 History of Presen t illness [...] nursing note reviewed. Exam conducted with a laboratory technician present. Vitals: Estimated body mass index is [...] Raúl Prajapati DO documented in this encounter [facility] 05-09-2024 History of Presen t illness [...] of: FLORENCIA Pedroza documented in this encounter [facility] 04-10-2024 History of Presen t illness [...] nursing note reviewed. Exam conducted with a laboratory technician present. Vitals: Estimated body mass index is [...] Raúl Prajapati DO documented in this encounter [facility] 03-13-2024 History of Presen t illness [...] nursing note reviewed. Exam conducted with a laboratory technician present. Vitals: Estimated body mass index is [...] or undercooked meat, and stay away from [facility]. Patient has been consulted regarding any [...] Raúl Prajapati DO documented in this encounter [facility] 02-10-2024 History of Presen t illness [...] or undercooked meat, and stay away from [facility]. Patient has also been advised to [...] Kiera Dupont LPN documented in this encounter [facility] 08-04-2023 History of Presen t illness [...] nursing note reviewed. Exam conducted with a laboratory technician present. Vitals: Estimated body mass index is [...] Raúl Prajapati DO documented in this encounter [facility] 02-11-2023 Evaluation note Encounter Date Diagnosis Assessment Notes Jan, Swelling of eyelid, unspecified laterality (ICD-10 - H02.849) Continue to apply cool compresses to your eyes. Take the Medrol Dosepak as prescribed until gone. Follow-up with your family physician if no improvement in 2 to 3 days. Go to the ER for worsening symptoms or concerns [employer] Other Evaluation noteNo assessment information available [facility] Work Phone: Evwll[facility]htf note* Diagnosis Third trimester state, incidental Excessive growth affecting management of in third trimester, single or unspecified fetus [facility] Diagnosis Screening, , for anatomic survey Encounter for anatomic survey Exposure to STD Vaginal discharge Leukorrhea, not specified as infective Need for maternal serum alpha-protein (MSAFP) screening Second trimester state, incidental 17 weeks gestation of Weight loss Loss of weight [facility] Diagnosis Second trimester state, incidental 25 weeks gestation of Encounter for follow-up ultrasound of anatomy Low iron Unspecified iron deficiency anemia documented in [facility]* Diagnosis Missed menses Nausea Nausea alone documented in this encounter [facility]* Diagnosis Second trimester state, incidental 21 weeks gestation of Diabetes mellitus screening Screening for diabetes mellitus documented in this encounter [facility]* Diagnosis Second trimester state, incidental [...] HealthcareEvaluation note* Diagnosis Third trimester state, incidental 36 weeks gestation of documented [facility]* Diagnosis 38 weeks gestation of Third trimester state, incidental documented in this encounter [facility] Summary [...] content) DATE CREATED AUTHOR 03/21/2022 [facility] DATE CREATED AUTHOR AUTHOR'S ORGANIZ ATION 02/26/2023 [facility] DATE CREATED AUTHOR AUTHOR'S ORGANIZ ATION 09/07/2024 [facility] Special[facility] EPIC REASON FOR VISIT (unrecogniz ed section and content) Reason Comments Routine Visit Care Teams (unrecognized sec tion and content) Team Status: Active Member Role Status Dates NON STAFF Primary Care Provider Active Team Status: Inactive Member Role Status Dates Toi Edward PA-C Emergency Provider Active NON STAFF Primary Care Provider Active Culinary Internship Relationship Specialty Start Date End Date Kadi Wagner PA [address] [place] [address] [place] [address] PCP - [facility] 12/20/23 Culinary Internship Relationship Specialty Start Date End Date Kadi Wagner PA [address] [place] [address] [place] [address] PCP [facility] 12/20/23 Culinary Internship Relationship Specialty Start Date End Date Kadi Wagner PA [address] [place] [address] [place] [address] [facility] 12/20/23 Culinary Internship Relationship Specialty Start Date End Date Kadi Wagner PA [address] [place], [place] [address]be[place] [address] [facility] 12/20/23 Culinary Internship Relationship Specialty Start Date End Date Kadi Wagner PA [address] [place], [place] [address] [address] [facility] 12/20/23 Culinary Internship Relationship Specialty Start Date End Date Kadi Wagner PA [address] [place] [address] [place] [address] [facility] 12/20/23 Culinary Internship Relationship Specialty Start Date End Date Kadi Wagner PA [address] [place] [address] [place] [address] [facility] 12/20/23 Culinary Internship Relationship Specialty Start Date End Date Raúl Prajapati, DO [address] [place] [address] [place] [address] [facility] 06/21/24 Culinary Internship Relationship Specialty Start Date End Date Raúl Prajapati, DO [address] [place] [address] [place] [address] [facility] 06/21/24 Culinary Internship Relationship Specialty Start Date End Date Raúl Prajapati, DO [address] [place] [address] [place] [address] PCP - [facility] 06/21/24 Culinary Internship Relationship Specialty Start Date End Date VictorinaRaúl blackwell [address] [place], [place] [address]beba [place] [address] PCP - [facility] 06/21/24 Goals (unrecognized section and content) Goals [...] BE BASED ON THE PRIMARY CLINICAL RECORDS. [employer] [facility]. provides no warranty or guarantee of the accuracy or completeness of information in this document.
[2024-09-11 05:53] LABS: Hematocrit 29.4 % (36.0-48.0); Hemoglobin 9.2 g/dL (12.0-16.0); Mean Corpuscular HGB Conc 31.3 g/dL (29.9-35.2); Mean Corpuscular Hemoglobin 24.7 pg (26.7-34.0); Mean Corpuscular Volume 78.8 fL (81.0-99.0); Mean Platelet Volume 9.8 fL (9.5-13.5); Platelet Count 355 10^3/uL (150-450); Red Blood Count 3.73 10^6/uL (4.20-5.40); Red Cell Distribution Width 14.2 % (11.0-15.0); White Blood Count 16.1 10^3/uL (4.0-11.0)
[2024-09-11 06:04] LABS: Amphetamine Screen Urine NEGATIVE (NEGATIVE); Barbiturates Screen Urine NEGATIVE (NEGATIVE); Benzodiazepines Screen Urine NEGATIVE (NEGATIVE); Buprenorphine Screen Urine NEGATIVE (NEGATIVE); Cannabinoid Screen Urine NEGATIVE (NEGATIVE); Cocaine Screen Urine NEGATIVE (NEGATIVE); Methadone Screen Urine NEGATIVE (NEGATIVE); Methamphetamines Screen Urine NEGATIVE (NEGATIVE); Opiate Screen Urine NEGATIVE (NEGATIVE); Oxycodone Screen Urine NEGATIVE (NEGATIVE); Phencyclidine Screen Urine NEGATIVE (NEGATIVE); Tricyclic Antidepressant Urine NEGATIVE (NEGATIVE)
[2024-09-11] MEDS: 0.9 % SODIUM CHLORIDE 1,000 ML 125 ML IV (06:16)
[2024-09-11] MEDS: CEFAZOLIN SODIUM/DEXTROSE,ISO 2 GM/50 ML PIGGYBACK IV (06:16)
[2024-09-11] MEDS: OXYTOCIN/0.9 % SODIUM CHLORIDE 10 UNITS/500 ML PLAST..BAG 6 UNIT IV (06:17)
--- NOTE | 2024-09-11 08:56 | PC.NURSE ---
patient requesting epidural. bolus initiated. anesthesia consulted and made aware patient ready to epidural.
[2024-09-11] MEDS: ROPIVACAINE HCL/PF 400 MG/200 ML PREMIX 6 MG EPIDURAL (09:38)
--- NOTE | 2024-09-11 09:40 | PC.NURSE ---
0925 anesthesia epidural consent signed with patient, anesthesia CURING PRESS MAINTAINER, and RN. patient verbalizes understanding and denies any questions. patient positioned sitting at side of bed with CURING PRESS MAINTAINER at this time. RN hand holding EFM monitor at this time for monitoring. RN remains present for epidural procedure and provides reassurance and comfort measures throughout procedure. patient tolerated procedure well and patient laid back down into comfortable position. patient states, prior to epidural my pain was 6/10 on numeric scale with contractions.
[2024-09-11] MEDS: 0.9 % SODIUM CHLORIDE 1,000 ML 1000 ML IV (09:47)
--- NOTE | 2024-09-11 10:10 | PC.NURSE ---
Pitocin decreased down to 6 via IV due to tachysystole
--- NOTE | 2024-09-11 10:21 | PC.NURSE ---
1018 patient complaining of lots of pain and very tearful. patient unable to converse with RN. RN consults with anesthesia at this time.
--- NOTE | 2024-09-11 10:22 | PC.NURSE ---
1023 Anesthesia at bedside to dose patient for excess pain on right side. Patient tilted to right side. RN decreased Pitocin to 4 via IV due to consistent tachysystole, patient excess pain and patient very tearful and unable to catch break in between contractions. Patient describes pain 10/10 with contractions.
--- NOTE | 2024-09-11 10:28 | PC.NURSE ---
patient not able to stop crying during contractions or even between contractions. RN remains at bedside coaching patient on breathing and encouraging patient to try to conserve energy and try to calm and breath when contractions are not present. patient expresses excess tears when RN talking but then able to calm down when contraction ends.
--- NOTE | 2024-09-11 10:40 | PC.NURSE ---
1048 RN and anesthesia at bedside for further assessment of patient. Patient expressing relief on left side now but no relief and excess pain on right side front area. Patient points to area. Pillow removed and patient removed from left tilt position and put semi-fowlers position on back. Anestehesia PUDDLER PILE DRIVING doses patient with medication for a goal of relief.
--- NOTE | 2024-09-11 10:52 | PC.NURSE ---
1053- Anesthesia and RN at bedside and patient expressing no relief on right side yet. Anesthesia MECHANICAL UNIT REPAIRER gives patient additional dose to epidural catheter. Patient tilted to right tilt for goal of relief.
--- NOTE | 2024-09-11 11:26 | PM.OBPRCVD ---
Procedure Intrapartal events: None Induction method: per pitocin protocol Delivery augmentation: rupture of membranes and pitocin Delivery monitor: external FHT and external uterine Route of delivery: Episiotomy Description: none L&D Laceration Description: perineal - 1st degree Delivery repair: Vicryl Estimated blood loss (mL): 250 Anesthesia type: Epidural Disposition: PACU Delivery date: 09/11/24 Gender: female presentation: vertex Placental delivery description: Spontaneous cord description: 3 Vessels
--- NOTE | 2024-09-11 11:57 | PC.NURSE ---
1130 epidural pump turned off at this time.
--- NOTE | 2024-09-11 12:18 | PC.NURSE ---
RN offers pain medication to patient and patient declines at this time.
--- NOTE | 2024-09-11 13:06 | PC.NURSE ---
epidural removed from patient's back with tip intact. patient tolerated well.
[2024-09-11] MEDS: OXYTOCIN/0.9 % SODIUM CHLORIDE 20 UNITS/1,000 ML PLAST..BAG 125 UNIT IV (13:07)
[2024-09-11] MEDS: IBUPROFEN 600 MG TABLET PO (20:51)
[2024-09-12 00:50] VITALS: BP 113/69; PULSE 63; TEMP 36.4
[2024-09-12 06:25] LABS: Basophils Absolute Auto 0.1 10^3/uL (0.0-0.1); Basophils Percent Auto 0.3 % (0.2-2.0); Eosinophils Absolute Auto 0.1 10^3/uL (0.0-0.7); Eosinophils Percent Auto 0.5 % (0.9-7.0); Hematocrit 29.4 % (36.0-48.0); Hemoglobin 9.1 g/dL (12.0-16.0); Immature Granulocytes Abs Auto 0.14 10^3/uL (0.00-0.03); Immature Granulocytes Pct Auto 0.8 % (0.0-0.5); Lymphocytes Absolute Auto 3.3 10^3/uL (1.2-3.8); Lymphocytes Percent Auto 19.9 % (20.5-60.0); Mean Corpuscular Hemoglobin 25.1 pg (26.7-34.0); Mean Platelet Volume 9.9 fL (9.5-13.5); Monocytes Absolute Auto 1.2 10^3/uL (0.3-0.8); Neutrophils Percent Auto 71.5 % (43.0-75.0); Platelet Count 309 10^3/uL (150-450); Red Blood Count 3.63 10^6/uL (4.20-5.40); Red Cell Distribution Width 14.1 % (11.0-15.0); White Blood Count 16.8 10^3/uL (4.0-11.0)
--- NOTE | 2024-09-12 07:22 | P.OBPN_ITS ---
OB - PN: Subj Subjective Patient comments: no complaints and pain well controlled [place] status: doing well Exam Constitutional Vital Signs, click to edit/add: Last Vital Signs Temp 97.5 F L 09/12/24 00:50 Pulse 63 09/12/24 00:50 Resp 16 09/12/24 00:50 BP 113/69 09/12/24 00:50 O2 Del Method Room Air 09/12/24 00:50 Documenting provider has reviewed patient's vital signs: yes Common normals: no apparent distress Respiratory Common normals: normal respiratory effort and clear to auscultation bilaterally Cardio Common normals: regular rate and regular rhythm GI Common normals: Normal to inspection, nondistended, normoactive bowel sounds present Extremity Common normals: no clubbing, cyanosis or edema Results Labs Labs: Short CBC 09/12/24 Range/Units 06:19 WBC 16.8 H (4.0-11.0) 10^3/uL Hgb 9.1 L (12.0-16.0) g/dL Hct 29.4 L (36.0-48.0) % Plt Count 309 (150-450) 10^3/uL OB - PN: A/P Plan - Vaginal Delivery day: 1 Plan: routine care and discharge home Time Spent with Patient Time: Total time spent is greater than 50% in coordination of care (as documented) at patient's floor/unit and/or counseling patient: Total time spent with greater than 50% in coordination of care (as documented) at patient's floor/unit and/or counseling patient: less than 15 minutes
[2024-09-12 08:06] VITALS: BP 118/77; PULSE 79; TEMP 36.7
[2024-09-12] MEDS: DOCUSATE SODIUM 100 MG CAPSULE PO ×2 (10:07→23:41)
[2024-09-12] MEDS: IBUPROFEN 600 MG TABLET PO ×2 (10:09→19:31)
[2024-09-12] MEDS: BENZOCAINE/MENTHOL 85 GRAM SPRAY BOTTLE 1 APPLIC TOPICAL (13:32)
[2024-09-12 16:10] VITALS: BP 113/68; PULSE 75; TEMP 36.5
[2024-09-12 23:42] VITALS: BP 129/71; PULSE 92; TEMP 36.9
[2024-09-13 08:25] VITALS: TEMP 36.8
[2024-09-13 08:27] VITALS: BP 124/79; PULSE 73
[2024-09-13] MEDS: IBUPROFEN 600 MG TABLET PO (08:28)
[2024-09-13] MEDS: DOCUSATE SODIUM 100 MG CAPSULE PO (08:28)
--- NOTE | 2024-09-13 10:38 | P.OBPN_ITS ---
OB - PN: Subj Subjective Patient comments: no complaints and pain well controlled [place] status: doing well Exam Constitutional Vital Signs, click to edit/add: Last Vital Signs Temp 98.3 F 09/13/24 08:25 Pulse 73 09/13/24 08:27 Resp 16 09/13/24 08:25 BP 124/79 09/13/24 08:27 O2 Del Method Room Air 09/13/24 08:25 Documenting provider has reviewed patient's vital signs: yes Common normals: no apparent distress Respiratory Common normals: clear to auscultation bilaterally Cardio Common normals: regular rate and regular rhythm GI Common normals: Normal to inspection, nondistended, normoactive bowel sounds present Extremity Common normals: no calf tenderness OB - PN: A/P Plan - Vaginal Delivery day: 2 Plan: routine care, discharge home and follow up 6 weeks Time Spent with Patient Time: Total time spent is greater than 50% in coordination of care (as documented) at patient's floor/unit and/or counseling patient: Total time spent with greater than 50% in coordination of care (as documented) at patient's floor/unit and/or counseling patient: less than 15 minutes
== END 2024-09-13 14:30 | disposition home or self-care (01) | DRG 560 ==
PROVIDERS: Admitting Provider Obstetrics & Gynecology; Visit Provider Obstetrics & Gynecology
DX: O99.824 Streptococcus B carrier state complicating childbirth (principal); O70.0 First degree perineal laceration during delivery; Z3A.39 39 weeks gestation of pregnancy; Z37.0 Single live birth; Z23 Encounter for immunization
CPT/HCPCS: 36415; 59050; 59410; 80307; 85025; 85027; 86850; 86900; 86901; J0665; J0690; J2795; J3010

== ENCOUNTER 2025-03-08 17:08 | Emergency (ER) | payer OTHER, SELFPAY ==
[2025-03-08 17:20] VITALS: BP 117/77; PULSE 83; TEMP 36.8; O2SAT 100; BMI 31.8
--- OUTSIDE RECORDS SUMMARY | 2025-03-08 17:21 | XMS_ITS | Encounter Summary ---
Author Organization [facility] Address [address] [place] [address] [place] [address] Care Team Providers Care Disability Advocate Name Role Phone Kadi Mercado Unavailable Chau Prajapati DO Unavailable Encounter Details Date Type Department Care Team (Late st Contact Info) Description 03/30/2023 Abstract [facility] [address] [place] [phone] Kadi Mercado PA [address] [place], [place] [address] Social History Tobacco Use Types Packs/Day Years Used Date Smoking Tobacco: Never Tobacco Cessation:Counseling Given: Not Answered Alcohol Use Standard Drinks/Week Comments Never 0 (1 standard drink = 0.6 oz pure alcohol) Caffeine intake: 1-2 cups per day Comments Yes Sex and Gender Information Value Date Recorded Sex Assigned at Not on file Legal Sex Female 11:37 PM EDT Gender Identity Not on file Sexual Orientation Not on file documented as of this encounter Plan of Treatment Not on file documented as of this encounter Visit Diagnoses Not on filedocumented in this encounter Care Teams Disability Advocate Relationship Specialty Start Date End Date Kadi Mercado PA [address] [place], [facility] PCP - [facility] 12/20/23 Chau Prajapati DO [address] [place], [place] [address]Kilo [place], [facility] PCP - [facility] 06/21/24 documented as of this encounter
--- OUTSIDE RECORDS SUMMARY | 2025-03-08 17:21 | XMS_ITS | Encounter Summary ---
Author Organization [facility] Address [address] [place] [address] Care Team Providers Care Maker Up Folding Name Role Phone Chau Prajapati DO Unavailable Encounter Details Date Type Department Care Team (Late st Contact Info) Description 07/28/2024 [facility] [address] [place] [phone] Chau Prajapati DO [address] [place], [facility] Social History Tobacco Use Types Packs/Day Years Used Date Smoking Tobacco: Never Alcohol Use Standard Drinks/Week Comments Never 0 [...] on filedocumented in this encounter Care Teams Maker Up Folding Relationship Specialty Start Date End Date Chau Prajapati DO [address] [place], [facility]11 PCP - [facility] 06/21/24 documented as of this encounter
--- OUTSIDE RECORDS SUMMARY | 2025-03-08 17:21 | XMS_ITS | Encounter Summary ---
Author Organization [facility] Address [address] [place] [address] [place] [address] Care Team Providers Care Drywall Foreman Name Role Phone Kadi Mercado Unavailable Chau Prajapati DO Unavailable Encounter Details Date Type Department Care Team (Late st Contact Info) Description 08/12/2023 Abstract [facility] Jeancarlos COLEMAN [address] [place] [address] Chau Prajapati DO [address], [place] [address] Social History Tobacco Use Types Packs/Day Years [...] on filedocumented in this encounter Care Teams Drywall Foreman Relationship Specialty Start Date End Date Kadi Mercado PA [address] [place] [address] PCP - [facility] 12/20/23 Chau Prajapati DO [address] [place] [id number] PCP - [facility] 06/21/24 documented as of this encounter
--- OUTSIDE RECORDS SUMMARY | 2025-03-08 17:21 | XMS_ITS | Encounter Summary ---
Author Organization [facility] Address [address] [place] [address] Care Team Providers Care Fabrication Inspector Name Role Phone Kadi Mercado Unavailable Raúl Prajapati DO Unavailable Encounter Details Date Type Department Care Team (Late st Contact Info) Description 05/20/2023 Clinisync Result Encounter [facility] External Department Unsolicited Raúl Prajapati DO [address] [facility] [place] [address] Social History Tobacco Use Types Packs/Day Years [...] on file documented as of this encounter Procedures Procedure Name Priority Date/Time Associated Diagnosis Comments US OB FOLLOW UP 05/20/2023 3:15 PM EST documented in this encounter Results * US OB FOLLOW UP (05/20/2023 3:15 PM EST) Anatomical Region Laterality Modality Radiographic Jaylyn ging 05/20/2023 3:15 PM EST Narrative 05/20/2023 3:15 PM EST [facility] [address] [place] [address] Ultrasound Report Signed Patient: SAMANTHA BATISTA MR#: [id number] : 2005 Acct:[id number] Age/Sex: 17 / F ADM Date: 05/20/23 Loc: US Attending Dr: Raúl Prajapati D.O. Ordering Physician: Raúl Prajapati D.O. Date of Service: 05/20/23 Procedure(s): US OB follow up Accession Number(s): [id number] cc: Raúl Prajapati D.O.; Physician,Non-Staff M.Jocelyne The [place] [address] Patient Name: SAMANTHA BATISTA MRN: [id number] date: 2005 Sex: F Assigned Patient Location: US Current Patient Location: US Accession/Order Number: [id number] Exam Date: 05/20/2023 09:25 Report Date: 05/20/2023 15:15 At the request of: RAÚL PRAJAPATI Procedure: US OB follow up EXAMINATION: US OB follow up HISTORY: ECHOGENIC FOCI in left cardiac ventricle; follow-up COMPARISON: Ultrasound OB anatomy 04/21/2023 FINDINGS: Presentation: Cephalic Heart rate: 134 bpm Anatomy: Echogenic focus within left ventricle of heart is again noted. GA: 24 weeks 1 day KARON: 09/08/2023 US/US OB follow up IMPRESSION: 1. Single live intrauterine . 2. Persistent echogenic focus within left cardiac ventricle; nonspecific but can be associated with the trisomy syndromes. Electronically authenticated by: HENRY CONNOR Date: 05/20/2023 15:15 Dictated By: Henry Connor M.D. Signed By: 05/20/23 1517 DD/ 1515 TD/TT: Hoop Punch And Coiler Operator Helper: Procedure Note Radiology, Radiologist, MD - 05/20/2023 [place] [address] Ultrasound Report Signed Patient: SAMANTHA BATISTA RMR#: [id number] : 2005Acct:[id number] Age/Sex: 17 / FADM Date: 05/20/23 Loc: US Attending Dr: Raúl Prajapati D.O. Ordering Physician: Raúl Prajapati D.O. Date of Service: 05/20/23 Procedure(s): US OB follow up Accession Number(s): [id number] cc: Raúl Prajapati D.O.; Physician,Non-Staff Roni The [address] [address] Patient Name: SAMANTHA BATISTA MRN: [id number] date: 2005 Sex: F Assigned Patient Location: US Current Patient Location: US Accession/Order Number: [id number] Exam Date: 05/20/2023 09:25 Report Date: 05/20/2023 15:15 At the request of: RAÚL PRAJAPATI Procedure: US OB follow up EXAMINATION: US OB follow up HISTORY: ECHOGENIC FOCI in left cardiac ventricle; follow-up COMPARISON: Ultrasound OB anatomy 04/21/2023 FINDINGS: Presentation: Cephalic Heart rate: 134 bpm Anatomy: Echogenic focus within left ventricle of heart is again noted. GA: 24 weeks 1 day KARON: 09/08/2023 US/US OB follow up IMPRESSION: 1. Single live intrauterine . 2. Persistent echogenic focus within left cardiac ventricle; nonspecificbut can be associated with the trisomy syndromes. Electronically authenticated by: HENRY CONNOR Date: 05/20/2023 15:15 Dictated By: Henry Connor M.D. Signed By:05/20/23 1517 DD/ 1515 TD/TT: Hoop Punch And Coiler Operator Helper: Raúl Prajapati DO IMG XR PROCEDURES Final Result documented in this encounter Visit Diagnoses Not on filedocumented in this encounter Care Teams Fabrication Inspector Relationship Specialty Start Date End Date Kadi Mercado PA [address] [place] [address] PCP - [facility] 12/20/23 Raúl Prajapati DO [address] [place] [address] [facility] - [facility] 06/21/24 documented as of this encounter
--- OUTSIDE RECORDS SUMMARY | 2025-03-08 17:21 | XMS_ITS | Encounter Summary ---
Author Organization [facility] Address [address] [place] [address] Care Team Providers Care Lacquer Shader Name Role Phone Chau Prajapati DO Unavailable Encounter Details Date Type Department Care Team (Late st Contact Info) Description 04/10/2024 [facility] [address] [place] [phone] Chau Prajapati DO [address] [place], [facility]11 Social History Tobacco Use Types Packs/Day Years [...] on filedocumented in this encounter Care Teams Lacquer Shader Relationship Specialty Start Date End Date Chau Prajapati DO [address] [place], [facility]11 PCP - [facility] 06/21/24 documented as of this encounter
--- OUTSIDE RECORDS SUMMARY | 2025-03-08 17:21 | XMS_ITS | Encounter Summary ---
Author Organization [facility] Address [address] [place] [address] Care Team Providers Care Lusterer Name Role Phone Kadi Mercado Unavailable Raúl Prajapati DO Unavailable Encounter Details Date Type Department Care Team (Late st Contact Info) Description 02/10/2024 Clinisync Result Encounter [facility] External Department Unsolicited Raúl Prajapati DO [address] [facility] [place] [address] Social History Tobacco Use Types [...] Priority Date/Time Associated Diagnosis Comments US OB TRANSVAGINAL 02/10/2024 1: 37 PM EDT documented in this encounter Results * US OB TRANSVAGINAL (02/10/2024 1:37 PM EDT) Anatomical Region Laterality Modality Other 02/10/2024 1:37 PM EDT Narrative 02/10/2024 1:40 PM EDT The [address] [address] Ultrasound Report Signed Patient: SAMANTHA BATISTA MR#: [id number] : 2005 Acct:[id number] Age/Sex: 18 / F ADM Date: 02/10/24 Loc: [facility] Attending Dr: Raúl Prajapati D.O. Ordering Physician: Raúl Prajapati D.O. Date of Service: 02/10/24 Procedure(s): US OB transvaginal Accession Number(s): [id number] cc: Raúl Prajapati D.O.; Physician,Non-Staff Roni The [place] [address] Patient Name: SAMANTHA BATISTA MRN: [id number] date: 2005 Sex: F Assigned Patient Location: [facility] Current Patient Location: [facility] Accession/Order Number: [id number] Exam Date: 02/10/2024 12:26 Report Date: 02/10/2024 13:37 At the request of: RAÚL PRAJAPATI Procedure: US OB transvaginal EXAMINATION: US OB transvaginal HISTORY: MISSED MENSES COMPARISON: No relevant comparison available. FINDINGS: GESTATIONAL SAC: Present and normal appearing. YOLK SAC: Present and normal appearing. POLE: Present and normal appearing. CARDIAC: Present. UTERUS: Normal size and appearance. OVARIES: Right: Normal. Left: Normal. CERVIX: 4.0 cm in length and closed. CUL-DE-SAC: Normal. OTHER: None. AGE BY LMP: 8 weeks 3 days KARON BY LMP: 09/18/2024 AGE BY US CRL: 8 weeks 1 day KARON BY US CRL: 09/20/2024 US/US OB transvaginal IMPRESSION: 1. Single live intrauterine . Electronically authenticated by: HENRY CONNOR Date: 02/10/2024 13:37 Dictated By: Henry Connor M.D. Signed By: 02/10/24 1340 DD/ 1337 TD/TT: Scraper Meat: Procedure Note Radiology, Radiologist, MD - 02/10/2024 [place] [address] Ultrasound Report Signed Patient: SAMANTHA BATISTA RMR#: [id number] : 2005Acct:[id number] Age/Sex: 18 / FADM Date: 02/10/24 Loc: [facility] Attending Dr: Raúl Prajapati D.O. Ordering Physician: Raúl Prajapati D.O. Date of Service: 02/10/24 Procedure(s): US OB transvaginal Accession Number(s): [id number] cc: Raúl Prajapati D.O.; Physician,Non-Staff Roni [place] [id number] Patient Name: SAMANTHA BATISTA MRN: [id number] date: 2005 Sex: F Assigned Patient Location: [facility] Current Patient Location: [facility] Accession/Order Number: [id number] Exam Date: 02/10/2024 12:26 Report Date: 02/10/2024 13:37 At the request of: RAÚL PRAJAPATI Procedure: US OB transvaginal EXAMINATION: US OB transvaginal HISTORY: MISSED MENSES COMPARISON: No relevant comparison available. FINDINGS: GESTATIONAL SAC: Present and normal appearing. YOLK SAC: Present and normal appearing. POLE: Present and normal appearing. CARDIAC: Present. UTERUS: Normal size and appearance. OVARIES: Right: Normal. Left: Normal. CERVIX: 4.0 cm in length and closed. CUL-DE-SAC: Normal. OTHER: None. AGE BY LMP: 8 weeks 3 days KARON BY LMP: 09/18/2024 AGE BY US CRL: 8 weeks 1 day KARON BY US CRL: 09/20/2024 US/US OB transvaginal IMPRESSION: 1. Single live intrauterine . Electronically authenticated by: HENRY CONNOR Date: 02/10/2024 13:37 Dictated By: Henry Connor M.D. Signed By:02/10/24 1340 DD/ 1337 TD/TT: Scraper Meat: us Raúl Prajapati DO [facility] Final Result documented in this encounter Visit Diagnoses Not on filedocumented in this encounter Care Teams Lusterer Relationship Specialty Start Date End Date Kadi Mercado PA [address] [place] [address] PCP - [facility] 12/20/23 Raúl Prajapati DO [address] [place] [address] PCP - [facility] 06/21/24 documented as of this encounter
--- OUTSIDE RECORDS SUMMARY | 2025-03-08 17:21 | XMS_ITS | Encounter Summary ---
Author Organization [facility] Address [address] [place] [address] [place] [address] Care Team Providers Care Financial Planning Assistant Name Role Phone Kadi Mercado Unavailable Chau Prajapati DO Unavailable Encounter Details Date Type Department Care Team (Late st Contact Info) Description 02/10/2024 Abstract [facility]arl[facility] COLEMAN [address] [place] [address] Chau Prajapati DO [address] [place], [place] [address] Social History Tobacco Use Types Packs/Day Years [...] on filedocumented in this encounter Care Teams Financial Planning Assistant Relationship Specialty Start Date End Date Kadi Mercado PA [address] [place] [address] PCP - [facility] 12/20/23 Chau Prajapati DO [address] [place] [id number] PCP - [facility] 06/21/24 documented as of this encounter
--- OUTSIDE RECORDS SUMMARY | 2025-03-08 17:21 | XMS_ITS | Encounter Summary ---
Author Organization [facility] Address [address] [place] [address] Care Team Providers Care Electrical Development Engineer Name Role Phone Kadi Mercado Unavailable Chau Prajapati DO Unavailable Encounter Details Date Type Department Care Team (Late st Contact Info) Description 03/31/2023 Abstract [facility] Jeancarlos COLEMAN [address] [place] [phone] Chau Prajapati DO [address] [place], [place] [address] Social History Tobacco Use Types Packs/Day Years [...] on filedocumented in this encounter Care Teams Electrical Development Engineer Relationship Specialty Start Date End Date Kadi Mercado PA [address] [place] [address] PCP - [facility] 12/20/23 Chau Prajapati DO [address] [place] [id number] PCP - [facility] 06/21/24 documented as of this encounter
--- OUTSIDE RECORDS SUMMARY | 2025-03-08 17:21 | XMS_ITS | Encounter Summary ---
Author Organization [facility] Address [address] [place] [address] [place] [address] Care Team Providers Care Consulting Business Developer Name Role Phone Kadi Mercado Unavailable Chau Prajapati DO Unavailable Encounter Details Date Type Department Care Team (Late st Contact Info) Description 02/10/2024 Abstract [facility] Jeancarlos COLEMAN [address] [place] [address] Chau Prajapati DO [address], [place] [address] Social History Tobacco Use Types Packs/Day Years [...] on filedocumented in this encounter Care Teams Consulting Business Developer Relationship Specialty Start Date End Date Kadi Mercado PA [address] [place] [address] PCP - [facility] 12/20/23 Chau Prajapati DO [address] [place] [id number] PCP - [facility] 06/21/24 documented as of this encounter
--- OUTSIDE RECORDS SUMMARY | 2025-03-08 17:21 | XMS_ITS | Encounter Summary ---
Author Organization [facility] Address [address] [place] [address] [place] [address] Care Team Providers Care Report Analyst Name Role Phone Kadi Mercado Unavailable Chau Prajapati DO Unavailable Encounter Details Date Type Department Care Team (Late st Contact Info) Description 02/10/2024 Abstract [facility] Jeancarlos COLEMAN [address] [place] [address] Chau Prajapati DO [address], [place] [address] Social History Tobacco Use Types Packs/Day Years [...] on filedocumented in this encounter Care Teams Report Analyst Relationship Specialty Start Date End Date Kadi Mercado PA [address] [place] [address] PCP - [facility] 12/20/23 Chau Prajapati DO [address] [place] [id number] PCP - [facility] 06/21/24 documented as of this encounter
--- OUTSIDE RECORDS SUMMARY | 2025-03-08 17:21 | XMS_ITS | Encounter Summary ---
Author Organization [facility] Address [address] [place] [address] Care Team Providers Care Drywall Stripper Helper Name Role Phone Kadi Mercado Unavailable Raúl Prajapati DO Unavailable Encounter Details Date Type Department Care Team (Late st Contact Info) Description 03/03/2023 Clinisync Result Encounter [facility] External Department Unsolicited Raúl Prajapati DO [address] [facility] [place] [address] Social History Tobacco Use Types Packs/Day Years Used Date Smoking Tobacco: Never Assessed Comments Yes Sex and Gender Information Value Date Recorded Sex Assigned at Not on file Legal Sex Female 11:37 PM EDT Gender Identity Not on file Sexual Orientation Not on file documented as of this encounter Plan of Treatment Not on file documented as of this encounter Procedures Procedure Name Priority Date/Time Associated Diagnosis Comments US OB L= 14 WEEKS FETUS 03/03/2023 7:17 AM EDT documented in this encounter Results * US OB L= 14 WEEKS FETUS (03/03/2023 7:17 AM EDT) Anatomical Region Laterality Modality Other 03/03/2023 7:17 AM EDT Narrative 03/03/2023 7:17 AM EDT The [facility] [address] [place] [address] Ultrasound Report Signed Patient: SAMANTHA BATISTA MR#: [id number] : 2005 Acct:[id number] Age/Sex: 17 / F ADM Date: 03/02/23 Loc: US Attending Dr: Raúl Prajapati D.O. Ordering Physician: Raúl Prajapati D.O. Date of Service: 03/02/23 Procedure(s): US OB <= 14 weeks fetus Accession Number(s): [id number] cc: Raúl Prajapati D.O.; Physician,Non-Staff Roni The [place] [id number] Patient Name: SAMANTHA BATISTA MRN: [facility]:[id number] date: 2005 Sex: F Assigned Patient Location: US Current Patient Location: Accession/Order Number: [id number] Exam Date: 03/02/2023 08:06 Report Date: 03/03/2023 07:17 At the request of: RAÚL PRAJAPATI Procedure: US OB <= 14 weeks fetus EXAMINATION: US OB <= 14 weeks fetus, US OB cervical length HISTORY: MISSED MENSES VIABILITY COMPARISON: No relevant comparison available. FINDINGS: Renae intrauterine gestation Gestational sac: 5.9 cm, 12 weeks 0 days CRL: 6.5 cm, 12 weeks 6 days Heart rate: 140 beats minute The uterus is normal, anteverted Cervix: Closed, 4.2 cm The right ovary is normal measuring 2.7 x 0.9 x 2.2 cm. The left ovary is normal measuring 2.8 x 1.8 x 3.3 cm. Clinical age: 11 weeks 1 day Clinical KARON: 09/20/2023 Ultrasound age: 12 weeks 6 days Ultrasound KARON: 09/08/2023 US/US OB <= 14 weeks fetus IMPRESSION: Viable renae intrauterine gestation measuring 12 weeks 6 days Electronically authenticated by: KELLY WALLACE Date: 03/03/2023 07:17 Dictated By: Kelly Wallace M.D. Signed By: 03/03/23719 DD/ 6 TD/TT: Branch Rental Manager: Procedure Note Radiology, Radiologist, - 03/12/[address] [address] Ultrasound Report Signed Patient: SAMANTHA BATISTA RMR#: [id number] : 2005Acct:[id number] Age/Sex: 17 / FADM Date: 03/02/23 Loc: US Attending Dr: Raúl Prajapati D.O. Ordering Physician: Raúl Prajapati D.O. Date of Service: 03/02/23 Procedure(s): US OB <= 14 weeks fetus Accession Number(s): [id number] cc: Raúl Prajapati D.O.; Physician,Non-Staff Roni [place] [address] Patient Name: SAMANTHA BATISTA MRN: [facility]:[id number] date: 2005 Sex: F Assigned Patient Location: US Current Patient Location: Accession/Order Number: [id number] Exam Date: 03/02/2023 08:06 Report Date: 03/03/2023 07:17 At the request of: RAÚL PRAJAPATI Procedure: US OB <= 14 weeks fetus EXAMINATION: US OB <= 14 weeks fetus, US OB cervical length HISTORY: MISSED MENSES VIABILITY COMPARISON: No relevant comparison available. FINDINGS: Renae intrauterine gestation Gestational sac: 5.9 cm, 12 weeks 0 days CRL: 6.5 cm, 12 weeks 6 days Heart rate: 140 beats minute The uterus is normal, anteverted Cervix: Closed, 4.2 cm The right ovary is normal measuring 2.7 x 0.9 x 2.2 cm. The left ovary is normal measuring 2.8 x 1.8 x 3.3 cm. Clinical age: 11 weeks 1 day Clinical KARON: 09/20/2023 Ultrasound age: 12 weeks 6 days Ultrasound KARON: 09/08/2023 US/US OB <= 14 weeks fetus IMPRESSION: Viable renae intrauterine gestation measuring 12 weeks 6 days Electronically authenticated by: KELLY WALLACE Date: 03/03/2023 07:17 Dictated By: Kelly Wallace M.D. Signed By:03/03/23719 DD/ 6 TD/TT: Branch Rental Manager: us Raúl Prajapati DO [facility] Final Result documented in this encounter Visit Diagnoses Not on filedocumented in this encounter Care Teams Drywall Stripper Helper Relationship Specialty Start Date End Date Kadi Mercado PA [address] [place] [address] PCP - [facility] 12/20/23 Raúl Prajapati DO [address] [place] [address] PCP - [facility] 06/21/24 documented as of this encounter
--- OUTSIDE RECORDS SUMMARY | 2025-03-08 17:21 | XMS_ITS | Encounter Summary ---
Author Organization [facility] Address [address] [place] [address] Care Team Providers Care Family Intervention Specialist Name Role Phone Kadi Mercado Unavailable Raúl Prajapati DO Unavailable Encounter Details Date Type Department Care Team (Late st Contact Info) Description 04/21/2023 Clinisync Result Encounter [facility] External Department Unsolicited Raúl Prajapati DO [address] [facility] [place] [address] Social History Tobacco Use Types [...] Priority Date/Time Associated Diagnosis Comments US OB ANATOMY 04/21/2023 4:50 PM EDT documented in this encounter Results * US OB ANATOMY (04/21/2023 4:50 PM EDT) Anatomical Region Laterality Modality Other 04/21/2023 4:50 PM EDT Narrative 04/21/2023 4:50 PM EDT The [facility] [address] [place] [address] Ultrasound Report Signed Patient: SAMANTHA BATISTA MR#: [id number] : 2005 Acct:[id number] Age/Sex: 17 / F ADM Date: 04/21/23 Loc: US Attending Dr: Raúl Prajapati D.O. Ordering Physician: Raúl Prajapati D.O. Date of Service: 04/21/23 Procedure(s): US OB anatomy Accession Number(s): [id number] cc: Raúl Prajapati D.O.; Physician,Non-Staff M.DLance [place] [address] Patient Name: SAMANTHA BATISTA MRN: [facility]:[id number] date: 2005 Sex: F Assigned Patient Location: US Current Patient Location: US Accession/Order Number: [id number] Exam Date: 04/21/2023 11:34 Report Date: 04/21/2023 16:50 At the request of: RAÚL PRAJAPATI Procedure: US OB anatomy EXAMINATION: US OB anatomy, US OB cervical length HISTORY: ANATOMY COMPARISON: No relevant comparison available. TECHNIQUE: Transabdominal sonographic examination was performed for obstetrical and evaluation. FINDINGS: Number: 1 Heart Rate: 141.0 bpm H.B. /min Amniotic Fluid Volume: Subjectively normal position: Cephalic presentation, longitudinal lie Placental Location: POSTERIOR , grade 0. Placental edge 6.0 cm from the internal os Cervix Length: 4.6 cm, closed Normal anatomy: Lateral ventricles, cerebellum, posterior fossa, nose, lips, orbits, four-chamber heart, RVOT, LVOT, diaphragm, stomach, kidneys, abdominal cord insertion, bladder, umbilical arteries, three-vessel cord, spine, extremities Abnormality: Echogenic cardiac focus BIOMETRY: BPD: 4.7 cm 20 weeks 2 days , 64% HC: 17.5 cm 20 weeks 0 days, 41% AC: 14.5 cm 19 weeks 6 days, 38% FL: 3.3 cm 20 weeks 2 days , 54% EFW:329.5 grams; 12 ounces, 49% FL/AC: 22.7 FL/BPD: 69.6 HC/AC: 1.2 GESTATIONAL AGE: Age by EDC: 20 weeks 0 days Age by current US: 20 weeks 1 days KARON by current US: 09/07/2023 KARON by EDC: 09/08/2023 US/US OB anatomy IMPRESSION: Single echogenic cardiac focus, nonspecific Otherwise normal anatomy scan *Reference: [facility] Practice Guideline for the performance of Obstetric Ultrasound Examinations, March 21, 2007. Electronically authenticated by: KELLY WALLACE Date: 04/21/2023 16:50 Dictated By: Kelly Wallace M.D. Signed By: 04/21/231652 DD/ 49 TD/TT: Bleach Analyst: Procedure Note Radiology, Radiologist, MD - 04/21/2023 [place] [address] Ultrasound Report Signed Patient: SAMANTHA BATISTA RMR#: [id number] : 2005Acct:[id number] Age/Sex: 17 / FADM Date: 04/21/23 Loc: US Attending Dr: Raúl Prajapati D.O. Ordering Physician: Raúl Prajapati D.O. Date of Service: 04/21/23 Procedure(s): US OB anatomy Accession Number(s): [id number] cc: Raúl Prajapati D.O.; Physician,Non-Staff Roni The [place] [id number] Patient Name: SAMANTHA BATISTA MRN: [id number] date: 2005 Sex: F Assigned Patient Location: US Current Patient Location: US Accession/Order Number: [id number] Exam Date: 04/21/2023 11:34 Report Date: 04/21/2023 16:50 At the request of: RAÚL PRAJAPATI Procedure: US OB anatomy EXAMINATION: US OB anatomy, US OB cervical length HISTORY: ANATOMY COMPARISON: No relevant comparison available. TECHNIQUE: Transabdominal sonographic examination was performed for obstetrical and evaluation. FINDINGS: Number: 1 Heart Rate: 141.0 bpm H.B. /min Amniotic Fluid Volume: Subjectively normal position: Cephalic presentation, longitudinal lie Placental Location: POSTERIOR , grade 0. Placental edge 6.0 cm from the internal os Cervix Length: 4.6 cm, closed Normal anatomy: Lateral ventricles, cerebellum, posterior fossa, nose,lips, orbits, four-chamber heart, RVOT, LVOT, diaphragm, stomach, kidneys,abdominal cord insertion, bladder, umbilical arteries, three-vessel cord, spine, extremities Abnormality: Echogenic cardiac focus BIOMETRY: BPD: 4.7 cm 20 weeks 2 days , 64% HC: 17.5 cm 20 weeks 0 days, 41% AC: 14.5 cm 19 weeks 6 days, 38% FL: 3.3 cm 20 weeks 2 days , 54% EFW:329.5 grams; 12 ounces, 49% FL/AC: 22.7 FL/BPD: 69.6 HC/AC: 1.2 GESTATIONAL AGE: Age by EDC: 20 weeks 0 days Age by current US: 20 weeks 1 days KARON by current US: 09/07/2023 KARON by EDC: 09/08/2023 US/US OB anatomy IMPRESSION: Single echogenic cardiac focus, nonspecific Otherwise normal anatomy scan *Reference: [facility] Practice Guideline for the performance of Obstetric Ultrasound Examinations, March 21, 2007. Electronically authenticated by: KELLY WALLACE Date: 04/21/2023 16:50 Dictated By: Kelly Wallace M.D. Signed By:04/21/231652 DD/ 49 TD/TT: Bleach Analyst: us Raúl Prajapati DO [facility] Final Result documented in this encounter Visit Diagnoses Not on filedocumented in this encounter Care Teams Family Intervention Specialist Relationship Specialty Start Date End Date Kadi Mercado PA [address] [place] [address] [place] [address] PCP - [facility] MATERIALS SUPERVISOR 12/20/23 Raúl Prajapati DO [address] [place], [place] [address] [address] PCP - [facility] MATERIALS SUPERVISOR 06/21/24 documented as of this encounter
--- OUTSIDE RECORDS SUMMARY | 2025-03-08 17:21 | XMS_ITS | Encounter Summary ---
Author Organization [facility] Address [address] [place] [address] Care Team Providers Care Citrix Lead Name Role Phone Kadi Mercado Unavailable Raúl Prajapati DO Unavailable Encounter Details Date Type Department Care Team (Late st Contact Info) Description 06/17/2023 Clinisync Result Encounter [facility] External Department Unsolicited Raúl Prajapati DO [address] [facility] [place] [address] Social History Tobacco Use Types [...] Associated Diagnosis Comments US OB FOLLOW UP 06/17/2023 3:43 PM EST documented in this encounter Results * US OB FOLLOW UP (06/17/2023 3:43 PM EST) Anatomical Region Laterality Modality Radiographic Jaylyn ging 06/17/2023 3:43 PM EST Narrative 06/17/2023 3:45 PM EST The [facility] [address] [place] [address] Ultrasound Report Signed Patient: SAMANTHA BATISTA MR#: [id number] : 2005 Acct:[id number] Age/Sex: 17 / F ADM Date: 06/17/23 Loc: US Attending Dr: Raúl Prajapati D.O. Ordering Physician: Raúl Prajapati D.O. Date of Service: 06/17/23 Procedure(s): US OB follow up Accession Number(s): [id number] cc: Raúl Prajapati D.O.; Physician,Non-Staff M.Jocelyne The [place] [address] Patient Name: SAMANTHA BATISTA MRN: [id number] date: 2005 Sex: F Assigned Patient Location: US Current Patient Location: US Accession/Order Number: [id number] Exam Date: 06/17/2023 11:08 Report Date: 06/17/2023 15:43 At the request of: RAÚL PRAJAPATI Procedure: US OB follow up EXAMINATION: US OB follow up HISTORY: Echogenic focus of heart of fetus O35.BXX0 COMPARISON: Ultrasound OB follow-up 05/20/2023, ultrasound OB anatomy 04/21/2023 FINDINGS: Presentation: Cephalic Heart rate: 148 bpm Anatomy: 3 mm echogenic focus within left cardiac ventricle. GA: 28 weeks 1 day KARON: 09/08/2023 US/US OB follow up IMPRESSION: 1. Single live intrauterine . 2. Persistent echogenic focus within left cardiac ventricle. Electronically authenticated by: HENRY CONNOR Date: 06/17/2023 15:43 Dictated By: Henry Connor M.D. Signed By: 06/17/23 1545 DD/ 154 TD/TT: Software Quality Analyst: Procedure Note Radiology, Radiologist, MD - 08/25/2023 [place] [address] Ultrasound Report Signed Patient: SAMANTHA BATISTA RMR#: [id number] : 2005Acct:[id number] Age/Sex: 17 / FADM Date: 06/17/23 Loc: US Attending Dr: Raúl Prajapati D.O. Ordering Physician: Raúl Prajapati D.O. Date of Service: 06/17/23 Procedure(s): US OB follow up Accession Number(s): [id number] cc: Raúl Prajapati D.O.; Physician,Non-Staff Roni The [address] [address] Patient Name: SAMANTHA BATISTA MRN: [facility]:[id number] date: 2005 Sex: F Assigned Patient Location: US Current Patient Location: US Accession/Order Number: [id number] Exam Date: 06/17/2023 11:08 Report Date: 06/17/2023 15:43 At the request of: RAÚL PRAJAPATI Procedure: US OB follow up EXAMINATION: US OB follow up HISTORY: Echogenic focus of heart of fetus O35.BXX0 COMPARISON: Ultrasound OB follow-up 05/20/2023, ultrasound OB anatomy 04/21/2023 FINDINGS: Presentation: Cephalic Heart rate: 148 bpm Anatomy: 3 mm echogenic focus within left cardiac ventricle. GA: 28 weeks 1 day KARON: 09/08/2023 US/US OB follow up IMPRESSION: 1. Single live intrauterine . 2. Persistent echogenic focus within left cardiac ventricle. Electronically authenticated by: HENRY CONNOR Date: 06/17/2023 15:43 Dictated By: Henry Connor M.D. Signed By:06/17/23 1545 DD/ 42 TD/TT: Software Quality Analyst: Raúl Prajapati DO IMG XR PROCEDURES Final Result documented in this encounter Visit Diagnoses Not on filedocumented in this encounter Care Teams Citrix Lead Relationship Specialty Start Date End Date Kadi Mercado PA [address] [place] [address] PCP - [facility] 12/20/23 Raúl Prajapati DO [address] [place] [address] [facility] - [facility] 06/21/24 documented as of this encounter
--- OUTSIDE RECORDS SUMMARY | 2025-03-08 17:21 | XMS_ITS | Encounter Summary ---
Author Organization [facility] Address [address] [place] [address] Care Team Providers Care Associate Account Director Name Role Phone Kadi Mercado Unavailable Chau Prajapati DO Unavailable Encounter Details Date Type Department Care Team (Late st Contact Info) Description 07/21/2023 Abstract [facility] Jeancarlos COLEMAN [address] [place] [address] Chau Prajapati DO [address] [place] [place], [place] [address] Social History Tobacco Use Types Packs/Day Years [...] on filedocumented in this encounter Care Teams Associate Account Director Relationship Specialty Start Date End Date Kadi Mercado PA [address] [place] [address] PCP - [facility] 12/20/23 Chau Prajapati DO [address] [place] [id number] PCP - [facility] 06/21/24 documented as of this encounter
--- OUTSIDE RECORDS SUMMARY | 2025-03-08 17:21 | XMS_ITS | Encounter Summary ---
Author Organization [facility] Address [address] [place] [address] Care Team Providers Care Staff Mechanical Engineer Name Role Phone Chau Prajapati DO Unavailable Encounter Details Date Type Department Care Team (Late st Contact Info) Description 08/31/2024 [facility] [address] [place] [phone] Chau Prajapati DO [address], [facility]11 Social History Tobacco Use Types Packs/Day [...] on filedocumented in this encounter Care Teams Staff Mechanical Engineer Relationship Specialty Start Date End Date Chau Prajapati DO [address], [facility]11 PCP - [facility] 06/21/24 documented as of this encounter
--- OUTSIDE RECORDS SUMMARY | 2025-03-08 17:21 | XMS_ITS | Encounter Summary ---
Author Organization [facility] Address [address] [place] [address] Care Team Providers Care Pop Singer Name Role Phone Chau Prajapati DO Unavailable Encounter Details Date Type Department Care Team (Late st Contact Info) Description 10/25/2024 Abstract [facility] [address] [place] [phone] Chau Prajapati DO [address], [facility]11 Social History Tobacco Use Types Packs/Day Years Used Date Smoking Tobacco: Never Alcohol Use Standard Drinks/Week Comments Never 0 (1 standard drink = 0.6 oz pure alcohol) Caffeine intake: 1-2 cups per day Comments No Sex and Gender Information Value Date Recorded Sex Assigned at Not on file Legal Sex Female 11:37 PM EDT Gender Identity Not on file Sexual Orientation Not on file documented as of this encounter Plan of Treatment Not on file documented as of this encounter Visit Diagnoses Not on filedocumented in this encounter Care Teams Pop Singer Relationship Specialty Start Date End Date Chau Prajapati DO [address], [facility]11 PCP - [facility] 06/21/24 documented as of this encounter
--- OUTSIDE RECORDS SUMMARY | 2025-03-08 17:21 | XMS_ITS | Encounter Summary ---
Author Organization [facility] Address [address] [place] [address] Care Team Providers Care Automotive Dismantler Name Role Phone Kadi Mercado Unavailable Raúl Prajapati DO Unavailable Encounter Details Date Type Department Care Team (Late st Contact Info) Description 03/03/2023 Clinisync Result Encounter [facility] External Department Unsolicited Raúl Prajapati DO 102 [facility] [place] [address] Social History Tobacco Use Types [...] Priority Date/Time Associated Diagnosis Comments US OB CERVICAL LENGTH 03/03/2023 7:17 AM EDT documented in this encounter Results * US OB CERVICAL LENGTH (03/03/2023 7:17 AM EDT) Anatomical Region Laterality Modality Other 03/03/2023 7:17 AM EDT Narrative 03/03/2023 7:17 AM EDT The [address] [address] Ultrasound Report Signed Patient: SAMANTHA BATISTA MR#: [id number] : 2005 Acct:[id number] Age/Sex: 17 / F ADM Date: 03/02/23 Loc: US Attending Dr: Raúl Prajapati D.O. Ordering Physician: Raúl Prajapati D.O. Date of Service: 03/02/23 Procedure(s): US OB cervical length Accession Number(s): [id number] cc: Raúl Prajapati D.O.; Physician,Non-Staff Roni The [place] [id number] Patient Name: SAMANTHA BATISTA MRN: [id number] date: 2005 Sex: F Assigned Patient Location: US Current Patient Location: Accession/Order Number: [id number] Exam Date: 03/02/2023 08:06 Report Date: 03/03/2023 07:17 At the request of: RAÚL PRAJAPATI Procedure: US OB cervical length EXAMINATION: US OB <= 14 weeks fetus, [...] 6 days Ultrasound KARON: 09/08/2023 US/US OB cervical length IMPRESSION: Viable renae intrauterine gestation measuring 12 weeks 6 days Electronically authenticated by: KELLY WALLACE Date: 03/03/2023 07:17 Dictated By: Kelly Wallace M.D. Signed By: 03/03/23718 DD/ 6 TD/TT: Bench Precision Assembler: Procedure Note Radiology, Radiologist, MD - 03/12/2023 [place] [address] Ultrasound Report Signed Patient: SAMANTHA BATISTA RMR#: [id number] : 2005Acct:[id number] Age/Sex: 17 / FADM Date: 03/02/23 Loc: US Attending Dr: Raúl Prajapati D.O. Ordering Physician: Raúl Prajapati D.O. Date of Service: 03/02/23 Procedure(s): US OB cervical length Accession Number(s): [id number] cc: Raúl Prajapati D.O.; Physician,Non-Staff MMarilyn The [place] [address] Patient Name: SAMANTHA BATISTA MRN: [id number] date: 2005 Sex: F Assigned Patient Location: US Current Patient Location: Accession/Order Number: [id number] Exam Date: 03/02/2023 08:06 Report Date: 03/03/2023 07:17 At the request of: RAÚL PRAJAPATI Procedure: US OB cervical length EXAMINATION: US OB <= 14 weeks fetus, [...] 6 days Ultrasound KARON: 09/08/2023 US/US OB cervical length IMPRESSION: Viable renae intrauterine gestation measuring 12 weeks 6 days Electronically authenticated by: KELLY WALLACE Date: 03/03/2023 07:17 Dictated By: Kelly Wallace M.D. Signed By:03/03/23718 DD/ 6 TD/TT: Bench Precision Assembler: us Raúl Prajapati DO [facility] Final Result documented in this encounter Visit Diagnoses Not on filedocumented in this encounter Care Teams Automotive Dismantler Relationship Specialty Start Date End Date Kadi Mercado PA [address] [place] [address] [place] [address] PCP - [facility] 12/20/23 Raúl Prajapati DO [address] [place] [address] [place] [address] PCP - [facility] 06/21/24 documented as of this encounter
--- OUTSIDE RECORDS SUMMARY | 2025-03-08 17:21 | XMS_ITS | Encounter Summary ---
Author Organization [facility] Address [address] [place] [address] Care Team Providers Care Cool Roofing Installer Name Role Phone Kadi Mercado Unavailable Chau Prajapati DO Unavailable Encounter Details Date Type Department Care Team (Late st Contact Info) Description 02/14/2024 Abstract [facility] Jeancarlos COLEMAN [address] [place] [address] Chau Prajapati DO [address], [place] [address] Social History Tobacco Use Types Packs/Day Years [...] on filedocumented in this encounter Care Teams Cool Roofing Installer Relationship Specialty Start Date End Date Kadi Mercado PA [address] [place] [address] [address]CP - [facility] 12/20/23 Chau Prajapati DO [address] [place] [id number] PCP - [facility] 06/21/24 documented as of this encounter
--- OUTSIDE RECORDS SUMMARY | 2025-03-08 17:21 | XMS_ITS | Encounter Summary ---
Author Organization [facility] Address [address] [place] [address] Care Team Providers Care Business Continuity Management Director Name Role Phone Chau Prajapati DO Unavailable Encounter Details Date Type Department Care Team (Late st Contact Info) Description 09/11/2024 Abstract [facility] OBNIN[facility] [address] [place] [phone] Chau Prajapati DO [address], [facility]11 Social History Tobacco Use Types Packs/Day [...] on filedocumented in this encounter Care Teams Business Continuity Management Director Relationship Specialty Start Date End Date Chau Prajapati DO [address], [facility] PCP - [facility] 06/21/24 documented as of this encounter
--- OUTSIDE RECORDS SUMMARY | 2025-03-08 17:21 | XMS_ITS | Clinical Summary ---
Author Organization [facility] Address [address] [place] [address] Care Team Providers Care Senior Clinical Data Manager Name Role Phone Chau Prajapati DO Unavailable Allergies Active Allergy Reactions Criticality Noted Date Comments Penicillin G Hives 04/21/2023 Penicillins Hives 08/11/2021 Wound Dressing Adhesive 02/14/2023 Other Reaction(s): Rash Medications Vit-Fe Fumarate-FA ( Vitamins) 28-0.8 MG tabletIndication s:Missed menses Take 1 tablet by mouth Daily 30 tablet 11 4 04/12/20 25 Active Hydrocort-Pramox ine, Perianal, (Proctofoam HC) 1-1 % foamIndications: Hemorrhoids, unspecified hemorrhoid type Apply 1 Application topically Daily 10 g 5 Active citalopram (CeleXA) 20 MG tabletIndication s:Anxiety, generalized Take 1 tablet (20 mg) by mouth Daily 30 tablet 11 5 10/25/19 26 Active Family History Medical History Relation Name Comments Hypertension Father Hypertension Paternal Grandmother Relation Name Status Comments Father Alive Paternal Grandmother Social History Tobacco Use Types Packs/Day Years [...] on file Sexual Orientation Not on file Last Filed Vital Signs Vital Sign Reading Time Taken Comments Blood Pressure 100/62 09/05/2024 9:38 AM EDT Pulse - - Temperature - - Respiratory Rate - - Oxygen Saturation - - Inhaled Oxygen Concentration - - Weight 93.9 kg (207 lb 1.9 oz) 09/05/2024 9:38 A M EDT Height 162.6 cm (5' 4 ) 03/02/2023 9:17 AM EDT Body Mass Index 35.55 03/02/2023 9:17 AM EDT Plan of Treatment Health Maintenance Due Date Last Done Comments Influenza Vaccine (#1) 2025 Insurance [employer] Care Teams Senior Clinical Data Manager Relationship Specialty Start Date End Date Chau Prajapati DO [facility] [place] [address] [place] [address] PCP - [facility] 06/21/24
--- OUTSIDE RECORDS SUMMARY | 2025-03-08 17:21 | XMS_ITS | Encounter Summary ---
Author Organization [facility] Address [address] [place] [address] [address] Care Team Providers Care Switchboard Manager Name Role Phone Kadi Mercado Unavailable Chau Prajapati DO Unavailable Encounter Details Date Type Department Care Team (Late st Contact Info) Description 09/01/2023 Abstract [facility]ancarlos COLEMAN [address] [place] [address] Chau Prajapati DO [address] [place], [place] [address] Social History Tobacco Use Types Packs/Day Years [...] on filedocumented in this encounter Care Teams Switchboard Manager Relationship Specialty Start Date End Date Kadi Mercado PA [address] [place] [address] PCP - [facility] 12/20/23 Chau Prajapati DO [address] [place] [id number] PCP - [facility] 06/21/24 documented as of this encounter
--- OUTSIDE RECORDS SUMMARY | 2025-03-08 17:21 | XMS_ITS | Encounter Summary ---
Author Organization [facility] Address [address] [place] [address] Care Team Providers Care Feed Elevator Worker Name Role Phone Kadi Mercado Unavailable Chau Prajapati DO Unavailable Encounter Details Date Type Department Care Team (Late st Contact Info) Description 02/10/2024 Abstract [facility] Jeancarlos COLEMAN [address] [place] [address] Chau Prajapati DO [address] [place], [place] [address] Social History Tobacco Use Types Packs/Day Years [...] on filedocumented in this encounter Care Teams Feed Elevator Worker Relationship Specialty Start Date End Date Kadi Mercado PA [address] [place] [address] PCP - [facility] 12/20/23 Chau Prajapati DO [address] [place] [id number] PCP - [facility] 06/21/24 documented as of this encounter
--- OUTSIDE RECORDS SUMMARY | 2025-03-08 17:21 | XMS_ITS | Encounter Summary ---
Author Organization [facility] Address [address] [place] [address] Care Team Providers Care Circuit Breaker Assembler Name Role Phone Chau Prajapati DO Unavailable Encounter Details Date Type Department Care Team (Late st Contact Info) Description 09/14/2024 Abstract [facility] OBN[facility]KAN [address] [place] [phone] Chau Prajapati DO [address], [facility]11 Social History Tobacco Use Types Packs/Day [...] on filedocumented in this encounter Care Teams Circuit Breaker Assembler Relationship Specialty Start Date End Date Chau Prajapati DO [address], [facility]11 PCP - [facility] 06/21/24 documented as of this encounter
--- OUTSIDE RECORDS SUMMARY | 2025-03-08 17:21 | XMS_ITS | Encounter Summary ---
Author Organization [facility] Address [address] [place] [address] Care Team Providers Care Manager Sound Name Role Phone Chau Prajapati DO Unavailable Encounter Details Date Type Department Care Team (Late st Contact Info) Description 08/31/2024 Abstract [facility] OBGYN [address] [place] [phone] Chau Prajapati DO [address], [facility]11 Social History Tobacco Use Types Packs/Day Years [...] on filedocumented in this encounter Care Teams Manager Sound Relationship Specialty Start Date End Date Chau Prajapati DO [address], [facility]11 PCP - [facility] 06/21/24 documented as of this encounter
--- OUTSIDE RECORDS SUMMARY | 2025-03-08 17:21 | XMS_ITS | Encounter Summary ---
Author Organization [facility] Address [address] [place] [address] Care Team Providers Care Patent Counsel Name Role Phone Raúl Prajapati DO Unavailable Encounter Details Date Type Department Care Team (Late st Contact Info) Description 05/10/2024 Clinisync Result Encounter [facility] External Department Unsolicited Raúl Prajapati, DO [address] [facility] [address] [place] [address] Social History Tobacco Use Types [...] Date/Time Associated Diagnosis Comments US OB ANATOMY 05/10/2024 3:44 AM EST documented in this encounter Results * US OB ANATOMY (05/10/2024 3:44 AM EST) Anatomical Region Laterality Modality Other 05/10/2024 3:44 AM EST Narrative 05/10/2024 3:47 AM EST The [address] [address] Ultrasound Report Signed Patient: SAMANTHA BATISTA MR#: [id number] : 2005 Acct:[id number] Age/Sex: 18 / F ADM Date: 05/09/24 Loc: [facility] Attending Dr: Raúl Prajapati D.O. Ordering Physician: Raúl Prajapati D.O. Date of Service: 05/09/24 Procedure(s): US OB anatomy Accession Number(s): [id number] cc: Raúl Prajapati D.O.; Physician,Non-Staff MMarilyn [place] [address] Patient Name: SAMANTHA BATISTA MRN: [id number] date: 2005 Sex: F Assigned Patient Location: [facility] Current Patient Location: Accession/Order Number: [id number] Exam Date: 05/09/2024 13:42 Report Date: 05/10/2024 03:44 At the request of: RAÚL PRAJAPATI Procedure: US OB anatomy EXAMINATION: US OB anatomy, US OB cervical length HISTORY: ANATOMY COMPARISON: No relevant comparison available. TECHNIQUE: Transabdominal sonographic examination was performed for obstetrical and evaluation. FINDINGS: Number: 1 Heart Rate: 147 bpm Amniotic Fluid Volume: Subjectively normal Placental Location: POSTERIOR with lower margin 4.0 cm from os. Cervix Length: 4.75 cm ; closed. ANATOMY: Normal Structures -cerebellum, choroid plexus, cisterna magna, lateral cerebral ventricles, orbits, midline falx, hard palate, four-chamber heart, RVOT, LVOT, stomach, kidneys, bladder, umbilical cord insertion into abdomen, three-vessel cord, right upper extremity, left upper extremity, right lower extremity, left lower extremity. SUBOPTIMALLY SEEN: Spine ABNORMALITIES: None BIOMETRY: BPD: 4.28 cm; 19 weeks 0 days; < 3 % HC: 17.83 cm; 20 weeks 2 days; 10.30 % AC: 16.67 cm; 21 weeks 5 days; 61.50 % FL: 3.56 cm; 21 weeks 2 days; 45 % EFW:346.19 g; 51.50 % FL/AC: 21.36 FL/BPD: 83.18 HC/AC: 1.07 GESTATIONAL AGE: Age by EDC: 21 weeks 1 day Age by current US: 20 weeks 4 days KARON by current US: 2024-09-22 KARON by EDC: 2024-09-18 US/US OB anatomy IMPRESSION: 1. Single live intrauterine with growth detailed above. 2. Suboptimal visualization of the spine due to position. Electronically authenticated by: HENRY CONNOR Date: 05/10/2024 03:44 Dictated By: Henry Connor M.D. Signed By: 05/10/24346 DD/ 3 TD/TT: Manager Gift: Procedure Note Radiology, Radiologist, MD - 05/10/2024 [place] [address] Ultrasound Report Signed Patient: SAMANTHA BATISTA RMR#: [id number] : 2005Acct:[id number] Age/Sex: 18 / FADM Date: 05/09/24 Loc: [facility] Attending Dr: Raúl Prajapati D.O. Ordering Physician: Raúl Prajapati D.O. Date of Service: 05/09/24 Procedure(s): US OB anatomy Accession Number(s): [id number] cc: Raúl Prajapati D.O.; Physician,Non-Staff Roni The [place] [address] Patient Name: SAMANTHA BATISTA MRN: [id number] date: 2005 Sex: F Assigned Patient Location: [facility] Current Patient Location: Accession/Order Number: [id number] Exam Date: 05/09/2024 13:42 Report Date: 05/10/2024 03:44 At the request of: RAÚL PRAJAPATI Procedure: US OB anatomy EXAMINATION: US OB anatomy, US OB cervical length HISTORY: ANATOMY COMPARISON: No relevant comparison available. TECHNIQUE: Transabdominal sonographic examination was performed for obstetrical and evaluation. FINDINGS: Number: 1 Heart Rate: 147 bpm Amniotic Fluid Volume: Subjectively normal Placental Location: POSTERIOR with lower margin 4.0 cm from os. Cervix Length: 4.75 cm ; closed. ANATOMY: Normal Structures -cerebellum, choroid plexus, cisterna magna, lateral cerebral ventricles, orbits, midline falx, hard palate, four-chamberheart, RVOT, LVOT, stomach, kidneys, bladder, umbilical cord insertion intoabdomen, three-vessel cord, right upper extremity, left upper extremity, rightlower extremity, left lower extremity. SUBOPTIMALLY SEEN: Spine ABNORMALITIES: None BIOMETRY: BPD: 4.28 cm; 19 weeks 0 days; < 3 % HC: 17.83 cm; 20 weeks 2 days; 10.30 % AC: 16.67 cm; 21 weeks 5 days; 61.50 % FL: 3.56 cm; 21 weeks 2 days; 45 % EFW:346.19 g; 51.50 % FL/AC: 21.36 FL/BPD: 83.18 HC/AC: 1.07 GESTATIONAL AGE: Age by EDC: 21 weeks 1 day Age by current US: 20 weeks 4 days KARON by current US: 2024-09-22 KARON by EDC: 2024-09-18 US/US OB anatomy IMPRESSION: 1. Single live intrauterine with growth detailed above. 2. Suboptimal visualization of the spine due to position. Electronically authenticated by: HENRY CONNOR Date: 05/10/2024 03:44 Dictated By: Henry Connor M.D. Signed By:05/10/24346 DD/ 3 TD/TT: Manager Gift: Ralú Prajapati DO [facility] Final Result documented in this encounter Visit Diagnoses Not on filedocumented in this encounter Care Teams Patent Counsel Relationship Specialty Start Date End Date Raúl Prajapati DO [address] [place] [address] [place] [address] PCP - [facility] 06/21/24 documented as of this encounter
--- OUTSIDE RECORDS SUMMARY | 2025-03-08 17:21 | XMS_ITS | Encounter Summary ---
Author Organization [facility] Address [address] [place] [address] Care Team Providers Care Physics Department Chair Name Role Phone Raúl Prajapati DO Unavailable Encounter Details Date Type Department Care Team (Late st Contact Info) Description 05/10/2024 Clinisync Result Encounter [facility] External Department Unsolicited Raúl Prajapati, [address] [facility] [address] [place], [place] [id number] Social History Tobacco Use Types Packs/Day Years [...] on file documented as of this encounter Miscellaneous Notes * Result Encounter Note - Karen Browne LPN - 05/10/2024 3:50 AM EST Attempted to call pt but it said her phone wasn't taking calls right now. Will try again later. * Result Encounter Note - Karen Browne LPN - 05/10/2024 3:50 AM EST Tried calling pt again and it said they she is not taking calls right now. Will try again * Result Encounter Note - Karen Browne LPN - 05/10/2024 3:50 AM EST Called a third time and the same thing is happening. Will send out letter documented in this encounter Plan of Treatment Not on file documented as of this encounter Procedures Procedure Name Priority Date/Time Associated Diagnosis Comments US OB CERVICAL LENGTH 05/10/2024 3:44 AM EST documented in this encounter Results * US OB CERVICAL LENGTH (05/10/2024 3:44 AM EST) Anatomical Region Laterality Modality Other 05/10/2024 3:44 AM EST Narrative 05/10/2024 3:47 [place] [address] Ultrasound Report Signed Patient: SAMANTHA BATISTA MR#: [id number] : 2005 Acct:[id number] Age/Sex: 18 / F ADM Date: 05/09/24 Loc: [facility] Attending Dr: Raúl Prajapati D.O. Ordering Physician: Raúl Prajapati D.O. Date of Service: 05/09/24 Procedure(s): US OB cervical length Accession Number(s): [id number] cc: Raúl Prajapati D.O.; Physician,Non-Staff M.DLance The [address] [address] Patient Name: SAMANTHA BATISTA MRN: [id number] date: 2005 Sex: F Assigned Patient Location: [facility] Current Patient Location: Accession/Order Number: [id number] Exam Date: 05/09/2024 13:42 Report Date: 05/10/2024 03:44 At the request of: RAÚL PRAJAPATI Procedure: US OB cervical length EXAMINATION: US OB anatomy, US OB cervical [...] 2024-09-22 KARON by EDC: 2024-09-18 US/US OB cervical length IMPRESSION: 1. Single live intrauterine with growth detailed above. 2. Suboptimal visualization of the spine due to position. Electronically authenticated by: HENRY CONNOR Date: 05/10/2024 03:44 Dictated By: Henry Connor M.D. Signed By: 05/10/24346 DD/ 3 TD/TT: Wireline Supervisor: Procedure Note Radiology, Radiologist, MD - 05/10/2024 [place] [address] Ultrasound Report Signed Patient: SAMANTHA BATISTA RMR#: [id number] : 2005Acct:[id number] Age/Sex: 18 / FADM Date: 05/09/24 Loc: [facility] Attending Dr: Raúl Prajapati D.O. Ordering Physician: Raúl Prajapati D.O. Date of Service: 05/09/24 Procedure(s): US OB cervical length Accession Number(s): [id number] cc: Raúl Prajapati D.O.; Physician,Non-Staff Roni The [place] [id number] Patient Name: SAMANTHA BATISTA MRN: [id number] date: 2005 Sex: F Assigned Patient Location: [facility] Current Patient Location: Accession/Order Number: [id number] Exam Date: 05/09/2024 13:42 Report Date: 05/10/2024 03:44 At the request of: RAÚL PRAJAPATI Procedure: US OB cervical length EXAMINATION: US OB anatomy, US OB cervical [...] 2024-09-22 KARON by EDC: 2024-09-18 US/US OB cervical length IMPRESSION: 1. Single live intrauterine with growth detailed above. 2. Suboptimal visualization of the spine due to position. Electronically authenticated by: HENRY CONNOR Date: 05/10/2024 03:44 Dictated By: Henry Connor M.D. Signed By:05/10/24346 DD/ 3 TD/TT: Wireline Supervisor: Raúl Prajapati DO [facility] Final Result documented in this encounter Visit Diagnoses Not on filedocumented in this encounter Care Teams Physics Department Chair Relationship Specialty Start Date End Date Raúl Prajapati DO [facility] [place] [address] PCP - [facility] 06/21/24 documented as of this encounter
--- OUTSIDE RECORDS SUMMARY | 2025-03-08 17:21 | XMS_ITS | Encounter Summary ---
Author Organization [facility] Address [address] [place] [address] Care Team Providers Care Kettle Fry Cook Operator Name Role Phone Kadi Mercado Unavailable Chau Prajapati DO Unavailable Encounter Details Date Type Department Care Team (Late st Contact Info) Description 02/29/2024 Abstract [facility] OBGYN [address] [place] [address] Karen Browne LPN [address] [place] [address] Social History Tobacco Use Types Packs/Day Years [...] on filedocumented in this encounter Care Teams Kettle Fry Cook Operator Relationship Specialty Start Date End Date Kadi Mercado PA [address] [place] [address] PCP - [facility] 12/20/23 Chau Prajapati DO [address] [place] [id number] PCP - [facility] 06/21/24 documented as of this encounter
--- OUTSIDE RECORDS SUMMARY | 2025-03-08 17:23 | XMS_ITS | CCD ---
Author Organization [facility] Care Team Providers Care Education Spec Name Role Phone [facility] Primary Care Unavailable ROSY, DR JACKSON Attending Unavailable ROSY, DR JACKSON Consulting Unavailable ROSY, DR JACKSON Admitting Unavailable Ellen Ortiz Unavailable SHAD Edward Emergency Provider NON STAFF Primary Care Provider Unavailmadelyn quinones NON STAFF Primary Care Unavailable Toi Edward Attending Unavailable Toi Edward Admitting Unavailable Unavailable Primary Care Provider Unavailmadelyn e Kadi Gant Unavailable Victorina DO, Raúl Unavailable KADI WAGNER Attending Unavailable VICTORINA, RAÚL Attending Unavailable VICTORINA, RAÚL Attending Unavailable VICTORINA, RAÚL Attending Unavailable BERNARD, KADI Attending Unavailable VICTORINA, RAÚL Attending Unavailable VICTORINA, RAÚL Attending Unavailable BERNARD, KADI Attending Unavailable VICTORINA, RAÚL Attending Unavailable VICTORINA, RAÚL Attending Unavailable BERNARD, KADI Attending Unavailable BERNARD, KADI Attending Unavailable Allergies Allergy Classification Reported Allergen(s) Allergy Type Date of Onset Reaction(s) Facility (1 source) Adhesive Tape Drug allergy [facility] Other (20 sources) Penicillin G Drug Allergy 3 NXE [facility] Other (2 sources) Adhesive Tape; Translations: [adhesive tape] Propensity to adverse reactions 3 [facility] (20 sources) Penicillins; Translations: [Penicillins] Allergy to substance 2 [facility] (20 sources) Wound Dressing Adhesive Drug Intolerance [address] [facility] Medications Current Medications Medication Drug Class(es) Dates Sig (Normalized) Sig (Original) citalopram 20 mg oral tablet (3 sources) Serotonin Reuptake Inhibitor Start: 10-24-2024 End: 10-24-2025 take 1 tablet by mouth once daily citalopram (CeleXA) 20 MG tablet Indications: Anxiety, generalized (CMS/HCC) Take 1 tablet (20 mg) by mouth Daily 30 tablet 11 10/24/2024 10/24/2025 Active take 1 tablet by mouth once lilliana y Citalopram Hydrobromide 10 MG TAKE 1 TABLET BY MOUTH DAILY Oral for 30 Days Not-Taking clindamycin 150 mg oral capsule (1 source) Lincosamide Antibacterial Start: 02-15-2023 take 450 mg by mouth three times daily Clindamycin Hcl Active 450 MG PO Three times daily 90 10 February 15, 2023 12:00am hydrocortisone acetate 10 mg/ml / pramoxine hydrochloride 10 mg/ml rectal foam (2 sources) Corticosteroid Start: 10-24-2024 Hydrocort-Pramoxi ne, Perianal, (Proctofoam HC) 1-1 % foam Indications: Hemorrhoids, unspecified hemorrhoid type Apply 1 Application topically Daily 10 g 10/24/2024 Active Start: 10-24-2024 Hydrocort-Pram oxine, Perianal, (Proctofoam HC) 1-1 % foam Indications: Hemorrhoids, unspecified hemorrhoid type Apply 1 Application topically Daily 10 g 10/24/2024 Active hydrOXYzine hydrochloride 10 mg oral tablet (4 [...] Drug Class(es) Dates Sig (Normalized) Sig (Original) famotidine 20 mg oral tablet (1 source) [...] Translations: [ACUTE TONSILLITIS UNSPECIFIED] Onset: 03-02-2022 Episodic Anxiety disorders (2 sources) Generalized anxiety disorder; Translations: [Generalized anxiety disorder] 10-24-2024 Chronic Hemorrhoids (4 sources) Hemorrhoids; Translations: [Unspecified hemorrhoids] 10-24-2024 Episodic Immunizations and screening for infectious disease [...] 04-10-2024 Episodic Other and delivery including normal (20 sources) Third trimester ; Translations: [Encounter for [...] UA Negative Negative - 4(70) +++ mg/dL [facility] Blood, UA Positive Negative - 50 Carmine/mcL [facility] Comment on above: large Clarity, UA Clear [facility] Color, UA Yellow [facility] Glucose, UA Negative Negative - 1999(110) ++++ mg/dL [facility] Interpretation and review of laboratory results Abnormal [facility] Ketones, UA Negative Negative - 160(16) ++++ mg/dL [facility] Leukocytes, UA Positive Negative - 500+++ Josselyn/mcL [facility] Comment on above: small Nitrite, UA Negative Negative - Positive [facility] pH, UA 6 5 - [address] [facility] Protein, UA Trace Negative - 1999(20) ++++ mg/dL [facility] Spec Grav, UA 1.025 1 - 1.[address] [facility] Urobilinogen, UA 0.2 0.2 - 12 mg/dL [facility] ALL MISCELLANEOUS TESTon MISCELLANEOUS TEST COMMENT . [facility] Comment on above: Test Ordered: [id number] Strep Gp B Culture+Rflx Strep Gp B Culture+Rflx Positive [A ] CB Reference Range: Negative Centers for Disease Control and Prevention (CDC) and [place] [employer] and Gynecologists (ACOG) guidelines [...] high risk for anaphylaxis. Performed at: - [address] [id number] Forging Machine Operator: Ivan Chicas PhD, Phone: [phone] CULTURE, GROUP B STREP WITH SUSCEPTIBILITY [facility] Urinalysis macro (dipstick) panel (U)on 08-22-2024 Bilirubin, UA Positive Negative - 4(70) +++ mg/dL [facility] Comment on above: small Blood, UA Positive Negative - 50 Carmine/mcL [facility] Comment on above: small Clarity, UA Clear [facility] Color, UA Yellow [facility] Glucose, UA Negative Negative - 1999(110) ++++ mg/dL [facility] Interpretation and review of laboratory results Abnormal [facility] Ketones, UA Positive Negative - 160(16) ++++ mg/dL [facility] Comment on above: trace Leukocytes, UA Positive Negative - 500+++ Josselyn/mcL [facility] Comment on above: small Nitrite, UA Negative Negative - Positive [facility] pH, UA 6 5 - [address] [facility] Protein, UA Positive Negative - 2000(20) ++++ mg/dL [facility] Comment on above: 30mg/dL Spec Grav, UA 1.03 1 - 1.[address] [facility] Urobilinogen, UA 1.0 0.2 - 12 mg/dL [facility] Urinalysis macro (dipstick) panel (U)on 08-14-2024 Bilirubin, UA Negative Negative - 4(70) +++ mg/dL [facility] Blood, UA Positive Negative - 50 Carmine/mcL [facility] Comment on above: small Clarity, UA Clear [facility] Color, UA Yellow [facility] Glucose, UA Negative Negative - 1999(110) ++++ mg/dL [facility] Interpretation and review of laboratory results Abnormal [facility] Ketones, UA Negative Negative - 160(16) ++++ mg/dL [facility] Leukocytes, UA Positive Negative - 500+++ Josselyn/mcL [facility] Comment on above: small Nitrite, UA Negative Negative - Positive [facility] pH, UA 6.5 5 - [address] [facility] Protein, UA Negative Negative - 2000(20) ++++ mg/dL [facility] Spec Grav, UA 1.015 1 - 1.[address] [facility] Urobilinogen, UA 0.2 0.2 - 12 mg/dL [facility] US OB FOLLOW UP TRANSABDOMIN AL APPROACHon [...] II, MD, PHD at 28-Jul-2024 07:43:36 AM [facility] Normal Not Available Comment on above: [...] UA Negative Negative - 4(70) +++ mg/dL [facility] Blood, UA Negative Negative - 50 Carmine/mcL [facility] Clarity, UA Clear [facility] Color, UA Yellow [facility] Glucose, UA Negative Negative - 2000(110) ++++ mg/dL [facility] Interpretation and review of laboratory results Abnormal [facility] Ketones, UA Positive Negative - 160(16) ++++ mg/dL [facility] Leukocytes, UA Negative Negative - 500+++ Josselyn/mcL [facility] Nitrite, UA Negative Negative - Positive [facility] pH, UA 6.5 5 - [address] [facility] Protein, UA Negative Negative - 1999(20) ++++ mg/dL [facility] Spec Grav, UA 1.025 1 - 1.[address] [facility] Urobilinogen, UA 1.0 0.2 - 12 mg/dL [facility] Urinalysis macro (dipstick) panel (U)on 06-05-2024 Bilirubin, UA Negative Negative - 4(70) +++ mg/dL [facility] Blood, UA Positive Negative - 50 Carmine/mcL [facility] Comment on above: LARGE Clarity, UA Clear [facility] Color, UA Yellow [facility] Glucose, UA Negative Negative - 1999(110) ++++ mg/dL [facility] Interpretation and review of laboratory results Abnormal [facility] Ketones, UA Negative Negative - 160(16) ++++ mg/dL [facility] Leukocytes, UA Positive Negative - 500+++ Josselyn/mcL [facility] Comment on above: SMALL Nitrite, UA Negative Negative - Positive [facility] pH, UA 7.5 5 - [address] [facility] Protein, UA Positive Negative - 1999(20) ++++ mg/dL [facility] Comment on above: 30 mg Spec Grav, UA 1.02 1 - 1.[address] [facility] Urobilinogen, UA 1.0 0.2 - 12 mg/dL [facility] ALL CBC WITH AUTO DIFFon BASOPHILS ABSOLUTE AUTO 0 N [facility] Basophils/100 WBC (Bld) 0.3 % 0.2 - 2.0 % [facility] Eosinophils/100 WBC (Bld) 3.8 % 0.9 - 7.0 % [facility] Erythrocyte distribution width (RBC) [Ratio] 13.6 % 11.0 - 15.0 % [facility] Hematocrit (Bld) [Volume fraction] 37.2 % 36.0 - 48.0 % [facility] Hemoglobin (Bld) [Mass/Vol] 11.6 g/dL Low 12.0 - 16.0 g/dL [facility] IMMATURE GRANULOCYTES ABS AUTO 0.[address] [facility] Immature granulocytes/100 WBC (Bld) 0.3 % 0.0 - 0.5 % [facility] Interpretation and review of laboratory results Abnormal [facility] LYMPHOCYTES ABSOLUTE AUTO 1.[address] [facility] Lymphocytes/100 WBC (Bld) 14.9 % Low 20.5 - 60.0 % [facility] MCH (RBC) [Entitic mass] 26.7 pg 26. 7 - 34.[address] [facility] MCHC (RBC) [Mass/Vol] 31.2 g/dL 29.9 - 35.2 g/dL [facility] MCV (RBC) [Entitic vol] 85.5 fL 81.0 - 99.[address] [facility] MONOCYTES ABSOLUTE AUTO 0.7 N [facility] Monocytes/100 WBC (Bld) 7.7 % 1.7 - 12.0 % [facility] NEUTROPHILS ABSOLUTE AUTO 7.[address] [facility] Neutrophils/100 WBC (Bld) 73 % 43.0 - 75.0 % [facility] Platelet mean volume (Bld) [Entitic vol] 9.7 fL 9.5 - 13.[address] [facility] TBH EO # 0.4 [facility] PLT 293 [facility] RBC 4.35 [facility] WBC 9.[address] [facility] Urinalysis macro (dipstick) panel (U)on 05-09-2024 Bilirubin, UA Negative Negative - 4(70) +++ mg/dL [facility] Blood, UA Negative Negative - 50 Carmine/mcL [facility] Clarity, UA Clear [facility] Color, UA Yellow [facility] Glucose, UA Negative Negative - 1999(110) ++++ mg/dL [facility] Interpretation and review of laboratory results Normal [facility] Ketones, UA Negative Negative - 160(16) ++++ mg/dL [facility] Leukocytes, UA Negative Negative - 500+++ Josselyn/mcL [facility] Nitrite, UA Negative Negative - Positive [facility] pH, UA 6.5 5 - [address] [facility] Protein, UA Negative Negative - 1999(20) ++++ mg/dL [facility] Spec Grav, UA 1.025 1 - 1.[address] [facility] Urobilinogen, UA 0.2 0.2 - 12 mg/dL [facility] AFP, SERUM, OPEN SPINA BIFID Aon 04-16-2024 AFP MOM 1.[address] [facility] AFP VALUE 50.5 ng/mL . [facility] COMMENT: Comment . [facility] Comment on above: Isabel Colon , Ph.D., [facility] Director References: Available Upon Request. Multiples Of Median Cutoffs For AFP Elevations Garland 2.5 Black 2.8 IDD 2.0 Twins 4.5 Abbreviation Definitions IDD - Insulin Dep Diabetes OSBR - Open Spina Bifida Risk For further inquiries contact [facility] [facility] at [phone]. This test was developed and its performance characteristics determined by [employer]. It has not been cleared or approved by the Food and Drug Administration. Performed at: [facility] RTP [address] [facility], [place], [place] [id number] Forging Machine Operator: Sherrie Velez [facility], Phone: [phone] GEST. AGE ON COLLECTION DATE 15.[address] [facility] GESTAT. AGE BASED ON As provided . [facility] Comment on above: Recalculations are n ot recommended when gestational dating by LMP and ultrasound are within 10 days. INSULIN DEP DIABETES No . [facility] INTERPRETATION Comment . [facility] Comment on above: Interpretation: Scre en Negative [...] Customer Services to discuss available options. The [place] [employer] recommends amniocentesis be offered to women age 35 and older. [age] KARON 18.[address] [facility] MULTIPLE GESTATION No . [facility] OSBR RISK 1 [place] [address] . [facility] RACE . [facility] RESULTS Report . [facility] TEST RESULTS: Negative . [facility] WEIGHT [address] [facility] N N [id number] [phone] N 1 N 195 N N N N N White/ [facility] URETHRITIS/DISCHARGE PLUS VA GINITIS (HTRX)on 04-12-2024 ATOPOBIUM VAGINAE [address] [facility] ATOPOBIUM VAGINAE Not detected [facility] BVAB 2,3 (BACTERIAL VAGINOSIS ASSOCIATED BACTERIA 2, 3); MOBILUNCUS SPP [address] [facility] BVAB 2,3 (BACTERIAL VAGINOSIS ASSOCIATED BACTERIA 2, 3); MOBILUNCUS SPP Not [facility] ALB[facility]ANS, PARAPSILOSIS, TROPICALIS [address] [facility] RELL ALBICANS, PARAPSILOSIS, TROPICALIS Not detected [facility] RELL GLABRATA 0 [facility] RELL GLABRATA Not detected [facility] RELL KRUSEI 0 [facility] RELL KRUSEI Not detected [facility] CHLAMYDIA TRACHOMATIS 0 [facility] CHLAMYDIA TRACHOMATIS Not detected N [facility] ERMB, C; MEFA 17.343 Abnormal [facility] Healthcare ERMB, C; MEFA Detected Abnormal [facility] GARDNERELLA VAGINALIS 25.[address] [facility] S Healthcare GARDNERELLA VAGINALIS Detected Abnormal [facility] HERPES SIMPLEX VIRUS 1 0 NO [facility] HERPES SIMPLEX VIRUS [address] [facility] HERPES SIMPLEX VIRUS 2 0 NO [facility] HERPES SIMPLEX VIRUS [address] [facility] Interpretation and review of laboratory results Abnormal [facility] MEGASPHAERA (TYPES 1, 2) [address] [facility] MEGASPHAERA (TYPES 1, 2) Not detected [facility] MYCOPLASMA GENITALIUM [address] [facility] S [facility] MYCOPLASMA GENITALIUM Not detected N S [facility] MYCOPLASMA HOMINIS [address] [facility] MYCOPLASMA HOMINIS Not detected [facility] NEISSERIA GONORRHOEAE 0 [facility] NEISSERIA GONORRHOEAE Not detected N [facility] TET B, TET M 24.[address] [facility] TET B, TET M Detected Abnormal [facility] TRICHOMONAS VAGINALIS 0 [facility] TRICHOMONAS VAGINALIS Not detected N [facility] UREAPLASMA PARVUM 18.[address] [facility] UREAPLASMA PARVUM Detected Abnormal [facility] UREAPLASMA UREALYTICUM 22.257 Abnormal NO [facility] UREAPLASMA UREALYTICUM Detected Abnormal NO [facility] Urinalysis macro (dipstick) panel (U)on 04-10-2024 Bilirubin, UA Negative Negative - 4(70) +++ mg/dL [facility] Blood, UA Negative Negative - 50 Carmine/mcL [facility] Clarity, UA Clear [facility] Color, UA Yellow [facility] Glucose, UA Negative Negative - 2000(110) ++++ mg/dL [facility] Interpretation and review of laboratory results Normal [facility] Ketones, UA Negative Negative - 160(16) ++++ mg/dL [facility] Leukocytes, UA Negative Negative - 500+++ Josselyn/mcL [facility] Nitrite, UA Negative Negative - Positive [facility] pH, UA 6 5 - [address] [facility] Protein, UA Negative Negative - 1999(20) ++++ mg/dL [facility] Spec Grav, UA 1.03 1 - 1.[address] [facility] Urobilinogen, UA 0.2 0.2 - 12 mg/dL [facility] Urinalysis macro (dipstick) panel (U)on 03-13-2024 Bilirubin, UA Negative Negative - 4(70) +++ mg/dL [facility] Blood, UA Negative Negative - 50 Carmine/mcL [facility] Clarity, UA Clear [facility] Color, UA Yellow [facility] Glucose, UA Negative Negative - 1999(110) ++++ mg/dL [facility] Interpretation and review of laboratory results Normal [facility] Ketones, UA Negative Negative - 160(16) ++++ mg/dL [facility] Leukocytes, UA Negative Negative - 500+++ Josselyn/mcL [facility] Nitrite, UA Negative Negative - Positive [facility] pH, UA 6.5 5 - [address] [facility] Protein, UA Negative Negative - 1999(20) ++++ mg/dL [facility] Spec Grav, UA 1.020 1 - 1.[address] [facility] Urobilinogen, UA 0.2 0.2 - 12 mg/dL [facility] ALL CBC WITH AUTO DIFFon BASOPHILS ABSOLUTE AUTO 0.0 N [facility] Basophils/100 WBC (Bld) 0.2 % 0.2 - 2.0 % [facility] Eosinophils/100 WBC (Bld) 4.2 % 0.9 - 7.0 % [facility] Erythrocyte distribution width (RBC) [Ratio] 13.5 % 11.0 - 15.0 % [facility] Hematocrit (Bld) [Volume fraction] 38.7 % 36.0 - 48.0 % [facility] Hemoglobin (Bld) [Mass/Vol] 12.6 g/dL 12.0 - 16.0 g/dL [facility] IMMATURE GRANULOCYTES ABS AUTO 0.[address] [facility] Immature granulocytes/100 WBC (Bld) 0.3 % 0.0 - 0.5 % [facility] Interpretation and review of laboratory results Abnormal [facility] LYMPHOCYTES ABSOLUTE AUTO 2.[address] [facility] Lymphocytes/100 WBC (Bld) 24.5 % 20.5 - 60.0 % [facility] MCH (RBC) [Entitic mass] 26.6 pg Low 26. 7 - 34.[address] [facility] MCHC (RBC) [Mass/Vol] 32.6 g/dL 29.9 - 35.2 g/dL [facility] MCV (RBC) [Entitic vol] 81.8 fL 81.0 - 99.[address] [facility] MONOCYTES ABSOLUTE AUTO 0.9 High N [facility] Monocytes/100 WBC (Bld) 8.5 % 1.7 - 12.0 % [facility] NEUTROPHILS ABSOLUTE AUTO 6.[address] [facility] Neutrophils/100 WBC (Bld) 62.3 % 43.0 - 75.0 % [facility] Platelet mean volume (Bld) [Entitic vol] 9.5 fL 9.5 - 13.[address] [facility] TBH EO # 0.[address] [facility] TB PLT 318 [facility] RBC 4.73 [facility] WBC 10.[address] [facility] HCG ( test) Ql (U)o n 02-10-2024 Interpretation and review of laboratory results Abnormal [facility] Preg Test, Ur Positive [facility] Urinalysis macro (dipstick) panel (U)on 02-10-2024 Bilirubin, UA Negative Negative - 4(70) +++ mg/dL [facility] Blood, UA Negative Negative - 50 Carmine/mcL [facility] Clarity, UA Clear [facility] Color, UA Yellow [facility] Glucose, UA Negative Negative - 1999(110) ++++ mg/dL [facility] Interpretation and review of laboratory results Abnormal [facility] Ketones, UA Negative Negative - 160(16) ++++ mg/dL [facility] Leukocytes, UA Negative Negative - 500+++ Josselyn/mcL [facility] Nitrite, UA Negative Negative - Positive [facility] pH, UA 6.0 5 - [address] [facility] Protein, UA Negative Negative - 1999(20) ++++ mg/dL [facility] Spec Grav, UA 1.020 1 - 1.[address] [facility] Urobilinogen, UA 0.2 0.2 - 12 mg/dL [facility] ALL CBC WITH AUTO DIFFon BASOPHILS ABSOLUTE AUTO 0.0 N [facility] Basophils/100 WBC (Bld) 0.3 % 0.2 - 2.0 % [facility] Eosinophils/100 WBC (Bld) 0.5 % Low 0.9 - 7.0 % [facility] Erythrocyte distribution width (RBC) [Ratio] 12.7 % 11.0 - 15.0 % [facility] Hematocrit (Bld) [Volume fraction] 32.6 % Low 36.0 - 48.0 % [facility] Hemoglobin (Bld) [Mass/Vol] 10.1 g/dL Low 12.0 - 16.0 g/dL [facility] IMMATURE GRANULOCYTES ABS AUTO 0.[address] [facility] Immature granulocytes/100 WBC (Bld) 0.5 % 0.0 - 0.5 % [facility] Interpretation and review of laboratory results Abnormal [facility] LYMPHOCYTES ABSOLUTE AUTO 2.[address] [facility] Lymphocytes/100 WBC (Bld) 19.3 % Low 20.5 - 60.0 % [facility] MCH (RBC) [Entitic mass] 27.4 pg 26. 7 - 34.[address] [facility] MCHC (RBC) [Mass/Vol] 31.0 g/dL 29.9 - 35.2 g/dL [facility] MCV (RBC) [Entitic vol] 88.3 fL 81.0 - 99.[address] [facility] MONOCYTES ABSOLUTE AUTO 0.8 N [facility] Monocytes/100 WBC (Bld) 6.9 % 1.7 - 12.0 % [facility] NEUTROPHILS ABSOLUTE AUTO 8.[address] [facility] Neutrophils/100 WBC (Bld) 72.5 % 43.0 - 75.0 % [facility] Platelet mean volume (Bld) [Entitic vol] 9.1 fL Low 9.5 - 13.[address] [facility] TB EO # 0.[address] [facility] TB PLT 319 [facility] RBC 3.[address] [facility] TB WBC 11.[address] [facility] Urinalysis macro (dipstick) panel (U)on 08-04-2023 Bilirubin, UA Few Negative - 4(70) +++ mg/dL [facility] Blood, UA Positive Negative - 50 Carmine/mcL [facility] Clarity, UA Clear [facility] Color, UA Yellow [facility] Glucose, UA Negative Negative - 2000(110) ++++ mg/dL [facility] Interpretation and review of laboratory results Abnormal [facility] Ketones, UA Negative Negative - 160(16) ++++ mg/dL [facility] Leukocytes, UA Few Negative - 500+++ Josselyn/mcL [facility] Nitrite, UA Negative Negative - Positive [facility] pH, UA 6.0 5 - [address] [facility] Protein, UA Positive Negative - 2000(20) ++++ mg/dL [facility] Spec Grav, UA 1.030 1 - 1.[address] [facility] Urobilinogen, UA 1.0 0.2 - 12 mg/dL [facility] Alanine aminotransferase [En zymatic activity/volume] in Serum or PlasmaOrdered By: Toi Edward on 02-14-2023 ALT [Catalytic activity/Vol] 41 U/L 7-52 [facility] Albumin [Mass/volume] in Ser um or Plasma by Bromocresol green (BCG) dye binding methoOrdered By: Toi Edward on 02-14-2023 Albumin BCG dye [Mass/Vol] 4.1 g/dL 3.5-5.7 [facility] Alkaline phosphatase [Enzyma tic activity/volume] in Serum or PlasmaOrdered By: Toi Edward on 02-14-2023 ALP [Catalytic activity/Vol] 158 U/L 34-104 [facility] Aspartate aminotransferase [ Enzymatic activity/volume] in Serum or PlasmaOrdered By: Toi Edward on 02-14-2023 AST [Catalytic activity/Vol] 44 U/L 13-39 [facility] Basophils Auto (Bld) [#/Vol] Ordered By: Toi Edward on 02-14-2023 Basophils (Bld) [#/Vol] 0.1 10*3/uL 0.0-0.2 [facility] Basophils/100 WBC Auto (Bld) Ordered By: Toi Edward on 02-14-2023 Basophils/100 WBC (Bld) 0.5 % . F [facility] Bilirubin.total [Mass/volume ] in Serum or PlasmaOrdered By: Toi Edward on 02-14-2023 Bilirubin [Mass/Vol] 0.8 mg/dL 0.3-1.0 [facility] C reactive protein [Mass/vol ume] in Serum or PlasmaOrdered By: Toi Edward on 02-14-2023 CRP [Mass/Vol] 1.8 mg/dL 0.0-0.5 [facility] C-Reactive Proteinon 023 C-Reactive Protein 1.8 mg/dL High 0.0-0.5 [facility] Comment on above: Result Comment: PERF ORMED BY: [place] [address] PATHOLOGIST DIETARY DIRECTOR VEENA DYSON M.D. Performed By: #### S CAN CBC, ESR, CMP, CRP #### [facility] [address] Calcium [Mass/volume] in Ser um or PlasmaOrdered By: Toi Edward on 02-14-2023 Calcium [Mass/Vol] 9.4 mg/dL 8.6-10.3 [facility] Carbon dioxide, total [Moles /volume] in Serum or PlasmaOrdered By: Toi Edward on 02-14-2023 CO2 [Moles/Vol] 24.8 mmol/L 21.0-31.0 [facility] Chloride [Moles/volume] in S cass or PlasmaOrdered By: Toi Edward on 02-14-2023 Chloride [Moles/Vol] 100 mmol/L 98-107 [facility] Comprehensive Metabolic Pane valentín 02-14-2023 Albumin [Mass/Vol] 4.1 g/dL Normal 3.5-5.7 [facility] Comment on above: Performed By: #### S CAN CBC, ESR, CMP, CRP #### [facility] [address] Albumin/Globulin [Mass ratio] 1.2 {ratio} Normal [facility] Comment on above: Performed By: #### S CAN CBC, ESR, CMP, CRP #### [facility] [address] ALP [Catalytic activity/Vol] 158 U/L High 34-104 [facility] Comment on above: Performed By: #### S CAN CBC, ESR, CMP, CRP #### [facility] [address] ALT [Catalytic activity/Vol] 41 U/L Normal 7-52 [facility] Comment on above: Performed By: #### S CAN CBC, ESR, CMP, CRP #### [facility] [address] Anion gap [Moles/Vol] 13.2 mmol/L Normal 6.0-15.0 [facility] Comment on above: Performed By: #### S CAN CBC, ESR, CMP, CRP #### [facility] [address] AST [Catalytic activity/Vol] 44 U/L High 13-39 [facility] Comment on above: Performed By: #### S CAN CBC, ESR, CMP, CRP #### [facility] [address] Bilirubin [Mass/Vol] 0.8 mg/dL Normal 0.3-1.0 [facility] Comment on above: Performed By: #### S CAN CBC, ESR, CMP, CRP #### [facility] [address] Calcium [Mass/Vol] 9.4 mg/dL Normal 8.6-10.3 [facility] Comment on above: Performed By: #### S CAN CBC, ESR, CMP, CRP #### [facility] [address] Chloride [Moles/Vol] 100 mmol/L Normal 98-107 [facility] Comment on above: Performed By: #### S CAN CBC, ESR, CMP, CRP #### [facility] [address] [place] [address] [place] CO2 [Moles/Vol] 24.8 mmol/L Normal 21.0-31.0 [facility] Comment on above: Performed By: #### S CAN CBC, ESR, CMP, CRP #### [facility] [address] Creatinine [Mass/Vol] 0.77 mg/dL Normal 0.60-1.20 [facility] Comment on above: Performed By: #### S CAN CBC, ESR, CMP, CRP #### [facility] [address] Creatinine Clr Calc Pharmacy 115.98 [facility] Comment on above: Performed By: #### S CAN CBC, ESR, CMP, CRP #### [facility] [address] GFR/1.73 sq M.predicted MDRD (S/P/Bld) [Vol rate/Area] mL/min/{1.73_m2} [facility] Comment on above: Performed By: #### S CAN CBC, ESR, CMP, CRP #### [facility] [address] Globulin (S) [Mass/Vol] 3.5 g/dL Normal [facility] Comment on above: Performed By: #### S CAN CBC, ESR, CMP, CRP #### [address] Glucose [Mass/Vol] 85 mg/dL Normal 70-100 [facility] Comment on above: Result Comment: [facility] Glucose Reference Range is dependent on time and content of last meal. Glucose of more than 200 mg/dL in a nonstressed, ambulatory subject supports the diagnosis of Diabetes Mellitus. ADA recommended reference range Performed By: #### S CAN CBC, ESR, CMP, CRP #### [address] Potassium [Moles/Vol] 4.0 mmol/L Normal 3.5-5.1 [facility] Comment on above: Performed By: #### S CAN CBC, ESR, CMP, CRP #### [address] Protein [Mass/Vol] 7.6 g/dL Normal 6.4-8.9 [facility] Comment on above: Performed By: #### S CAN CBC, ESR, CMP, CRP #### [address] Sodium [Moles/Vol] 134 mmol/L Low 136-145 [facility] Comment on above: Performed By: #### S CAN CBC, ESR, CMP, CRP #### [facility] [address] Urea nitrogen [Mass/Vol] 7 mg/dL Normal 7-25 [facility] Comment on above: Performed By: #### S CAN CBC, ESR, CMP, CRP #### [facility] [address] [place] [address] Creatinine [Mass/volume] in Serum or PlasmaOrdered By: Toi Edward on 02-14-2023 Creatinine [Mass/Vol] 0.77 mg/dL 0.60-1.20 [facility] Eosinophils Auto (Bld) [#/Vo l]Ordered By: Toi Edward on 02-14-2023 Eosinophils (Bld) [#/Vol] 0.0 10*3/uL 0.0-0.45 [facility] Eosinophils/100 WBC Auto (Bl d)Ordered By: Toi Edward on 02-14-2023 Eosinophils/100 WBC (Bld) 0.2 % . [facility] Erythrocyte Sedimentation Ra deng 02-14-2023 ESR (Bld) [Velocity] 26 mm/h High 0 [facility] Comment on above: Result Comment: PERF ORMED BY: [place] [address] PATHOLOGIST DIETARY DIRECTOR VEENA DYSON M.D. Performed By: #### S CAN CBC, ESR, CMP, CRP #### [facility] [address] [place] [address] Erythrocyte distribution wid th Auto (RBC) [Ratio]Ordered By: Toi Edward on 02-14-2023 Erythrocyte distribution width (RBC) [Ratio] 13.3 % 11.9-15.3 [facility] Erythrocyte sedimentation ra te by Photometric methodOrdered By: Toi Edward on 02-14-2023 ESR Photometric method (Bld) [Velocity] 26 mm/hr [facility] Globulin Calc (S) [Mass/Vol] Ordered By: Toi Edward on 02-14-2023 Globulin (S) [Mass/Vol] 3.5 g/dL [facility] Glucose [Mass/volume] in Ser um or PlasmaOrdered By: Toi Edward on 02-14-2023 Glucose [Mass/Vol] 85 mg/dL 70-100 [facility] Comment on above: ADA recommended refe rence rangeRandom Glucose Reference Range is dependent on time and content of last meal. Glucose of more than 200 mg/dL in a nonstressed, ambulatory subject supports the diagnosis of Diabetes Mellitus. Hematocrit Auto (Bld) [Volum e fraction]Ordered By: Toi Edward on 02-14-2023 Hematocrit (Bld) [Volume fraction] 38.7 % 34.0-46.4 [facility] Hemoglobin [Mass/volume] in BloodOrdered By: Toi Edward on 02-14-2023 Hemoglobin (Bld) [Mass/Vol] 13.1 g/dL 11.8-15.4 [facility] Leukocytes [#/volume] correc alem for nucleated erythrocytes in Blood by Automated counOrdered By: Toi Edward on 02-14-2023 WBC corrected for nucl RBC Auto (Bld) [#/Vol] 9.4 10*3/uL 3.8-11.6 [facility] Lymphocytes Auto (Bld) [#/Vo l]Ordered By: Toi Edward on 02-14-2023 Lymphocytes (Bld) [#/Vol] 4.5 10*3/uL 1.00-4.8 [facility] Lymphocytes/100 WBC Auto (Bl d)Ordered By: Toi Edward on 02-14-2023 Lymphocytes/100 WBC (Bld) 47.5 % . [facility] MCH Auto (RBC) [Entitic mass ]Ordered By: Toi Edward on 02-14-2023 MCH (RBC) [Entitic mass] 29.0 pg 24.7-34.3 [facility] MCHC Auto (RBC) [Mass/Vol]Or dered By: Toi Edward on 02-14-2023 MCHC (RBC) [Mass/Vol] 33.7 g/dL 32.0-35.0 [facility] MCV Auto (RBC) [Entitic vol] Ordered By: Toi Edward on 02-14-2023 MCV (RBC) [Entitic vol] 85.8 fL 80-100 [facility] Monocyte distribution width [Entitic volume] in Blood by AutomatedOrdered By: Toi Edward on 02-14-2023 Monocyte distribution width Auto (Bld) [Entitic vol] 34.56 % 0.00-20.00 [facility] Comment on above: The predictive value of MDW for identifying sepsis in patients with hematological abnormalities has not been established Monocytes Auto (Bld) [#/Vol] Ordered By: Toi Edward on 02-14-2023 Monocytes (Bld) [#/Vol] 1.0 10*3/uL 0.0-0.8 [facility] Monocytes/100 WBC Auto (Bld) Ordered By: Toi Edward on 02-14-2023 Monocytes/100 WBC (Bld) 10.7 % . [facility] Neutrophils Auto (Bld) [#/Vo l]Ordered By: Toi Edward on 02-14-2023 Neutrophils (Bld) [#/Vol] 3.9 10*3/uL 1.8-7.7 [facility] Neutrophils/100 WBC Auto (Bl d)Ordered By: Toi Edward on 02-14-2023 Neutrophils/100 WBC (Bld) 41.1 % . [facility] No Panel InformationOrdered By: Toi Edward on 02-14-2023 Estimated GFR (CKD-EPI) > 60.0 mL/Min [facility] Creatinine Clearance (Chem 115.98 [facility] Nucleated erythrocytes [Pres ence] in Blood by Automated countOrdered By: Toi Edward on 02-14-2023 Nucleated RBC Auto Ql (Bld) 0.3 /100{WBC} 0-0.5 [facility] Platelet adequacy [Presence] in Blood by Light microscopyOrdered By: Toi Edward on 02-14-2023 Platelets LM Ql (Bld) Normal Normal [facility] Platelet mean volume Auto (B ld) [Entitic vol]Ordered By: Toi Edward on 02-14-2023 Platelet mean volume (Bld) [Entitic vol] 7.6 fL 6.3-10.7 [facility] Platelet morphology finding [Identifier] in BloodOrdered By: Toi Edward on 02-14-2023 Platelet morphology finding Nom (Bld) Normal Normal [facility] Platelets Auto (Bld) [#/Vol] Ordered By: Toi Edward on 02-14-2023 Platelets (Bld) [#/Vol] 163 10*3/uL 150-450 [facility] Potassium [Moles/volume] in Serum or PlasmaOrdered By: Toi Edward on 02-14-2023 Potassium [Moles/Vol] 4.0 mmol/L 3.5-5.1 [facility] Protein [Mass/volume] in Ser um or PlasmaOrdered By: Toi Edward on 02-14-2023 Protein [Mass/Vol] 7.6 g/dL 6.4-8.9 [facility] Quick Strepon 02-14-2023 Quick Strep Streptococcus pyogenes Ag [Presence] in Throat by Rapid immunoassay Negative for Group A Strep Antigen Note 1 -- NOTE 2 Results are those of a screening test. NOTE 3 If clinically indicated please order a culture. NOTE 4 -- NOTE 5 Reference range = Negative PERFORMED BY: [place] [address] PATHOLOGIST DIETARY DIRECTOR VEENA DYSON M.D. Normal [facility] Comment on above: Performed By: #### Q S, RFXSTPA #### [facility] [address] RBC Auto (Bld) [#/Vol]Ordere d By: Toi Edward on 02-14-2023 RBC (Bld) [#/Vol] 4.51 10*6/uL 3.60-5.00 [facility] RBC morphologyOrdered By: Den Edward on 02-14-2023 RBC morphology finding Nom (Bld) Normal Normal [facility] RFX Strep A Reflex Cult Only on 02-14-2023 RFX Strep A Reflex Cult Only Strep A Only Cult No Group A Beta Streptococcus Isolated 2 Days PERFORMED BY: [place] [address] PATHOLOGIST DIETARY DIRECTOR VEENA DYSON M.D. Normal [facility] Comment on above: Performed By: #### Q S, RFXSTPA #### [facility] [address] [place] [address] Scan and CBCon 02-14-2023 Basophils (Bld) [#/Vol] 0.1 10*3/uL Normal 0.0-0.2 [facility] Comment on above: Performed By: #### S CAN CBC, ESR, CMP, CRP #### [facility] [address] [place] [address] Basophils/100 WBC (Bld) 0.5 % Normal . [facility] Comment on above: Performed By: #### S CAN CBC, ESR, CMP, CRP #### [facility] [address] [place] [address] Eosinophils (Bld) [#/Vol] 0.0 10*3/uL Normal 0.0-0.45 [facility] Comment on above: Performed By: #### S CAN CBC, ESR, CMP, CRP #### [facility] [address] [place] [address] Eosinophils/100 WBC (Bld) 0.2 % Normal . [facility] Comment on above: Performed By: #### S CAN CBC, ESR, CMP, CRP #### [facility] [address] [place] [address] Erythrocyte distribution width (RBC) [Ratio] 13.3 % Normal 11.9-15.3 [facility] Comment on above: Performed By: #### S CAN CBC, ESR, CMP, CRP #### [facility] [address] [place] [address] Hematocrit (Bld) [Volume fraction] 38.7 % Normal 34.0-46.4 [facility] Comment on above: Performed By: #### S CAN CBC, ESR, CMP, CRP #### [facility] [address] [place] [address] Hemoglobin (Bld) [Mass/Vol] 13.1 g/dL Normal 11.8-15.4 [facility] Comment on above: Performed By: #### S CAN CBC, ESR, CMP, CRP #### [address] Lymphocytes (Bld) [#/Vol] 4.5 10*3/uL Normal 1.00-4.8 [facility] Comment on above: Performed By: #### S CAN CBC, ESR, CMP, CRP #### [address] Lymphocytes/100 WBC (Bld) 47.5 % Normal . [facility] Comment on above: Performed By: #### S CAN CBC, ESR, CMP, CRP #### [address] MCH (RBC) [Entitic mass] 29.0 pg Normal 24.7-34.3 [facility] Comment on above: Performed By: #### S CAN CBC, ESR, CMP, CRP #### [address] MCV (RBC) [Entitic vol] 85.8 fL Normal 80-100 [facility] Comment on above: Performed By: #### S CAN CBC, ESR, CMP, CRP #### [address] Mean Corpuscular HGB Conc 33.7 g/dL Normal 32.0-35.0 [facility] Comment on above: Performed By: #### S CAN CBC, ESR, CMP, CRP #### [address] Monocytes (Bld) [#/Vol] 1.0 10*3/uL High 0.0-0.8 [facility] Comment on above: Performed By: #### S CAN CBC, ESR, CMP, CRP #### [address] Monocytes/100 WBC (Bld) 34.56 % High 0.00-20.00 [facility] Comment on above: Result Comment: The predictive value of MDW for identifying sepsis in patients with hematological abnormalities has not been established Performed By: #### S CAN CBC, ESR, CMP, CRP #### [facility] [address] Monocytes/100 WBC (Bld) 10.7 % Normal . [facility] Comment on above: Performed By: #### S CAN CBC, ESR, CMP, CRP #### [address] Neutrophils (Bld) [#/Vol] 3.9 10*3/uL Normal 1.8-7.7 [facility] Comment on above: Performed By: #### S CAN CBC, ESR, CMP, CRP #### [address] Neutrophils/100 WBC (Bld) 41.1 % Normal . [facility] Comment on above: Performed By: #### S CAN CBC, ESR, CMP, CRP #### [address] NRBC% 0.3 /100{WBC} Normal 0-0.5 [facility] Comment on above: Performed By: #### S CAN CBC, ESR, CMP, CRP #### [address] Platelet Estimate Normal Normal Normal [facility] Comment on above: Performed By: #### S CAN CBC, ESR, CMP, CRP #### [address] Platelet mean volume (Bld) [Entitic vol] 7.6 fL Normal 6.3-10.7 [facility] Comment on above: Performed By: #### S CAN CBC, ESR, CMP, CRP #### [address] Platelet Morphology Normal Normal Normal [facility] Comment on above: Performed By: #### S CAN CBC, ESR, CMP, CRP #### [address] Platelets (Bld) [#/Vol] 163 10*3/uL Normal 150-450 [facility] Comment on above: Performed By: #### S CAN CBC, ESR, CMP, CRP #### [facility] [address] RBC (Bld) [#/Vol] 4.51 10*6/uL Normal 3.60-5.00 [facility] Comment on above: Performed By: #### S CAN CBC, ESR, CMP, CRP #### [facility] [address] RBC morphology finding Nom (Bld) Normal Normal Normal [facility] Comment on above: Performed By: #### S CAN CBC, ESR, CMP, CRP #### [facility] [address] [place] [address] WBC (Bld) [#/Vol] 9.4 10*3/uL Normal 3.8-11.6 [facility] Comment on above: Performed By: #### S CAN CBC, ESR, CMP, CRP #### [facility] [address] [place] [address] Serum or plasma albumin/glob ulin mass ratioOrdered By: Toi Edward on 02-14-2023 Albumin/Globulin [Mass ratio] 1.2 {ratio} [facility] Serum or plasma anion gap de terminationOrdered By: Toi Edward on 02-14-2023 Anion gap [Moles/Vol] 13.2 mmol/L 6.0-15.0 [facility] Sodium [Moles/volume] in Ser um or PlasmaOrdered By: Toi Edward on 02-14-2023 Sodium [Moles/Vol] 134 mmol/L 136-145 [facility] Urea nitrogen [Mass/volume] in Serum or PlasmaOrdered By: Toi Edward on 02-14-2023 Urea nitrogen [Mass/Vol] 7 mg/dL 7-25 [facility] WBC Auto (Bld) [#/Vol]Ordere d By: Toi Edward on 02-14-2023 WBC (Bld) [#/Vol] 9.4 10*3/uL 3.8-11.6 [facility] CBC AUTO DIFFon 03-02-2022 BASO # 0.0 103/ul Normal 0.0-0.1 [facility] Comment on above: Performed By: #### C BC #### [facility] [address] [place] [address] Dr. Melinda López Basophils/100 WBC (Bld) 0.2 % Normal 0.2-2.0 [facility] Comment on above: Performed By: #### C BC #### [facility] [address] [place] [address] Dr. Melinda López EO # 0.0 103/ul Normal 0.0-0.7 [facility] Comment on above: Performed By: #### C BC #### [facility] [address] [place] [address] Dr. Melinda López Eosinophils/100 WBC (Bld) 0.1 % Critically low 0.9-7.0 [facility] Comment on above: Performed By: #### C BC #### [facility] [address] [place] [address] Dr. Melinda López Erythrocyte distribution width (RBC) [Ratio] 13.0 % Normal 11.0-15.0 [facility] Comment on above: Performed By: #### C BC #### [facility] [address] [place] [address] Dr. Melinda López Hematocrit (Bld) [Volume fraction] 41.3 % Normal 36.0-48.0 [facility] Comment on above: Performed By: #### C BC #### [facility] [address] [place] [address] Dr. Melinda López Hemoglobin (Bld) [Mass/Vol] 13.2 g/dL Normal 12.0-16.0 [facility] Comment on above: Performed By: #### C BC #### [facility] [address] [place] [address] Dr. Melinda López IG # 0.15 10e3/ul Critically high 0.00-0.03 [facility] Comment on above: Performed By: #### C BC #### [facility] [address] [place] [address] Dr. Melinda López IG % 0.9 % Critically high 0.0-0.5 [facility] Comment on above: Performed By: #### C BC #### [facility] [address] [place] [address] Dr. Melinda López LYMPH # 1.1 103/ul Critically low 1.2-3.8 [facility] Comment on above: Performed By: #### C BC #### [facility] [address] [place] [address] Dr. Melinda López Lymphocytes/100 WBC (Bld) 6.6 % Critically low 20.5-60.0 [facility] Comment on above: Performed By: #### C BC #### [facility] [address] [place] [address] Dr. Melinda López MANUAL DIFF REQ NO Normal [facility] Comment on above: Performed By: #### C BC #### [facility] [address] [place] [address] Dr. Melinda López MCH (RBC) [Entitic mass] 28.1 pg Normal 26.7-34.0 [facility] Comment on above: Performed By: #### C BC #### [facility] [address] [place] [address] Dr. Melinda López MCHC (RBC) [Mass/Vol] 32.0 g/dL Normal 29.9-35.2 [facility] Comment on above: Performed By: #### C BC #### [facility] [address] [place] [address] Dr. Melinda López MCV (RBC) [Entitic vol] 88.1 fL Normal 81.0-99.0 [facility] Comment on above: Performed By: #### C BC #### [facility] [address] [place] [address] Dr. Melinda López MONO # 0.9 103/ul Critically high 0.3-0.8 [facility] Comment on above: Performed By: #### C BC #### [facility] [address] [place] [address] Dr. Melinda López Monocytes/100 WBC (Bld) 4.9 % Normal 1.7-12.0 [facility] Comment on above: Performed By: #### C BC #### [facility] [address] [place] [address] Dr. Melinda López NEUT # 15.0 103/ul Critically high 1.4-6.5 [facility] Comment on above: Performed By: #### C BC #### [facility] [address] [place] [address] Dr. Melinda López Neutrophils/100 WBC (Bld) 87.3 % Critically high 43.0-75.0 [facility] Comment on above: Performed By: #### C BC #### [facility] [address] [place] [address] Dr. Melinda López Platelet mean volume (Bld) [Entitic vol] 9.4 fL Critically low 9.5-13.5 [facility] Comment on above: Performed By: #### C BC #### [facility] [address] [place] [address] Dr. Melinda López PLT 362 103/ul Normal 150-450 [facility] Comment on above: Performed By: #### C BC #### [facility] [address] [place] [address] Dr. Melinda López RBC 4.69 106/ul Normal 4.20-5.40 [facility] Comment on above: Performed By: #### C BC #### [facility] [address] [place] [address] Dr. Melinda López WBC 17.2 103/ul Critically high 4.0-11.0 [facility] Comment on above: Performed By: #### C BC #### [facility] [address] [place] [address] Dr. Melinda López MONOon 03-02-2022 Monocytes (Bld) [#/Vol] Negative Normal NEGATIVE [facility] Comment on above: Performed By: #### M RADHA #### [facility] [address] [place] [address] Dr. Melinda López Vital Signs Date Time Vital Sign Value Performing Clinician Facility 09-05-2024 09:38-0400 Body mass index (BMI) [Ratio] 35.55 kg/m2 Raúl Victorina DO Work Phone: [facility] 09-05-2024 09:38-0400 Body weight 93.95 kg Raúl Victorina DO Work Phone: [facility] 09-05-2024 09:38-0400 Diastolic blood pressure 62 mm[Hg] Raúl Victorina DO Work Phone: [facility] 09-05-2024 09:38-0400 Systolic blood pressure 100 mm[Hg] Raúl Victorina DO Work Phone: [facility] 08-22-2024 13:50-0500 Body mass index (BMI) [Ratio] 35.19 kg/m2 Raúl Victorina DO Work Phone: [facility] 08-22-2024 13:50-0500 Body weight 92.99 kg Raúl Victorina DO Work Phone: [facility] 08-22-2024 13:50-0500 Diastolic blood pressure 70 mm[Hg] Raúl Victorina DO Work Phone: [facility] 08-22-2024 13:50-0500 Systolic blood pressure 100 mm[Hg] Raúl Victorina DO Work Phone: [facility] 08-14-2024 15:09-0500 Body mass index (BMI) [Ratio] 34.69 kg/m2 Raúl Victorina DO Work Phone: [facility] 08-14-2024 15:09-0500 Body weight 91.68 kg Raúl Victorina DO Work Phone: [facility] 08-14-2024 15:09-0500 Diastolic blood pressure 70 mm[Hg] Raúl Victorina DO Work Phone: [facility] 08-14-2024 15:09-0500 Systolic blood pressure 96 mm[Hg] Raúl Victorina DO Work Phone: [facility] 07-27-2024 11:58-0500 Body mass index (BMI) [Ratio] 34.57 kg/m2 Raúl Victorina DO Work Phone: [facility] 07-27-2024 11:58-0500 Body weight 91.35 kg Raúl Victorina DO Work Phone: [facility] 07-27-2024 11:58-0500 Diastolic blood pressure 70 mm[Hg] Raúl Victorina DO Work Phone: [facility] 07-27-2024 11:58-0500 Systolic blood pressure 110 mm[Hg] Arúl Victorina DO Work Phone: [facility] 06-26-2024 15:26-0500 Body mass index (BMI) [Ratio] 33.78 kg/m2 Kadi Bernard PA Work Phone: [facility] 06-26-2024 15:26-0500 Body weight 89.27 kg Kadi Bernard PA Work Phone: [facility] 06-26-2024 15:26-0500 Diastolic blood pressure 74 mm[Hg] Kadi Bernard PA Work Phone: [facility] 06-26-2024 15:26-0500 Systolic blood pressure 112 mm[Hg] Kadi Bernard PA Work Phone: [facility] 06-05-2024 10:01-0500 Body mass index (BMI) [Ratio] 32.96 kg/m2 Raúl Victorina DO Work Phone: [facility] 06-05-2024 10:01-0500 Body weight 87.09 kg Raúl Victorina DO Work Phone: [facility] 06-05-2024 10:01-0500 Diastolic blood pressure 68 mm[Hg] Raúl Victorina DO Work Phone: [facility] 06-05-2024 10:01-0500 Systolic blood pressure 114 mm[Hg] Raúl Victorina DO Work Phone: [facility] 05-09-2024 14:41-0500 Body mass index (BMI) [Ratio] 33.3 kg/m2 Kadi Wagner PA Work Phone: [facility] 05-09-2024 14:41-0500 Body weight 88 kg Kadi Wagner PA Work Phone: [facility] 05-09-2024 14:41-0500 Diastolic blood pressure 70 mm[Hg] Kadi Wagner PA Work Phone: [facility] 05-09-2024 14:41-0500 Systolic blood pressure 118 mm[Hg] Kadi Wagner PA Work Phone: [facility] 04-10-2024 16:00-0400 Body mass index (BMI) [Ratio] 33.47 kg/m2 Raúl Victorina DO Work Phone: [facility] 04-10-2024 16:00-0400 Body weight 88.45 kg Raúl Victorina DO Work Phone: [facility] 04-10-2024 16:00-0400 Diastolic blood pressure 80 mm[Hg] Raúl Victorina DO Work Phone: [facility] 04-10-2024 16:00-0400 Systolic blood pressure 120 mm[Hg] Raúl Victorina DO Work Phone: [facility] 03-13-2024 13:52-0400 Body mass index (BMI) [Ratio] 34.16 kg/m2 Raúl Victorina DO Work Phone: [facility] 03-13-2024 13:52-0400 Body weight 90.27 kg Raúl Victorina DO Work Phone: [facility] 03-13-2024 13:52-0400 Diastolic blood pressure 70 mm[Hg] Raúl Victorina DO Work Phone: [facility] 03-13-2024 13:52-0400 Systolic blood pressure 118 mm[Hg] Raúl Victorina DO Work Phone: [facility] 02-10-2024 13:28-0400 Body mass index (BMI) [Ratio] 35.04 kg/m2 [facility] Nurse [facility] 02-10-2024 13:28-0400 Body weight 92.59 kg [facility] Nurse [facility] 02-10-2024 13:28-0400 Diastolic blood pressure 70 mm[Hg] [facility] Nurse [facility] 02-10-2024 13:28-0400 Systolic blood pressure 120 mm[Hg] [facility] Nurse [facility] 08-04-2023 11:10-0500 Body mass index (BMI) [Ratio] 33.88 kg/m2 Raúl Victorina DO Work Phone: [facility] 08-04-2023 11:10-0500 Body weight 89.54 kg Raúl Victorina DO Work Phone: [facility] 08-04-2023 11:10-0500 Diastolic blood pressure 68 mm[Hg] Raúl Victorina DO Work Phone: [facility] 08-04-2023 11:10-0500 Systolic blood pressure 114 mm[Hg] Raúl Victorina DO Work Phone: [facility] 02-15-2023 00:16-0400 Body temperature 99.3 [degF] PA-Evelyn Edward Work Phone: [facility] 02-15-2023 00:16-0400 Diastolic blood pressure 66 mm[Hg] PA-Evelyn Edward Work Phone: [facility] 02-15-2023 00:16-0400 Heart rate 91 /min FLORENCIA-Evelyn Edward Work Phone: [facility] 02-15-2023 00:16-0400 Respiratory rate 16 /min PA-C Toi Edward Work Phone: [facility] 02-15-2023 00:16-0400 SaO2% (BldA) [Mass fraction] 95 % PA-C Toi Edward Work Phone: [facility] 02-15-2023 00:16-0400 Systolic blood pressure 121 mm[Hg] PA-Evelyn Edward Work Phone: [facility] 02-14-2023 20:07-0400 Body height 163.83 cm SHAD Edward Work Phone: [facility] 02-14-2023 20:07-0400 Body weight 74.25 kg SHAD Edward Work Phone: [facility] 02-11-2023 15:40-0400 Body height 167.64 cm Ellen Ortiz Other [employer] Other 02-11-2023 15:40-0400 Body mass index (BMI) [Ratio] 27.18 kg/m2 Ellen Ortiz Other [employer] Other 02-11-2023 15:40-0400 Body temperature 96.9 [degF] Ellen Ortiz Other [employer] Other 02-11-2023 15:40-0400 Body weight 76.39 kg Ellen Diana Other [employer] Other 02-11-2023 15:40-0400 Diastolic blood pressure 78 mm[Hg] Ellen Ortiz Other [employer] Other 02-11-2023 15:40-0400 Respiratory rate 18 /min Ellen Ortiz Other [employer] Other 02-11-2023 15:40-0400 SaO2% (BldA) [Mass fraction] 98 % Ellen Ortiz Other [employer] Other 02-11-2023 15:40-0400 Systolic blood pressure 110 mm[Hg] Ellen Ortiz Other [employer] Other Encounters Encounter Date Encounter Type Care Provider Facility Start: 10-24-2024 End: 10-24-2024 ambulatory Kadi DON Work Phone: [facility] Start: 10-24-2024 End: 10-24-2024 Follow-up encounter Kadi DON Work Phone: [facility] Comment on above: 6 weeks f ollow-up; Hemorrhoids, unspecified hemorrhoid type; Anxiety, generalized (CMS/HCC) Start: 09-05-2024 End: 09-05-2024 ambulatory RAÚL VICTORINA Not Available Start: 09-05-2024 End: 09-05-2024 Office outpatient visit 15 minutes Raúl Victorina DO Work Phone: [facility] Comment on above: 38 weeks gestation o f ; Third trimester Start: 08-29-2024 End: 08-29-2024 ambulatory KADI WAGNER Not Available Start: 08-22-2024 End: 08-22-2024 Bamboo flowsheet Raúl Victorina DO Work Phone: [facility] Start: 08-22-2024 End: 08-28-2024 Bamboo flowsheet Raúl Victorina DO Work Phone: [facility] Start: 08-22-2024 End: 08-28-2024 Clinisync Result Encounter Raúl Victorina DO Work Phone: [facility] External Department Unsolicited Start: 08-22-2024 End: [...] Start: 07-12-2024 End: 07-12-2024 Bamboo flowsheet Kadi Wagner PA Work Phone: [facility] Start: 07-12-2024 End: 07-12-2024 Bamboo flowsheet Kadi Wagner PA Work Phone: [facility] Start: 06-26-2024 [...] OB Start: 06-05-2024 End: 06-05-2024 Bamboo flowsheet Rúal Victorina DO Work Phone: [facility] [...] Phone: [facility] Comment on above: Screening, , for anatomic survey; Exposure to STD; Vaginal discharge; Need for maternal serum alpha-protein (MSAFP) screening; Second trimester ; 17 weeks gestation of ; Weight loss Start: 04-10-2024 End: 04-10-2024 Bamboo flowsheet Raúl Victorina DO Work Phone: [facility] Start: 04-10-2024 End: 04-12-2024 Bamboo flowsheet Raúl Victorina DO Work Phone: [facility] Start: 04-10-2024 End: 04-12-2024 External Result Encounter Raúl Victorina DO Work Phone: [facility] Unsolicited Start: 03-13-2024 End: 03-13-2024 Bamboo flowsheet Raúl Victorina DO Work Phone: [facility] Start: 03-13-2024 End: 03-13-2024 Bamboo flowsheet Raúl Victorina DO Work Phone: [facility] Start: 03-13-2024 End: 03-13-2024 Office [...] Work Phone: [facility] External Department Unsolicited Start: 02-10-2024 End: 02-10-2024 Office outpatient visit 5 minutes [facility] Victorina Nurse [facility] Comment on above: GA: 8w3d Start: 02-10-2024 End: 02-10-2024 ambulatory KADI WAGNER Not Available Start: 08-05-2023 [...] 02-15-2023 Emergency department patient visit NON STAFF Facility:[facility] Start: 02-14-2023 End: 02-15-2023 Emergency department patient visit SHAD Edward Work Phone: [facility] Work Phone: Start: 02-11-2023 End: 02-11-2023 ambulatory Ellen Ortiz Other [employer] Other Start: 02-11-2023 Office outpatient ne w 20 minutes Ellen Ortiz [facility] Start: 03-02-2022 End: 03-03-2022 ambulatory [facility] Facility: Procedures Date Procedure Procedure Detail [...] stick/tabl et rgnt non-auto w/o micrscp Kadi Wagner PA Work Phone: Start: 04-13-2024 AFP, SERUM, OPEN [...] Treatment Date Care Activity Detail Author Start: 02-19-2025 Influenza vaccination Influenz a Vaccine (Season Ended) [facility] Start: 11-27-2024 End: 11-27-2024 Patient encounter procedure 11/27/2024 3:30 PM EDT Office Visit [facility] [address] [place] [id number] Kadi Wagner, PA [address] [place] [address] [facility] Start: 08-29-2024 End: 08-29-2024 Patient encounter procedure 08/29/2024 9:20 AM EDT Routine [facility] [address] [place] [phone] Kadi aWgner PA [address] [place] [address] [place] [address] [facility] Start: 08-22-2024 End: 08-22-2025 CULTURE, GROUP B STREP WITH SUSCEPTIBLITY CULTURE, GROUP B STREP WITH SUSCEPTIBLITY Lab Routine Third trimester Expected: 08/22/2024, Expires: 08/22/2025 [facility] Work Phone: Comment on above: Expected: 08/22/2024 , Expires: 08/22/2025 Start: 08-22-2024 End: 08-22-2024 Patient encounter procedure 08/22/2024 1:30 PM EST Routine [facility] [address] [place] [place] [phone] Raúl Prajapati, DO [address] [place] [address] [place] [address] [facility] Start: 08-14-2024 End: 08-14-2024 Patient encounter procedure 08/14/2024 2:40 PM EST Routine [facility] [address] [place] [address] Raúl Prajapati, DO [address] [place] [address] [place] [address] [facility] Start: 07-12-2024 End: 07-12-2024 Patient encounter procedure 07/12/2024 3:00 PM EST Routine [facility] [address] [place] [address] Kadi Wagner, PA [address] [facility] [facility] [place] [address] Arrived [facility] Comment on above: Arrived Start: 06-26-2024 End: 06-26-2024 Patient encounter procedure 06/26/2024 3:10 PM EST Routine [facility] [address] [facility] [place] [phone] Kadi Wagner, PA [address] [facility] [facility] [address] [place], [place] [id number] [facility] Start: 06-26-2024 End: 06-26-2024 Professional / ancillary services management 06/26/2024 2:30 PM EST Ancillary Procedure [facility] [address] [facility] [place] [address] [facility] Start: 06-05-2024 End: 06-05-2025 [...] PM EST Routine [facility] [address] [place] [place] [phone] Kadi Wagner, PA [address] [facility] [address] [place], [place] [id number] [facility] Start: 05-09-2024 End: 05-09-2025 CBC panel - Blood by Automated count CBC Lab Routine Diabetes mellitus screening Expected: 05/09/2024 (Approximate), Expires: 05/09/[address] [facility] Work Phone: Comment on above: Expected: 05/09/2024 (Approximate), Expires: 05/09/2025 Start: 05-09-2024 End: 05-09-2025 Measurement of glucose 1 hour after glucose challenge for glucose tolerance test Glucose tolerance, 1 hour Lab Routine Diabetes mellitus screening Expected: 05/09/2024 (Approximate), Expires: 05/09/[address] [facility] Comment on above: Expected: 05/09/2024 (Approximate), Expires: 05/09/2025 Start: 05-09-2024 End: 05-09-2024 Professional / ancillary services management 05/09/2024 1:30 PM EST Ancillary Procedure [facility] [address] [place] [place] [address] [facility] Start: 04-10-2024 End: 04-10-2024 Patient encounter procedure 04/10/2024 2:50 PM EDT Routine [facility] [address] [place] [address] Raúl Prajapati, DO [address], [place] [address] [facility] Start: 04-10-2024 End: 04-10-2025 US for US OB ANATOMY SINGLE W US OB CERVICAL LENGTH Imaging Routine Screening, , for anatomic survey Expected: 04/10/2024 (Approximate), Expires: 04/10/[address] [facility] Comment on above: Expected: 04/10/2024 (Approximate), Expires: 04/10/2025 Start: 03-13-2024 End: 03-13-2024 Patient encounter procedure [facility] Comment on above: Arrived Start: 02-20-2024 Influenza vaccination Influenza Vacc ine (#1) [facility] Start: 02-10-2024 End: 02-09-2025 ABO/Rh ABO/Rh Lab Routine Missed menses Expected: 02/10/2024 (Approximate), Expires: 02/09/2025 [facility] Comment on above: Expected: 02/10/2024 (Approximate), Expires: 02/09/2025 Start: 02-10-2024 End: 02-09-2025 Blood type and Indirect antibody screen panel - Blood Type and screen Lab Routine Missed menses Expected: 02/10/2024 (Approximate), Expires: 02/09/2025 [facility] Work Phone: Comment on above: Expected: 02/10/2024 (Approximate), Expires: 02/09/2025 Start: 02-10-2024 End: 02-09-2025 US Pelvis transvaginal US OB transvaginal Imaging Routine Missed menses Expected: 02/10/2024 (Approximate), Expires: 02/09/2025 [facility] Comment on above: Expected: 02/10/2024 (Approximate), Expires: 02/09/2025 Start: 08-11-2023 End: 08-11-2023 Patient encounter procedure 08/11/2023 10:30 AM EST Routine [facility] [address] [place] [place] [address] Raúl Prajapati DO [address] [place] [address] [facility] Start: 08-04-2023 End: 08-04-2024 US for US OB SCAN FOR GROWTH Imaging Routine Excessive growth affecting management of in third trimester, single or unspecified fetus Expected: 08/04/2023 (Approximate), Expires: 08/04/2024 [facility] Work Phone: Comment on above: Expected: 08/04/2023 (Approximate), Expires: 08/04/2024 Start: 02-14-2023 Streptococcus pyogen es Ag [Presence] in Throat Group A Strep Throat Culture [facility] Bacteria identified in Urine by Culture Urine culture Microbiology Routine Missed menses Ordered: 02/10/[address] [facility] Comment on above: Ordered: 02/10/2024 CBC W Auto Different ial panel - Blood CBC and differential Lab Routine Missed menses Ordered: 02/10/[address] [facility] Comment on above: Ordered: 02/10/2024 CHLAMYDIA TRACHOMATI S (GENITO/STI) CHLAMYDIA TRACHOMATIS (GENITO/STI) Lab Routine Exposure to STD Ordered: 04/10/[address] [facility] Comment on above: Ordered: 04/10/2024 Hemoglobin A1c/Hemoglobin.total in Blood Hemoglobin A1c Lab Routine Missed menses Ordered: 02/10/[address] [facility] Comment on above: Ordered: 02/10/2024 Hepatitis B virus surface Ag [Presence] in Serum or Plasma by Immunoassay Hepatitis B surface antigen Lab Routine Missed menses Ordered: 02/10/[address] [facility] Comment on above: Ordered: 02/10/2024 Hepatitis C virus Ab [Presence] in Serum or Plasma by Immunoassay Hepatitis C antibody Lab Routine Missed menses Ordered: 02/10/[address] [facility] Comment on above: Ordered: 02/10/2024 HIV-1/HIV-2 antigen/antibody combination immunoassay HIV-1 and HIV-2 antibodies Lab Routine Missed menses Ordered: 02/10/[address] [facility] Comment on above: Ordered: 02/10/2024 Neisseria gonorrhoea e DNA [Presence] in Unspecified specimen by JUVENCIO with probe detection Neisseria gonorrhea DNA probe, direct Lab Routine Exposure to STD Ordered: 04/10/[address] [facility] Comment on above: Ordered: 04/10/2024 Patient Education Sore Throat, Adult ED [facility] Work Phone: Patient referral [facility] Work Phone: Reagin Ab [Presence] in Serum by RPR RPR Lab Routine Missed menses Ordered: 02/10/[address] [facility] Comment on above: Ordered: 02/10/2024 Rubella antibody, IgG Rubella an tibody, IgG Lab Routine Missed menses Ordered: 02/10/[address] [facility] Comment on above: Ordered: 02/10/2024 SURESWAB(R) ADVANCED VAGINITIS PLUS, TMA SURESWAB(R) ADVANCED VAGINITIS PLUS, TMA Pathology and Cytology Routine Vaginal discharge Ordered: 04/10/2024 [facility] Work Phone: Comment on above: Ordered: 04/10/2024 Payers Date Payer Category Payer Private Health Insurance [facility] [id number] 2023 Medicaid [id number] 2023 Self-pay 2022 Medicaid [id number] 2003 Unknown [id number] 2.16.840.1.953409.3.579.2. 1258 2003 Unknown [id number] 2.16.840.1.003121.3.579.2. 1258 2003 Unknown [id number] 2.16.840.1.690532.3.579.2. 1258 2003 Unknown [id number] 2.16.840.1.429738.3.579.2. 1258 2003 Unknown [id number] 2.16.840.1.358319.3.579.2. 1258 2003 Unknown [id number] 2.16.840.1.797380.3.579.2. 1258 2003 Unknown [id number] 2.16.840.1.036788.3.579.2. 1258 2003 Unknown [id number] 2.16.840.1.867772.3.579.2. 1259 2003 Unknown [id number] 2.16.840.1.628164.3.579.2. 1259 2003 Unknown [id number] 2.16.840.1.730626.3.579.2. 1259 2003 Unknown [id number] 2.16.840.1.548999.3.579.2. 9 2003 Unknown [id number] 2.16.840.1.287780.3.579.2. 1259 2003 Unknown [id number] 2.16.840.1.312780.3.579.2. 9 2003 Unknown [id number] 2.16.840.1.778389.3.579.2. 9 2003 Unknown [id number] 2.16.840.1.229652.3.579.2. 1259 1985 Unknown [id number] 2.16.840.1.463878.3.579.2. 593 1959 Unknown [id number] Unknown [id number] 2.16.840.1.366745.3.579.2. 531 Social History Date Type Detail Facility Unknown if ever smoked [employer] Other Start: 04-07-2023 End: 02-10-2024 Sex Assigned At [place] [facility] Other Start: 02-14-2023 End: 04-07-2023 Tobacco smoking status NHIS Never smoked tobacco (finding) [facility] Start: 2003 Sex Assigned At Female F [facility] Start: 08-04-2023 End: 10-24-2024 Alcohol intake Lifetime non-drinker (finding) [facility] Start: 04-07-2023 End: 02-10-2024 History of Social function [facility] Start: 03-30-2023 Alcohol Comment Caffeine intak e: 1-2 cups per day [facility] Start: 12-16-2022 [facility] Start: 2003 Sex Assigned At Not on file N [facility] Clinical Notes 02-11-2023 to 10-24-2024 FLORENCIA Pedroza - 10/24/2024 10:30 AM Jessica Felipe, PHOTO TECH - 09/05/2024 9:20 AM EDArsalan Porter, PHOTO TECH - 08/22/2024 1:30 PM ESTSusamar Ramirezr, [facility] - 08/14/2024 2:40 PM EST Note Date & Type Note Facility 10-24-2024 History of Presen t illness Narrative Reason for Appointment: Patient ID: Rosemary Batista is a 19 y.o. female who presents for Care Patient presents today for Post Follow Up appointment. MEDICATIONS Current Outpatient Medications Medication Instructions citalopram (CELEXA) 20 mg, Oral, Daily Hydrocort-Pramoxine, Perianal, (Proctofoam HC) 1-1 % foam 1 Application, Apply externally, Daily Vit-Fe Fumarate-FA ( Vitamins) 28-0.8 MG tablet [...] reviewed. Vitals: Estimated body mass index is 35.55 kg/m as calculated from the following: Height as of 03/02/23: 5' 4 . Weight as of 09/05/24: 207 lb 1.9 oz. BP: Patient's last menstrual period was 12/13/2023. ASSESSMENT & PLAN ICD-10-CM 1. 6 weeks follow-up Z39.2 2. Hemorrhoids, unspecified hemorrhoid type K64.9 Hydrocort-Pramoxine, Perianal, (Proctofoam HC) 1-1 % foam 3. Anxiety, generalized (CMS/HCC) F41.1 citalopram (CeleXA) 20 MG tablet Post Follow Up: Patient is doing well. Patient presents today for 6 week visit. Patient is s/p Vaginal delivery. Patient states depression but denies suicidal and homicidal ideations. All options were discussed with the patient regarding control and patient desires none at this time. Follow Up: Patient is to return for annual unless needed otherwise. Documented by FLORENCIA Pedroza on behalf of: FLORENCIA Pedroza documented in this encounter [facility] 09-05-2024 History of Presen t illness Narrative [...] nursing note reviewed. Exam conducted with a departmental secretary present. Vitals: Estimated body mass index is [...] Raúl Prajapati DO documented in this encounter [facility] 08-22-2024 History of Presen t illness Narrative [...] nursing note reviewed. Exam conducted with a departmental secretary present. Vitals: Estimated body mass index is [...] Raúl Prajapati DO documented in this encounter [facility] 08-14-2024 History of Presen t illness Narrative [...] SOCIAL HISTORY Past Medical History: Diagnosis Date COVID-19 02/2021 Hypertrophy of tonsil Social History Tobacco Use [...] nursing note reviewed. Exam conducted with a departmental secretary present. Vitals: Estimated body mass index is [...] Raúl Prajapati DO documented in this encounter [facility] 07-27-2024 History of Presen t illness Narrative [...] nursing note reviewed. Exam conducted with a departmental secretary present. Vitals: Estimated body mass index is [...] Raúl Prajapati DO documented in this encounter [facility] 06-26-2024 History of Presen t illness Narrative [...] of: FLORENCIA Pedroza documented in this encounter [facility] 06-05-2024 History of Presen t illness Narrative [...] SOCIAL HISTORY Past Medical History: Diagnosis Date COVID-19 02/2021 Hypertrophy of tonsil Social History Tobacco Use [...] nursing note reviewed. Exam conducted with a departmental secretary present. Vitals: Estimated body mass index is [...] Raúl Prajapati DO documented in this encounter [facility] 05-09-2024 History of Presen t illness Narrative [...] of: FLORENCIA Pedroza documented in this encounter [facility] 04-10-2024 History of Presen t illness Narrative [...] Diagnosis Date COVID-19 02/2021 Hypertrophy of tonsil HISTORY PAST MEDICAL HISTORY SOCIAL HISTORY Past Medical History: Diagnosis Date COVID-19 02/2021 Hypertrophy of tonsil Social History Tobacco Use [...] nursing note reviewed. Exam conducted with a departmental secretary present. Vitals: Estimated body mass index is [...] obtained without difficulty and patient was given [facility] order to have obtained. Orders Placed This [...] Raúl Prajapati DO documented in this encounter [facility] 03-13-2024 History of Presen t illness Narrative [...] nursing note reviewed. Exam conducted with a departmental secretary present. Vitals: Estimated body mass index is [...] or undercooked meat, and stay away from [facility]. Patient has been consulted regarding any further [...] Raúl Prajapati DO documented in this encounter [facility] 02-10-2024 History of Presen t illness Narrative [...] or undercooked meat, and stay away from [facility]. Patient has also been advised to not [...] Kiera Dupont LPN documented in this encounter [facility] 08-04-2023 History of Presen t illness Narrative [...] nursing note reviewed. Exam conducted with a departmental secretary present. Vitals: Estimated body mass index is [...] Raúl Prajapati DO documented in this encounter [facility] 02-11-2023 Evaluation note Encounter Date Diagnosis Assessment Notes Jan, Swelling of eyelid, unspecified laterality (ICD-10 - H02.849) Continue to apply cool compresses to your eyes. Take the Medrol Dosepak as prescribed until gone. Follow-up with your family physician if no improvement in 2 to 3 days. Go to the ER for worsening symptoms or concerns [employer] Other Evaluation noteNo assessment information available [facility] Work Phone: Evaluation note* Diagnosis Third trimester [...] state, incidental [facility] Diagnosis 6 weeks follow-up Hemorrhoids, unspecified hemorrhoid type Anxiety, generalized (CMS/HCC) documented in this encounter [facility] Summary [...] DATE CREATED AUTHOR AUTHOR'S ORGANIZ ATION 02/26/2023 [facility] DATE CREATED AUTHOR AUTHOR'S ORGANIZ ATION 10/27/2024 [facility] EPIC REASON FOR VISIT (unrecogniz ed section and content) Reason Comments Routine Visit Reason Comments Care Care Teams (unrecognized sec tion and content) Team Status: Active Member Role Status Dates NON STAFF Primary Care Provider Active Team Status: Inactive Member Role Status Dates Toi Edward PA-C Emergency Provider Active NON STAFF Primary Care Provider Active Education Spec Relationship Specialty Start Date End Date Kadi Wagner PA [address] [place], [place] [id number] PCP [facility] 12/20/23 Education Spec Relationship Specialty Start Date End Date Kadi Wagner PA [address] [place] [address] [facility] 12/20/23 Education Spec Relationship Specialty Start Date End Date Kadi Wagner PA [address] [facility] [address] [place] [address] PCP [facility] 12/20/23 Education Spec Relationship Specialty Start Date End Date Kadi Wganer PA [address] [place] [address] PCP [facility] 12/20/23 Education Spec Relationship Specialty Start Date End Date Kadi Wagner PA [address] [place], [place] [phone] PCP [facility] 12/20/23 Education Spec Relationship Specialty Start Date End Date Kadi Wagner PA [address] [place], [place] [id number] PCP [facility] 12/20/23 Education Spec Relationship Specialty Start Date End Date Kadi Wagner PA [address] [place] [address] [facility] 12/20/23 Education Spec Relationship Specialty Start Date End Date Raúl Prajapati, DO [address], [facility] 06/21/24 Education Spec Relationship Specialty Start Date End Date VictorinaRaúl blackwell, DO [facility] [place] [address] [facility] 06/21/24 Education Spec Relationship Specialty Start Date End Date VictorinaRaúl, DO [facility] [place] [address] [facility] 06/21/24 Education Spec Relationship Specialty Start Date End Date Raúl Prajapati, DO [facility] [place] [address] [facility] 06/21/24 Education Spec Relationship Specialty Start Date End Date VictorinaRaúl, DO [facility] [place] [address] [facility] 06/21/24 Goals (unrecognized section and [...] BE BASED ON THE PRIMARY CLINICAL RECORDS. [employer] [facility]. provides no warranty or guarantee of the accuracy or completeness of information in this document.
--- NOTE | 2025-03-08 18:14 | XR_ITS ---
The [address] [address] Patient Name: SAMANTHA BLANCHARD MRN: [id number] date: 2005 Sex: F Assigned Patient Location: ED.MAIN Current Patient Location: ED.MAIN Accession/Order Number: [id number] Exam Date: 03/08/2025 18:20 Report Date: 03/08/2025 18:54 At the request of: GILBERT COTTON MD Procedure: XR foot RT min 3V XR foot RT min 3V 03/08/2025 6:29 PM SIGNS AND SYMPTOMS: Right ankle pain and lateral right foot pain PROTOCOL: 3 views of the right foot COMPARISON: None FINDINGS: There is a minimally displaced fracture of the anterior process of the Talus with accompanying soft tissue swelling laterally. No additional fractures are noted. XR/XR foot RT min 3V IMPRESSION: There is a minimally displaced fracture of the anterior process of the Talus with accompanying soft tissue swelling laterally. Impression dictated by: Alf Rosas M.D. 03/08/2025 6:54 PM Dictation Location: [place] [address] Electronically authenticated by: [id number] Y Date: 03/08/2025 18:54
--- NOTE | 2025-03-08 18:14 | XR_ITS ---
The [address] [address] Patient Name: SAMANTHA BLANCHARD MRN: [id number] date: 2005 Sex: F Assigned Patient Location: ED.MAIN Current Patient Location: ED.MAIN Accession/Order Number: [id number] Exam Date: 03/08/2025 18:20 Report Date: 03/08/2025 18:50 At the request of: GILBERT COTTON MD Procedure: XR ankle RT min 3V XR ankle RT min 3V 03/08/2025 6:29 PM SIGNS AND SYMPTOMS: Right foot and ankle pain laterally with swelling PROTOCOL: 3 views of the right ankle COMPARISON: None FINDINGS: The ankle mortise is preserved. There is no evidence of fracture. No dislocation. There is soft tissue swelling which is greatest laterally. XR/XR ankle RT min 3V IMPRESSION: No fracture. Soft tissue swelling is noted greatest laterally. Impression dictated by: Alf Rosas M.D. 03/08/2025 6:50 PM Dictation Location: [place] [address] Electronically authenticated by: [id number] Y Date: 03/08/2025 18:50
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
== END 2025-03-08 19:56 | disposition home or self-care (01) ==
PROVIDERS: Emergency Provider Student in an Organized Health Care Education/Training Program
DX: S92.101A Unspecified fracture of right talus, initial encounter for closed fracture (principal); V49.49XA Driver injured in collision with other motor vehicles in traffic accident, initial encounter
CPT/HCPCS: 73610; 73630; 99283

== ENCOUNTER 2025-06-18 09:02 | Outpatient (OUT) | payer OTHER, SELFPAY ==
--- NOTE | 2025-06-18 | XR_ITS ---
The [address] [address] Patient Name: SAMANTHA BLANCHARD MRN: [id number] date: 2005 Sex: F Assigned Patient Location: [facility] Current Patient Location: [facility] Accession/Order Number: [id number] Exam Date: 06/18/2025 10:40 Report Date: 06/18/2025 11:23 At the request of: JONNATHAN GAMEZ DO Procedure: XR foot RT min 3V RIGHT FOOT - 3 views CLINICAL DATA: Right foot sprain. Injury in February. COMPARISON: 03/08/2025 Weightbearing AP, lateral and oblique views were obtained. There is continued subtle irregularity at the anterior process of the talus laterally, similar to the prior. Fracture at that site is not excluded. There is no additional acute fracture or dislocation. There are no significant soft tissue abnormalities. XR/XR foot RT min 3V IMPRESSION: STABLE APPEARANCE OF THE RIGHT FOOT. Impression dictated by: Norma Mckeon M.D. 06/18/2025 11:23 AM Dictation Location: [facility] Electronically authenticated by: [id number] Y Date: 06/18/2025 11:23
--- OUTSIDE RECORDS SUMMARY | 2025-06-18 09:04 | XMS_ITS | Clinical Summary ---
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 Name Role Phone Chau Prajapati DO Unavailable Allergies Active AllergyReactionsCriticalityNoted DateCommentsPenicillin DAccez7704/21/2023 PmzdjxaxbsjWllce16/21/2022Wound Dressing Xnmsvmgf93/27/2023 Other Reaction(s): Rash Medications MedicationSigDispense QuantityRefillsLast FilledStart DateEnd DateStatus Hydrocort-Pramoxine, Perianal, (Proctofoam HC) 1-1 % foam Indications:Hemorrhoids, unspecified hemorrhoid typeApply 1 Application topically Daily 10 g 5Active citalopram (CeleXA) 20 MG tablet Indications:Anxiety, generalizedTake 1 tablet (20 mg) by mouth Daily 30 tablet 110505/6Active Family History Medical HistoryRelationNameCommentsHypertensionFatherHypertensionPaternal GrandmotherRelationNameStatusCommentsFatherAlivePaternal Grandmother Social History Tobacco UseTypesPacks/DayYears UsedDateSmoking Tobacco: Never Tobacco Cessation:Counseling Given: Not Answered Alcohol UseStandard Drinks/WeekCommentsNever0 (1 standard drink = 0.6 oz pure alcohol)Caffeine intake: 1-2 cups per dayCommentsNoSex and Gender InformationValueDate RecordedSex Assigned at BirthNot on fileLegal SexFemale 09/02/2022 11:37 PM EDTGender IdentityNot on fileSexual OrientationNot on file Last Filed Vital Signs Vital SignReadingTime TakenCommentsBlood Bscexwoe245/62009/05/2024 9:38 AM EDT Pulse--Temperature--Respiratory Rate--Oxygen Saturation--Inhaled Oxygen Concentration--Cgaezx59.9 kg (207 lb 1.9 oz)09/05/2024 9:38 AM UHOVfqwdd221.6 cm (5' 4 )03/02/2023 9:17 AM EDTBody Mass Index35.55003/02/2023 9:17 AM EDT Plan of Treatment Health MaintenanceDue DateLast DoneCommentsInfluenza Vaccine (#1)02/19/2025 Pneumococcal Vaccine: Pediatrics (0 to 5 Years) and At-Risk Patients (6 to 64 Years)Aged OutNo longer eligible based on patient's age to complete this topic Insurance Care Teams Team MemberRelationshipSpecialtyStart DateEnd Date Chau Prajapati DO [address] [place], [place] [address]j[place] [address] PCP - [facility]06/21/24
--- OUTSIDE RECORDS SUMMARY | 2025-06-18 09:13 | XMS_ITS | CCD ---
Author Organization [facility] Care Team Providers Care Physiologist Name Role Phone [facility] Primary Care Unavailable ROSY, DR JACKSON Attending Unavailable ROSY, DR JACKSON Consulting Unavailable ROSY, DR JACKSON Admitting Unavailable Ellen Ortiz Unavailable SHAD Edward Emergency Provider [phone] NON STAFF Primary Care Provider Unavailabl e NON STAFF Primary Care Unavailable Toi Edward Attending Unavailable Toi Edward Admitting Unavailable Unavailable Primary Care Provider Unavailabl e Kadi Gant Unavailable Victorina DO, Raúl Unavailable BERNARD, KADI Attending Unavailable VICTORINA, RAÚL Attending Unavailable VICTORINA, RAÚL Attending Unavailable VICTORINA, RAÚL Attending Unavailable BERNARD, KADI Attending Unavailable VICTORINA, RAÚL Attending Unavailable VICTORINA, RAÚL Attending Unavailable BERNARD, KADI Attending Unavailable VICTORINA, RAÚL Attending Unavailable VICTORINA, RAÚL Attending Unavailable BERNARD, KADI Attending Unavailable BERNARD, KADI Attending Unavailable NON STAFF Primary Care Provider Unavailabl e Karo Cassidy APRN Attending Provider Blake Gomez DO Attending Provider Victorina DO, Raúl Unavailable Kdai Gant Unavailable Allergies Allergy ClassificationReported Allergen(s)Allergy TypeDate of OnsetReaction(s) Facility (1 source)Adhesive TapeDrug allergyhiVantage Point Consulting Sdn Other (20 sources)Penicillin GDrug Stvzlfv29-60-2384ukwiyZqbfySelligy Other (4 sources)Adhesive Tape; Translations: [adhesive tape]Propensity to adverse iwzkkpzzx95-25-5687Chlt, Rash, hivesFlower Hospital (20 sources)Penicillins; Translations: [Penicillins]Allergy to substance 42-71-4070QmvfnAqkvivnamVeterans Health Administration (20 sources)Wound Dressing AdhesiveDrug Dnvrygwuyaa95-63-1879IKKP [facility] (2 sources)ClindamycinDrug Vpbzceo16-40-8580yujhCrxxpxluaProtestant Deaconess Hospital Medications Current Medications MedicationDrug Class(es)DatesSig (Normalized)Sig (Original)citalopram 20 mg oral tablet (3 sources)Serotonin Reuptake InhibitorStart: 10-24-2024 End: 18-69-2593yzhd 1 tablet by mouth once dailycitalopram (CeleXA) 20 MG tablet Indications: Anxiety, generalized (CMS/HCC) Take 1 tablet (20 mg) by mouth Daily 30 tablet 11 10/24/2024 10/24/2025 Activetake 1 tablet by mouth once daily Citalopram Hydrobromide 10 MG TAKE 1 TABLET BY MOUTH DAILY Oral for 30 Days Not-Takinghydrocortisone acetate 10 mg/ml / pramoxine hydrochloride 10 mg/ml rectal foam (2 sources)CorticosteroidStart: 51-14-2229Saxapgjgw-Pramoxine, Perianal, (Proctofoam HC) 1-1 % foam Indications: Hemorrhoids, unspecified hemorrhoid type Apply 1 Application topically Daily 10 g 10/24/2024 ActiveStart: 10-24-2024 Hydrocort-Pramoxine, Perianal, (Proctofoam HC) 1-1 % foam Indications: Hemorrhoids, unspecified hemorrhoid type Apply 1 Application topically Daily 10 g 10/24/2024 ActivehydrOXYzine hydrochloride 10 mg oral tablet (4 sources)AntihistamineStart: 36-04-1284lgyb 1 tablet by mouth twice daily as neededhydrOXYzine HCl (Atarax) 10 MG tablet Take 10 mg by mouth 2 (two) times a day as needed 0 09/22/2022 Activeloratadine 10 mg oral tablet (4 sources)Start: 76-44-5396qomo 1 tablet by mouth in the morningloratadine (Claritin) 10 MG tablet Take 10 mg by mouth in the morning. 0 02/23/2023 Active Loratadine 10 MG Oral for 30 Days Not-TakingMagnesium (3 sources)take 1 capsule by mouth in the morningMagnesium 400 MG capsule Take 1 each by mouth in the morning. 0 Activemagnesium oxide 400 mg oral tablet (3 sources)Start: 06-26-2024 End: 27-99-1722nooj 1 tablet by mouth once dailymagnesium oxide (Mag-Ox) 400 MG tablet Indications: Cramps, extremity Take 1 tablet (400 mg) by mouth Daily 30 tablet 6 06/26/2024 07/26/2024 ActivemethylPREDNISolone 4 mg oral tablet (1 source)CorticosteroidStart: 88-18-0184Pfvqvr 4 MG as directed Orally As Directed for 6 days Jan, ActivemetroNIDAZOLE 500 mg oral tablet (1 source)Nitroimidazole AntimicrobialStart: 04-12-2024 End: 28-99-6458tlpi 1 tablet by mouth in the morningmetroNIDAZOLE (Flagyl) 500 MG tablet Indications: BV (bacterial vaginosis) Take 1 tablet (500 mg) by mouth in the morning and 1 tablet (500 mg) before bedtime. Do all this for 7 days. Do not drink alcohol while taking this medication. 14 tablet 04/12/2024 04/19/2024 ActiveNo Name (No Known Home Meds) (2 sources)Start: 74-23-2290Ct Name (No Known Home Meds) Active March 14, 2025 12:00amondansetron 4 mg disintegrating oral tablet (20 sources)Serotonin-3 Receptor AntagonistStart: 03-13-2024 End: 80-04-3410yyhc 1 tablet by mouth every six hoursondansetron ODT (Zofran- ODT) 4 MG disintegrating tablet Indications: Nausea and vomiting during preg wanda Take 1 tablet (4 mg) by mouth every 6 (six) hours 120 tablet 1 04/12/2024 07/11/2024 ActiveStart: 02-10-2024 End: 25-58-1184itxa 1 tablet by mouth every six hours as needed for nausea and vomiting and nausea and nauseaondansetron ODT (Zofran-ODT) 4 MG disintegrating tablet Indications: Nausea Take 1 tablet (4 mg) bymouth every 6 (six) hours if needed for nausea or vomiting 30 tablet 3 02/10/2024 03/11/2024 Activetake 1 tablet by mouth every six hours as needed for nauseaondansetron ODT (Zofran-ODT) 4 MG disintegrating tablet Take 4 mg by mouth every 6 (six) hours if needed for nausea. 0 Activetake 1 tablet by mouth once dailyZofran 4 MG 1 tablet Orally Once a day Activepolysaccharide iron complex 391 mg oral capsule (4 sources)Start: 06-05-2024 End: 30-94-0438qyjj 1 capsule by mouth once dailyiron polysaccharides (ProFe) 391.3 (180 Fe) MG capsule Indications: Low iron Take 1 capsule (391.3 mg) by mouth Daily 30 capsule 6 06/05/2024 07/05/2024 ActivePrenatal Vit-Fe Fumarate-FA ( Plus/Iron) 27-1 MG tablet (3 sources)Start: 03-02-2023 End: 43-32-8908hsuf 1 tablet by mouth in the morningPrenatal Vit-Fe Fumarate-FA ( Plus/Iron) 27-1 MG tablet Indications: First trimester Take 1 tablet by mouth in the morning. 30 tablet 11 03/02/2023 03/01/2024 Active Vit-Fe Fumarate-FA ( Vitamins) 28-0.8 MG tablet (20 sources)Start: 04-12-2024 End: 90-93-2477bowh 1 tablet by mouth once dailyPrenatal Vit-Fe Fumarate-FA ( Vitamins) 28-0.8 MG tablet Indications: Missed menses Take 1 tablet by mouth Daily 30 tablet 11 04/12/2024 04/12/2025 ActiveStart: 02-10-2024 End: 93-21-6970mwic 1 tablet by mouth once dailyPrenatal Vit-Fe Fumarate-FA ( Vitamins) 28-0.8 MG tablet Indications: Missed menses Take 1 tablet by mouth Daily 30 tablet 11 02/10/2024 02/09/2025 ActivePrenatal Vitamin 27-0.8 MG (1 source)take 1 tablet by mouth once dailyPrenatal Vitamin 27-0.8 MG 1 tablet Orally Once a day Activepyridoxine hydrochloride 25 mg oral tablet (3 sources)take 1 tablet by mouth in the morningpyridoxine (Vitamin B-6) 25 MG tablet Take 25 mg by mouth in the morning. 0 Activevitamin b12 0.05 mg oral tablet (3 sources)Vitamin K22jlkgqbvallcvei (Vitamin B-12) 50 MCG tablet Take by mouth Daily 0 Active Completed/Discontinued Medications MedicationDrug Class(es)DatesSig (Normalized)Sig (Original)clindamycin 150 mg oral capsule (3 sources)Lincosamide AntibacterialStart: 02-15-2023 End: 30-10-7604locf 3 capsules by mouth three times dailyClindamycin Hcl 150 mg capsule Discontinued 450 MG PO Three times daily February 15, 2023 12:00am March 14, 2025 4:30pmStart: 31-05-5553mmfd 450 mg by mouth three times dailyClindamycin Hcl Active 450 MG PO Three times daily February 15, 2023 12:00amfamotidine 20 mg oral tablet (1 source)Histamine-2 Receptor AntagonistFamotidine 20 MG Oral for 14 Days Not-Takingfosfomycin 3000 mg powder for oral solution (1 source)take 3 g by mouth onceFosfomycin Tromethamine 3 GM mix 3 (THREE) GRAM DIRECTED and take BY MOUTH one TIME Oral for 1 Days Not-TakingpredniSONE 20 mg oral tablet (1 source)predniSONE 20 MG Oral for 5 Days Not-Taking Problems Active Problems Problem ClassificationProblemDateDocumented DateEpisodic/ChronicAcute and chronic tonsillitis (4 sources)Acute tonsillitis, unspecified; Translations: [ACUTE TONSILLITIS UNSPECIFIED]Onset: 76-86-6050QpjfxlvnSunrprh disorders (2 sources)Generalized anxiety disorder; Translations: [Generalized anxiety disorder]48-76-8684CcpqbwnOtvqzbta of lower limb (2 sources)Unspecified fracture of right talus, initial encounter for closed fracture; Translations: [Fractureof right talus]89-45-5280HkznogyaYrslujbntry (4 sources)Hemorrhoids; Translations: [Unspecified hemorrhoids]10-24-2024 EpisodicImmunizations and screening for infectious disease (2 sources)Exposure to sexually transmissible disorder; Translations: [Contact with and (suspected) exposure to infections with a predominantly sexual mode of transmission]93-63-2934FurplxfjCsuskuptu disorders (1 source)Missed period; Translations: [Irregular menstruation, unspecified] 26-53-8170MlnofzbApwkujrykon deficiencies (2 sources)Serum iron low; Translations: [Iron deficiency]24-03-0511Zzxsdnnr Other complications of (2 sources)Excessive growth affecting management of mother; Translations: [Maternal care for excessive growth, third trimester, not applicable or unspecified]01-68-0447JoyjgmapUfaee complications of (2 sources)Vomiting of , unspecified; Translations: [Unspecified vomiting of , unspecified as to episode of care or not applicable] 97-59-2716KklhcnckIbpmc connective tissue disease (2 sources)Cramp in limb; Translations: [Cramp and spasm]04-22-9101TpwvldckRdxtb eye disorders (1 source)Edema of unspecified eye, unspecified eyelidEpisodicOther female genital disorders (2 sources)Vaginal discharge; Translations: [Other specified noninflammatory disorders of vagina]74-80-8252EpxfkcyeZzomf nutritional; endocrine; and metabolic disorders (2 sources)Weight loss; Translations: [Abnormal weight loss]55-97-2715Hppxtoqu Other and delivery including normal (20 sources)Third trimester ; Translations: [Encounter for supervision of normal , unspecified, third trimester]24-30-4048EnofsjcuZgurc screening for suspected conditions (not mental disorders or infectious disease) (8 sources)Patient encounter status; Translations: [Encounter for other specified screening]73-24-6065QoyqksskHpidf upper respiratory infections (4 sources)Pharyngitis; Translations: [Acute pharyngitis, unspecified]Onset: 954147-60-9828EiubiyflQuzzqewc codes; unclassified (2 sources)Gestation period, 17 weeks; Translations: [17 weeks gestation of ]11-51-3547JjnhraskGvsigazx codes; unclassified (2 sources)Gestation period, 25 weeks; Translations: [25 weeks gestation of ]66-41-1539IvbwmucvGesspomb codes; unclassified (2 sources)Gestation period, 21 weeks; Translations: [21 weeks gestation of ]11-76-7934JzzajusiVdywjklr codes; unclassified (2 sources)Gestation period, 28 weeks; Translations: [28 weeks gestation of ]10-64-2331GgxxhnalMafnbqik codes; unclassified (2 sources)Gestation period, 32 weeks; Translations: [32 weeks gestation of ]90-88-7425GvsxduaoXyeqgeat codes; unclassified (2 sources)Gestation period, 35 weeks; Translations: [35 weeks gestation of ]25-03-9377LrblncqcKvhgazog codes; unclassified (2 sources)Gestation period, 36 weeks; Translations: [36 weeks gestation of ]35-25-3177PyvcjfefQchkalfo codes; unclassified (1 source)Gestation period, 38 weeks; Translations: [38 weeks gestation of ]35-53-3622KilrokniInvgsse and strains (2 sources)Sprain of right foot; Translations: [Unspecified sprain of right foot, initial encounter]03-79-7837Pigxdbns Past or Other Problems Problem ClassificationProblemDateDocumented DateEpisodic/ChronicNausea and vomiting (1 source)Nausea; Translations: [Nausea]47-55-3378Rzrmjxnn Results Test NameValueInterpretationReference RangeFacilityUrinalysis macro (dipstick) panel (U)on 15-67-4034Yqqojghlp, UANegativeNegative - 4(70) +++ mg/dLNOMS HealthcareBlood, UAPositiveNegative - 50 Carmine/mcLNOMS HealthcareComment on above: largeClarity, UAClearNOMS HealthcareColor, UAYellowNOMS HealthcareGlucose, UA NegativeNegative - 1999(110) ++++ mg/dLNOMS HealthcareInterpretation and review of laboratory resultsAbnormalNOMS HealthcareKetones, UANegativeNegative - 160(16) ++++ mg/dLNOMS HealthcareLeukocytes, UAPositiveNegative - 500+++ Josselyn/mcL NOMS HealthcareComment on above:smallNitrite, UANegativeNegative - PositiveNOMS HealthcarepH, UA65 - 9NOMS HealthcareProtein, UATraceNegative - 2000(20) ++++ mg/dLNOMS HealthcareSpec Grav, UA1.0251 - 1.03NOMS HealthcareUrobilinogen, UA0.2 0.2 - 12 mg/dLNOMS HealthcareNOMS HealthcareALL MISCELLANEOUS TESTon 08-28-2024 MISCELLANEOUS TESTCOMMENT.NOMS HealthcareComment on above:Test Ordered: [id number] Strep Gp B Culture+Rflx Strep Gp B Culture+Rflx Positive [A ] CB Reference Range: Negative Centers for Disease Control and Prevention (CDC) and [place] [employer]stetric[employer] and Gynecologists (ACOG) guidelines [...] high risk for anaphylaxis. Performed at: - [facility] [id number] Hospice Consultant: Ivan Chicas PhD, Phone: [phone] CULTURE, GROUP B STREP WITH SUSCEPTIBILITY CLINISYNCNOWY HealthcareUrinalysis macro (dipstick) panel (U)on 08-22-2024 Bilirubin, UAPositiveNegative - 4(70) +++ mg/dLNOMS HealthcareComment on above: smallBlood, UAPositiveNegative - 50 Carmine/mcLNOMS HealthcareComment on above:small Clarity, UAClearNOMS HealthcareColor, UAYellowNOMS HealthcareGlucose, UANegative Negative - 2000(110) ++++ mg/dLNOMS HealthcareInterpretation and review of laboratory resultsAbnormalNOMS HealthcareKetones, UAPositiveNegative - 160(16) ++++ mg/dLNOMS HealthcareComment on above:traceLeukocytes, UAPositiveNegative - 500+++ Josselyn/mcLNOMS HealthcareComment on above:smallNitrite, UANegativeNegative - PositiveNOMS HealthcarepH, UA65 - 9NOMS HealthcareProtein, UAPositiveNegative - 2000(20) ++++ mg/dLNOMS HealthcareComment on above:30mg/dLSpec Grav, UA1.031 - 1.03NOMS HealthcareUrobilinogen, UA1.00.2 - 12 mg/dLNOMS HealthcareNOMS HealthcareUrinalysis macro (dipstick) panel (U)on 60-02-8789Gcjapmgqk, UA NegativeNegative - 4(70) +++ mg/dLNOMS HealthcareBlood, UAPositiveNegative - 50 Carmine/mcLNOMS HealthcareComment on above:smallClarity, UAClearNOMS Healthcare Color, UAYellowNOMS HealthcareGlucose, UANegativeNegative - 2000(110) ++++ mg/dL NOMS HealthcareInterpretation and review of laboratory resultsAbnormalNOMS HealthcareKetones, UANegativeNegative - 160(16) ++++ mg/dLNOMS Healthcare Leukocytes, UAPositiveNegative - 500+++ Josselyn/mcLNOMS HealthcareComment on above: smallNitrite, UANegativeNegative - PositiveNOMS HealthcarepH, UA6.55 - 9NOMS HealthcareProtein, UANegativeNegative - 2000(20) ++++ mg/dLNOMS HealthcareSpec Grav, UA1.0151 - 1.03NOMS HealthcareUrobilinogen, UA0.20.2 - 12 mg/dLNOMS HealthcareNOMS HealthcareUS OB FOLLOW UP TRANSABDOMINAL APPROACHon 11-54-9258YI OB FOLLOW UP TRANSABDOMINAL APPROACHEXAM: US OB FOLLOW UP TRANSABDOMINAL APPROACH HISTORY: [...] within normal limits. KARON is 09/27/2024. Electronically Signed:Electronically signed by YOVANY MAGANA II, MD, PHD at 28-Jul-2024 07:43:36 AM [facility] TeleradiologyNormalNot AvailableComment on above:Order Comment: US OB SCAN FOR GROWTH Estimated Date of Delivery: 09/18/24 Gestational Age as of 07/12/2024: 07h9lKB OB LIMITED 1+ FETUSESon 44-01-0904NH OB LIMITED 1+ FETUSESTITLE OF EXAM: OB Ultrasound: REASON FOR EXAM: [...] electronically signed and approved by the interpreting radiologist.NormalNot AvailableComment on above:Order Comment: US OB INCOMPLETE ANATOMY Estimated Date of Delivery: 09/18/24 Gestational Age as of 06/05/2024: 79l7wVguexurips macro (dipstick) panel (U)on 29-66-1140Lwropilws, UANegativeNegative - 4(70) +++ mg/dLNOMS HealthcareBlood, UANegativeNegative - 50 Carmine/mcLNOMS HealthcareClarity, UAClearNOMS Healthcare Color, UAYellowNOMS HealthcareGlucose, UANegativeNegative - 2000(110) ++++ mg/dL N[facility]S HealthcareInterpretation and review of laboratory resultsAbnormalNOMS HealthcareKetones, UAPositiveNegative - 160(16) ++++ mg/dLNOWY Healthcare Leukocytes, UANegativeNegative - 500+++ Josselyn/mcLNOWY HealthcareNitrite, UA NegativeNegative - PositiveNOMS HealthcarepH, UA6.55 - 9NOMS HealthcareProtein, UANegativeNegative - 1999(20) ++++ mg/dLNOMS HealthcareSpec Grav, UA1.0251 - 1.03NOMS HealthcareUrobilinogen, UA1.00.2 - 12 mg/dLNOWY HealthcareNOWY HealthcareUrinalysis macro (dipstick) panel (U)on 01-54-5903Hfulbixqt, UA NegativeNegative - 4(70) +++ mg/dLNOMS HealthcareBlood, UAPositiveNegative - 50 Carmine/mcLNOWY HealthcareComment on above:LARGEClarity, UAClearNOMS Healthcare Color, UAYellowNOMS HealthcareGlucose, UANegativeNegative - 1999(110) ++++ mg/dL N[facility] HealthcareInterpretation and review of laboratory resultsAbnormalNOMS HealthcareKetones, UANegativeNegative - 160(16) ++++ mg/dLNOWY Healthcare Leukocytes, UAPositiveNegative - 500+++ Josselyn/mcLNOWY HealthcareComment on above: SMALLNitrite, UANegativeNegative - PositiveNOMS HealthcarepH, UA7.55 - 9NOMS HealthcareProtein, UAPositiveNegative - 1999(20) ++++ mg/dLNOWY Healthcare Comment on above:30 mgSpec Grav, UA1.021 - 1.03NOMS HealthcareUrobilinogen, UA 1.00.2 - 12 mg/dLNOWY HealthcareNOMS HealthcareALL CBC WITH AUTO DIFFon 35-92-2297KBLAOTSUR ABSOLUTE PXZV3WRPM HealthcareBasophils/100 WBC (Bld)0.3 %0.2 - 2.0 %NOMS HealthcareEosinophils/100 WBC (Bld)3.8 %0.9 - 7.0 %[facility] Erythrocyte distribution width (RBC) [Ratio]13.6 %11.0 - 15.0 %[facility] Hematocrit (Bld) [Volume fraction]37.2 %36.0 - 48.0 %[facility] WashingtonHemoglobin (Bld) [Mass/Vol]11.6 g/dLLow12.0 - 16.0 g/dLMercy Hospital WashingtonIMMATURE GRANULOCYTES ABS AUTO0.03NOEllett Memorial HospitalImmature granulocytes/100 WBC (Bld)0.3 %0.0 - 0.5 % [facility] WashingtonInterpretation and review of laboratory resultsAbnormalMercy Hospital WashingtonLYMPHOCYTES ABSOLUTE AUTO1.4NOEllett Memorial HospitalLymphocytes/100 WBC (Bld) 14.9 %Low20.5 - 60.0 %[facility] CenterH (RBC) [Entitic mass]26.7 pg26.7 - 34.0 pgMoberly Regional Medical CenterHC (RBC) [Mass/Vol]31.2 g/dL29.9 - 35.2 g/dLMercy Hospital Washington MCV (RBC) [Entitic vol]85.5 fL81.0 - 99.0 fLMercy Hospital WashingtonMONOCYTES ABSOLUTE AUTO0.7NOEllett Memorial HospitalMonocytes/100 WBC (Bld)7.7 %1.7 - 12.0 %[facility] NEUTROPHILS ABSOLUTE AUTO7.1HighMercy Hospital WashingtonNeutrophils/100 WBC (Bld)73 %43.0 - 75.0 %[facility] WashingtonPlatelet mean volume (Bld) [Entitic vol]9.7 fL9.5 - 13.5 fLMercy Hospital WashingtonTBH EO #0.4NOEllett Memorial HospitalTB CYS375XGSIEllett Memorial HospitalTB RBC4.35 [facility] WashingtonTB WBC9.7NOEllett Memorial HospitalCLINISYNCNOMS [facility] SystemNo Panel InformationOrdered By: Radiologist Radiology on 73-62-7550NNHQMercy Hospital Washington Work Phone: No Panel Informationon 91-14-0248Ahtfeezfv Study observation (narrative)[facility] OB ANATOMYon 76-40-9180Lce[address] [address] Ultrasound Report Signed Patient: SAMANTHA BLANCHARD MR#: [id number] : 2005 Acct:[id number] Age/Sex: 18 / F ADM Date: 05/09/24 Loc: [facility] Attending Dr: Raúl Prajapati D.O. Ordering Physician: Raúl Prajapati D.O. Date of Service: 05/09/24 Procedure(s): US OB anatomy Accession Number(s): [id number] cc: Raúl Prajapati D.O.; Physician,Non-Staff [place] [address] Patient Name: SAMANTHA BLANCHARD MRN: [facility]:[id number] date: 2005 Sex: F Assigned Patient Location: [facility] Current Patient Location: Accession/Order Number: [id number] Exam Date: 05/09/2024 13:42 Report Date: 05/10/2024 [...] M.D. Signed By: 05/10/24346 DD/ 3 TD/TT: Cut Off Saw Operator Pipe Blanks:TBHRadiology, Radiologist, MD - 05/10/2024 [place] [address] Ultrasound Report Signed Patient: SAMANTHA BLANCHARD MR#: [id number] : 2005 Acct:[id number] Age/Sex: 18 / F ADM Date: 05/09/24 Loc: [facility] Attending Dr: Raúl Prajapati D.O. Ordering Physician: Raúl Prajapati D.O. Date of Service: 05/09/24 Procedure(s): US OB anatomy Accession Number(s): [id number] cc: Raúl Prajapati D.O.; Physician,Non-Staff [place] [address] Patient Name: SAMANTHA BLANCHARD MRN: [id number] date: 2005 Sex: F Assigned Patient Location: [facility] Current Patient Location: Accession/Order Number: [id number] Exam Date: 05/09/2024 13:42 Report Date: 05/10/2024 [...] M.D. Signed By: 05/10/24346 DD/ 3 TD/TT: Cut Off Saw Operator Pipe Blanks: BLAYNE Alexis OB CERVICAL LENGTHon 57-81-0044UbzOrrum, [place] [address] Ultrasound Report Signed Patient: SAMANTHA BLANCHARD MR#: [id number] : 2005 Acct:[id number] Age/Sex: 18 / F ADM Date: 05/09/24 Loc: NOMRobert Attending Dr: Raúl Prajapati D.O. Ordering Physician: Raúl Prajapati D.O. Date of Service: 05/09/24 Procedure(s): US OB cervical length Accession Number(s): [id number] cc: Raúl Prajapati D.O.; Physician,Non-Staff [place] [id number] Patient Name: SAMANTHA BLANCHARD MRN: [id number] date: 2005 Sex: F Assigned Patient Location: [facility] Current Patient Location: Accession/Order Number: [id number] Exam Date: 05/09/2024 13:42 Report Date: 05/10/2024 [...] M.D. Signed By: 05/10/24346 DD/ 3 TD/TT: Cut Off Saw Operator Pipe Blanks:TBHRadiology, Radiologist, - 05/10/2024 [place] [address] Ultrasound Report Signed Patient: SAMANTHA BLANCHARD MR#: [id number] : 2005 Acct:[id number] Age/Sex: 18 / F ADM Date: 05/09/24 Loc: [facility] Attending Dr: Raúl Prajapati D.O. Ordering Physician: Raúl Prajapati D.O. Date of Service: 05/09/24 Procedure(s): US OB cervical length Accession Number(s): [id number] cc: Raúl Prajapati D.O.; Physician,Non-Staff M.DLance [place] [id number] Patient Name: SAMANTHA BLANCHARD MRN: [id number] date: 2005 Sex: F Assigned Patient Location: [facility] Current Patient Location: Accession/Order Number: [id number] Exam Date: 05/09/2024 13:42 Report Date: 05/10/2024 [...] M.D. Signed By: 05/10/24346 DD/ 3 TD/TT: Cut Off Saw Operator Pipe Blanks: [facility] WashingtonUrinalysis macro (dipstick) panel (U)on 88-43-7623Unuyxitsf, UA NegativeNegative - 4(70) +++ mg/dLNOMS HealthcareBlood, UANegativeNegative - 50 Carmine/mcLNOMS HealthcareClarity, UAClearNOMS HealthcareColor, UAYellowNOMS HealthcareGlucose, UANegativeNegative - 2000(110) ++++ mg/dLNOMS Healthcare Interpretation and review of laboratory resultsNormalNOMS HealthcareKetones, UA NegativeNegative - 160(16) ++++ mg/dLNOMS HealthcareLeukocytes, UANegative Negative - 500+++ Josselyn/mcLNOMS HealthcareNitrite, UANegativeNegative - Positive NOM[facility] HealthcarepH, UA6.55 - 9NOMS HealthcareProtein, UANegativeNegative - 2000(20) ++++ mg/dLNOMS HealthcareSpec Grav, UA1.0251 - 1.03N[facility] Healthcare Urobilinogen, UA0.20.2 - 12 mg/dLNOMS HealthcareNOMS HealthcareAFP, SERUM, OPEN SPINA BIFIDAon 72-64-2860DDU MOM1.50.NOMS HealthcareAFP VALUE50.5 ng/mL.NOMS HealthcareCOMMENT:Comment.NOM[facility] HealthcareComment on above:Isabel Colon, Ph.D., [facility] Director References: Available Upon Request. Multiples Of Median Cutoffs For AFP Elevations Garland 2.5 Black 2.8 IDD 2.0 Twins 4.5 Abbreviation Definitions IDD - Insulin Dep Diabetes OSBR - Open Spina Bifida Risk For further inquiries contact [facility] Services at [phone]. This test was developed and its performance characteristics determined by [facility]. It has not been cleared or approved by the Food and Drug Administration. Performed at: [facility] [address] [place], [place] [id number] Hospice Consultant: Sherrie Velez [facility], Phone: [phone] GEST. AGE ON COLLECTION DATE17.4. weeksNOWY HealthcareGESTAT. AGE BASED ONAs provided.[facility] HealthcareComment on above:Recalculations are not recommended when gestational dating by LMP and ultrasound are within 10 days. INSULIN DEP DIABETESNo.[facility] HealthcareINTERPRETATIONComment.[facility] Comment on above:Interpretation: Screen Negative This result is screen negative for [...] Customer Services to discuss available options. The [place] [employer] recommends amniocentesis be offered to women age 35 and older. MATERNAL AGE AT EDD20.9. yrNOWY HealthcareMULTIPLE GESTATIONNo.[facility] Healthcare OSBR RISK 1 [id number].[facility] HealthcareRACECaucasian.[facility] HealthcareRESULTSReport. [facility] HealthcareTEST RESULTS:Negative.[facility] OxoutvwoovBVMVOA434. lbsNOMS HealthcareN N [id number] [phone] N 1 N 195 N N N N N White/ CLINISYNCNOWY HealthcareURETHRITIS/DISCHARGE PLUS VAGINITIS (HTRX)on 04-12-2024 ATOPOBIUM JNEASAI5OKOD HealthcareATOPOBIUM VAGINAENot detectedNOMS Healthcare BVAB 2,3 (BACTERIAL VAGINOSIS ASSOCIATED BACTERIA 2, 3); MOBILUNCUS RXL7OIKO HealthcareBVAB 2,3 (BACTERIAL VAGINOSIS ASSOCIATED BACTERIA 2, 3); MOBILUNCUS SPPNot detectedNOMS HealthcareCANDIDA ALBICANS, PARAPSILOSIS, GPVUHMJDWG5RQOS HealthcareCANDIDA ALBICANS, PARAPSILOSIS, TROPICALISNot detectedNOMS Healthcare RELL DMDOYDZT9XSHM HealthcareCANDIDA GLABRATANot detectedNOMS Healthcare RELL OUISOS5DQAN HealthcareCANDIDA KRUSEINot detectedNOMS HealthcareCHLAMYDIA EZUCVSVYNYW4NPNN HealthcareCHLAMYDIA TRACHOMATISNot detectedNOMS HealthcareERMB, C; MEFA17.343AbnormalNOMS HealthcareERMB, C; MEFADetectedAbnormalNOMS Healthcare GARDNERELLA HBTEHZTOZ36.706AbnormalNOMS HealthcareGARDNERELLA VAGINALISDetected AbnormalNOMS HealthcareHERPES SIMPLEX VIRUS 10NOMS HealthcareHERPES SIMPLEX VIRUS 1Not detectedNOMS HealthcareHERPES SIMPLEX VIRUS 20NOMS HealthcareHERPES SIMPLEX VIRUS 2Not detectedNOMS HealthcareInterpretation and review of laboratory resultsAbnormalNOMS HealthcareMEGASPHAERA (TYPES 1, 2)0NOMS HealthcareMEGASPHAERA (TYPES 1, 2)Not detectedNOMS HealthcareMYCOPLASMA LEBVYLZYBM8KLFN HealthcareMYCOPLASMA GENITALIUMNot detectedNOMS Healthcare MYCOPLASMA OAGKQTZ0NLXH HealthcareMYCOPLASMA HOMINISNot detectedNOMS Healthcare NEISSERIA TVWGWGQYFWY7MEWT HealthcareNEISSERIA GONORRHOEAENot detectedNOMS HealthcareTET B, TET M24.057AbnormalNOMS HealthcareTET B, TET MDetectedAbnormal NOMS HealthcareTRICHOMONAS GLEMSXUPH9PEYG HealthcareTRICHOMONAS VAGINALISNot detectedNOMS HealthcareUREAPLASMA EHQOFE34.878AbnormalNOMS HealthcareUREAPLASMA PARVUMDetectedAbnormalNOMS HealthcareUREAPLASMA LOIKBRSPUHQ33.257AbnormalNOMS HealthcareUREAPLASMA UREALYTICUMDetectedAbnormalNOMS HealthcareNOMS Healthcare Urinalysis macro (dipstick) panel (U)on 33-49-8347Mqoxvusfp, UANegativeNegative - 4(70) +++ mg/dLNOMS HealthcareBlood, UANegativeNegative - 50 Carmine/mcLNOMS HealthcareClarity, UAClearNOMS HealthcareColor, UAYellowNOMS HealthcareGlucose, UANegativeNegative - 2000(110) ++++ mg/dLNOMS HealthcareInterpretation and review of laboratory resultsNormalNOMS HealthcareKetones, UANegativeNegative - 160(16) ++++ mg/dLNOMS HealthcareLeukocytes, UANegativeNegative - 500+++ Josselyn/mcL NOMS HealthcareNitrite, UANegativeNegative - PositiveNOMS HealthcarepH, UA65 - 9 NOMS HealthcareProtein, UANegativeNegative - 2000(20) ++++ mg/dLNOMS Healthcare Spec Grav, UA1.031 - 1.03NOMS HealthcareUrobilinogen, UA0.20.2 - 12 mg/dLNOWY HealthcareNOWY HealthcareUrinalysis macro (dipstick) panel (U)on 03-13-2024 Bilirubin, UANegativeNegative - 4(70) +++ mg/dLNOWY HealthcareBlood, UANegative Negative - 50 Carmine/mcLNOWY HealthcareClarity, UAClearNOWY HealthcareColor, UA YellowNOWY HealthcareGlucose, UANegativeNegative - 2000(110) ++++ mg/dLNOWY HealthcareInterpretation and review of laboratory resultsNormalMercy Hospital Washington Ketones, UANegativeNegative - 160(16) ++++ mg/dLNOWY HealthcareLeukocytes, UA NegativeNegative - 500+++ Josselyn/mcLNOWY HealthcareNitrite, UANegativeNegative - PositiveNOMS HealthcarepH, UA6.55 - 9NOWY HealthcareProtein, UANegativeNegative - 2000(20) ++++ mg/dLNOWY HealthcareSpec Grav, UA1.0201 - 1.03NOEllett Memorial Hospital Urobilinogen, UA0.20.2 - 12 mg/dLNOEllett Memorial HospitalNOWY HealthcareALL CBC WITH AUTO DIFFon 87-64-6499SQXPAXMFZ ABSOLUTE AUTO0.0NOEllett Memorial HospitalBasophils/100 WBC (Bld)0.2 %0.2 - 2.0 %NOMS HealthcareEosinophils/100 WBC (Bld)4.2 %0.9 - 7.0 % [facility] HealthcareErythrocyte distribution width (RBC) [Ratio]13.5 %11.0 - 15.0 % NOM HealthcareHematocrit (Bld) [Volume fraction]38.7 %36.0 - 48.0 %[facility] WashingtonHemoglobin (Bld) [Mass/Vol]12.6 g/dL12.0 - 16.0 g/dLMercy Hospital Washington IMMATURE GRANULOCYTES ABS AUTO0.03NOEllett Memorial HospitalImmature granulocytes/100 WBC (Bld)0.3 %0.0 - 0.5 %[facility] HealthcareInterpretation and review of laboratory resultsAbnormalMercy Hospital WashingtonLYMPHOCYTES ABSOLUTE AUTO2.5NOMS [facility] Lymphocytes/100 WBC (Bld)24.5 %20.5 - 60.0 %[facility] CenterH (RBC) [Entitic mass]26.6 pgLow26.7 - 34.0 pgMoberly Regional Medical CenterHC (RBC) [Mass/Vol]32.6 g/dL29.9 - 35.2 g/dLMoberly Regional Medical CenterV (RBC) [Entitic vol]81.8 fL81.0 - 99.0 fLMercy Hospital WashingtonMONOCYTES ABSOLUTE AUTO0.9HighCENTRAL VALLEY [facility] HealthcareMonocytes/100 WBC (Bld) 8.5 %1.7 - 12.0 %[facility] WashingtonNEUTROPHILS ABSOLUTE AUTO6.4NOMS [facility] Neutrophils/100 WBC (Bld)62.3 %43.0 - 75.0 %[facility] WashingtonPlatelet mean volume (Bld) [Entitic vol]9.5 fL9.5 - 13.5 fLMercy Hospital WashingtonTB EO #0.4N[facility]S Healthcare TBH ZNN518IYQGMineral Area Regional Medical Center RBC4.73NOMS [facility] SystemTB WBC10.3NOEllett Memorial Hospital CLINISYNCMercy Hospital WashingtonHCG ( test) Ql (U)on 40-35-7056Jyisphjhlcfypq and review of laboratory resultsAbnormUPMC Children's Hospital of PittsburghPreg Test, UrPositiveNOThe [facility] Institute HealthcareUS OB TRANSVAGINALon 74-01-1429PakOrr[place] [address] Ultrasound Report Signed Patient: SAMANTHA BLANCHARD MR#: [id number] : 2005 Acct:[id number] Age/Sex: 18 / F ADM Date: 02/10/24 Loc: NOMS Attending Dr: Raúl Prajapati D.O. Ordering Physician: Raúl Prajapati D.O. Date of Service: 02/10/24 Procedure(s): US OB transvaginal Accession Number(s): [id number] cc: Raúl Prajapati D.O.; Physician,Non-Staff M.D. [facility] [place] [id number] Patient Name: SAMANTHA BLANCHARD MRN: [id number] date: 2005 Sex: F Assigned Patient Location: NOMS Current Patient Location: [facility] Accession/Order Number: [id number] Exam Date: 02/10/2024 12:26 Report Date: 02/10/2024 [...] Signed By: 02/10/24 1340 DD/ 1337 TD/TT: Cut Off Saw Operator Pipe Blanks:TBHRadiology, Radiologist, MD - 02/10/2024 [place] [address] Ultrasound Report Signed Patient: SAMANTHA BLANCHARD MR#: [id number] : 2005 Acct:[id number] Age/Sex: 18 / F ADM Date: 02/10/24 Loc: NOMS Attending Dr: Raúl Prajapati D.O. Ordering Physician: Raúl Prajapati D.O. Date of Service: 02/10/24 Procedure(s): US OB transvaginal Accession Number(s): [id number] cc: Raúl Prajapati D.O.; Physician,Non-Staff Roni [facility] [place] [address] Patient Name: SAMANTHA BLANCHARD MRN: [id number] date: 2005 Sex: F Assigned Patient Location: [facility] Current Patient Location: [facility] Accession/Order Number: [id number] Exam Date: 02/10/2024 12:26 Report Date: 02/10/2024 [...] Signed By: 02/10/24 1340 DD/ 1337 TD/TT: Cut Off Saw Operator Pipe Blanks: BLAYNE HealthcareRadiology Study observation (narrative)[facility] OB TRANSVAGINALOrdered By: Radiologist Radiology on 34-24-2869TNLJMercy Hospital Washington Work Phone: Urinalysis macro (dipstick) panel (U)on 02-10-2024 Bilirubin, UANegativeNegative - 4(70) +++ mg/dLNOMS HealthcareBlood, UANegative Negative - 50 Carmine/mcLNOMS HealthcareClarity, UAClearNOMS HealthcareColor, UA YellowNOMS HealthcareGlucose, UANegativeNegative - 2000(110) ++++ mg/dLNOMS HealthcareInterpretation and review of laboratory resultsAbnormUPMC [facility]'s [facility] of [facility] Ketones, UANegativeNegative - 160(16) ++++ mg/dLMercy Hospital WashingtonLeukocytes, UA NegativeNegative - 500+++ Josselyn/mcLNOEllett Memorial HospitalNitrite, UANegativeNegative - PositiveNOWY HealthcarepH, UA6.05 - 9NOWY HealthcareProtein, UANegativeNegative - 2000(20) ++++ mg/dLMercy Hospital WashingtonSpec Grav, UA1.0201 - 1.03NOEllett Memorial Hospital Urobilinogen, UA0.20.2 - 12 mg/dLAudrain Medical Center HealthcareALL CBC WITH AUTO DIFFon 31-04-5084ZTZNMUTOQ ABSOLUTE AUTO0.0NOEllett Memorial HospitalBasophils/100 WBC (Bld)0.3 %0.2 - 2.0 %[facility] WashingtonEosinophils/100 WBC (Bld)0.5 %Low0.9 - 7.0 % [facility] WashingtonErythrocyte distribution width (RBC) [Ratio]12.7 %11.0 - 15.0 % [facility] WashingtonHematocrit (Bld) [Volume fraction]32.6 %Low36.0 - 48.0 %[facility] WashingtonHemoglobin (Bld) [Mass/Vol]10.1 g/dLLow12.0 - 16.0 g/dLMercy Hospital Washington IMMATURE GRANULOCYTES ABS AUTO0.06HighMercy Hospital WashingtonImmature granulocytes/100 WBC (Bld)0.5 %0.0 - 0.5 %[facility] WashingtonInterpretation and review of laboratory resultsAbnoWellSpan York HospitalLYMPHOCYTES ABSOLUTE AUTO2.3NOEllett Memorial Hospital Lymphocytes/100 WBC (Bld)19.3 %Low20.5 - 60.0 %[facility] CenterH (RBC) [Entitic mass]27.4 pg26.7 - 34.0 pgMoberly Regional Medical CenterHC (RBC) [Mass/Vol]31.0 g/dL29.9 - 35.2 g/dLMoberly Regional Medical CenterV (RBC) [Entitic vol]88.3 fL81.0 - 99.0 fLMercy Hospital WashingtonMONOCYTES ABSOLUTE AUTO0.8NOEllett Memorial HospitalMonocytes/100 WBC (Bld)6.9 % 1.7 - 12.0 %[facility] WashingtonNEUTROPHILS ABSOLUTE AUTO8.5HighMercy Hospital Washington Neutrophils/100 WBC (Bld)72.5 %43.0 - 75.0 %NOMS HealthcarePlatelet mean volume (Bld) [Entitic vol]9.1 fLLow9.5 - 13.5 fLNOMS HealthcareTBH EO #0.1NOMS HealthcareTBH ZRR980DILK HealthcareTBH RBC3.69LowNOMS HealthcareTBH WBC11.8High NOMS HealthcareCLINISYNCNOMS HealthcareUrinalysis macro (dipstick) panel (U)on 91-88-2408Qqcpftvex, UAFewNegative - 4(70) +++ mg/dLNOMS HealthcareBlood, UA PositiveNegative - 50 Carmine/mcLNOMS HealthcareClarity, UAClearNOMS Healthcare Color, UAYellowNOMS HealthcareGlucose, UANegativeNegative - 2000(110) ++++ mg/dL [facility] HealthcareInterpretation and review of laboratory resultsAbnormalNOWY HealthcareKetones, UANegativeNegative - 160(16) ++++ mg/dLCENTRAL VALLEY MEDICAL CENTER Healthcare Leukocytes, UAFewNegative - 500+++ Josselyn/mcLNOWY HealthcareNitrite, UANegative Negative - PositiveNOMS HealthcarepH, UA6.05 - 9NOMS HealthcareProtein, UA PositiveNegative - 2000(20) ++++ mg/dLNOMS HealthcareSpec Grav, UA1.0301 - 1.03 NOMS HealthcareUrobilinogen, UA1.00.2 - 12 mg/dLNOMS HealthcareNOMS HealthcareUS for multiple gestation limitedon 68-50-0251GwoOrrum, [place] [address] Ultrasound Report Signed Patient: SAMANTHA BLANCHARD MR#: [id number] : 2005 Acct:[id number] Age/Sex: 17 / F ADM Date: 06/17/23 Loc: US Attending Dr: Raúl Prajapati D.O. Ordering Physician: Raúl Prajapati D.O. Date of Service: 06/17/23 Procedure(s): US OB follow up Accession Number(s): [id number] cc: Raúl Prajapati D.O.; Physician,Non-Staff M.DLance [facility] [place] [id number] Patient Name: SAMANTHA BLANCHARD MRN: [id number] date: 2005 Sex: F Assigned Patient Location: US Current Patient Location: [place] Accession/Order Number: [id number] Exam Date: 06/17/2023 11:08 Report Date: 06/17/2023 [...] Connor M.D. Signed By: 06/17/23 1545 DD/ 42 TD/TT: Cut Off Saw Operator Pipe Blanks:ZAHIRAHRadiology, Radiologist, MD - 08/25/2023 [place] [address] Ultrasound Report Signed Patient: SAMANTHA BLANCHARD MR#: [id number] : 2005 Acct:[id number] Age/Sex: 17 / F ADM Date: 06/17/23 Loc: US Attending Dr: Raúl Prajapati D.O. Ordering Physician: Ralú Prajapati D.O. Date of Service: 06/17/23 Procedure(s): US OB follow up Accession Number(s): [id number] cc: Raúl Prajapati D.O.; Physician,Non-Staff Roni [facility] [place] [address] Patient Name: SAMANTHA BLANCHARD MRN: [id number] date: 2005 Sex: F Assigned Patient Location: US Current Patient Location: US Accession/Order Number: [id number] Exam Date: 06/17/2023 11:08 Report Date: 06/17/2023 [...] Dictated By: Henry Connor M.D. Signed By: 06/17/231544 DD/ 42 TD/TT: Cut Off Saw Operator Pipe Blanks: BLAYNE HealthcareRadiology Study observation (narrative)NOM HealthcareUS for multiple gestation limitedOrdered By: Radiologist Radiology on 60-55-4126[facility] Work Phone: alanine aminotransferase [Enzymatic activity/volume] in Serum or PlasmaOrdered By: Toi Edward on 14-04-6494VQP [Catalytic activity/Vol]41 U/L7-52Flower HospitalAlbumin [Mass/volume] in Serum or Plasma by Bromocresol green (BCG) dye binding methoOrdered By: Toi Edward on 10-63-0320Drlxbnu BCG dye [Mass/Vol]4.1 g/dL3.5-5.7FMercy Health – The Jewish HospitalAlkaline phosphatase [Enzymatic activity/volume] in Serum or PlasmaOrdered By: Toi Edward on 59-34-3493PHR [Catalytic activity/Vol]158 U/L 34-104Flower HospitalAspartate aminotransferase [Enzymatic activity/volume] in Serum or PlasmaOrdered By: Toi Edward on 45-56-6953LFK [Catalytic activity/Vol]44 U/V88-85NniweczfkFlower HospitalBasophils Auto (Bld) [#/Vol]Ordered By: Toi Edward on 24-35-6828Pngepborn (Bld) [#/Vol] 0.1 10*3/uL0.0-0.2FMercy Health – The Jewish HospitalBasophils/100 WBC Auto (Bld) Ordered By: Toi Edward on 43-40-8365Gmjcktvuw/100 WBC (Bld)0.5 %.Flower HospitalBilirubin.total [Mass/volume] in Serum or PlasmaOrdered By: Toi Edward on 85-44-3961Eeguuceko [Mass/Vol]0.8 mg/dL0.3-1.0Flower HospitalC reactive protein [Mass/volume] in Serum or Plasma Ordered By: Toi Edward on 73-33-2072ZTI [Mass/Vol]1.8 mg/dL0.0-0.5FMercy Health – The Jewish HospitalC-Reactive Proteinon 38-23-6607S-Reactive Protein1.8 mg/dLHigh0.0-0.5FMercy Health – The Jewish HospitalComment on above:Result Comment: PERFORMED BY: [place] [address] PATHOLOGIST [employer] VEENA DYSON M.D.Performed By: #### SCAN CBC, ESR, CMP, CRP #### [place] [address] USACalcium [Mass/volume] in Serum or PlasmaOrdered By: Toi Edward on 89-24-9213Yzsvsqg [Mass/Vol]9.4 mg/dL8.6-10.3FMercy Health – The Jewish HospitalCarbon dioxide, total [Moles/volume] in Serum or PlasmaOrdered By: Toi Edward on 51-26-5070FD3 [Moles/Vol]24.8 mmol/L21.0-31.0Flower HospitalChloride [Moles/volume] in Serum or PlasmaOrdered By: Toi Edward on 55-74-5200Jrznioii [Moles/Vol]100 mmol/C96-885UkfqdefdnFlower HospitalComprehensive Metabolic Panelon 30-90-3421Dkvgmhm [Mass/Vol]4.1 g/dLNormal3.5-5.7FMercy Health – The Jewish HospitalComment on above:Performed By: #### SCAN CBC, ESR, CMP, CRP #### [facility] [address] [place] [address] USAAlbumin/Globulin [Mass ratio]1.2 {ratio}NormalFlower HospitalComment on above:Performed By: #### SCAN CBC, ESR, CMP, CRP #### [facility] [address] [place] [address] USAALP [Catalytic activity/Vol]158 U/TGkkg16-341LyvgkbebiFlower HospitalComment on above:Performed By: #### SCAN CBC, ESR, CMP, CRP #### [facility] [address] [place] [address] USAALT [Catalytic activity/Vol]41 U/LNormal7-52Flower HospitalComment on above:Performed By: #### SCAN CBC, ESR, CMP, CRP #### [facility] [address] [place] [address] USAAnion gap [Moles/Vol]13.2 mmol/LNormal6.0-15.0Flower HospitalComment on above:Performed By: #### SCAN CBC, ESR, CMP, CRP #### [facility] [address] [place] [address] USAAST [Catalytic activity/Vol]44 U/YRure13-41RbcvelgmrFlower HospitalComment on above:Performed By: #### SCAN CBC, ESR, CMP, CRP #### [facility] [address] [place] [address] USABilirubin [Mass/Vol]0.8 mg/dLNormal0.3-1.0Flower HospitalComment on above:Performed By: #### SCAN CBC, ESR, CMP, CRP #### [facility] [address] [place] [address] USACalcium [Mass/Vol]9.4 mg/dLNormal8.6-10.3FMercy Health – The Jewish HospitalComment on above:Performed By: #### SCAN CBC, ESR, CMP, CRP #### [facility] [address] [place] [address] USAChloride [Moles/Vol]100 mmol/WJtswdt68-742FvuhhicpsFlower HospitalComment on above:Performed By: #### SCAN CBC, ESR, CMP, CRP #### [facility] [address] [place] [address] USACO2 [Moles/Vol]24.8 mmol/YUmmhfn68.0-31.0Flower HospitalComment on above:Performed By: #### SCAN CBC, ESR, CMP, CRP #### [facility] [address] [place] [address] USACreatinine [Mass/Vol]0.77 mg/dLNormal0.60-1.20Flower HospitalComment on above:Performed By: #### SCAN CBC, ESR, CMP, CRP #### [facility] [address] [place] [address] USACreatinine Clr Calc Ynqofqek596.98NormCleveland Clinic Mentor HospitalComment on above:Performed By: #### SCAN CBC, ESR, CMP, CRP #### [facility] [address] [place] [address] USAGFR/1.73 sq M.predicted MDRD (S/P/Bld) [Vol rate/Area] mL/min/{1.73_m2}NormalFlower HospitalComment on above: Performed By: #### SCAN CBC, ESR, CMP, CRP #### [facility] [address] [place] [address] USAGlobulin (S) [Mass/Vol]3.5 g/dLNoMercy Health Fairfield HospitalComment on above:Performed By: #### SCAN CBC, ESR, CMP, CRP #### [facility] [address] [place] [address] USAGlucose [Mass/Vol]85 mg/hCPjyjkr20-658JozaxpdrtFlower HospitalComment on above:Result Comment: Random Glucose Reference Range is dependent on time and content of last meal. Glucose of more than 200 mg/dL in a nonstressed, ambulatory subject supports the diagnosis of Diabetes Mellitus. ADA recommended reference rangePerformed By: #### SCAN CBC, ESR, CMP, CRP #### [facility] [address] [place] [address] USAPotassium [Moles/Vol]4.0 mmol/LNormal3.5-5.1FMercy Health – The Jewish HospitalComment on above:Performed By: #### SCAN CBC, ESR, CMP, CRP #### [facility] [address] [place] [address] USAProtein [Mass/Vol]7.6 g/dLNormal6.4-8.9Flower HospitalComment on above:Performed By: #### SCAN CBC, ESR, CMP, CRP #### [facility] [address] [place] [address] USASodium [Moles/Vol]134 mmol/LPep934-356RpungedpgFlower HospitalComment on above:Performed By: #### SCAN CBC, ESR, CMP, CRP #### [facility] [address] [place] [address] USAUrea nitrogen [Mass/Vol]7 mg/dLNormal7-25Flower HospitalComment on above:Performed By: #### SCAN CBC, ESR, CMP, CRP #### [facility] [address] [place] [address] USACreatinine [Mass/volume] in Serum or PlasmaOrdered By: Toi Edward on 39-78-4482Biryxonwqw [Mass/Vol]0.77 mg/dL0.60-1.20Flower HospitalEosinophils Auto (Bld) [#/Vol]Ordered By: Toi Edward on 02-94-4791Locrsxmonvk (Bld) [#/Vol]0.0 10*3/uL0.0-0.45Flower HospitalEosinophils/100 WBC Auto (Bld)Ordered By: Toi Edward on 57-02-1891Jyvouqzanbf/100 WBC (Bld)0.2 %.[facility] Erythrocyte Sedimentation Rateon 19-19-3681BUV (Bld) [Velocity]26 mm/hHigh0-19 Flower HospitalComment on above:Result Comment: PERFORMED BY: [facility] [address] [place] [address] PATHOLOGIST [employer]ER VEENA DYSON M.D.Performed By: #### SCAN CBC, ESR, CMP, CRP #### [facility] [address]Erythrocyte distribution width Auto (RBC) [Ratio]Ordered By: Toi Edward on 41-03-2821Xpnlookrqul distribution width (RBC) [Ratio]13.3 % 11.9-15.3FMercy Health – The Jewish HospitalErythrocyte sedimentation rate by Photometric methodOrdered By: Toi Edward on 45-62-3765SCG Photometric method (Bld) [Velocity]26 mm/hr0-19Flower HospitalGlobulin Calc (S) [Mass/Vol]Ordered By: Toi Edward on 03-87-3413Thctwfxn (S) [Mass/Vol]3.5 g/dL Flower HospitalGlucose [Mass/volume] in Serum or PlasmaOrdered By: Toi Edward on 72-64-8130Ubuikxt [Mass/Vol]85 mg/cJ47-562DfjbcxltrFlower HospitalComment on above:ADA recommended reference rangeRandom Glucose Reference Range is dependent on time and content of last meal. Glucose of more than 200 mg/dL in a nonstressed, ambulatory subject supports the diagnosisof Diabetes Mellitus.Hematocrit Auto (Bld) [Volume fraction]Ordered By: Toi Edward on 48-71-4884Zlflsrwpmm (Bld) [Volume fraction]38.7 %34.0-46.4 Flower HospitalHemoglobin [Mass/volume] in BloodOrdered By: Toi Edward on 29-93-2629Wszbdvyfqs (Bld) [Mass/Vol]13.1 g/dL11.8-15.4FMercy Health – The Jewish HospitalLeukocytes [#/volume] corrected for nucleated erythrocytes in Blood by Automated counOrdered By: Toi Edward on 93-22-6479BRF corrected for nucl RBC Auto (Bld) [#/Vol]9.4 10*3/uL3.8-11.6FMercy Health – The Jewish HospitalLymphocytes Auto (Bld) [#/Vol]Ordered By: Toi Edward on 19-00-3470Nofaoylgpkt (Bld) [#/Vol]4.5 10*3/uL1.00-4.8Flower HospitalLymphocytes/100 WBC Auto (Bld)Ordered By: Toi Edward on 02-14-2023 Lymphocytes/100 WBC (Bld)47.5 %.[facility] – JacksonH Auto (RBC) [Entitic mass]Ordered By: Toi Edward on 62-65-7835HFA (RBC) [Entitic mass]29.0 pg24.7-34.3FMercy Health – The Jewish HospitalMCHC Auto (RBC) [Mass/Vol]Ordered By: Toi Edward on 67-26-9574NAUO (RBC) [Mass/Vol]33.7 g/dL32.0-35.0Flower HospitalMCV Auto (RBC) [Entitic vol]Ordered By: Toi Edward on 22-30-2510GCC (RBC) [Entitic vol]85.8 nP63-935HqyqeqqfrFlower Hospital Monocyte distribution width [Entitic volume] in Blood by AutomatedOrdered By: Toi Edward on 96-20-7901Frojqots distribution width Auto (Bld) [Entitic vol] 34.56 %0.00-20.00Flower HospitalComment on above:The predictive value of MDW for identifying sepsis in patients with hematological abnormalities hasnot been establishedMonocytes Auto (Bld) [#/Vol]Ordered By: Toi Edward on 27-08-9221Lmyxvbrgp (Bld) [#/Vol]1.0 10*3/uL0.0-0.8Flower HospitalMonocytes/100 WBC Auto (Bld)Ordered By: Toi Edward on 89-44-3213Csmmzltkf/100 WBC (Bld)10.7 %.[facility] Neutrophils Auto (Bld) [#/Vol]Ordered By: Toi Edward on 90-52-3408Xhkmxjrxqhg (Bld) [#/Vol]3.9 10*3/uL1.8-7.7FMercy Health – The Jewish HospitalNeutrophils/100 WBC Auto (Bld)Ordered By: Toi Edward on 12-34-5934Nwuxonbispg/100 WBC (Bld) 41.1 %.Flower HospitalNo Panel InformationOrdered By: Toi Edward on 44-96-6532Bnxkrqqmy GFR (CKD-EPI)> 60.0 mL/MinFlower HospitalPharmacy Creatinine Clearance (Jjon120.98Flower HospitalNucleated erythrocytes [Presence] in Blood by Automated count Ordered By: Toi Edward on 44-40-0165Gkwcyydrx RBC Auto Ql (Bld)0.3 /100{WBC} 0-0.5FMercy Health – The Jewish HospitalPlatelet adequacy [Presence] in Blood by Light microscopyOrdered By: Toi Edward on 84-39-3145Dprkxwtul LM Ql (Bld) NormalNormCleveland Clinic Mentor HospitalPlatelet mean volume Auto (Bld) [Entitic vol]Ordered By: Toi Edward on 48-37-9562[place] mean volume (Bld) [Entitic vol]7.6 fL6.3-10.7FMercy Health – The Jewish HospitalPlatelet morphology finding [Identifier] in BloodOrdered By: Toi Edward on 97-16-4139Wqnjgjqa morphology finding Nom (Bld)NormalMagruder Memorial Hospital Platelets Auto (Bld) [#/Vol]Ordered By: Toi Edward on 59-65-0159Aszjcyotb (Bld) [#/Vol]163 10*3/rO877-650GbawzwwprFlower HospitalPotassium [Moles/volume] in Serum or PlasmaOrdered By: Toi Edward on 28-63-5765Upkcwuruu [Moles/Vol]4.0 mmol/L3.5-5.1FMercy Health – The Jewish HospitalProtein [Mass/volume] in Serum or PlasmaOrdered By: Toi Edward on 49-38-9498Mqfkgir [Mass/Vol]7.6 g/dL6.4-8.9Flower HospitalQuick Strepon 02-13-1634Ywmln StrepStreptococcus pyogenes Ag [Presence] in Throat by Rapid immunoassay Negative for Group A Strep Antigen Note 1 NOTE 2 Results are those of a screening test. NOTE 3 If clinically indicated please order a culture. NOTE 4 NOTE 5 Reference range = Negative PERFORMED BY: [place] [address] PATHOLOGIST [employer] OBSERVER VEENA DYSON M.D.Magruder Memorial HospitalComment on above: Performed By: #### QS, RFXSTPA #### [place] [address] USARBC Auto (Bld) [#/Vol]Ordered By: Toi Edward on 37-96-6341PNB (Bld) [#/Vol]4.51 10*6/uL3.60-5.00Flower HospitalRBC morphologyOrdered By: Toi Edward on [id number] morphology finding Nom (Bld)NormalNormalFlower HospitalRFX Strep A Reflex Cult Onlyon 05-21-1922VEV Strep A Reflex Cult OnlyStrep A Only Cult No Group A Beta Streptococcus Isolated 2 Days PERFORMED BY: [place] [address] PATHOLOGIST [employer] VEENA DYSON M.D.[facility] HospitalComment on above: Performed By: #### QS, RFXSTPA #### [facility] [address] [place] [address] USAScan and CBCon [phone] (Bld) [#/Vol]0.1 10*3/uLNormal0.0-0.2FMercy Health – The Jewish HospitalComment on above:Performed By: #### SCAN CBC, ESR, CMP, CRP #### [facility] [address] [place], [place] [id number] USABasophils/100 WBC (Bld)0.5 %Normal.Flower HospitalComment on above:Performed By: #### SCAN CBC, ESR, CMP, CRP #### [facility] [address] [place] [address] USAEosinophils (Bld) [#/Vol]0.0 10*3/uLNormal0.0-0.45 Flower HospitalComment on above:Performed By: #### SCAN CBC, ESR, CMP, CRP #### [place] [address] USAEosinophils/100 WBC (Bld)0.2 %Normal.Flower HospitalComment on above:Performed By: #### SCAN CBC, ESR, CMP, CRP #### [place] [address] USAErythrocyte distribution width (RBC) [Ratio]13.3 %Normal 11.9-15.3FMercy Health – The Jewish HospitalComment on above:Performed By: #### SCAN CBC, ESR, CMP, CRP #### [place] [address] USAHematocrit (Bld) [Volume fraction]38.7 %Noiied07.0-46.4 Flower HospitalComment on above:Performed By: #### SCAN CBC, ESR, CMP, CRP #### [place] [address] USAHemoglobin (Bld) [Mass/Vol]13.1 g/uPFrcjfh01.8-15.4 Flower HospitalComment on above:Performed By: #### SCAN CBC, ESR, CMP, CRP #### [place] [address] USALymphocytes (Bld) [#/Vol]4.5 10*3/uLNormal1.00-4.8 Flower HospitalComment on above:Performed By: #### SCAN CBC, ESR, CMP, CRP #### [place] [address] USALymphocytes/100 WBC (Bld)47.5 %Normal.Flower HospitalComment on above:Performed By: #### SCAN CBC, ESR, CMP, CRP #### [address] [address] USAMCH (RBC) [Entitic mass]29.0 gkXjabrm09.7-34.3FMercy Health – The Jewish HospitalComment on above:Performed By: #### SCAN CBC, ESR, CMP, CRP #### [facility] [address]V (RBC) [Entitic vol]85.8 lOQexkez93-030SkgddappcFlower HospitalComment on above:Performed By: #### SCAN CBC, ESR, CMP, CRP #### [place] [address] USAMean Corpuscular HGB Conc33.7 g/eNDazkwq10.0-35.0Flower HospitalComment on above:Performed By: #### SCAN CBC, ESR, CMP, CRP #### [place] [address] USAMonocytes (Bld) [#/Vol]1.0 10*3/uLHigh0.0-0.8Flower HospitalComment on above:Performed By: #### SCAN CBC, ESR, CMP, CRP #### [place] [address] USAMonocytes/100 WBC (Bld)34.56 %High0.00-20.00Flower HospitalComment on above:Result Comment: The predictive value of MDW for identifying sepsis in patients with hematological abnormalities has not been establishedPerformed By: #### SCAN CBC, ESR, CMP, CRP #### [place] [address] USAMonocytes/100 WBC (Bld)10.7 %Normal.Flower HospitalComment on above:Performed By: #### SCAN CBC, ESR, CMP, CRP #### [place] [address] USANeutrophils (Bld) [#/Vol]3.9 10*3/uLNormal1.8-7.7FMercy Health – The Jewish HospitalComment on above:Performed By: #### SCAN CBC, ESR, CMP, CRP #### [facility] [address] [id number] USANeutrophils/100 WBC (Bld)41.1 %Normal.Flower HospitalComment on above:Performed By: #### SCAN CBC, ESR, CMP, CRP #### [facility] [address] [place] [address] USANRBC%0.3 /100{WBC}Normal0-0.5FMercy Health – The Jewish HospitalComment on above:Performed By: #### SCAN CBC, ESR, CMP, CRP #### [facility] [address] [place] [address] USAPlatelet EstimateNormalNormalNormCleveland Clinic Mentor HospitalComment on above:Performed By: #### SCAN CBC, ESR, CMP, CRP #### [facility] [address] [place] [address] USAPlatelet mean volume (Bld) [Entitic vol]7.6 fLNormal 6.3-10.7FMercy Health – The Jewish HospitalComment on above:Performed By: #### SCAN CBC, ESR, CMP, CRP #### [facility] [address] [place] [address] USAPlatelet MorphologyNormalNormalMagruder Memorial HospitalComment on above:Performed By: #### SCAN CBC, ESR, CMP, CRP #### [facility] [address] [place] [address] USAPlatelets (Bld) [#/Vol]163 10*3/aJFtfked491-661OgwzzlarbFlower HospitalComment on above:Performed By: #### SCAN CBC, ESR, CMP, CRP #### [facility] [address] [place] [address] USARBC (Bld) [#/Vol]4.51 10*6/uLNormal3.60-5.00F[facility] HospitalComhavenwyck hospital on above:Performed By: #### SCAN CBC, ESR, CMP, CRP #### [facility] [address] [place] [address] USARBC morphology finding Nom (Bld)NormalNormalNormal Flower HospitalComment on above:Performed By: #### SCAN CBC, ESR, CMP, CRP #### [facility] [address] [place] [address] USAWBC (Bld) [#/Vol]9.4 10*3/uLNormal3.8-11.6FMercy Health – The Jewish HospitalComment on above:Performed By: #### SCAN CBC, ESR, CMP, CRP #### [facility] [address] [place] [address] USASerum or plasma albumin/globulin mass ratioOrdered By: Toi Edward on 15-20-6876Gubforu/Globulin [Mass ratio]1.2 {ratio}[facility] County Hospitalerum or plasma anion gap determinationOrdered By: Toi Edward on 62-78-7544Zkchm gap [Moles/Vol]13.2 mmol/L6.0-15.0Ad[facility] County Hospitalodium [Moles/volume] in Serum or PlasmaOrdered By: Toi Edward on 77-54-3426Uunlit [Moles/Vol]134 mmol/U770-573ChjnvrbkrFlower HospitalUrea nitrogen [Mass/volume] in Serum or PlasmaOrdered By: Toi Edward on 40-28-7760Lvef nitrogen [Mass/Vol]7 mg/dL7-25[facility] WBC Auto (Bld) [#/Vol]Ordered By: Toi Edward on 74-01-1265SOI (Bld) [#/Vol]9.4 10*3/uL3.8-11.6FMercy Health – The Jewish HospitalCBC AUTO DIFFon 03-04-9945WFTY #0.0 103/ulNormal0.0-0.1The [facility] Clinic FoundationComment on above:Performed By: #### CBC #### [facility] [address] [address] [address] Melinda Santamariaphils/100 WBC (Bld)0.2 %Normal0.2-2.0[facility] Comment on above:Performed By: #### CBC #### [facility] [address] [address] [address] Melinda Begum #0.0 103/ulNormal0.0-0.7The [facility] Clinic FoundationComment on above: Performed By: #### CBC #### [facility] [address] [place] [address] Dr. Melinda Kennedyosinophils/100 WBC (Bld)0.1 %Critically low0.9-7.0The [facility] Clinic FoundationComment on above:Performed By: #### CBC #### [facility] [address] [place] [address] Dr. Melinda Kennedyrythrocyte distribution width (RBC) [Ratio]13.0 %Mqeega90.0-15.0 The [facility] FoundationComment on above:Performed By: #### CBC #### [facility] [address] [place] [address] Dr. Melinda LópezHematocrit (Bld) [Volume fraction]41.3 %Mvbycs72.0-48.0The [facility] FoundationComment on above:Performed By: #### CBC #### [facility] [address] [place] [address] Dr. Melinda LópezHemoglobin (Bld) [Mass/Vol]13.2 g/yIMbvqss61.0-16.0The [facility] FoundationComment on above:Performed By: #### CBC #### [facility] [address] [place] [address] Dr. Melinda Licea #0.15 10e3/ulCritically high0.00-0.03[facility] Comment on above:Performed By: #### CBC #### [facility] [address] [place] [address] Dr. Melinda Licea %0.9 %Critically high0.0-0.5The [facility] Clinic FoundationComment on above:Performed By: #### CBC #### [facility] [address] [place] [address] Dr. Melinda Choi #1.1 103/ulCritically low1.2-3.8[facility] Comment on above:Performed By: #### CBC #### [facility] [address] [place] [address] Dr. Yilan ChangLymphocytes/100 WBC (Bld)6.6 %Critically low20.5-60.0The [facility] Clinic FoundationComment on above:Performed By: #### CBC #### [facility] [address] [place] [address] Dr. Melinda Patricio DIFF REQNONormalThe [facility] Clinic FoundationComment on above: Performed By: #### CBC #### [facility] [address] [place] [address] Dr. Melinda Garsia (RBC) [Entitic mass]28.1 bpJafpgm63.7-34.0The [facility] FoundationComment on above:Performed By: #### CBC #### [facility] [address] [place] [address] Dr. Melinda Garsia (RBC) [Mass/Vol]32.0 g/uSRfnxon74.9-35.2The [facility] Clinic FoundationComment on above:Performed By: #### CBC #### [facility] [address] [place] [address] Dr. Melinda Garsia (RBC) [Entitic vol]88.1 kIJkqsbj01.0-99.0The [facility] FoundationComment on above:Performed By: #### CBC #### [facility] [address] [place] [address] Dr. Melinda Myers #0.9 103/ulCritically high0.3-0.8ThVeterans Health Administration Comment on above:Performed By: #### CBC #### [facility] [address] [place] [address] Dr. Melinda Michaudocytes/100 WBC (Bld)4.9 %Normal1.7-12.0[facility] Comment on above:Performed By: #### CBC #### [facility] [address] [place] [address] Dr. Melinda Johnson #15.0 103/ulCritically high1.4-6.5ThVeterans Health Administration Comment on above:Performed By: #### CBC #### [facility] [address] [place] [address] Dr. Melinda Mosquedautrophils/100 WBC (Bld)87.3 %Critically high43.0-75.0The [facility] Clinic FoundationComment on above:Performed By: #### CBC #### [facility] [address] [address] [address] Melinda LópezPlatelet mean volume (Bld) [Entitic vol]9.4 fLCritically low 9.5-13.5The [facility] Clinic FoundationComment on above:Performed By: #### CBC #### [facility] [address] [address] [address] Melinda LópezPLT362 103/ntHphecv507-939Lpa [facility] FoundationComment on above: Performed By: #### CBC #### [facility] [address] [place] [address] Dr. Melinda LópezRBC4.69 106/ulNormal4.20-5.40The [facility] FoundationComment on above:Performed By: #### CBC #### [facility] [address] [address] [address] Melinda LópezWBC17.2 103/ulCritically high4.0-11.0The [facility] FoundationComment on above:Performed By: #### CBC #### [facility] [address] [place] [address] Dr. Melinda Medina 02-12-6210Vvygicfue (Bld) [#/Vol]NegativeNormalNEGATIVEThe [facility] Clinic FoundationComment on above:Performed By: #### MONO #### [facility] [address] [place] [address] Dr. Melinda López Vital Signs Date TimeVital SignValuePerforming JisljcxkyQgmnxjkt50-32-9490 09:29-0400Body ununme237.1 cmF[facility] Hospital2025 09:29-0400Body mass index (BMI) [Ratio]29.9 kg/u3HualiofbaFlower Hospital2025 09:29-0400Body ngejxj87.64 kgFlower Hospital09-24-2025 16:39-0400Body ndklec746.56 cmFlower Hospital09-24-2025 16:39-0400Body mass index (BMI) [Ratio]32.5 kg/y1JtkytsvghFlower Hospital09-24-2025 16:39-0400Body ddufrzgnxbw19.3 [degF][facility]09-24-2025 16:39-0400Body skudjx39.18 kgFlower Hospital 03-14-2025 16:39-0400Diastolic blood eqlfpcxc55 mm[Hg][facility]09-24-2025 16:39-0400Heart rate97 /[facility] 03-14-2025 16:39-0400Respiratory rate14 /[facility] 03-14-2025 16:39-5101QeC7% (BldA) [Mass fraction]98 %[facility]09-24-2025 16:39-0400Systolic blood hxdomrhj985 mm[Hg][facility]03-18-2025 09:38-0400Body mass index (BMI) [Ratio]35.55 kg/p4Cpubs Victorina DO Work Phone: [phone] [place], [place] [address]Ejehsrqlwa49-40-7078 09:38-0400Body .95 kgCorey Victorina DO Work Phone: [phone] [place], [place] [address]Wyhrmvrrpb07-80-3257 09:38-0400Diastolic blood utgsvxgm00 mm[Hg]Raúl Victorina DO Work Phone: [phone] [place], [place] [address]Rewvzlwcvz51-52-2171 09:38-0400Systolic blood uyxrgqjd961 mm[Hg]Raúl Victorina DO Work Phone: [phone] [place], [place] [address]Zeavijaouw91-10-0147 13:50-0500Body mass index (BMI) [Ratio]35.19 kg/k1Aqoet Victorina DO Work Phone: [phone] [place], [place] [address]Crieavqnwe15-09-0949 13:50-0500Body qoxrts94.99 kgCorey Victorina DO Work Phone: [phone]-[facility] WashingtonOuguwboeik25-26-2352 13:50-0500Diastolic blood mm[Hg]Raúl Victorina DO Work Phone: [phone]-Critical access hospital2[facility] WashingtonEcykiqkzjp50-91-9067 13:50-0500Systolic blood odwvxvek980 mm[Hg]Raúl Victorina DO Work Phone: [phone] [place], [place] [address]Lpmytqlfsg03-17-3094 15:09-0500Body mass index (BMI) [Ratio]34.69 kg/l4Pfuhr Victorina DO Work Phone: [phone])359-[address] [place], [place] [address]Yiibiruqos04-73-7066 15:09-0500Body .68 kgCorey Victorina DO Work Phone: [phone] [place], [place] [address]Kwdijjrqkt50-79-6085 15:09-0500Diastolic blood bytkkybk12 mm[Hg]Raúl Victorina DO Work Phone: [phone] [place], [place] [address]Xxqprbbqic82-07-4605 15:09-0500Systolic blood mm[Hg]Raúl Victorina DO Work Phone: [phone] [place], [place] [address]Ogmocmasbm25-18-5216 11:58-0500Body mass index (BMI) [Ratio]34.57 kg/c7Rlhrd Victorina DO Work Phone: [phone] [place], [place] [address]Oflzmmoxme34-87-6732 11:58-0500Body ywihin86.35 kgCorey Victorina DO Work Phone: [phone] [place], [place] [address]Hglmdifcun02-30-4212 11:58-0500Diastolic blood uknfmqsl08 mm[Hg]Raúl Victorina DO Work Phone: [phone] [place], [place] [address]Aqxqwkwdhq50-33-3324 11:58-0500Systolic blood xniskjca657 mm[Hg]Raúl Victorina DO Work Phone: [phone] [place], [place] [address]Aogsumhfcv07-92-0689 15:26-0500Body mass index (BMI) [Ratio]33.78 kg/m2Kadi DON Work Phone: [phone] [place], [place] [address]Pclkuzfqpj47-60-0444 15:26-0500Body vzbhil87.27 kgAmy Bernard DON Work Phone: [phone]-Critical access hospital3[facility] WashingtonJwlncqqzpj98-34-2372 15:26-0500Diastolic blood jykslptw71 mm[Hg]Kadi DON Work Phone: [facility] WashingtonVikocmlthz32-54-5296 15:26-0500Systolic blood avayuiva192 mm[Hg]Kadi DON Work Phone: [facility] WashingtonMirxalllrt59-52-7173 10:01-0500Body mass index (BMI) [Ratio]32.96 kg/r0Hppke Victorina DO Work Phone: [phone]-Critical access hospital0[facility] WashingtonApmkelhbea11-51-3379 10:01-0500Body eurpjq42.09 kgCorey Victorina DO Work Phone: [phone]-Critical access hospital5[facility] WashingtonYuqcohgeyt45-36-0832 10:01-0500Diastolic blood gkdamrlh55 mm[Hg]Raúl Victorina DO Work Phone: [phone]-Critical access hospital0[facility] WashingtonOjmazuftqn13-70-3954 10:01-0500Systolic blood qduhsqnc510 mm[Hg]Raúl Victorina DO Work Phone: [phone]-Critical access hospital3[facility] WashingtonZdnhnpdndl04-24-9222 14:41-0500Body mass index (BMI) [Ratio]33.3 kg/m2Kadi DON Work Phone: [facility] WashingtonRikzovunsi31-51-6978 14:41-0500Body ozqpoj20 kg Kadi DON Work Phone: [facility] WashingtonPuswxiggif90-73-3901 14:41-0500Diastolic blood mm[Hg]Kadi DON Work Phone: [facility] WashingtonVkhloxlnci26-35-9334 14:41-0500Systolic blood ijxzvwer864 mm[Hg]Kadi DON Work Phone: [facility] WashingtonZzrzxkwlsv75-94-6617 16:00-0400Body mass index (BMI) [Ratio]33.47 kg/h4Hqqbq Victorina DO Work Phone: [facility] WashingtonAcedfbwjfy34-77-5410 16:00-0400Body czgeej46.45 kgCorey Victorina DO Work Phone: [facility] WashingtonJpohbfbusc00-62-0791 16:00-0400Diastolic blood tnwchjzi03 mm[Hg]Raúl Victorina DO Work Phone: [facility] WashingtonQfqybqeseq05-74-6538 16:00-0400Systolic blood ukiihrrk660 mm[Hg]Raúl Victorina DO Work Phone: [facility] WashingtonUghtdukbtg74-88-8956 13:52-0400Body mass index (BMI) [Ratio]34.16 kg/m9Inevv Victorina DO Work Phone: [facility] WashingtonYnizpceafl09-15-6743 13:52-0400Body rlqgzy92.27 kgCorey Victorina DO Work Phone: [facility] WashingtonJqkubcfcbz14-70-5740 13:52-0400Diastolic blood akyzrgjy73 mm[Hg]Raúl Victorina DO Work Phone: [facility] WashingtonLueybchuxv57-91-3821 13:52-0400Systolic blood rubxhfjz482 mm[Hg]Raúl Victorina DO Work Phone: [facility] WashingtonBilaedtzvx64-34-6107 13:28-0400Body mass index (BMI) [Ratio]35.04 kg/m2[facility]08-22-2024 13:28-0400Body oommli87.59 kgS[facility]08-22-2024 13:28-0400Diastolic blood lqqzvrfa82 mm[Hg][facility]08-22-2024 13:28-0400Systolic blood zsicvnli800 mm[Hg][facility]02-14-2024 11:10-0500Body mass index (BMI) [Ratio]33.88 kg/u6Duske Victorina DO Work Phone: [facility] WashingtonMhifavexpj62-00-1690 11:10-0500Body jmqqaw82.54 kgCorey Victorina DO Work Phone: [facility] WashingtonLobfnswall61-94-5499 11:10-0500Diastolic blood pzkrvzuk45 mm[Hg]Raúl Victorina DO Work Phone: [facility] WashingtonKkggocfiwa92-20-6218 11:10-0500Systolic blood ctrykuum528 mm[Hg]Raúl Victorina DO Work Phone: [facility] WashingtonOaadilfkdf29-68-2736 00:16-0400Body temperature 99.3 [degF]PA-C Toi Edward Work Phone: [facility]08-28-2023 00:16-0400 Diastolic blood kbovalbv77 mm[Hg]PA-C Toi Edward Work Phone: [facility]08-28-2023 00:16-0400 Heart rate91 /minFLORENCIA-C Toi Edward Work Phone: [facility]08-28-2023 00:16-0400 Respiratory rate16 /minFLORENCIA-C Toi Wagner Work Phone: [phone] [place], [place] [address]408-28-2023 00:16-0400 SaO2% (BldA) [Mass fraction]95 %PA-C Toi Wagner Work Phone: [facility]08-28-2023 00:16-0400 Systolic blood ikjseswh884 mm[Hg]PA-C Toilloyd Edward Work Phone: [facility]08-27-2023 20:07-0400 Body yviqav081.83 cmPA-C Toi Wagner Work Phone: [facility]08-27-2023 20:07-0400 Body gephlg98.25 kgPA-Evelyn Salasur Wagner Work Phone: [facility]08-24-2023 15:40-0400 Body fbeabx057.64 Rachid Ortiz Other [employer] Other 08-24-2023 15:40-0400Body mass index (BMI) [Ratio] 27.18 kg/h2KfeyivEllen Ortiz Other [facility] [employer] Other 08-24-2023 15:40-0400Body utmycqfrfxq13.9 [degF]Ellen Ortiz Other [employer] Other 08-24-2023 15:40-0400Body acbcjs97.39 kgEllen Ortiz Other [email or web address] Other 08-24-2023 15:40-0400Diastolic blood fwkcbyda53 mm[Hg] Ellen Olsenmond Other [email or web address] Other 08-24-2023 15:40-0400Respiratory rate18 /minEllen Ortiz Other [employer] Other 08-24-2023 15:40-7659JgQ4% (BldA) [Mass fraction]98 % Ellen Olsenmond Other [facility] [employer] Other 08-24-2023 15:40-0400Systolic blood xcnevooj875 mm[Hg] Ellen Olsenmond Other [email or web address] Other Encounters Encounter DateEncounter TypeCare ProviderFacilityStart: 03-23-2025 End: 62-77-7916srifdijysoQTZ [facility] Work Phone: Start: 03-23-2025 End: 01-80-5359Tlxzozm encounter procedureJuselene Gomez [facility] Work Phone: Start: 03-14-2025 End: 04-41-5665riatnrpcehNKC [facility] Work Phone: Start: 03-14-2025 End: 84-46-3549Jegwcvw encounter procedureKaro Linda [employer]PERATIONS MANAGER-[facility] Work Phone: Start: 10-24-2024 End: 83-26-0360zczidpfpccWdt Ramey PA Work Phone: noms BCP OBStart: 10-24-2024 End: 08-39-1238Qwchlg-up encounterKadi Mercado PA Work Phone: NOMS BCP OBComment on above:6 weeks follow-up; Hemorrhoids, unspecified hemorrhoid type; Anxiety, generalized (CMS/HCC)Start: 09-05-2024 End: 28-84-6794verlrfhaggZPOFW FAZIONot AvailableStart: 09-05-2024 End: 05-89-0810Yrvsdm outpatient visit 15 minutesCorey Victorina DO Work Phone: NOM[facility] BCP OBComment on above:38 weeks gestation of ; Third trimester pregnancyStart: 08-29-2024 End: 21-14-2259idpxepazjsWOY RAMEYNot AvailableStart: 08-22-2024 End: 82-22-9087Orindh flowsheetCorey Victorina DO Work Phone: [facility] BCP OBStart: 08-22-2024 End: 62-09-7852Sjqrll flowsheetCorey Victorina DO Work Phone: [facility] BCP OBStart: 08-22-2024 End: 30-32-8665Fppugwfrj Result EncounterCorey Victorina DO Work Phone: noms External Department UnsolicitedStart: 08-22-2024 End: 93-50-7909uoxgnmciuvCCUKL FAZIONot AvailableStart: 08-22-2024 End: 45-17-3672Sxfrcc outpatient visit 15 minutesCorey Victorina DO Work Phone: NOM[facility] BCP OBComment on above:Third trimester ; 36 weeks gestation of pregnancyStart: 08-14-2024 End: 19-58-5811daaohpyqeuMMDBE FAZIONot AvailableStart: 08-14-2024 End: 62-61-4372Befwtt outpatient visit 15 minutesCorey Victorina DO Work Phone: NOM[facility] BCP OBComment on above:Third trimester ; 35 weeks gestation of pregnancyStart: 08-14-2024 End: 87-56-1662Jikzkg flowsheetCorey Victorina DO Work Phone: NONN BCP OBStart: 08-14-2024 End: 78-66-5404Yghbbv flowsheetCorey Victoirna DO Work Phone: [facility]OM[facility] BCP OBStart: 07-27-2024 End: 26-05-7618Pjezmv outpatient visit 15 minutesCorey Victorina DO Work Phone: NOM[facility] BCP OBComment on above:Third trimester ; 32 weeks gestation of pregnancyStart: 07-27-2024 End: 90-05-0776qiufqdeiseLKPVL FAZIONot AvailableStart: 07-12-2024 End: 27-39-6853kmyclhysgrUEL RAMEYNot AvailableStart: 07-12-2024 End: 65-37-3824Ufhvne flowsheetAmy Bernard DON Work Phone: [facility] BCP OBStart: 07-12-2024 End: 55-02-1232Hznxxi flowsheetAmy Bernard DON Work Phone: [facility] BCP OBStart: 06-26-2024 End: 56-91-7046Mhphgp outpatient visit 15 minutesAmy Bernard DON Work Phone: NOM[facility] BCP OBComment on above:Cramps, extremity (Primary Dx); Third trimester ; 28 weeks gestation of pregnancyStart: 06-26-2024 End: 06-32-3311ffjmbenmioPNG RAMEYNot AvailableStart: 06-05-2024 End: 17-31-2349Pigrfc flowsheetCorey Victorina DO Work Phone: [facility] BCP OBStart: 06-05-2024 End: 45-48-6319Tuttyw flowsheetCorey Victorina DO Work Phone: [facility] BCP OBStart: 06-05-2024 End: 02-56-5402Rvlxnn outpatient visit 15 minutesCorey Victorina DO Work Phone: [facility] BCP OBComment on above:Second trimester ; 25 weeks gestation of ; Encounter for follow-up ultrasound of anatomy; Low ironStart: 06-05-2024 End: 58-71-7424qmqafwhmtaVBRVC FAZIONot AvailableStart: 05-23-2024 End: 90-57-4561Cxhiwflri Result EncounterKadi DON Work Phone: noMS External Department UnsolicitedStart: 05-23-2024 End: 53-91-1912Uhvinjifv Result EncounterKadi DON Work Phone: noMS External Department UnsolicitedStart: 05-10-2024 End: 71-04-1429Flhhpsipt Result EncounterCorey Victorina DO Work Phone: noms External Department UnsolicitedStart: 05-10-2024 End: 40-24-7514Htjcjdvmt Result EncounterCorey Victorina DO Work Phone: noms External Department UnsolicitedStart: 05-09-2024 End: 64-44-5269xezxntoajrBNY Amber AvailableStart: 05-09-2024 End: 17-36-5305Atbnml outpatient visit 15 minutesAmy Bernard DON Work Phone: NOWD BCP OBComment on above:Second trimester ; 21 weeks gestation of ; Diabetes mellitus screeningStart: 05-09-2024 End: 65-56-4531Egaicm flowsIdania DON Work Phone: NONM BCP OBStart: 05-09-2024 End: 25-16-9205Rwhtxb flowsIdania DON Work Phone: NOMS BCP OBStart: 04-13-2024 End: 31-22-5647Dmqetucho Result EncounterCorey Victorina DO Work Phone: NOCM External Department UnsolicitedStart: 04-13-2024 End: 40-01-9675Lgiaskrtz Result EncounterCorey Victorina DO Work Phone: NOMS External Department UnsolicitedStart: 04-10-2024 End: 10-23-2056hircphevlcNAGDL FAZIONot AvailableStart: 04-10-2024 End: 69-13-8199Zjtsbh outpatient visit 15 minutesCorey Victorina DO Work Phone: noms [facility] OBComment on above:Screening, , for anatomic survey; Exposure to STD; Vaginal discharge; Need for maternal serum alpha-protein (MSAFP) screening; Second trimester ; 17 weeks gestation of ; Weight lossStart: 04-10-2024 End: 02-51-4247Mylzxy flowsheetCorey Victorina DO Work Phone: noms BCP OBStart: 04-10-2024 End: 50-68-2150Seoctl flowsheetCorey Victorina DO Work Phone: noms BCP OBStart: 04-10-2024 End: 67-63-1203Juadxctm Result EncounterCorey Victorina DO Work Phone: noms External Department UnsolicitedStart: 03-13-2024 End: 79-62-0136Akarlf flowsheetCorey Victorina DO Work Phone: noms BCP OBStart: 03-13-2024 End: 36-65-7845Uigyei flowsheetCorey Victorina DO Work Phone: noms BCP OBStart: 03-13-2024 End: 42-27-7172Uimujg outpatient visit 15 minutesCorey Victorina DO Work Phone: noms [facility] OBComment on above:Second trimester ; Nausea and vomiting during pregnancyStart: 03-13-2024 End: 76-50-4012agrbpjurqsTLNVX FAZIONot AvailableStart: 02-22-2024 End: 39-16-6380Wurqrgssw Result EncounterCorey Victorina DO Work Phone: noms External Department UnsolicitedStart: 02-22-2024 End: 89-28-8113Euphmgzsj Result EncounterCorey Victorina DO Work Phone: noms External Department UnsolicitedStart: 02-10-2024 End: 49-68-8996Skywrgqah Result EncounterCorey Victorina DO Work Phone: [facility] External Department UnsolicitedStart: 02-10-2024 End: 69-02-7442Udpykrkwp Result EncounterCorey Victorina DO Work Phone: [facility] External Department UnsolicitedStart: 02-10-2024 End: 15-12-0423Vuxhhc outpatient visit 5 minutesNoms Bcp Ob Victorina NurseNOMS BCP OBComment on above:GA: 4h8kZrues: 02-10-2024 End: 84-02-2385uycklbawnmORE RAMEYNot AvailableStart: 17-20-8325Flyduafcx Result EncounterCorey Victorina DO Work Phone: noms External Department UnsolicitedStart: 08-05-2023 Clinisync Result EncounterCorey Victorina DO Work Phone: noms External Department UnsolicitedStart: 08-04-2023 End: 25-47-9637Xshtdp outpatient visit 15 minutesCorey Victorina DO Work Phone: [facility] BCP OBComment on above:Third trimester ; Excessive growth affecting management of in third trimester, single or unspecified fetusStart: 06-17-2023 End: 74-51-8598Huvuqivex Result EncounterCorey Victorina DO Work Phone: noms External Department UnsolicitedStart: 06-17-2023 End: 05-20-7698Wrkqnpoew Result EncounterCorey Victorina DO Work Phone: noms External Department UnsolicitedStart: 02-14-2023 End: 47-20-8550Jypokfusk department patient visitNON STAFFFacility:[facility]tart: 02-14-2023 End: 67-54-4147Seagpwvrd department patient visitSHAD Edward Work Phone: [facility] Work Phone: Start: 02-11-2023 End: 92-97-7055hhjkvyzgsbFopork Dymond Other [facility] [employer] Other Start: 71-00-7244Zsrhse outpatient new 20 minutes Ellen OrtizFPG [facility] Care ClydeStart: 03-02-2022 End: 47-03-0330bhnzhxdafhTJNFQV SERVICES [facility]ENTERFac[facility]:H1 Procedures DateProcedureProcedure DetailPerforming ClinicianStart: 90-82-6640Dppzg dip stick/tablet rgnt non-auto w/o micrscpCorey Victorina DO Work Phone: Start: 37-25-6096WLE MISCELLANEOUS TESTCorey Victorina DO Work Phone: Start: 74-78-7158Dhtun dip stick/tablet rgnt non-auto w/o micrscpCorey Victorina DO Work Phone: Start: 12-18-4945Zszrs dip stick/tablet rgnt non-auto w/o micrscpCorey Victorina DO Work Phone: Start: 03-55-4285Wuhuy dip stick/tablet rgnt non-auto w/o micrscpAmy Bernard PA Work Phone: Start: 49-31-8010Lutxq dip stick/tablet rgnt non-auto w/o micrscpCorey Victorina DO Work Phone: Start: 22-52-5620TCP CBC WITH AUTO DIFFAmy Bernard PA Work Phone: Start: 11-75-8201XZ OB ANATOMYCorey Victorina DO Work Phone: Start: 65-78-2830CC OB CERVICAL LENGTHCorey Victorina DO Work Phone: Start: 50-57-3734Yrdmq dip stick/tablet rgnt non-auto w/o micrscpAmy [place] PA Work Phone: Start: 91-80-3314NBZ, SERUM, OPEN SPINA BIFIDACorey Victorina DO Work Phone: Start: 27-04-5873Lqxzp dip stick/tablet rgnt non-auto w/o micrscpCorey Victorina DO Work Phone: Start: 94-96-7847PFBJHGKWPQ/DISCHARGE PLUS VAGINITIS (HTRX)Raúl Victorina DO Work Phone: Start: 03-01-2383Ukuta dip stick/tablet rgnt non-auto w/o micrscpCorey Victorina DO Work Phone: Start: 21-29-2779HCE CBC WITH AUTO DIFFCorey Victorina DO Work Phone: Start: 59-51-3078Jexva dip stick/tablet rgnt non-auto w/o micrscpCorey Victorina DO Work Phone: Start: 50-07-1316MJ OB TRANSVAGINALCorey Victorina DO Work Phone: Start: 79-64-2326XUU CBC WITH AUTO DIFFCorey Victorina DO Work Phone: Start: 70-85-7730Qjchg dip stick/tablet rgnt non-auto w/o micrscpCorey Victorina DO Work Phone: Start: 19-35-1746UP for multiple gestation limitedCorey Victorina DO Work Phone: Plan of Treatment DateCare ActivityDetailAuthorStart: 57-71-8421HavutjauzCarilion [facility] HospitalStart: 11-27-2024 End: 11-75-4733Sifrswi encounter lwwzmpyqb24/09/2025 3:30 PM EDT Office Visit [facility] [address] [place] [address] Kadi Mercado PA [address] [place] [address] [facility] BCP OBStart: 08-29-2024 End: 37-48-7968Wmidafo encounter rcvpqvfap31/11/2025 9:20 AM EDT Routine [facility] [address] [place] [address] Kadi Mercado PA [address] [place] [address] [place] [address] [facility] BCP OBStart: 08-22-2024 End: 64-82-2820LYHXPXW, GROUP B STREP WITH SUSCEPTIBLITYCULTURE, GROUP B STREP WITH SUSCEPTIBLITY Lab Routine Third trimester Expected: 08/22/2024, Expires: 08/22/2025[facility] Work Phone: comment on above:Expected: 08/22/2024, Expires: 08/22/2025Start: 08-22-2024 End: 40-87-5812Cfimajs encounter irmtsecwm16/04/2025 1:30 PM EST Routine [facility] [address] [place] [address] [place] [phone] Raúl Prajapati, [address] [place] [address] [facility] BCP OBStart: 08-14-2024 End: 33-64-7191Jghjxkb encounter /24/2025 2:40 PM EST Routine [facility] [address] [place] [address] [place] [address] Raúl Prajapati, [address] [place] [address] [facility] BCP OBStart: 07-12-2024 End: 05-88-0350Wlsalla encounter qqttbsikw70/22/2025 3:00 PM EST Routine [facility] [address] [facility] [place] [address] Kadi Mercado PA [address] [place] [address] [place] [address] ArrivedNOMS BCP OBComment on above: ArrivedStart: 06-26-2024 End: 15-06-4482Vxfrzwu encounter oplxegubm06/06/2025 3:10 PM EST Routine [facility] [address] [facility] [place] [address] Kadi Mercado PA [address] [place], [place] [id number] [facility] BCP OBStart: 06-26-2024 End: 49-43-9728Jvcxvqiqlwja / ancillary services /06/2025 2:30 PM EST Ancillary Procedure [facility] [address] [place] [phone] [facility] BCP OBStart: 06-05-2024 End: 92-73-3829QA for pregnancyUS OB INCOMPLETE ANATOMY Imaging Routine Encounter for follow-up ultrasound of anatomy Expected: 06/05/2024 (Approximate), Expires: 06/05/2025[facility] Work Phone: comment on above:Expected: 06/05/2024 (Approximate), Expires: 06/05/2025Start: 06-05-2024 End: 41-39-2029Nwrjcgm encounter procedureNOMS BCP OBComment on above:Arrived Start: 05-11-2024 End: 81-53-6362Nlvbo fetoprotein, maternalAlpha fetoprotein, maternal Lab Routine Need for maternal serum alpha-protein (MSAFP) screening Expected: 05/11/2024 (Approximate), Expires: 05/11/2024[facility] HealthcareComment on above: Expected: 05/11/2024 (Approximate), Expires: 05/11/2024Start: 05-09-2024 End: 48-78-4033Tyclxxq encounter nptoffsch29/19/2024 2:30 PM EST Routine [facility] [address] [facility] [place] [address] Kadi Mercado PA [address] [place], [place] [address] [facility] BCP OBStart: 05-09-2024 End: 99-92-0003QRV panel - Blood by Automated countCBC Lab Routine Diabetes mellitus screening Expected: 05/09/2024 (Approximate), Expires: 05/09/2025[facility] Work Phone: comment on above:Expected: 05/09/2024 (Approximate), Expires: 05/09/2025Start: 05-09-2024 End: 29-68-7218Giiipydkizp of glucose 1 hour after glucose challenge for glucose tolerance testGlucose tolerance, 1 hour Lab Routine Diabetes mellitus screening Expected: 05/09/2024 (Approximate), Expires: 05/09/2025[facility] HealthcareComment on above:Expected: 05/09/2024 (Approximate), Expires: 05/09/2025Start: 05-09-2024 End: 44-43-2991Mhthvlilrqth / ancillary services llbbcxlfoe38/19/2024 1:30 PM EST Ancillary Procedure [facility] [address] [facility] [place] [address] [facility] OBStart: 04-10-2024 End: 39-66-6800Wxbqadi encounter qrvfhfdax53/21/2024 2:50 PM EDT Routine [facility] [address] [facility] [place] [address] Raúl Prajapati, DO [address] [place], [facility] OBStart: 04-10-2024 End: 80-40-3237AX for pregnancyUS OB ANATOMY SINGLE W US OB CERVICAL LENGTH Imaging Routine Screening, , for anatomic survey Expected: 04/10/2024 (Approximate), Expires: 04/10/2025[facility] HealthcareComment on above: Expected: 04/10/2024 (Approximate), Expires: 04/10/2025Start: 03-13-2024 End: 97-22-7400Odsxqgz encounter procedureNOMS [facility] OBComment on above:Arrived Start: 14-78-8000Ckrwrisrv vaccinationInfluenza Vaccine (#1)[facility] Start: 02-10-2024 End: 98-42-2482LQF/RhABO/Rh Lab Routine Missed menses Expected: 02/10/2024 (Approximate), Expires: 02/09/2025[facility] HealthcareComment on above:Expected: 02/10/2024 (Approximate), Expires: 02/09/2025Start: 02-10-2024 End: 94-07-4305Zktue type and Indirect antibody screen panel - BloodType and screen Lab Routine Missed menses Expected: 02/10/2024 (Approximate), Expires: 02/09/2025[facility] Work Phone: comment on above:Expected: 02/10/2024 (Approximate), Expires: 02/09/2025Start: 02-10-2024 End: 15-59-3666YW Pelvis transvaginalUS OB transvaginal Imaging Routine Missed menses Expected: 02/10/2024 (Approximate), Expires: 02/09/2025[facility] Healthcare Comment on above:Expected: 02/10/2024 (Approximate), Expires: 02/09/2025Start: 08-11-2023 End: 26-06-3026Rdnyybg encounter pohhvbvhd70/21/2024 10:30 AM EST Routine [facility] [address] [place] [phone] Raúl Prajapati, DO [address] [place] [address] [facility] BCP OBStart: 08-04-2023 End: 01-35-3763FT for pregnancyUS OB SCAN FOR GROWTH Imaging Routine Excessive growth affecting management of in third trimester, single or unspecified fetus Expected: 08/04/2023 (Approximate), Expires: 2024[facility] Work Phone: comment on above:Expected: 08/04/2023 (Approximate), Expires: 08/04/2024Start: 03-43-9765Ahzbqlwpsnixu pyogenes Ag [Presence] in ThroatGroup A Strep Throat CultureFlower HospitalBacteria identified in Urine by CultureUrine culture Microbiology Routine Missed menses Ordered: 02/10/2024[facility] HealthcareComment on above:Ordered: 02/10/2024BC W Auto Differential panel - BloodCBC and differential Lab Routine Missed menses Ordered: 02/10/2024[facility] HealthcareComment on above:Ordered: 02/10/2024HLAMYDIA TRACHOMATIS (GENITO/STI)CHLAMYDIA TRACHOMATIS (GENITO/STI) Lab Routine Exposure to STD Ordered: 04/10/2024[facility] HealthcareComment on above:Ordered: 04/10/2024 Hemoglobin A1c/Hemoglobin.total in BloodHemoglobin A1c Lab Routine Missed menses Ordered: 02/10/2024[facility] HealthcareComment on above:Ordered: 02/10/2024Hepatitis B virus surface Ag [Presence] in Serum or Plasma by ImmunoassayHepatitis B surface antigen Lab Routine Missed menses Ordered: 02/10/2024[facility] Healthcare Comment on above:Ordered: 02/10/2024Hepatitis C virus Ab [Presence] in Serum or Plasma by ImmunoassayHepatitis C antibody Lab Routine Missed menses Ordered: 02/10/2024[facility] HealthcareComment on above:Ordered: 02/10/2024HIV-1/HIV-2 antigen/antibody combination immunoassayHIV-1 and HIV-2 antibodies Lab Routine Missed menses Ordered: 02/10/2024[facility] HealthcareComment on above:Ordered: 02/10/2024Neisseria gonorrhoeae DNA [Presence] in Unspecified specimen by JUVENCIO with probe detectionNeisseria gonorrhea DNA probe, direct Lab Routine Exposure to STD Ordered: 04/10/2024[facility] HealthcareComment on above:Ordered: 04/10/2024 Patient EducationSore Throat, Adult [facility] Work Phone: Patient [facility] Work Phone: Reagin Ab [Presence] in Serum by RPRRPR Lab Routine Missed menses Ordered: 02/10/2024[facility] HealthcareComment on above:Ordered: 02/10/2024ubella antibody, IgGRubella antibody, IgG Lab Routine Missed menses Ordered: 02/10/2024[facility] HealthcareComment on above:Ordered: 02/10/2024 SURESWAB(R) ADVANCED VAGINITIS PLUS, TMASURESWAB(R) ADVANCED VAGINITIS PLUS, TMA Pathology and Cytology Routine Vaginal discharge Ordered: 04/10/2024[facility] Work Phone: comment on above:Ordered: 04/10/2024 Payers DatePayer CategoryPayerPolicy [id number]-pay2022Medicaid [id number] Health Insurance [id number] 2.16.840.1.212859.3.57[id number] 2.16.840.1.823823.3.57[id number] 2.16.840.1.883108.3.57[id number] 2.16.840.1.002915.3.57[id number] 2.16.840.1.490858.3.57[id number] 2.16.840.1.489510.3.57[id number] 2.16.840.1.003224.3.57[id number] 2.16.840.1.598841.3.57[id number] 2.16.840.1.665812.3.57[id number] 2.16.840.1.572461.3.57[id number] 2.16.840.1.939767.3.57[id number] 2.16.840.1.079456.3.579.[id number] 2.16.840.1.533346.3.57[id number] 2.16.840.1.942074.3.57[id number] 2.16.840.1.835541.3.57[id number] 2.16.840.1.199366.3.57[id number] 2.16.840.1.501659.3.579.2.531 Social History DateTypeDetailFacilityUnknown if ever smokedReading [employer] Other Start: 04-07-2023 End: 65-22-8465Zby [facility] [employer] Other Start: 02-14-2023 End: 54-48-5766Nitwubw smoking status NHISNever smoked tobacco (finding) [facility]: 32-55-5432Fib Assigned At BirthFemale [facility]: 08-04-2023 End: 38-14-7110Yugjqfu intakeLifetime non-drinker (finding)[facility] HealthcareStart: 04-07-2023 End: 96-59-0471Gcwekxs of Social functionNOMS HealthcareStart: 05-85-1958Iebgcqt CommentCaffeine intake: 1-2 cups per dayNOMS HealthcareStart: 12-16-2022 PregnancyNOMS HealthcareStart: 34-81-2725Jxd Assigned At BirthNot on fileNOMS HealthcareSexFemale (finding)[facility] 09-02-2022 [facility] Clinical Notes 02-11-2023 to 03-14-2025 Note Date & WhxvYryiLtwmyrgd21-46-6477 Evaluation note* Diagnosis Onset Date Resolution Status Admit Date Fracture of right talus acuteSeptember 2024 4:29pmRight foot sprainacuteOctober 2024 9:14am [facility] Work Phone: 1(703) 347-603505-06-2025 History of Present illness Narrative* FLORENCIA Pedroza - 10/24/2024 10:30 AM EDT Reason for Appointment: Patient ID: Samantha Blanchard is a 19 y.o. female who presents [...] behalf of: FLORENCIA Pedroza documented in this encounterMercy Hospital WashingtonIkhskijwgi51-30-3548 History of Present illness Narrative* Norma Felipe LPN - 09/05/2024 9:20 AM EDT Reason for Appointment: Patient ID: Samantha Blanchard [...] nursing note reviewed. Exam conducted with a guest relations associate present. Vitals: Estimated body mass index is [...] of: Raúl Prajapati DO documented in this encounterMercy Hospital WashingtonJqhfjyntfr94-71-7985 History of Present illness Narrative* Carolina Porter LPN - 08/22/2024 1:30 PM EST Reason for Appointment: Patient ID: Samantha Blanchard [...] nursing note reviewed. Exam conducted with a guest relations associate present. Vitals: Estimated body mass index is [...] of: Raúl Prajapati DO documented in this encounterMercy Hospital WashingtonNckcrfmobx43-67-1577 History of Present illness Narrative* Carolina Porter LPN - 08/14/2024 2:40 PM EST Reason for Appointment: Patient ID: Samantha Blanchard [...] nursing note reviewed. Exam conducted with a guest relations associate present. Vitals: Estimated body mass index is [...] of: Raúl Prajapati DO documented in this encounterMercy Hospital WashingtonWsbammlhnw36-13-7649 History of Present illness Narrative* Carolina Porter LPN - 07/27/2024 11:20 AM EST Reason for Appointment: Patient ID: Samantha Blanchard [...] nursing note reviewed. Exam conducted with a guest relations associate present. Vitals: Estimated body mass index is [...] of: Raúl Prajapati DO documented in this encounterMercy Hospital WashingtonLbemryawsf06-87-5282 History of Present illness Narrative* FLORENCIA Pedroza - 06/26/2024 3:10 PM EST Reason for Appointment: Patient ID: Samantha Blanchard [...] behalf of: FLORENCIA Pedroza documented in this encounterMercy Hospital WashingtonLtlnmgtcmr64-66-2168 History of Present illness Narrative* Norma Felipe, EPIFANIO - 06/05/2024 10:00 AM EST Reason for Appointment: Patient ID: Samantha Blanchard [...] nursing note reviewed. Exam conducted with a guest relations associate present. Vitals: Estimated body mass index is [...] of: Raúl Prajapati DO documented in this [facility]11-20-2024 Miscellaneous Notes* Result Encounter Note - Karen Browne LPN [...] Will send out letter documented in this [facility]11-20-2024 Progress note* Result Encounter Note - Karen Browne LPN - 05/10/2024 3:50 AM EST Attempted to call pt but it said her phone wasn't taking calls right now. Will try again later. [place] [address]-20-2024 Progress note* Result Encounter Note - Karen Browne LPN - 05/10/2024 3:50 AM EST Tried calling pt again and it said they she is not taking calls right now. Will try again [place] [address]-20-2024 Progress note* Result Encounter Note - Karen Browne LPN - 05/10/2024 3:50 AM EST Called a third time and the same thing is happening. Will send out letter [place] [address]-19-[address]24 History of Present illness Narrative* FLORENCIA Pedroza - 05/09/2024 2:30 PM EST Reason for Appointment: Patient ID: Samantha Blanchard [...] behalf of: FLORENCIA Pedroza documented in this encounterMercy Hospital WashingtonQfhlhcptag26-36-8887 History of Present illness Narrative* Carolina Porter, SOLUTION COORDINATOR - 04/10/2024 2:50 PM EDT Reason for Appointment: Patient ID: Samantha Blanchard [...] nursing note reviewed. Exam conducted with a guest relations associate present. Vitals: Estimated body mass index is [...] of: Raúl Prajapati DO documented in this encounterMercy Hospital WashingtonPzsbhyaacg36-84-2930 History of Present illness Narrative* Carolina Porter LPN - 03/13/2024 1:50 PM EDT Reason for Appointment: Patient ID: Samantha Blanchrad is a 18 y.o. female who presents [...] nursing note reviewed. Exam conducted with a guest relations associate present. Vitals: Estimated body mass index is [...] or undercooked meat, and [facility] Patient has been consulted regarding any further do's and don'tsof . Patient voiced understanding and all questions and concerns were answered. Patient hiram ires to have IOL on 09/11/24. Recommended that patient start Baby Aspirin 81mg daily. Orders Placed This Encounter Procedures POCT urinalysis dipstick manually resulted Follow Up: Patient is to return in 4 weeks for routine OB appointment. Documented by Carolina Porter LPN on behalf of: Raúl Prajapati DO documented in this encounterMercy Hospital WashingtonDlyflyctze03-59-1628 History of Present illness Narrative* Kiera Dupont LPN - 02/10/2024 1:00 PM EDT Reason for Appointment: Patient ID: Samantha Blanchard [...] drink 6-8 glasses of water a day, eatno raw or undercooked meat, and [facility] away [facility]. Patient has also been advised to not change litter boxes and eat 6 small meals a day. Patient has been consulted regarding the do's and don'ts ofpregnancy. Patient was given labs and all questions [...] by: Kiera Dupont LPN documented in this encounterMercy Hospital WashingtonTjkpnmghzb95-25-1802 History of Present illness Narrative* Norma Felipe LPN - 08/04/2023 10:50 AM EST Reason for Appointment: Patient ID: Samantha Blanchard [...] nursing note reviewed. Exam conducted with a guest relations associate present. Vitals: Estimated body mass index is [...] of: Raúl Prajapati DO documented in this encounterMercy Hospital WashingtonLwlioxzglh13-25-8581 Evaluation note* Encounter Date Diagnosis Assessment Notes Treatment Notes Treatment Clinical Notes Jan, Swelling of eyelid, unspecified laterality (ICD-10 - H02.849) Continue to apply cool compresses to your eyes. Take the Medrol Dosepak as prescribed until gone. Follow-up with your family physician if no improvement in 2 to 3 days. Go to the ER for worsening symptoms or concerns [employer] Other Evaluation noteNo assessment information available [facility] Work Phone: Evalujxzmy note* Diagnosis Third trimester state, incidental Excessive [...] iron deficiency anemia documented in this encounter [facility] HealthcareEvaluation note* Diagnosis Missed menses Nausea Nausea alone documented in this encounter [facility] HealthcareEvaluation note* Diagnosis Second trimester state, incidental [...] generalized (CMS/HCC) documented in this encounter [facility] HealthcareReason for referral (narrative)No reason for referral information availableMercy Health Anderson Hospital Work Phone: Summary Purpose Family History Relationship Condition Age at Onset Recorded Date/T raymundo father Hypertension Unknown Advance Directives Advance Directive Response Recorded Date/ Time Advance Directives No February 14, 2023 8:21pm Chief Complaint and Reason for Visit Chief Complaint throat swollen/bleed ing Chief Complaint Admit Date foot note seen in [facility] needs work no te March 14, 2025 4:29pm Chief Complaint Admit Date foot note seen in [facility] needs work no te March 14, 2025 4:29pm UC 250 RT FOOR FX WX [facility] March 23 9:14am Reason for Visit Admit Date Fracture of right talus March 14, 2025 4:29pm Right foot sprain March 23, 2025 9: 14am Additional Source Comments INFORMATION SOURCE (unrecogn ized section and content) DATE CREATED AUTHOR 03/21/2022 [facility] DATE CREATED AUTHOR AUTHOR'S ORGANIZ ATION 02/26/2023 [facility] DATE CREATED AUTHOR AUTHOR'S ORGANIZ ATION 10/27/2024 [facility] EPIC REASON FOR VISIT (unrecogniz ed section and content) ReasonCommentsRoutine VisitReasonCommentsPostpartum Care Care Teams (unrecognized sec tion and content) Team Status: Active Member Role Status Dates NON STAFF Primary Care Provider Active Team Status: Inactive Member Role Status Dates Toi J Edward , PA-C Emergency Provider Active NON STAFFPrimary Care ProviderActiveTeam MemberRelationshipSpecialtyStart Date End Date Kadi Mercado PA [address] [facility] [address] [place], [place] [address] PCP [address]07/14Te MemberRelationshipSpecialtyStart DateEnd Date Kadi Mercado PA [address] [facility] [address] [place], [facility] PCP [address]07/14Te MemberRelationshipSpecialtyStart DateEnd Date Kadi Mercado PA [address] [facility] [address] [place], [place] [address] [address]07/14Te MemberRelationshipSpecialtyStart DateEnd Date Kadi Mercado PA [address] [facility] [address] [place], [place] [address] [address]07/14Te MemberRelationshipSpecialtyStart DateEnd Date Kadi Mercado PA [address] [facility] [address] [place], [facility]11 [address]07/14Te MemberRelationshipSpecialtyStart DateEnd Date Kadi Mercado PA [address] [facility] [place] [address] [address]07/14Te MemberRelationshipSpecialtyStart DateEnd Date Kadi Mercado PA [address] [facility] [address] [place], [facility]11 [facility]12/20/23Team MemberRelationshipSpecialtyStart DateEnd Date Raúl Prajapati, DO [address] [place] [address] [facility]06/21/24Team MemberRelationshipSpecialtyStart DateEnd Date Raúl Prajapati, DO [address] [place], [facility]06/21/24Team MemberRelationshipSpecialtyStart DateEnd Date Raúl Prajapati, DO [address] [place], [facility]11 [facility]06/21/24Team MemberRelationshipSpecialtyStart DateEnd Date Raúl Prajapati, DO [address] [place], [facility]06/21/24Team MemberRelationshipSpecialtyStart DateEnd Date Thi Prajapatiy, DO [address] [place], [facility]06/21/24 Team Status: Inactive Member Role Status Dates NON STAFF Primary Care Provider Active Start: March 14, 2025 End: March 14, 2025Eddy Mejía ProviderActiveStart: March 14, 2025 End: March 14, 2025 Team Status: Inactive Member Role Status Dates NON STAFF Primary Care Provider Active Start: March 23, 2025 End: March 23, 2025Toño Pulliam ProviderActiveStart: March 23, 2025 End: March 23, 2025Team MemberRelationshipSpecialtyStart DateEnd Date Raúl Prajapati DO [address] [place] [address] PCP [facility]06/21/24Team MemberRelationshipSpecialtyStart DateEnd Date Kadi Mercado PA [address] [place] [address] [facility]/ Raúl Prajapati DO [address] [place] [address] [facility]06/21/24Team MemberRelationshipSpecialtyStart DateEnd Date Raúl Prajapati DO [address] [place] [address] [facility]06/21/24 Goals (unrecognized section and content) Goals may [...] BE BASED ON THE PRIMARY CLINICAL RECORDS. [facility]. provides no warranty or guarantee of the accuracy or completeness of information in this document.
== END 2025-06-18 09:03 | disposition home or self-care (01) ==
PROVIDERS: Visit Provider Orthopaedic Surgery Orthopaedic Trauma
DX: S93.601D Unspecified sprain of right foot, subsequent encounter (principal)
CPT/HCPCS: 73630